=== PATIENT | female | born 1965 | race Caucasian/White ===

== ENCOUNTER → 2016-10-08 | Outpatient (CLI) | payer BC ==
--- NOTE | 2016-10-10 10:32 | MR ---
EXAMINATION TYPE: MR knee RT wo con DATE OF EXAM: 10/08/2016 8:24 AM COMPARISON: X-ray dated 09/27/2016 HISTORY: Right knee pain TECHNIQUE: Multiplanar, multisequence imaging of the knee is performed without IV contrast. FINDINGS: MEDIAL MENISCUS: There is a linear tear involving the posterior horn of the medial meniscus with exte nsion to the body. LATERAL MENISCUS: Intrasubstance linear signal involving the posterior horn does not extend to the ar ticular surface and is more typical myxoid degeneration. CRUCIATE LIGAMENTS: The anterior and posterior cruciate ligaments are intact and unremarkable. COLLATERAL LIGAMENTS: The medial collateral ligament and lateral collateral ligament complex are inta ct and unremarkable. EXTENSOR MECHANISM: Visualized quadriceps and patellar tendons are intact. EFFUSION: No significant suprapatellar joint effusion. POPLITEAL CYST: There is a 1.5 x 3.7 x 3.4 cm popliteal fossa cyst TRICOMPARTMENT SPACES: There is narrowing of the medial compartment of knee joint and patellofemoral joint. Fibrillation of the medial articular femoral cartilage noted compatible with chondromalacia. P atellar cartilage is intact with evidence of grade II chondromalacia near the apex. BONE MARROW SIGNAL: There is a small focal area of marrow edema or contusion involving the posterior medial tibial plateau. No fracture line seen. OTHER: No additional significant abnormality is appreciated. IMPRESSION: 1. Posterior horn medial meniscal linear tear. 2. Osteoarthritis with chondromalacia as discussed above 3. Large popliteal fossa cyst measuring 1.5 x 3.7 x 3.4 cm. 4. nonspecific marrow edema or contusion posterior medial tibial plateau with no fracture line. May b e reactive.
== END | disposition home or self-care (01) ==
LOC: RADMRIMAIN 07:40
PROVIDERS: ATTEND Orthopaedic Surgery
DX: S83.241A Other tear of medial meniscus, current injury, right knee, initial encounter (principal); M17.11 Unilateral primary osteoarthritis, right knee; M71.21 Synovial cyst of popliteal space [Baker], right knee

== ENCOUNTER → 2016-10-21 | Outpatient (CLI) | payer BC ==
[2016-10-21 06:45] LABS: EKG EKG PERFORMED
[2016-10-21 07:33] LABS: Basophils # (A) 0.1 k/uL (0-0.2); Basophils % (A) 1 %; CH 32.3; CHCM 34.3; Eosinophils # (A) 0.1 k/uL (0-0.7); Eosinophils % (A) 1 %; HCT 44.6 % (34.0-46.0); HDW 2.39; HGB 14.8 gm/dL (11.4-16.0); Luc # (Auto) 0.13; Luc % (Auto) 2; Lymphocytes # (A) 1.8 k/uL (1.0-4.8); Lymphocytes % (A) 22 %; MCH 31.5 pg (25.0-35.0); MCHC 33.3 g/dL (31.0-37.0); MCV 94.6 fL (80.0-100.0); Monocytes # (A) 0.4 k/uL (0-1.0); Monocytes % (A) 5 %; Neutrophils # (A) 5.8 k/uL (1.3-7.7); Neutrophils % (A) 70 %; RBC 4.71 m/uL (3.80-5.40); RDW 12.3 % (11.5-15.5); WBC 8.3 k/uL (3.8-10.6); WBC (Perox) 8.65
[2016-10-21 07:39] LABS: Anion Gap 11 mmol/L; Carbon Dioxide 29 mmol/L (22-30); Chloride 102 mmol/L (98-107); Potassium 4.1 mmol/L (3.5-5.1); Sodium 142 mmol/L (137-145)
== END | disposition home or self-care (01) ==
LOC: LABPAT 06:37
PROVIDERS: ATTEND Orthopaedic Surgery
DX: Z01.818 Encounter for other preprocedural examination (principal); M23.91 Unspecified internal derangement of right knee
CPT/HCPCS: 80051; 85025; 93005

== ENCOUNTER 2016-11-17 07:08 | Day surgery (SDC) | payer BC ==
[2016-10-31 08:31] VITALS: BMI 21.5
--- NOTE | 2016-11-16 19:34 | HP ---
DATE OF SURGERY: 11/17/2016 Jen Interiano is a 51-year-old patient seen with progressive right knee pain. After having treatment options discussed, she elected to proceed with right knee arthroscopy. Consent was obtained. Her past medical history is gastroesophageal reflux disease, seizures. PAST SURGICAL HISTORY: Breast biopsy, tubal ligation, colonoscopy, D&C. Daily medications: 1. Nexium. 2. Spironolactone. ALLERGIES: ASPIRIN. SOCIAL HISTORY: The patient smokes cigarettes. PHYSICAL EVALUATION OF RIGHT KNEE: Range of motion is 0 to 120 degrees. Tenderness along the medial joint line. Positive medial Margi's. Ligaments are stable. Hip rotation without pain. Distal neurovascular intact. Right knee radiographs revealed mild osteoarthritis. MRI right knee revealed medial meniscal tear. IMPRESSION: Internal derangement of right knee with medial meniscal tear. PLAN: Right knee arthroscopy with partial meniscectomy and debridement.
[~2016-11-17 07:08] MED LIST: DEXAMETHASONE SOD PHOSPHATE 10 MG/ML 1 ML VIAL IV ONE; HYDROmorphone 1 MG/ML 1 ML SYRINGE IVP PRN; LACTATED RINGERS 1,000 ML IV SCH; MIDAZOLAM 2 MG/2 ML VIAL IV PRN; ONDANSETRON 4 MG/2 ML VIAL IVP ONE; ceFAZolin 1,000 MG in DEXTROSE/WATER 1 50ML.BAG IV ONE
[2016-11-17] MEDS ORDERED: LIDOCAINE 1% 20 ML VIAL (10MG/ML) FOR IV START INTRADERMA ONE (08:00)
[2016-11-17] MEDS ORDERED: MIDAZOLAM 2 MG/2 ML VIAL ONE (08:44)
[2016-11-17] MEDS ORDERED: PROPOFOL 10 MG/ML 20 ML VIAL IV ONE (08:44)
[2016-11-17] MEDS ORDERED: LIDOCAINE 1% INJ 10MG/ML (20 ML MDV) ONE (08:44)
[2016-11-17] MEDS ORDERED: fentaNYL (PF) 50 MCG/ML 2 ML AMP ONE (08:44)
[2016-11-17] MEDS ORDERED: BUPIVACAIN-EPI 0.25%-1:200,000 30 ML VIAL INTRAARTIC ONE (09:00)
--- NOTE | 2016-11-17 09:37 | P.OP ---
Date of Procedure: 11/17/16 Preoperative Diagnosis: Internal derangement right knee Postoperative Diagnosis: 1. Tear medial and lateral meniscus right knee 2. Grade 3/4 chondromalacia medial femoral condyle right knee 3. Reactive synovitis medial and suprapatellar compartments right knee Procedure(s) Performed: 1. Arthroscopic partial medial and lateral meniscectomy right knee 2. Arthroscopic chondroplasty medial femoral condyle with microfracture right knee 3. Arthroscopic partial synovectomy medial and suprapatellar compartments right knee Anesthesia: BEKAHA, local Surgeon: Jim Vee Estimated Blood Loss (ml): 5 Pathology: none sent Condition: stable Disposition: PACU Indications for Procedure: 51-year-old patient seen with right knee pain. After having treatment options discussed, she elected to proceed with right knee arthroscopy. Operative Findings: See description of procedure Description of Procedure: Patient was taken to the operative suite. Patient underwent a general anesthetic by the department of anesthesia. Patient was given preoperative antibiotics. The right lower extremity was placed in a well-padded arthroscopic leg santizo. The right leg was prepped and draped in the normal sterile orthopedic fashion. A lateral parapatellar and suprapatellar incision was made. Trochars were inserted. Arthroscopy was initiated. Suprapatellar pouch revealed thick reactive synovitis. The patellofemoral joint appeared to articulate congruently. There was grade 1 chondromalacia. The scope was guided into the medial gutter. No loose bodies or plica were identified. The scope was then guided into the medial compartment. A medial parapatellar incision was made. Trocar inserted followed by probe. There was a complex tear of the medial meniscus involving the posterior horn and midbody. There were grade 3 and 4 chondromalacia changes of the medial femoral condyle with obvious osteochondral tears present. There was reactive synovitis anteriorly. A partial medial meniscectomy was performed down to stable tissue. I performed a chondroplasty of the medial femoral condyle and partial synovectomy. There was small area where did note an obvious full-thickness osteochondral defect weightbearing surface medial femoral condyle. I performed a microfracture there. The residual osteochondral surface was stable. Scope and probe were then guided into the intercondylar notch. Cruciates were identified, probed and found to be stable. The scope and probe were then guided into lateral compartment. There was a radial tear posterior horn medial meniscus. Mild grade 1 chondromalacia changes of the tibial plateau. No loose bodies, no reactive synovitis. A partial lateral meniscectomy was performed down to stable tissue. The residual meniscus was probed and found to be stable. The scope was in guided back into the suprapatellar compartment. I introduced a motorized shaver into the suprapatellar compartment. I debrided some piecemeal fragments of meniscus. I performed a partial synovectomy. Shaver was removed. I took one more look around the entire knee, no residual debris. Instruments were now removed from the joint. The joint was infiltrated with .25% Marcaine. Steri-Strips were applied to the portal sites. Sterile dressings were applied. The patient was placed into a DAYSI hose. No tourniquet was utilized. The patient was awakened, transferred to a bed and taken to recovery stable satisfactory condition.
[2016-11-17] MEDS ORDERED: MEPERIDINE 50 MG/ML SYRINGE IVP ONE (09:39)
[2016-11-17 09:42] VITALS: RESP 16; TEMP 99.1
[2016-11-17 10:53] VITALS: BP 128/80; PULSE 79
== END 2016-11-17 11:21 | disposition home or self-care (01) ==
LOC: OR 07:08
PROVIDERS: ATTEND Orthopaedic Surgery
DX: S83.241A Other tear of medial meniscus, current injury, right knee, initial encounter (principal); S83.281A Other tear of lateral meniscus, current injury, right knee, initial encounter; X58.XXXA Exposure to other specified factors, initial encounter; M94.261 Chondromalacia, right knee; M65.861 Other synovitis and tenosynovitis, right lower leg; M21.961 Unspecified acquired deformity of right lower leg; K21.9 Gastro-esophageal reflux disease without esophagitis; F17.210 Nicotine dependence, cigarettes, uncomplicated; Z79.899 Other long term (current) drug therapy; Z88.6 Allergy status to analgesic agent
CPT/HCPCS: 29880; J2250; J1100; J2175; J2405; J2001; J3010; J0690; J2704

== ENCOUNTER → 2017-04-07 | Outpatient (CLI) | payer BC ==
[2017-04-07 07:07] LABS: Basophils # (A) 0.1 k/uL (0-0.2); Basophils % (A) 1 %; CHCM 34.1; Eosinophils # (A) 0.2 k/uL (0-0.7); Eosinophils % (A) 2 %; HCT 46.2 % (34.0-46.0); HDW 2.41; HGB 15.6 gm/dL (11.4-16.0); Luc # (Auto) 0.15; Luc % (Auto) 2; Lymphocytes # (A) 1.8 k/uL (1.0-4.8); Lymphocytes % (A) 19 %; MCH 31.9 pg (25.0-35.0); MCHC 33.9 g/dL (31.0-37.0); MCV 94.3 fL (80.0-100.0); Mean Platelet Volume 6.9; Monocytes # (A) 0.4 k/uL (0-1.0); Monocytes % (A) 4 %; Neutrophils # (A) 6.6 k/uL (1.3-7.7); Neutrophils % (A) 72 %; RDW 12.7 % (11.5-15.5); WBC 9.3 k/uL (3.8-10.6); WBC (Perox) 10.04
[2017-04-07 07:31] LABS: ALT 40 U/L (9-52); AST 30 U/L (14-36); Alkaline Phosphatase 66 U/L (38-126); Anion Gap 10 mmol/L; Blood Urea Nitrogen 8 mg/dL (7-17); Carbon Dioxide 26 mmol/L (22-30); Chloride 103 mmol/L (98-107); Cholesterol 202 mg/dL (<200); Glucose 89 mg/dL (74-99); HDL Cholesterol 106 mg/dL (40-60); Non-African American GFR(MDRD) >60 (>60 ml/min/1.73 sqM); Potassium 4.5 mmol/L (3.5-5.1); Sodium 139 mmol/L (137-145); Total Bilirubin 0.6 mg/dL (0.2-1.3); Total Protein 7.5 g/dL (6.3-8.2)
== END | disposition home or self-care (01) ==
LOC: LABWHC1 06:37
PROVIDERS: ATTEND Family Medicine
DX: Z00.00 Encounter for general adult medical examination without abnormal findings (principal)
CPT/HCPCS: 36415; 80053; 80061; 85025

== ENCOUNTER → 2017-10-13 | Outpatient (CLI) | payer BC ==
[2017-10-13 08:10] LABS: ALT 38 U/L (9-52); AST 39 U/L (14-36); Albumin 4.2 g/dL (3.5-5.0); Alkaline Phosphatase 73 U/L (38-126); Anion Gap 10 mmol/L; Blood Urea Nitrogen 8 mg/dL (7-17); Calcium 7.8 mg/dL (8.4-10.2); Carbon Dioxide 27 mmol/L (22-30); Chloride 103 mmol/L (98-107); Cholesterol 192 mg/dL (<200); Glucose 81 mg/dL (74-99); HDL Cholesterol 97 mg/dL (40-60); LDL Cholesterol,Calculated 81 mg/dL (0-99); Potassium 4.8 mmol/L (3.5-5.1); Sodium 140 mmol/L (137-145); Total Bilirubin 0.5 mg/dL (0.2-1.3); Total Protein 7.1 g/dL (6.3-8.2); Triglycerides 68 mg/dL (<150)
== END | disposition home or self-care (01) ==
LOC: LABWHC1 06:42
PROVIDERS: ATTEND Family Medicine
DX: Z00.00 Encounter for general adult medical examination without abnormal findings (principal)
CPT/HCPCS: 36415; 80053; 80061

== ENCOUNTER → 2018-08-01 | Outpatient (CLI) | payer BC ==
[2018-08-01 07:13] LABS: Basophils # (A) 0.1 k/uL (0-0.2); Basophils % (A) 1 %; Eosinophils # (A) 0.1 k/uL (0-0.7); Eosinophils % (A) 1 %; HCT 44.7 % (34.0-46.0); HGB 14.6 gm/dL (11.4-16.0); Lymphocytes # (A) 1.7 k/uL (1.0-4.8); Lymphocytes % (A) 22 %; MCH 30.9 pg (25.0-35.0); MCHC 32.6 g/dL (31.0-37.0); MCV 94.7 fL (80.0-100.0); Mean Platelet Volume 6.6; Monocytes # (A) 0.3 k/uL (0-1.0); Monocytes % (A) 4 %; Neutrophils # (A) 5.7 k/uL (1.3-7.7); Neutrophils % (A) 71 %; Platelet Count 338 k/uL (150-450); RBC 4.72 m/uL (3.80-5.40); RDW 12.4 % (11.5-15.5)
[2018-08-01 14:13] LABS: Albumin 4.5 g/dL (3.80-4.90); Albumin/Globulin Ratio 2.14 (1.20-2.10); Anion Gap 8.1 mmol/L (4.00-12.00); Calcium 7.6 mg/dL (8.7-10.3); Carbon Dioxide 23.9 mmol/L (21.6-31.8); Globulin 2.1 g/dL (1.6-3.3); LDL Cholesterol,Calculated 80.6 mg/dL (0.0-131.0); Potassium 4.4 mmol/L (3.5-5.5); Total Bilirubin 0.4 mg/dL (0.3-1.2); Total Protein 6.6 g/dL (6.2-8.2); VLDL Calculation 15.4 mg/dL (5.00-40.00)
== END | disposition home or self-care (01) ==
LOC: LABWHC1 06:34
PROVIDERS: ATTEND Family Medicine
DX: Z00.00 Encounter for general adult medical examination without abnormal findings (principal)
CPT/HCPCS: 36415; 80053; 80061; 85025

== ENCOUNTER → 2019-08-01 | Outpatient (CLI) | payer BC ==
[2019-08-01 07:01] LABS: Basophils % (A) 1 %; Eosinophils # (A) 0.1 k/uL (0-0.7); Eosinophils % (A) 1 %; HCT 44.4 % (34.0-46.0); HGB 15.1 gm/dL (11.4-16.0); Lymphocytes # (A) 1.9 k/uL (1.0-4.8); Lymphocytes % (A) 21 %; MCH 32.4 pg (25.0-35.0); MCHC 33.9 g/dL (31.0-37.0); MCV 95.4 fL (80.0-100.0); Mean Platelet Volume 7.4; Monocytes # (A) 0.3 k/uL (0-1.0); Monocytes % (A) 3 %; Neutrophils # (A) 6.4 k/uL (1.3-7.7); Neutrophils % (A) 73 %; Platelet Count 337 k/uL (150-450); RBC 4.65 m/uL (3.80-5.40); RDW 12.5 % (11.5-15.5); WBC 8.8 k/uL (3.8-10.6)
[2019-08-01 12:30] LABS: African American GFR (CKD) 82.8 (60.0-200.0); Albumin 4.5 g/dL (3.80-4.90); Albumin/Globulin Ratio 1.96 (1.60-3.17); Anion Gap 6.8 mmol/L (4.00-12.00); BUN/Creat Ratio 8.89 Ratio (12.00-20.00); Calcium 7.8 mg/dL (8.7-10.3); Carbon Dioxide 26.2 mmol/L (21.6-31.8); Chol/HDL Ratio 2.06; Globulin 2.3 g/dL (1.6-3.3); LDL Cholesterol,Calculated 88.2 mg/dL (0.0-131.0); Non-African American GFR(CKD) 71.5 (60.0-200.0); Potassium 4.4 mmol/L (3.5-5.5); Total Bilirubin 0.4 mg/dL (0.3-1.2); Total Protein 6.8 g/dL (6.2-8.2); VLDL Calculation 17.8 mg/dL (5.00-40.00)
== END | disposition home or self-care (01) ==
LOC: LABWHC1 06:34
PROVIDERS: ATTEND Family Medicine
DX: Z00.00 Encounter for general adult medical examination without abnormal findings (principal)
CPT/HCPCS: 36415; 80053; 80061; 85025

== ENCOUNTER 2020-06-18 07:52 | Observation (INO) | payer BC ==
[2020-06-18] MEDS ORDERED: HYDROmorphone 0.5 MG/0.5 ML SYRINGE IVP STA (08:08)
[2020-06-18] MEDS ORDERED: SODIUM CHLORIDE 0.9% 500 ML 500 ML IV ONE (08:08)
[2020-06-18] MEDS ORDERED: ONDANSETRON 4 MG/2 ML VIAL IVP STA (08:08)
[2020-06-18] MEDS ORDERED: PIPERACILLIN-TAZOBACTAM 3.375 GM in SODIUM CHLORIDE 0.9% 100 ML IVPB STA (08:27)
--- NOTE | 2020-06-18 08:32 | ED ---
Abdominal Pain HPI - General Source: patient Mode of arrival: ambulatory Limitations: no limitations <Dionna Powell - Last Filed: 06/18/20 10:29> <Annalee Clayah Akira - Last Filed: 06/20/20 12:55> - General Chief Complaint: Abdominal Pain Stated Complaint: R Side Abd Pain Time Seen by Provider: 06/18/20 08:04 - History of Present Illness Initial Comments: 55yo female presenting RLQ pain x 5 days. Patient states that for the past 5 days she has had right lower quadrant pain has increased now she states she can barely walk secondary to the pain she denies any chest pain shortness of breath up her bowel pain she denies history of kidney stone she states she does have her appendix which she is concerned about. She denies fevers. Denies uri symptoms, denies urinary symptoms. Patient appears very uncomfortable on arrival. (Dionna Powell) - Related Data Home Medications Medication Instructions Recorded Confirmed Calcium Carb-Vit D 500Mg-200Un 2 tab PO DAILY 10/31/16 06/18/20 [Oscal 500+D] Inulin/Chromium Picolinate [Fiber 2 tab PO DAILY 10/31/16 06/18/20 Gummies Chew] Multivit with Calcium,Iron,Min 1 each PO DAILY 10/31/16 06/18/20 [Women's Multivitamin] [place]-3 Fatty Acids/Fish Oil [Fish 3 cap PO DAILY 10/31/16 06/18/20 Oil 1,000 mg Softgel] Guaifenesin/Pseudoephedrne HCl 1 tab PO BID 06/18/20 06/18/20 [Mucinex D ER 1,200-120 mg Tab] Spironolactone [Aldactone] 75 mg PO DAILY 06/18/20 06/18/20 Previous Rx's Medication Instructions Recorded Albuterol Inhaler [Ventolin Hfa 2 puff INHALATION Q4H PRN #1 puff 06/19/20 Inhaler] Budesonide-Formot 160-4.5 Mcg 1 puff INHALATION RT-BID #1 puff 06/19/20 [Symbicort 160-4.5 Mcg Inhaler] Famotidine [Pepcid] 20 mg PO BID #60 tab 06/19/20 Nicotine 21Mg/24Hr Patch [Habitrol] 1 patch TRANSDERM DAILY #14 patch 06/19/20 Zinc Sulfate [Orazinc] 220 mg PO DAILY #30 cap 06/19/20 predniSONE 10 mg PO DAILY #30 tab 06/19/20 Allergies Allergy/AdvReac Type Severity Reaction Status Date / Time aspirin AdvReac GI upset Verified 06/18/20 09:43 monosodium glutamate [MSG] AdvReac GI upset Verified 06/18/20 09:43 Review of Systems ROS Other: All systems not noted in ROS Statement are negative. <Dionna Powell - Last Filed: 06/18/20 10:29> ROS Other: All systems not noted in ROS Statement are negative. <Carmelina Clay - Last Filed: 06/20/20 12:55> ROS Statement: Those systems with pertinent positive or pertinent negative responses have been documented in the HPI. Past Medical History Past Medical History: No Reported History History of Any Multi-Drug Resistant Organisms: None Reported Past Surgical History: Orthopedic Surgery, Tubal Ligation Additional Past Surgical History / Comment(s): right knee, trigger finger Past Psychological History: No Psychological Hx Reported Smoking Status: Current every day smoker Past Alcohol Use History: Occasional Past Drug Use History: None Reported <Dionna Powell - Last Filed: 06/18/20 10:29> General Exam Limitations: no limitations <Dionna Powell - Last Filed: 06/18/20 10:29> - General Exam Comments Initial Comments: General: The patient is awake and alert, in no distress Eye: Pupils are equal, round and reactive to light, extra-ocular movements are intact. No nystagmus. There is normal conjunctiva bilaterally. No signs of icterus. Ears, nose, mouth and throat: There are moist mucous membranes and no oral lesions. Neck: The neck is supple, there is no tenderness or JVD. Cardiovascular: There is a regular rate and rhythm. No murmur, rub or gallop is appreciated. Respiratory: Lungs are clear to auscultation, respirations are non-labored, breath sounds are equal. No wheezes, stridor, rales, or rhonchi. Gastrointestinal: Soft, non-distended, very tendon right side of abdomen, mostly lower, liver does appear enlarged to palpation. Pt guarding. NoSome ride sided CVA tenderness. Musculoskeletal: Normal ROM, no tenderness. Strength 5/5. Sensation intact. Pulses equal bilaterally 2+. Neurological: A&O x 3. CN II-XII intact, There are no obvious motor or sensory deficits. Coordination appears grossly intact. Speech is normal. Skin: Skin is warm and dry and no rashes or lesions are noted. Psychiatric: Cooperative, appropriate mood & affect, normal judgment. (Dionna Powell) Course <Dionna Powell - Last Filed: 06/18/20 10:29> Vital Signs 06/18/20 06/18/20 06/18/20 07:57 12:41 13:37 Temperature 98.4 F Pulse Rate 106 H 98 Respiratory 18 18 Rate Blood Pressure 136/85 140/90 O2 Sat by Pulse 97 94 L 98 Oximetry - Reevaluation(s) Reevaluation #1: pain much better on reevaluation, discussed concern for cancer, ordered medications for anxiety. covid swab pending no symptoms. (Dionna Powell) Medical Decision Making - Lab Data Result diagrams: 06/18/20 08:33 06/18/20 08:33 <Dionna Powell - Last Filed: 06/18/20 10:29> - Lab Data Result diagrams: 06/18/20 08:33 06/18/20 08:33 <Carmelina Clay - Last Filed: 06/20/20 12:55> - Medical Decision Making Labs stable. some increase in alkaline phos. there is nitrates in urine concerning for UTI. Patient given abx IV. Patient has appears to be liver metastasis with unclear origin possible right kidney. Patient's pain controlled, she states only increases now with movement. Patient very anxious after discussing CT results patient given anxiety medications. Patient will be admitted for oncology consultation and pain management. Patient agreeable to care plan. (Dionna Powell) I was available for consultation in the emergency department. The history and physical exam were done by the midlevel provider. I was consulted for this patients care. I reviewed the case with the midlevel provider and based on t heir presentation of the patient, I agree with the assessment, medical decision making and plan of care as documented. Chart was dictated using fl3ur dictation software. Attempts were made to corre ct any dictation errors however some typographical errors may persist. Patient was seen during a national state of emergency due to the Covid-19 pandemic. (Carmelina Clay) - Lab Data Lab Results 06/18/20 06/18/20 06/18/20 Range/Units 08:33 08:33 08:33 WBC 11.9 H (3.8-10.6) k/uL RBC 4.74 (3.80-5.40) m/uL Hgb 14.9 (11.4-16.0) gm/dL Hct 43.8 (34.0-46.0) % MCV 92.6 (80.0-100.0) fL MCH 31.5 (25.0-35.0) pg MCHC 34.0 (31.0-37.0) g/dL RDW 11.9 (11.5-15.5) % Plt Count 373 (150-450) k/uL MPV 6.6 Neutrophils % 88 % Lymphocytes % 7 % Monocytes % 2 % Eosinophils % 1 % Basophils % 1 % Neutrophils # 10.5 H (1.3-7.7) k/uL Lymphocytes # 0.9 L (1.0-4.8) k/uL Monocytes # 0.3 (0-1.0) k/uL Eosinophils # 0.1 (0-0.7) k/uL Basophils # 0.1 (0-0.2) k/uL Sodium 129 L (137-145) mmol/L Potassium 5.0 (3.5-5.1) mmol/L Chloride 94 L (98-107) mmol/L Carbon Dioxide 25 (22-30) mmol/L Anion Gap 10 mmol/L BUN 11 (7-17) mg/dL Creatinine 0.82 (0.52-1.04) mg/dL Est GFR (CKD-EPI)AfAm >90 (>60 ml/min/1.73 sqM) Est GFR (CKD-EPI)NonAf 80 (>60 ml/min/1.73 sqM) Glucose 123 H (74-99) mg/dL Plasma Lactic Acid Uday (0.7-2.0) mmol/L Calcium 8.5 (8.4-10.2) mg/dL Total Bilirubin 0.7 (0.2-1.3) mg/dL AST 84 H (14-36) U/L ALT 30 (4-34) U/L Alkaline Phosphatase 220 H (38-126) U/L Total Protein 7.9 (6.3-8.2) g/dL Albumin 4.5 (3.5-5.0) g/dL Amylase 69 (30-110) U/L Lipase 199 (23-300) U/L Urine Color Yellow Urine Appearance Cloudy H (Clear) Urine pH 6.0 (5.0-8.0) Ur Specific [place] 1.022 (1.001-1.035) Urine Protein 1+ H (Negative) Urine Glucose (UA) Negative (Negative) Urine Ketones 1+ H (Negative) Urine Blood Negative (Negative) Urine Nitrite Positive H (Negative) Urine Bilirubin Negative (Negative) Urine Urobilinogen <2.0 (<2.0) mg/dL Ur Leukocyte Esterase Large H (Negative) Urine RBC 4 (0-5) /hpf Urine WBC 76 H (0-5) /hpf Urine WBC Clumps Rare H (None) /hpf Ur Squamous Epith Cells 6 H (0-4) /hpf Urine Bacteria Many H (None) /hpf Hyaline Casts 12 H (0-2) /lpf Urine Mucus Many H (None) /hpf 06/18/ Range/Units 08:33 WBC (3.8-10.6) k/uL RBC (3.80-5.40) m/uL Hgb (11.4-16.0) gm/dL Hct (34.0-46.0) % MCV (80.0-100.0) fL MCH (25.0-35.0) pg MCHC (31.0-37.0) g/dL RDW (11.5-15.5) % Plt Count (150-450) k/uL MPV Neutrophils % % Lymphocytes % % Monocytes % % Eosinophils % % Basophils % % Neutrophils # (1.3-7.7) k/uL Lymphocytes # (1.0-4.8) k/uL Monocytes # (0-1.0) k/uL Eosinophils # (0-0.7) k/uL Basophils # (0-0.2) k/uL Sodium (137-145) mmol/L Potassium (3.5-5.1) mmol/L Chloride (98-107) mmol/L Carbon Dioxide (22-30) mmol/L Anion Gap mmol/L BUN (7-17) mg/dL Creatinine (0.52-1.04) mg/dL Est GFR (CKD-EPI)AfAm (>60 ml/min/1.73 sqM) Est GFR (CKD-EPI)NonAf (>60 ml/min/1.73 sqM) Glucose (74-99) mg/dL Plasma Lactic Acid Uday 1.3 (0.7-2.0) mmol/L Calcium (8.4-10.2) mg/dL Total Bilirubin (0.2-1.3) mg/dL AST (14-36) U/L ALT (4-34) U/L Alkaline Phosphatase (38-126) U/L Total Protein (6.3-8.2) g/dL Albumin (3.5-5.0) g/dL Amylase (30-110) U/L Lipase (23-300) U/L Urine Color Urine Appearance (Clear) Urine pH (5.0-8.0) Ur Specific [place] (1.001-1.035) Urine Protein (Negative) Urine Glucose (UA) (Negative) Urine Ketones (Negative) Urine Blood (Negative) Urine Nitrite (Negative) Urine Bilirubin (Negative) Urine Urobilinogen (<2.0) mg/dL Ur Leukocyte Esterase (Negative) Urine RBC (0-5) /hpf Urine WBC (0-5) /hpf Urine WBC Clumps (None) /hpf Ur Squamous Epith Cells (0-4) /hpf Urine Bacteria (None) /hpf Hyaline Casts (0-2) /lpf Urine Mucus (None) /hpf Disposition Is patient prescribed a controlled substance at d/c from ED?: No Time of Disposition: 09:47 Decision to Admit Reason: Admit from EC Decision Date: 06/18/20 Decision Time: :47 <Dionna Powell - Last Filed: 06/18/20 10:29> <Carmelina Clay - Last Filed: 06/20/20 12:55> Clinical Impression: UTI (urinary tract infection), Liver metastases, Renal mass, Abdominal pain, Ileus Disposition: ADMITTED IP TO THIS [facility] Condition: Stable
[2020-06-18 08:43] LABS: Basophils # (A) 0.1 k/uL (0-0.2); Basophils % (A) 1 %; Eosinophils # (A) 0.1 k/uL (0-0.7); Eosinophils % (A) 1 %; HCT 43.8 % (34.0-46.0); HGB 14.9 gm/dL (11.4-16.0); Lymphocytes # (A) 0.9 k/uL (1.0-4.8); Lymphocytes % (A) 7 %; MCH 31.5 pg (25.0-35.0); MCV 92.6 fL (80.0-100.0); Mean Platelet Volume 6.6; Monocytes # (A) 0.3 k/uL (0-1.0); Monocytes % (A) 2 %; Neutrophils # (A) 10.5 k/uL (1.3-7.7); Neutrophils % (A) 88 %; Platelet Count 373 k/uL (150-450); RBC 4.74 m/uL (3.80-5.40); RDW 11.9 % (11.5-15.5); WBC 11.9 k/uL (3.8-10.6)
[2020-06-18] MEDS: SODIUM CHLORIDE 0.9% 1,000 ML IV SCH ×3 (08:50→20:44)
[2020-06-18 08:56] LABS: Appearance,Urine Cloudy (Clear); Bacteria,Urine Many /hpf; Bilirubin,Urine Negative (Negative); Blood,Urine Negative (Negative); Color,Urine Yellow; Glucose,Urine (UA) Negative (Negative); Hyaline Casts,Urine 12 /lpf (0-2); Ketones,Urine 1+ (Negative); Leukocyte Esterase,Urine Large (Negative); Mucus,Urine Many /hpf; Nitrite,Urine Positive (Negative); Protein,Urine 1+ (Negative); RBC,Urine 4 /hpf (0-5); Specific Gravity,Urine 1.022 (1.001-1.035); Squamous Epithelial Cell,Urine 6 /hpf (0-4); Urobilinogen,Urine <2.0 mg/dL (<2.0); WBC,Urine 76 /hpf (0-5)
[2020-06-18 08:59] LABS: ALT 30 U/L (4-34); AST 84 U/L (14-36); African American GFR (CKD) >90 (>60 ml/min/1.73 sqM); Albumin 4.5 g/dL (3.5-5.0); Alkaline Phosphatase 220 U/L (38-126); Amylase 69 U/L (30-110); Anion Gap 10 mmol/L; Blood Urea Nitrogen 11 mg/dL (7-17); Calcium 8.5 mg/dL (8.4-10.2); Carbon Dioxide 25 mmol/L (22-30); Chloride 94 mmol/L (98-107); Glucose 123 mg/dL (74-99); Lipase 199 U/L (23-300); Non-African American GFR(CKD) 80 (>60 ml/min/1.73 sqM); Sodium 129 mmol/L (137-145); Total Bilirubin 0.7 mg/dL (0.2-1.3); Total Protein 7.9 g/dL (6.3-8.2)
[2020-06-18] MEDS ORDERED: cefTRIAXone IN SWFI 1,000 MG/10 ML SYRINGE IVP STA (09:26)
--- NOTE | 2020-06-18 09:43 | CT ---
EXAMINATION TYPE: CT abdomen pelvis w con DATE OF EXAM: 06/18/2020 COMPARISON: None INDICATION: Right lower quadrant pain DLP: 589.9 mGycm, Automated exposure control for dose reduction was used. CONTRAST: 100 mL of Isovue 300. Study performed without Oral Contrast TECHNIQUE: Axial images were obtained from above the diaphragm to the pubic rami in the axial plane a t 5 mm thick sections. Reconstructed images are reviewed on the computer in the coronal plane. FINDINGS: Limited CT sections are obtained the lung bases. There is a 0.3 cm nodule within the right middle lo be. Series [address] ABDOMEN: Liver: Large heterogenous masses are present. The largest in the posterior right mid liver measures 1 0.9 cm. Additional adjacent masses are present. Large mass anterior medial right lobe measures 9.2 x 13.7 cm. Left lobe contains a 2.3 cm mass. There may be some direct extension from a right renal mass . Alternatively, the mass within the liver may be exophytic. Spleen: Normal Pancreas: Normal Adrenal glands: Left adrenal gland is normal. Right adrenal gland is not identified. Gallbladder: Not identified Kidneys: There is hypodensity in the cortex of the superior right kidney. Clear whether the mass extends from the kidney and liver or liver mass is impinging the superior pole of the kidney. Extension from the kidney is favored.. No hydronephrosis is present. No cysts are p resent. Aorta: Normal Inferior vena cava: Normal. CT PELVIS: Small bowel loops are dilated. May be some colonic wall thickening within the splenic flexure. Fluid- filled colon is present. Some fluid-filled prominent small bowel loops within the lower pelvis. The s tudy is without oral contrast limiting bowel evaluation. Appendix: Normal as visualized. Urinary bladder: Partially decompressed with limited evaluation Genitourinary structures: Uterus appears normal. Adnexal regions appear within normal limits. No free fluid is within the pelvis. Osseous structures: No suspicious lytic or sclerotic lesions. Suspicious lymphadenopathy is not identified. Report was called to the emergency room [facility]ERLINE Powell by Dr. Mensah by telephone at the time of interpre tation. [id number] hours 06/18/2020 IMPRESSIONS: 1. Normal appendix. 2. Large masses within the liver suspicious for metastatic disease. 3. Posterior right hepatic mass versus mass extending from the superior pole right kidney. 4. Edematous type thickening of the splenic flexure of the colon. 5. Mild small bowel ileus.
[2020-06-18] MEDS ORDERED: NALOXONE 0.4 MG/ML 1 ML VIAL IV PRN (09:45)
[2020-06-18] MEDS ORDERED: HYDROmorphone 0.5 MG/0.5 ML SYRINGE IVP PRN (09:45)
[2020-06-18] MEDS ORDERED: ONDANSETRON 4 MG/2 ML VIAL IVP PRN (09:45)
[2020-06-18] MEDS: ALPRAZolam 0.5 MG TAB PO PRN (10:13)
[2020-06-18] MEDS ORDERED: ALBUTEROL NEBULIZED 2.5 MG/3 ML INHALATION SCH (22:48)
--- NOTE | 2020-06-18 22:50 | P.HPIM ---
History of Present Illness H&P Date: 06/18/20 Chief Complaint: Abdominal pain History of presenting complaint: This is a 55-year-old patient of Dr. Fajardo. Patient been having increasing abdominal pain on and off for about a week. Some nausea. No fever no chills. Decreased appetite. Long-standing smoker. Had some shortness of breath and wheezing that she says is present most of the time. Pain is affecting her activity. Presented to the ER. Predominantly on the right side of the abdomen. No radiation. No change in bowel pattern. 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 Smoker. No alcohol. Physical examination: VITAL SIGNS: 98.4, 106, 18, 136/85, 97% on room air GENERAL: BMI 20.3, laying in bed, tired appearing. EYES: [Pupils equal. Conjunctiva pale l. HEENT: External appearance of nose and ears normal, oral cavity grossly normal. NECK: JVD not raised; masses not palpable. HEART: First and second heart sounds are normal; no edema. LUNGS: Respiratory rate increased, decreased breath sounds on expiration and wheezing. ABDOMEN: Soft, diffuse tenderness, underlying mass effect in the right side, liver spleen not palpable, no masses palpable. PSYCH: Alert and oriented x3; mood and affect anxiousl. NEUROLOGICAL: Cranial nerves grossly intact; no facial asymmetry, power and sensation grossly intact. LYMPHATICS: No lymph nodes palpable in the axilla and neck INVESTIGATIONS, reviewed in the clinical context: White count 11.9 hemoglobin 14.9 platelets 373 Sodium 129 potassium 5 creatinine 0.8 to UA positive for leukoesterase WBC COVID 19 P/Cr-not detected Computed tomography scan of the abdomen with contrast-large heterogenous masses are present. Posterior right mid liver measures 10.9 cm additional edges masses are present.. There may be some diabetes extension from a right renal mass. Assessment: -Patient presented with increasing abdominal pain for at least a week. Found to have a large mass/masses affecting the liver possibly coming from the right kidney. -Chronic nicotine dependence patient cigarette smoker -Acute COPD exacerbation in a current smoker -Hyponatremia -Acute UTI with cystitis -COVID 19 positive. Baseline respiratory symptoms Plan: Patient started IV Solu-Medrol, Ventolin and Spiriva. Subcu Lovenox. Nicotine patch. Consultation is made to oncology and nephrology. Care was discussed with the patient and questions answered. Pain control. Past Medical History Past Medical History: No Reported History History of Any Multi-Drug Resistant Organisms: None Reported Past Surgical History: Orthopedic Surgery, Tubal Ligation Additional Past Surgical History / Comment(s): right knee, trigger finger Past Psychological History: No Psychological Hx Reported Smoking Status: Current every day smoker Past Alcohol Use History: Occasional Past Drug Use History: None Reported - Past Family History Father Family Medical History: Coronary Artery Disease (CAD) Medications and Allergies Home Medications Medication Instructions Recorded Confirmed Type Calcium Carb-Vit D 500Mg-200Un 2 tab PO DAILY 10/31/16 06/18/20 History [Oscal 500+D] Inulin/Chromium Picolinate [Fiber 2 tab PO DAILY 10/31/16 06/18/20 History Gummies Chew] Multivit with Calcium,Iron,Min 1 each PO DAILY 10/31/16 06/18/20 History [Women's Multivitamin] [place]-3 Fatty Acids/Fish Oil [Fish 3 cap PO DAILY 10/31/16 06/18/20 History Oil 1,000 mg Softgel] Guaifenesin/Pseudoephedrne HCl 1 tab PO BID 06/18/20 06/18/20 History [Mucinex D ER 1,200-120 mg Tab] Spironolactone [Aldactone] 75 mg PO DAILY 06/18/20 06/18/20 History Allergies Allergy/AdvReac Type Severity Reaction Status Date / Time aspirin AdvReac GI upset Verified 06/18/20 09:43 monosodium glutamate [MSG] AdvReac GI upset Verified 06/18/20 09:43 Physical Exam Vitals: Vital Signs Temp Pulse Resp BP Pulse Ox 06/18/20 07:57 98.4 F 106 H 18 136/85 97 Intake and Output 06/17/20 06/18/20 06/18/20 22:59 06:59 14:59 Other: Weight 50.349 kg Results CBC & Chem 7: 06/18/20 08:33 06/18/20 08:33 Labs: Abnormal Lab Results - Last 24 Hours (Table) 06/18/20 06/18/20 06/18/20 Range/Units 08:33 08:33 08:33 WBC 11.9 H (3.8-10.6) k/uL Neutrophils # 10.5 H (1.3-7.7) k/uL Lymphocytes # 0.9 L (1.0-4.8) k/uL Sodium 129 L (137-145) mmol/L Chloride 94 L (98-107) mmol/L Glucose 123 H (74-99) mg/dL AST 84 H (14-36) U/L Alkaline Phosphatase 220 H (38-126) U/L Urine Appearance Cloudy H (Clear) Urine Protein 1+ H (Negative) Urine Ketones 1+ H (Negative) Urine Nitrite Positive H (Negative) Ur Leukocyte Esterase Large H (Negative) Urine WBC 76 H (0-5) /hpf Urine WBC Clumps Rare H (None) /hpf Ur Squamous Epith Cells 6 H (0-4) /hpf Urine Bacteria Many H (None) /hpf Hyaline Casts 12 H (0-2) /lpf Urine Mucus Many H (None) /hpf Coronavirus (PCR) (Not Detectd) 06/18/20 Range/Units 10:16 WBC (3.8-10.6) k/uL Neutrophils # (1.3-7.7) k/uL Lymphocytes # (1.0-4.8) k/uL Sodium (137-145) mmol/L Chloride (98-107) mmol/L Glucose (74-99) mg/dL AST (14-36) U/L Alkaline Phosphatase (38-126) U/L Urine Appearance (Clear) Urine Protein (Negative) Urine Ketones (Negative) Urine Nitrite (Negative) Ur Leukocyte Esterase (Negative) Urine WBC (0-5) /hpf Urine WBC Clumps (None) /hpf Ur Squamous Epith Cells (0-4) /hpf Urine Bacteria (None) /hpf Hyaline Casts (0-2) /lpf Urine Mucus (None) /hpf Coronavirus (PCR) Detected A (Not Detectd)
[2020-06-19] MEDS: ENOXAPARIN 40 MG/0.4 ML SYRINGE SQ SCH ×2 (00:17→08:57)
[2020-06-19] MEDS: FAMOTIDINE 20 MG TAB PO SCH ×2 (00:17→08:57)
[2020-06-19] MEDS: methylPREDNISolone SOD SUCCI 40 MG/ML 1 ML VIAL IV SCH ×4 (00:17→15:12)
[2020-06-19] MEDS: NICOTINE 21MG/24HR PATCH TRANSDERM SCH ×2 (00:17→08:58)
[2020-06-19] MEDS: ZINC SULFATE 220 MG CAP PO SCH ×2 (00:18→08:58)
[2020-06-19] MEDS: ALBUTEROL HFA INHALER INHALATION SCH ×5 (08:44→19:51)
[2020-06-19] MEDS: SYMBICORT 160-4.5 MCG INHALER INHALATION SCH ×2 (08:44→19:51)
[2020-06-19] MEDS: SODIUM CHLORIDE 0.9% 1,000 ML IV SCH ×2 (08:57→15:05)
[2020-06-19 11:00] VITALS: RESP 17
[2020-06-19] MEDS ORDERED: PSEUDOEPHEDRINE 12HR 120 MG TABLET.ER PO SCH (13:00)
[2020-06-19] MEDS ORDERED: guaiFENesin 600 MG TABLET.ER PO SCH (13:00)
[2020-06-19] MEDS: ALPRAZolam 0.5 MG TAB PO PRN (13:06)
--- NOTE | 2020-06-19 18:08 | P.CONS ---
History of Present Illness - Reason for Consult Consult date: 06/19/20 liver mass - History of Present Illness the patient is a 55-year-old white female with overall well controlled medical problems at baseline. She states that she had developed right-sided abdominal pain about 8-9 days ago. According to the patient the onset was quite abrupt, with subsequent improvement but then recurrence. The pain became progressively more persistent and severe. She therefore came into the emergency room. On presentation the patient was also having some wheezing and mild shortness of breath though she did not note that as a major symptoms suggestive today. Computed tomography scan of the abdomen revealed multiple liver masses, largest more than 10 cm. There was also hypodensity in the upper pole of the right kidney. It is not clear if liver masses were growing distally to involve the kidney or vice versa. The patient subsequently also tested positive for coronavirus. She was therefore admitted for further management. Review of Systems Constitutional: Reports poor appetite, Reports weight loss (mild, 7-8 pound) Eyes: denies blurred vision, denies pain Ears: deny: decreased hearing, ear discharge, earache, tinnitus Ears, nose, mouth and throat: Denies headache, Denies sore throat Cardiovascular: Reports decreased exercise tolerance Respiratory: Reports dyspnea Gastrointestinal: Reports abdominal pain Genitourinary: Denies dysuria, Denies hematuria Menstruation: Reports postmenopausal Musculoskeletal: Denies myalgias Integumentary: Denies pruritus, Denies rash Neurological: Reports weakness Psychiatric: Denies anxiety, Denies depression Endocrine: Reports fatigue, Reports weight change Hematologic/Lymphatic: Reports as per HPI Past Medical History Past Medical History: No Reported History Additional Past Medical History / Comment(s): takes aldactone for hormonal acne History of Any Multi-Drug Resistant Organisms: None Reported Past Surgical History: Orthopedic Surgery, Tubal Ligation Additional Past Surgical History / Comment(s): right knee, trigger finger Past Anesthesia/Blood Transfusion Reactions: No Reported Reaction Past Psychological History: No Psychological Hx Reported Smoking Status: Current every day smoker Past Alcohol Use History: Occasional Past Drug Use History: None Reported - Past Family History Father Family Medical History: Coronary Artery Disease (CAD) Medications and Allergies Home Medications Medication Instructions Recorded Confirmed Type Calcium Carb-Vit D 500Mg-200Un 2 tab PO DAILY 10/31/16 06/18/20 History [Oscal 500+D] Inulin/Chromium Picolinate [Fiber 2 tab PO DAILY 10/31/16 06/18/20 History Gummies Chew] Multivit with Calcium,Iron,Min 1 each PO DAILY 10/31/16 06/18/20 History [Women's Multivitamin] [place]-3 Fatty Acids/Fish Oil [Fish 3 cap PO DAILY 10/31/16 06/18/20 History Oil 1,000 mg Softgel] Guaifenesin/Pseudoephedrne HCl 1 tab PO BID 06/18/20 06/18/20 History [Mucinex D ER 1,200-120 mg Tab] Spironolactone [Aldactone] 75 mg PO DAILY 06/18/20 06/18/20 History Allergies Allergy/AdvReac Type Severity Reaction Status Date / Time aspirin AdvReac GI upset Verified 06/18/20 09:43 monosodium glutamate [MSG] AdvReac GI upset Verified 06/18/20 09:43 Physical Exam Vitals: Vital Signs Temp Pulse Resp BP Pulse Ox 06/19/20 14:01 97.8 F 95 17 131/78 97 06/19/20 09:43 97.4 F L 99 17 127/81 96 06/19/20 05:56 98.4 F 97 18 131/88 97 06/19/20 04:00 98.2 F 19 149/93 95 06/19/20 00:00 101 H 18 06/18/20 22:30 98.7 F 101 H 18 141/89 94 L 06/18/20 19:45 99 22 Intake and Output 06/19/20 06/19/20 06/19/20 06:59 14:59 22:59 Intake Total 300 Balance 300 Intake: Intake, IV Titration 100 Amount Sodium Chloride 0.9% 1, 100 000 ml @ 130 mls/hr IV . Q7H42M [facility] Rx#:[id number] Oral 200 Other: # Voids 2 2 - Constitutional General appearance: no acute distress - EENT Eyes: EOMI, PERRLA ENT: hearing grossly normal, normal oropharynx - Neck Neck: no lymphadenopathy Thyroid: bilateral: normal size - Respiratory Respiratory: bilateral: CTA - Cardiovascular Rhythm: regular Heart sounds: normal: S1, S2 - Gastrointestinal General gastrointestinal: hepatomegaly (extending 4-5 fingerbreadths below costal margin, occupying most of right upper quadrant and extending into the epigastrium. Hard, tender to palpation) Localized gastrointestinal: tender: RUQ - Integumentary Integumentary: normal - Neurologic Neurologic: CNII-XII intact - Musculoskeletal Musculoskeletal: generalized weakness, strength equal bilaterally - Psychiatric Psychiatric: A&O x's 3, appropriate affect Results CBC & Chem 7: 06/18/20 08:33 06/18/20 08:33 Labs: Microbiology - Last 24 Hours (Table) 06/18/20 08:33 Urine Culture - Preliminary Urine,Voided Gram Neg Bacilli 06/18/20 08:53 Blood Culture - Preliminary Blood No Growth after [address] scan - abdomen: report reviewed CT scan - pelvis: report reviewed Assessment and Plan (1) Liver metastases Narrative/Plan: the results of the computed tomography scan and implications were discussed in detail with the patient. At this point she appears to have metastatic disease to the liver, with marked hepatomegaly on exam. She does have a history of smoking, but denied any ongoing respiratory symptoms to any significant extent. She also denied any other localizing signs. Last colonoscopy was 7 years ago. - Based on the clinical presentation growth of liver mass correlated to involve the right kidney is more likely than vice versa. In any case the patient will need a liver biopsy. - The patient is coronavirus positive. Case was discussed extensively with the admitting service. Even the risk of exposure, it would be reasonable to wait the recommended 10 days prior to biopsy. Therefore this can be done as an outpatient. - Additional imaging can also be done as an outpatient once the patient has completed the recommended 10 days after positive test, assuming she has no progressive symptoms. At this time multiple primary sites remain in the differential. Current Visit: Yes Status: Acute Code(s): C78.7 - SECONDARY MALIG NEOPLASM OF LIVER AND INTRAHEPATIC BILE DUCT SNOMED Code(s): 45896157 (2) Renal mass Narrative/Plan: as noted above, involvement of the upper pole of the kidney because of liver mass growing caudally is more likely. Primary renal malignancy as a synchronous primary, or source of metastatic disease is not ruled out. In any case at this time given the clinical appearance of metastatic disease, primary urologic intervention is not required. Discussed with the admitting service. Await bi opsy results Current Visit: Yes Status: Acute Code(s): N28.89 - OTHER SPECIFIED DISORDERS OF KIDNEY AND URETER SNOMED Code(s): 097235401
[2020-06-19 18:35] VITALS: BP 128/78; PULSE 102; TEMP 97.6
[2020-06-20 09:33] LABS: Alpha Fetoprotein, Tumor Mkr 5.8 ng/mL (0.0-7.9)
[2020-06-20 10:01] LABS: Cancer Antigen 19-9 43.1 U/mL (0.0-34.9)
[2020-06-20 10:12] LABS: Carcinoembryonic Antigen 66.4 ng/mL (0.0-4.9)
--- NOTE | 2020-06-21 23:22 | P.DS ---
Providers Date of admission: 06/18/20 10:09 Expected date of discharge: 06/19/20 Attending physician: Bayron De La Fuente Consults: 06/18/20 09:46 Consult Physician Routine Consulting Provider: Emir Lundy Consult Reason/Comments: liver MET, suspected renal origin Do you want consulting provider notified?: Yes 06/18/20 10:20 Consult Physician Routine Consulting Provider: Kirill Eason Consult Reason/Comments: renal mass Do you want consulting provider notified?: Yes 06/19/20 12:58 Consult Physician Routine Consulting Provider: Lora Elena Consult Reason/Comments: covid Do you want consulting provider notified?: Yes Primary care physician: Marcia Pablo Jose [facility] Course: Chief Complaint: Abdominal pain History of presenting complaint: This is a 55-year-old patient of Dr. Fajardo. Patient been having increasing abdominal pain on and off for about a week. Some nausea. No fever no chills. Decreased appetite. Long-standing smoker. Had some shortness of breath and wheezing that she says is present most of the time. Pain is affecting her activity. Presented to the ER. Predominantly on the right side of the abdomen. No radiation. No change in bowel pattern. Admitted with abdominal mass. Acute COPD exacerbation. Patient was reluctant to take medications. Positive for coronavirus-PCR. Started on bronchodilators steroids. Today-spoke at length with the patient. Patient seen by Dr. Lundy from oncology. Outpatient biopsy would be at age. Smoking cessation was discussed. Pulse ox good on room air discussed with Dr. Lundy. Okay to [place]. Discussion and discharge planning more than 35 minutes Consultation: Dr. Lundy from oncology Physical examination: VITAL SIGNS: 97.8, 95, 17, 131 with 78, 97% room air GENERAL: BMI 20.3, sitting up in bed, anxious. EYES: [Pupils equal. Conjunctiva pale l. NECK: JVD not raised; masses not palpable. HEART: First and second heart sounds are normal; no edema. LUNGS: Respiratory rate increased, decreased breath sounds on expiration and wheezing. ABDOMEN: Soft, diffuse tenderness, underlying mass effect in the right side, liver spleen not palpable, no masses palpable. PSYCH: Alert and oriented x3; mood and affect anxious. INVESTIGATIONS, reviewed in the clinical context: CEA-66.4 CA 19-19 antigen 43.1 White count 11.9 hemoglobin 14.9 platelets 373 Sodium 129 potassium 5 creatinine 0.8 to UA positive for leukoesterase WBC Urine culture-E. coli COVID 19 P/Cr- detected Computed tomography scan of the abdomen with contrast-large heterogenous masses are present. Posterior right mid liver measures 10.9 cm additional edges masses are present.. There may be some diabetes extension from a right renal mass. Assessment: -Patient presented with increasing abdominal pain for at least a week. Found to have a large mass/masses affecting the liver and the kidney. -Chronic nicotine dependence patient cigarette smoker -Acute COPD exacerbation in a current smoker -Hyponatremia -Acute UTI with cystitis-E. coli -COVID 19 positive. Baseline respiratory symptoms Disposition: Home Patient Condition at Discharge: Stable Plan - Discharge Summary Discharge Rx Participant: No New Discharge Prescriptions: New Nicotine 21Mg/24Hr Patch [Habitrol] 1 patch TRANSDERM DAILY #14 patch Zinc Sulfate [Orazinc] 220 mg PO DAILY #30 cap Famotidine [Pepcid] 20 mg PO BID #60 tab predniSONE 10 mg PO DAILY #30 tab Budesonide-Formot 160-4.5 Mcg [Symbicort 160-4.5 Mcg Inhaler] 1 puff INHALATION RT-BID #1 puff Albuterol Inhaler [Ventolin Hfa Inhaler] 2 puff INHALATION Q4H PRN #1 puff PRN Reason: Wheezing Continue Calcium Carb-Vit D 500Mg-200Un [Oscal 500+D] 2 tab PO DAILY [place]-3 Fatty Acids/Fish Oil [Fish Oil 1,000 mg Softgel] 3 cap PO DAILY Multivit with Calcium,Iron,Min [Women's Multivitamin] 1 each PO DAILY Spironolactone [Aldactone] 75 mg PO DAILY Guaifenesin/Pseudoephedrne HCl [Mucinex D ER 1,200-120 mg Tab] 1 tab PO BID No Action Inulin/Chromium Picolinate [Fiber Gummies Chew] 2 tab PO DAILY Discharge Medication List Calcium Carb-Vit D 500Mg-200Un [Oscal 500+D] 2 tab PO DAILY 10/31/16 [History] Inulin/Chromium Picolinate [Fiber Gummies Chew] 2 tab PO DAILY 10/31/16 [History] Multivit with Calcium,Iron,Min [Women's Multivitamin] 1 each PO DAILY 10/31/16 [History] [place]-3 Fatty Acids/Fish Oil [Fish Oil 1,000 mg Softgel] 3 cap PO DAILY 10/31/16 [History] Guaifenesin/Pseudoephedrne HCl [Mucinex D ER 1,200-120 mg Tab] 1 tab PO BID 06/18/20 [History] Spironolactone [Aldactone] 75 mg PO DAILY 06/18/20 [History] Albuterol Inhaler [Ventolin Hfa Inhaler] 2 puff INHALATION Q4H PRN #1 puff 06/19/20 [Rx] Budesonide-Formot 160-4.5 Mcg [Symbicort 160-4.5 Mcg Inhaler] 1 puff INHALATION RT-BID #1 puff 06/19/20 [Rx] Famotidine [Pepcid] 20 mg PO BID #60 tab 06/19/20 [Rx] Nicotine 21Mg/24Hr Patch [Habitrol] 1 patch TRANSDERM DAILY #14 patch 06/19/20 [Rx] Zinc Sulfate [Orazinc] 220 mg PO DAILY #30 cap 06/19/20 [Rx] predniSONE 10 mg PO DAILY #30 tab 06/19/20 [Rx] Follow up Appointment(s)/Referral(s): Emir Lundy MD [STAFF PHYSICIAN] - 1 Week Marcia Garcia DO [Primary Care Provider] - 1 Week Patient Instructions/Handouts: Liver Cancer (DC)
== END 2020-06-19 20:15 | disposition home or self-care (01) ==
LOC: EC 07:52 → 5NMEDONC 10:09 → 4SSUR 12:26
PROVIDERS: ADMIT Hospitalist; ATTEND Hospitalist
DX: C78.7 Secondary malignant neoplasm of liver and intrahepatic bile duct (principal); R10.9 Unspecified abdominal pain; U07.1 COVID-19; E87.1 Hypo-osmolality and hyponatremia; F17.210 Nicotine dependence, cigarettes, uncomplicated; J44.1 Chronic obstructive pulmonary disease with (acute) exacerbation; K56.7 Ileus, unspecified; N30.90 Cystitis, unspecified without hematuria; Z79.51 Long term (current) use of inhaled steroids; Z79.899 Other long term (current) drug therapy; Z82.49 Family history of ischemic heart disease and other diseases of the circulatory system
CPT/HCPCS: 96376; 96361 ×2; 96372; 96375 ×2; 96365; 99285; 36415; 94640 ×2; 80053; 82378; 82150; 83605; 83690; 85025; 81001; 87040; 82105; 86301; 87086; 87077; 87186; 87635; 74177; G0378 ×3; U0003; J2543; J2920; J2405; J1650; J0696; J1170; Q9967

== ENCOUNTER → 2020-06-30 | Outpatient (CLI) | payer BC | END | disposition home or self-care (01) | LOC: LABWHC1 15:58 | PROVIDERS: ATTEND Internal Medicine Hematology & Oncology | DX: Z20.828 Contact with and (suspected) exposure to other viral communicable diseases (principal) | CPT/HCPCS: U0003; C9803 ==

== ENCOUNTER 2020-07-10 08:20 | Day surgery (SDC) | payer BC ==
[2020-07-10] MEDS ORDERED: ALPRAZolam 0.5 MG TAB PO PRN (08:56)
[2020-07-10 09:33] LABS: Mean Platelet Volume 6.6; Platelet Count 317 k/uL (150-450)
[2020-07-10 09:39] VITALS: RESP 16; TEMP 97.7
[2020-07-10 09:43] LABS: Prothrombin Time 10.2 sec (9.0-12.0)
[2020-07-10] MEDS ORDERED: HYDROmorphone 0.5 MG/0.5 ML SYRINGE IVP STA (10:20)
--- NOTE | 2020-07-10 14:14 | US ---
EXAMINATION TYPE: US biopsy liver DATE OF EXAM: 07/10/2020 HISTORY: Liver masses. FINDINGS: Maximal barrier technique was utilized. Hand hygiene achieved with soap and water and alco hol-based hand rub. The skin overlying a suitable path to the patient's mass in the left lobe of live r was localized with ultrasound and the overlying skin prepped and draped. Ultrasound was utilized w ith sterile technique. Lidocaine was used for local anesthesia. A skin olga was made with a scalpel. An 18-gauge needle was advanced under direct ultrasound guidance and core specimen obtained of the mass. 2 passes were made. Specimen submitted in formalin to Pathology. Following the procedure, hem ostasis achieved and the patient is discharged in stable condition without complication. IMPRESSION:STATUS POST ULTRASOUND GUIDED CORE BIOPSY OF left lobe liver MASS, PATHOLOGY IS PENDING. THIS PROCEDURE IS PERFORMED BY THE UNDERSIGNED.
[2020-07-10 14:24] VITALS: BP 133/86; PULSE 94
== END 2020-07-10 14:37 | disposition home or self-care (01) ==
LOC: RADPROMAIN 08:20
PROVIDERS: ATTEND Internal Medicine Hematology & Oncology
DX: C78.7 Secondary malignant neoplasm of liver and intrahepatic bile duct (principal); C7A.8 Other malignant neuroendocrine tumors; Z88.6 Allergy status to analgesic agent; Z91.02 Food additives allergy status
CPT/HCPCS: 85049; 85610; 88342; 88307; 88341; 96374; 36415; 47000; 76942; J1170

== ENCOUNTER 2020-07-13 17:36 | Observation (INO) | payer BC ==
[2020-07-13] MEDS ORDERED: HYDROmorphone 0.5 MG/0.5 ML SYRINGE IVP STA (18:00)
[2020-07-13] MEDS ORDERED: SODIUM CHLORIDE 0.9% 1,000 ML IV STA (18:00)
[2020-07-13] MEDS ORDERED: ONDANSETRON 4 MG/2 ML VIAL IVP STA (18:00)
[2020-07-13 18:31] LABS: Basophils # (A) 0.1 k/uL (0-0.2); Basophils % (A) 1 %; Eosinophils # (A) 0.1 k/uL (0-0.7); Eosinophils % (A) 1 %; HCT 37.9 % (34.0-46.0); Lymphocytes # (A) 1.5 k/uL (1.0-4.8); Lymphocytes % (A) 14 %; MCH 31.5 pg (25.0-35.0); MCHC 34.2 g/dL (31.0-37.0); Mean Platelet Volume 6.7; Monocytes # (A) 0.4 k/uL (0-1.0); Monocytes % (A) 3 %; Neutrophils # (A) 8.2 k/uL (1.3-7.7); Neutrophils % (A) 79 %; Platelet Count 369 k/uL (150-450); RBC 4.12 m/uL (3.80-5.40); RDW 12.3 % (11.5-15.5); WBC 10.4 k/uL (3.8-10.6)
[2020-07-13 18:49] LABS: Albumin 3.9 g/dL (3.5-5.0); Potassium 4.4 mmol/L (3.5-5.1); Total Bilirubin 0.5 mg/dL (0.2-1.3); Total Protein 7.2 g/dL (6.3-8.2)
--- NOTE | 2020-07-13 19:22 | ED ---
General Adult HPI - General Chief complaint: Abdominal Pain Stated complaint: Abd Pain/No urine ouput Time Seen by Provider: 07/13/20 17:51 Source: patient, RN notes reviewed Mode of arrival: ambulatory Limitations: no limitations - History of Present Illness Initial comments: 55-year-old female with a past medical history of liver mass presents to the emergency department for a chief complaint of continued abdominal pain. Patient reports that she has had pain consistently for the past month. States it is worsening somewhat. Patient states that she came to the ER a month ago because of this and a liver mass was found. States she has a biopsy pending. She called her oncologist today because of the pain and was told to come to the ER. Patient also reports that she is urinating less than normal. - Related Data Home Medications Medication Instructions Recorded Confirmed Calcium Carb-Vit D 500Mg-200Un 2 tab PO DAILY 10/31/16 07/13/20 [Oscal 500+D] Inulin/Chromium Picolinate [Fiber 2 tab PO DAILY 10/31/16 07/13/20 Gummies Chew] Multivit with Calcium,Iron,Min 1 each PO DAILY 10/31/16 07/13/20 [Women's Multivitamin] Guaifenesin/Pseudoephedrne HCl 1 tab PO BID 06/18/20 07/13/20 [Mucinex D ER 1,200-120 mg Tab] Spironolactone [Aldactone] 75 mg PO DAILY 06/18/20 07/13/20 ALPRAZolam [Xanax] 0.25 mg PO BID 06/29/20 07/13/20 Albuterol Inhaler [Ventolin Hfa 2 puff INHALATION RT-Q4H PRN 07/13/20 07/13/20 Inhaler] HYDROcodone/APAP 5-325MG [[place] 1 tab PO Q8H PRN 07/13/20 07/13/20 5-325] Previous Rx's Medication Instructions Recorded Budesonide-Formot 160-4.5 Mcg 1 puff INHALATION RT-BID #1 puff 06/19/20 [Symbicort 160-4.5 Mcg Inhaler] Famotidine [Pepcid] 20 mg PO BID #60 tab 06/19/20 Zinc Sulfate [Orazinc] 220 mg PO DAILY #30 cap 11/20/20 Allergies Allergy/AdvReac Type Severity Reaction Status Date / Time aspirin AdvReac GI upset Verified 07/13/20 22:32 monosodium glutamate [MSG] AdvReac GI upset Verified 07/13/20 22:32 Review of Systems ROS Statement: Those systems with pertinent positive or pertinent negative responses have been documented in the HPI. ROS Other: All systems not noted in ROS Statement are negative. Past Medical History Past Medical History: No Reported History Additional Past Medical History / Comment(s): takes aldactone for hormonal acne, recent admit for abdominal pain(Liver mass being investigated)and positive for COVID (Jun 18). History of Any Multi-Drug Resistant Organisms: None Reported Past Surgical History: Orthopedic Surgery, Tubal Ligation Additional Past Surgical History / Comment(s): right knee, trigger finger, sinus surgeries x3 back in 1989. cyst surgies wrist/arm. Rt breast biopsy- benign. Past Anesthesia/Blood Transfusion Reactions: No Reported Reaction Past Psychological History: No Psychological Hx Reported Smoking Status: Current every day smoker Past Alcohol Use History: Occasional Past Drug Use History: None Reported - Past Family History Father Family Medical History: Coronary Artery Disease (CAD) General Exam Limitations: no limitations General appearance: alert, in no apparent distress Head exam: Present: atraumatic, normocephalic, normal inspection Eye exam: Present: normal appearance ENT exam: Present: normal exam, mucous membranes moist Neck exam: Present: normal inspection, full ROM. Absent: tenderness, meningismus, lymphadenopathy Respiratory exam: Present: normal lung sounds bilaterally. Absent: respiratory distress, wheezes, rales, rhonchi, stridor Cardiovascular Exam: Present: regular rate, normal rhythm, normal heart sounds. Absent: systolic murmur, diastolic murmur, rubs, gallop, clicks GI/Abdominal exam: Present: soft, tenderness (Generalized abdominal tenderness with induration noted to the epigastric area), normal bowel sounds. Absent: distended, guarding, rebound, rigid Course Vital Signs 07/13/20 07/13/20 07/13/20 17:38 19:36 20:48 Temperature 97.8 F Pulse Rate 66 95 100 Respiratory 18 18 18 Rate Blood Pressure 131/86 154/98 120/81 O2 Sat by Pulse 98 100 96 Oximetry 07/13/20 22:32 Temperature Pulse Rate 96 Respiratory 18 Rate Blood Pressure 129/87 O2 Sat by Pulse 96 Oximetry Medical Decision Making - Medical Decision Making Vitals are stable. CBC unremarkable. CMP does show mild transaminitis which is stable from patient's previous laboratory evaluation. CT abdomen and pelvis wa s ordered and this did reveal increasing size in liver and kidney masses. Patient reevaluated continues to have severe abdominal pain. At this time patient will be admitted for pain management and further treatment. Currently biopsy is pending. I did speak with Dr. De La Fuente who will accept this admission however requested I speak with Dr. Lundy. Dr. Lundy was not program paraprofessional so we were able to speak with Dr. James. He does agree with this plan of admission for patient. We will consult Dr. Lundy on this case as she is patient's oncologist. - Lab Data Result diagrams: 07/13/20 18:20 07/13/20 18:20 Lab Results 07/13/20 07/13/20 07/13/20 Range/Units 18:20 18:20 19:16 WBC 10.4 (3.8-10.6) k/uL RBC 4.12 (3.80-5.40) m/uL Hgb 13.0 (11.4-16.0) gm/dL Hct 37.9 (34.0-46.0) % MCV 92.0 (80.0-100.0) fL MCH 31.5 (25.0-35.0) pg MCHC 34.2 (31.0-37.0) g/dL RDW 12.3 (11.5-15.5) % Plt Count 369 (150-450) k/uL MPV 6.7 Neutrophils % 79 % Lymphocytes % 14 % Monocytes % 3 % Eosinophils % 1 % Basophils % 1 % Neutrophils # 8.2 H (1.3-7.7) k/uL Lymphocytes # 1.5 (1.0-4.8) k/uL Monocytes # 0.4 (0-1.0) k/uL Eosinophils # 0.1 (0-0.7) k/uL Basophils # 0.1 (0-0.2) k/uL Sodium 130 L (137-145) mmol/L Potassium 4.4 (3.5-5.1) mmol/L Chloride 99 (98-107) mmol/L Carbon Dioxide 22 (22-30) mmol/L Anion Gap 9 mmol/L BUN 15 (7-17) mg/dL Creatinine 0.92 (0.52-1.04) mg/dL Est GFR (CKD-EPI)AfAm 80 (>60 ml/min/1.73 sqM) Est GFR (CKD-EPI)NonAf 70 (>60 ml/min/1.73 sqM) Glucose 102 H (74-99) mg/dL Calcium 8.0 L (8.4-10.2) mg/dL Total Bilirubin 0.5 (0.2-1.3) mg/dL AST 103 H (14-36) U/L ALT 37 H (4-34) U/L Alkaline Phosphatase 194 H (38-126) U/L Total Protein 7.2 (6.3-8.2) g/dL Albumin 3.9 (3.5-5.0) g/dL Amylase 66 (30-110) U/L Lipase 216 (23-300) U/L Urine Color Yellow Urine Appearance Clear (Clear) Urine pH 6.5 (5.0-8.0) Ur Specific [place] 1.011 (1.001-1.035) Urine Protein Trace H (Negative) Urine Glucose (UA) Negative (Negative) Urine Ketones Negative (Negative) Urine Blood Negative (Negative) Urine Nitrite Negative (Negative) Urine Bilirubin Negative (Negative) Urine Urobilinogen <2.0 (<2.0) mg/dL Ur Leukocyte Esterase Large H (Negative) Urine RBC 2 (0-5) /hpf Urine WBC 13 H (0-5) /hpf Ur Squamous Epith Cells 5 H (0-4) /hpf Urine Bacteria Rare H (None) /hpf Urine Mucus Rare H (None) /hpf Disposition Clinical Impression: Liver mass, Intractable abdominal pain Disposition: ADMITTED IP TO THIS HOSP Condition: Fair Is patient prescribed a controlled substance at d/c from ED?: No Time of Disposition: 22:46
[2020-07-13 19:23] LABS: Appearance,Urine Clear (Clear); Bacteria,Urine Rare /hpf; Bilirubin,Urine Negative (Negative); Blood,Urine Negative (Negative); Color,Urine Yellow; Glucose,Urine (UA) Negative (Negative); Ketones,Urine Negative (Negative); Leukocyte Esterase,Urine Large (Negative); Mucus,Urine Rare /hpf; Nitrite,Urine Negative (Negative); PH, Urine 6.5 (5.0-8.0); Protein,Urine Trace (Negative); RBC,Urine 2 /hpf (0-5); Specific Gravity,Urine 1.011 (1.001-1.035); Squamous Epithelial Cell,Urine 5 /hpf (0-4); Urobilinogen,Urine <2.0 mg/dL (<2.0); WBC,Urine 13 /hpf (0-5)
--- NOTE | 2020-07-13 20:33 | CT ---
EXAMINATION TYPE: CT abdomen pelvis w con DATE OF EXAM: 07/13/2020 COMPARISON: 06/18/2020 INDICATION: Abdominal distention and dysuria. Hx of liver mass. DLP: 625.3 mGycm, Automated exposure control for dose reduction was used. CONTRAST: 100ml mL of Isovue 300. Study performed without Oral Contrast TECHNIQUE: Axial images were obtained from above the diaphragm to the pubic rami in the axial plane a t 5 mm thick sections. Reconstructed images are reviewed on the computer in the coronal plane. FINDINGS: Limited CT sections are obtained the lung bases. The lung bases are clear. CT ABDOMEN: Liver: There is a large right midlung mass which is increased from 13.7 x 9.2 to the current size of 16.0 x 10.4 cm. Additional smaller right lobe lesions including the posterior lateral right upper lob e measures 11.6 cm versus previous 10.9. Spleen: Normal Pancreas: Normal Adrenal glands: The adrenal glands are normal. Gallbladder: Not identified Kidneys: Mass appears to be extending into the liver from the superior lateral right kidney:. No hydr onephrosis is present. No cysts are present. Delayed images were obtained through the kidneys Aorta: Normal no periaortic adenopathy is identified. Inferior vena cava: Normal. No definite thrombus within the IVC is evident. CT PELVIS: Loops of bowel within the abdomen and pelvis are normal. Study is performed without oral contrast limiting bowel evaluation. Appendix: Normal as visualized. Urinary bladder: Normal. Genitourinary structures: Osseous structures: No suspicious lytic or sclerotic lesions. No suspicious expansile lytic lesions a re evident. IMPRESSIONS: 1. Enlarging hepatic metastasis. 2. Enlarging superior pole right renal mass
[2020-07-13] MEDS ORDERED: ONDANSETRON 4 MG/2 ML VIAL IVP PRN (21:55)
[2020-07-13] MEDS ORDERED: NALOXONE 0.4 MG/ML 1 ML VIAL IV PRN (21:55)
[2020-07-13] MEDS: HYDROmorphone 0.5 MG/0.5 ML SYRINGE IVP PRN (22:08)
[2020-07-14] MEDS: SODIUM CHLORIDE 0.9% 1,000 ML IV SCH ×2 (00:11→11:03)
[2020-07-14] MEDS: HYDROmorphone 0.5 MG/0.5 ML SYRINGE IVP PRN ×4 (04:36→20:43)
[2020-07-14 07:15] LABS: Glucose,Whole Blood 86 mg/dL (75-99)
[2020-07-14] MEDS ORDERED: RX INFO: IV CONTRAST WAS GIVEN 1 EACH MISC MISCELLANE PRN ×2 (09:17→13:42)
[2020-07-14 11:10] LABS: Glucose,Whole Blood 91 mg/dL (75-99)
[2020-07-14] MEDS ORDERED: HYDROcodone/APAP 5-325MG 1 EACH TAB PO PRN (11:55)
[2020-07-14] MEDS ORDERED: ALBUTEROL HFA INHALER INHALATION PRN (11:55)
[2020-07-14] MEDS ORDERED: ALBUTEROL NEBULIZED 2.5 MG/3 ML INHALATION PRN (12:11)
[2020-07-14] MEDS: ALPRAZolam 0.25 MG TAB PO SCH ×2 (13:10→21:00)
--- NOTE | 2020-07-14 13:25 | P.CONS ---
History of Present Illness - Reason for Consult Consult date: 07/14/20 liver mass Requesting physician: Iain Delgado - Chief Complaint intractable abdominal pain - History of Present Illness Mrs. Interiano is a very pleasant 55-year-old female patient with well- controlled chronic medical problems at baseline including GERD, anxiety and COPD. She was first seen in consult 06/19/20. She presented with c/o right- sided abdominal pain, onset was rapid over the previous 8-9 days, some improvement but, pain recurred. It was persistent, progressive and severe. When she presented to the ER she also had wheezing and shortness of breath. She was subsequently diagnosed with covid 19. CT scan showed multiple liver masses, largest was more than 10 cm. There was a hypodensity in the upper pole of the right kidney. Really wasn't clear if the liver masses were growing to involve the kidneys or vice versa. Patient was needing biopsy but needed to have Covid treated first. She ended up having the biopsy 07/10/20. Presenting to the hospital now with intractable right upper quadrant pain, she had been sent home with [place], this was no longer controlling her symptoms. She states that she was not using them with any sort of frequency, "trying not to use them that much". Denied fevers, nausea, vomiting, appetite is fair, she has early satiety, her abdomen feels more bloated and distended, she states she is still having bowel movements, no swelling in the lower extremities. Review of Systems 14 point review of systems is negative except as stated in HPI Past Medical History Past Medical History: No Reported History Additional Past Medical History / Comment(s): takes aldactone for hormonal acne, recent admit for abdominal pain(Liver mass being investigated)and positive for COVID (Jun 18). History of Any Multi-Drug Resistant Organisms: None Reported Past Surgical History: Orthopedic Surgery, Tubal Ligation Additional Past Surgical History / Comment(s): right knee, trigger finger, sinus surgeries x3 back in 1989. cyst surgies wrist/arm. Rt breast biopsy- benign. Past Anesthesia/Blood Transfusion Reactions: No Reported Reaction Past Psychological History: No Psychological Hx Reported Smoking Status: Current every day smoker Past Alcohol Use History: Occasional Past Drug Use History: None Reported - Past Family History Father Family Medical History: Coronary Artery Disease (CAD) Medications and Allergies Home Medications Medication Instructions Recorded Confirmed Type Calcium Carb-Vit D 500Mg-200Un 2 tab PO DAILY 10/31/16 07/13/20 History [Oscal 500+D] Inulin/Chromium Picolinate [Fiber 2 tab PO DAILY 10/31/16 07/13/20 History Gummies Chew] Multivit with Calcium,Iron,Min 1 each PO DAILY 10/31/16 07/13/20 History [Women's Multivitamin] Guaifenesin/Pseudoephedrne HCl 1 tab PO BID 06/18/20 07/13/20 History [Mucinex D ER 1,200-120 mg Tab] Spironolactone [Aldactone] 75 mg PO DAILY 06/18/20 07/13/20 History Budesonide-Formot 160-4.5 Mcg 1 puff INHALATION RT-BID #1 puff 06/19/20 07/13/20 Rx [Symbicort 160-4.5 Mcg Inhaler] Famotidine [Pepcid] 20 mg PO BID #60 tab 06/19/20 07/13/20 Rx Zinc Sulfate [Orazinc] 220 mg PO DAILY #30 cap 06/19/20 07/13/20 Rx ALPRAZolam [Xanax] 0.25 mg PO BID 06/29/20 07/13/20 History Albuterol Inhaler [Ventolin Hfa 2 puff INHALATION RT-Q4H PRN 07/13/20 07/13/20 History Inhaler] HYDROcodone/APAP 5-325MG [[place] 1 tab PO Q8H PRN 07/13/20 07/13/20 History 5-325] Allergies Allergy/AdvReac Type Severity Reaction Status Date / Time aspirin AdvReac GI upset Verified 07/13/20 22:32 monosodium glutamate [MSG] AdvReac GI upset Verified 07/13/20 22:32 Physical Exam Vitals: Vital Signs Temp Pulse Pulse Resp BP BP Pulse Ox 07/14/20 07:00 98.5 F 98 16 116/69 94 L 07/14/20 03:15 98.1 F 93 16 120/74 95 07/13/20 22:33 97.8 F 96 18 129/87 96 07/13/20 22:32 96 18 129/87 96 07/13/20 22:28 97.7 F 97 16 128/84 96 07/13/20 20:48 100 18 120/81 96 07/13/20 19:36 95 18 154/98 100 07/13/20 17:38 97.8 F 66 18 131/86 98 Intake and Output 07/13/20 07/14/20 07/14/20 22:59 06:59 14:59 Intake Total 1600 Output Total 141 Balance -141 1600 Intake: Intake, IV Titration 1600 Amount Sodium Chloride 0.9% 1, 600 000 ml @ 75 mls/hr IV . [id number] JENNY Rx#:[id number] Sodium Chloride 0.9% 1, 1000 000 ml @ 999 mls/hr IV . Q1H1M STA Rx#:[id number] Output: Post Void Residual 141 Other: # Voids 2 Weight 51.256 kg - Constitutional General appearance: average body habitus, cooperative, mild distress - EENT Eyes: anicteric sclerae, EOMI ENT: hearing grossly normal, thrush - Neck Neck: no lymphadenopathy - Respiratory Respiratory: bilateral: CTA, diminished - Cardiovascular Rhythm: regular Heart sounds: normal: S1, S2 Abnormal Heart Sounds: no systolic murmur, no diastolic murmur, no rub, no S3 Gallop, no S4 Gallop, no click, no other leg Peripheral Edema: bilateral: None - Gastrointestinal General gastrointestinal: no absent bowel sounds, decreased bowel sounds, dist ended, hepatomegaly (edge of liver palpated into the pelvis and over into LUQ), no hyperactive bowel sounds, no normal bowel sounds, no organomegaly, no rigid, no scaphoid, no soft, no splenomegaly, tenderness, no umbilical hernia, no ventral hernia - Neurologic Neurologic: CNII-XII intact - Musculoskeletal Musculoskeletal: strength equal bilaterally - Psychiatric Psychiatric: A&O x's 3, appropriate affect, intact judgment & insight Results CBC & Chem 7: 07/13/20 18:20 07/13/20 18:20 Labs: Abnormal Lab Results - Last 24 Hours (Table) 07/13/20 07/13/20 07/13/20 Range/Units 18:20 18:20 19:16 Neutrophils # 8.2 H (1.3-7.7) k/uL Sodium 130 L (137-145) mmol/L Glucose 102 H (74-99) mg/dL Calcium 8.0 L (8.4-10.2) mg/dL AST 103 H (14-36) U/L ALT 37 H (4-34) U/L Alkaline Phosphatase 194 H (38-126) U/L Urine Protein Trace H (Negative) Ur Leukocyte Esterase Large H (Negative) Urine WBC 13 H (0-5) /hpf Ur Squamous Epith Cells 5 H (0-4) /hpf Urine Bacteria Rare H (None) /hpf Urine Mucus Rare H (None) /hpf Microbiology - Last 24 Hours (Table) 07/13/20 19:16 Urine Culture - Preliminary Urine,Voided Assessment and Plan (1) Liver mass Narrative/Plan: When patient was seen we were pending liver biopsy results. Dr. Lundy discussed with pt concerns for a malignant process. stated concerns to pt about rapid progression in the liver (significantly enlarged since seen 3 weeks ago). Explained that additional imaging ordered to complete staging. She verbalized understanding. CT of the chest and a nuclear medicine bone scan to complete staging workup. Path resulted by time of documentation. 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 MRI brain with sully ordered now that small cell pathology established. I anticipate first cycle of treatment inpatient due to rapid progression of disease in the liver. Will wait until we have discussed with pt her new diagnosis, results of all imaging and treatment options to finalize treatment. Have not discussed diagnosis with pt yet, path came in after pt seen this AM. Will speak with her in AM as we will have all the rest of the imaging results. D/W RN, and Attending. Current Visit: Yes Status: Acute Priority: High Code(s): R16.0 - HEPATOMEGALY, NOT ELSEWHERE CLASSIFIED SNOMED Code(s): 844002197 Plan: Doctor attests: I performed a history and physical examination of this patient, developed impression and plan of care, discussed with dictator. I agree with dictators note, documented as a scribe. Time with Patient: Greater than 30
[2020-07-14 13:54] VITALS: BMI 20.6
[2020-07-14] MEDS: NYSTATIN 100,000 UNIT/ML SUSP 500,000 UNIT/5 ML CUP PO SCH ×3 (14:44→20:43)
--- NOTE | 2020-07-14 15:31 | NM ---
EXAMINATION TYPE: NM bone scan whole body DATE OF EXAM: 07/14/2020 COMPARISON: NONE HISTORY: Liver metastasis Delayed whole-body scanning was performed following the injection of 24.0 mCi Tc 99m MDP. Images wer e acquired 3 hours post injection. FINDINGS: No photopenic defects or focal hot nodules are evident. Radiotracer distribution through the axial an d appendicular skeleton appears essentially normal. There are some degenerative type uptake areas noted within the great toes of the bilateral feet at th e bilateral hips as well as the first carpal metacarpal junctions bilaterally. IMPRESSION: 1. No suspicious uptake to suggest metastatic osseous abnormality. 2. There are some mild degenerative changes likely present discussed above
[2020-07-14] MEDS: SALT AND SODA MOUTHWASH 1,000 ML PO SCH ×3 (16:07→20:43)
[2020-07-14 16:45] LABS: Glucose,Whole Blood 112 mg/dL (75-99)
[2020-07-14 17:09] LABS: African American GFR (CKD) 72.4 (60.0-200.0); Non-African American GFR(CKD) 62.5 (60.0-200.0); Potassium 4.4 mmol/L (3.5-5.5); Total Bilirubin 0.3 mg/dL (0.3-1.2); Total Protein 6.2 g/dL (6.2-8.2)
[2020-07-14 19:03] LABS: Albumin 4.1 g/dL (3.80-4.90); Albumin/Globulin Ratio 1.95 (1.60-3.17); Globulin 2.1 g/dL (1.6-3.3)
[2020-07-14] MEDS ORDERED: LORazepam 0.5 MG TAB PO PRN (19:20)
[2020-07-14] MEDS: SYMBICORT 160-4.5 MCG INHALER INHALATION SCH (19:46)
[2020-07-14] MEDS: guaiFENesin-DM 600/30MG 1 EACH TAB.ER.12H PO SCH (20:42)
[2020-07-14] MEDS: FAMOTIDINE 20 MG TAB PO SCH (20:43)
[2020-07-14] MEDS ORDERED: LORazepam 1 MG TAB PO SCH (21:00)
--- NOTE | 2020-07-14 21:58 | P.HPIM ---
History of Present Illness H&P Date: 07/14/20 Chief Complaint: Increasing abdominal pain History of presenting complaint: This is a 55-year-old patient of Dr. Fajardo. Patient been having increasing abdominal pain on and off for about a week. Some nausea. No fever no chills. Decreased appetite. Long-standing smoker. Had some shortness of breath and wheezing that she says is present most of the time. Pain is affecting her activity. Presented to the ER. Predominantly on the right side of the abdomen. No radiation. No change in bowel pattern. Was admitted to the hospital and end of May with abdominal mass. Acute COPD exacerbation. Also positive for COVID 19 by PCR. Patient subsequently followed up with oncology. Had a liver biopsy done. Now presents to the ER with increasing right upper quadrant pain. Appetite is gone down. Occasional constipation. Very anxious. Biopsy results are currently not known. To the patient. 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 COPD. Liver mass workup in progress Social history: . Smoker. No alcohol. Physical examination: VITAL SIGNS: 97.8, 66, 18, 131/86, 98% room air at-upon presentation GENERAL: BMI 20.7, laying in bed, anxious EYES: Pupils equal. Conjunctiva pale HEENT: External appearance of nose and ears normal, oral cavity grossly normal. NECK: JVD not raised; masses not palpable. HEART: First and second heart sounds are normal; no edema. LUNGS: Respiratory rate increased, decreased breath sounds-mild wheezing. ABDOMEN: Soft, diffuse tenderness, underlying mass effect in the right side, l iver spleen not palpable, no masses palpable. PSYCH: Alert and oriented x3; mood and affect anxious and tearful. NEUROLOGICAL: Cranial nerves grossly intact; no facial asymmetry, power and sensation grossly intact. LYMPHATICS: No lymph nodes palpable in the axilla and neck INVESTIGATIONS, reviewed in the clinical context: White count 10.4 hemoglobin 13 platelets 369 potassium 4.4 creatinine 0.9 to AST 103 ALT 37 UA positive for leukoesterase, WBC, squamous epithelial cells CT abdomen pelvis-large right mid liver mass which is increased from 13.7 x 9.2 to the current size of 16 x 10.4 cm. Additional small right lobe lesion including posterior lateral right upper lobe 11.6 cm versus previous 10.9. Mass appears to be extending into the liver from the superior lateral right kidney. 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 -Anxiety not otherwise specified Plan: Home medications resumed. Pain medications. Due to prophylaxis. Spoke to Bridgett MONREAL from oncology. They'll be talking to the patient in detail after doing some more testing that includes both scan, computed tomography scan of chest, MRI of the brain. They will then discussed with the patient regarding he r treatment plan. Past Medical History Past Medical History: No Reported History Additional Past Medical History / Comment(s): takes aldactone for hormonal acne, recent admit for abdominal pain(Liver mass being investigated)and positive for COVID (Jun 18). History of Any Multi-Drug Resistant Organisms: None Reported Past Surgical History: Orthopedic Surgery, Tubal Ligation Additional Past Surgical History / Comment(s): right knee, trigger finger, sinus surgeries x3 back in 1989. cyst surgies wrist/arm. Rt breast biopsy- benign. Past Anesthesia/Blood Transfusion Reactions: No Reported Reaction Past Psychological History: No Psychological Hx Reported Smoking Status: Current every day smoker Past Alcohol Use History: Occasional Past Drug Use History: None Reported - Past Family History Father Family Medical History: Coronary Artery Disease (CAD) Medications and Allergies Home Medications Medication Instructions Recorded Confirmed Type Calcium Carb-Vit D 500Mg-200Un 2 tab PO DAILY 10/31/16 07/13/20 History [Oscal 500+D] Inulin/Chromium Picolinate [Fiber 2 tab PO DAILY 10/31/16 07/13/20 History Gummies Chew] Multivit with Calcium,Iron,Min 1 each PO DAILY 10/31/16 07/13/20 History [Women's Multivitamin] Guaifenesin/Pseudoephedrne HCl 1 tab PO BID 06/18/20 07/13/20 History [Mucinex D ER 1,200-120 mg Tab] Spironolactone [Aldactone] 75 mg PO DAILY 06/18/20 07/13/20 History Budesonide-Formot 160-4.5 Mcg 1 puff INHALATION RT-BID #1 puff 06/19/20 07/13/20 Rx [Symbicort 160-4.5 Mcg Inhaler] Famotidine [Pepcid] 20 mg PO BID #60 tab 06/19/20 07/13/20 Rx Zinc Sulfate [Orazinc] 220 mg PO DAILY #30 cap 06/19/20 07/13/20 Rx ALPRAZolam [Xanax] 0.25 mg PO BID 06/29/20 07/13/20 History Albuterol Inhaler [Ventolin Hfa 2 puff INHALATION RT-Q4H PRN 07/13/20 07/13/20 History Inhaler] HYDROcodone/APAP 5-325MG [Glenelg 1 tab PO Q8H PRN 07/13/20 07/13/20 History 5-325] Allergies Allergy/AdvReac Type Severity Reaction Status Date / Time aspirin AdvReac GI upset Verified 07/13/20 22:32 monosodium glutamate [MSG] AdvReac GI upset Verified 07/13/20 22:32 Physical Exam Vitals: Vital Signs Temp Pulse Pulse Resp BP BP Pulse Ox 07/14/20 07:00 98.5 F 98 16 116/69 94 L 07/14/20 03:15 98.1 F 93 16 120/74 95 07/13/20 22:33 97.8 F 96 18 129/87 96 07/13/20 22:32 96 18 129/87 96 07/13/20 22:28 97.7 F 97 16 128/84 96 07/13/20 20:48 100 18 120/81 96 07/13/20 19:36 95 18 154/98 100 07/13/20 17:38 97.8 F 66 18 131/86 98 Intake and Output 07/13/20 07/14/20 07/14/20 22:59 06:59 14:59 Intake Total 1600 Output Total 141 Balance -141 1600 Intake: Intake, IV Titration 1600 Amount Sodium Chloride 0.9% 1, 600 000 ml @ 75 mls/hr IV . [id number] [facility] Rx#:[id number] Sodium Chloride 0.9% 1, 1000 000 ml @ 999 mls/hr IV . Q1H1M [facility] Rx#:[id number] Output: Post Void Residual 141 Other: # Voids 2 Weight 51.256 kg Results CBC & Chem 7: 07/13/20 18:20 07/14/20 11:10 Labs: Abnormal Lab Results - Last 24 Hours (Table) 07/13/20 07/13/20 07/13/20 Range/Units 18:20 18:20 19:16 Neutrophils # 8.2 H (1.3-7.7) k/uL Sodium 130 L (137-145) mmol/L Glucose 102 H (74-99) mg/dL Calcium 8.0 L (8.4-10.2) mg/dL AST 103 H (14-36) U/L ALT 37 H (4-34) U/L Alkaline Phosphatase 194 H (38-126) U/L Urine Protein Trace H (Negative) Ur Leukocyte Esterase Large H (Negative) Urine WBC 13 H (0-5) /hpf Ur Squamous Epith Cells 5 H (0-4) /hpf Urine Bacteria Rare H (None) /hpf Urine Mucus Rare H (None) /hpf Microbiology - Last 24 Hours (Table) 07/13/20 19:16 Urine Culture - Preliminary Urine,Voided Thrombosis Risk Factor Assmnt - Choose All That Apply Any of the Below Risk Factors Present?: Yes Each Factor Represents 1 point: Age 41-60 years Other Risk Factors: No Other congenital or acquired thrombophilia - If yes, enter type in comment: No Thrombosis Risk Factor Assessment Total Risk Factor Score: 1 Thrombosis Risk Factor Assessment Level: Low Risk
--- NOTE | 2020-07-14 22:27 | CT ---
EXAMINATION TYPE: CT chest w con DATE OF EXAM: 07/14/2020 COMPARISON: None HISTORY: Liver metastases. CT DLP: 284 mGycm Automated exposure control for dose reduction was used. CONTRAST: Performed with IV Contrast, patient injected with 80ml mL of Isovue 300. Images were obtained from the thoracic inlet to the diaphragm with IV contrast. There is mild right pleural effusion. Heart size is normal. There is no pericardial effusion. There i s some mild infiltrate and atelectasis right posterior lung base adjacent to the pleural fluid. There is large area of heterogeneity in the right lobe of the liver occupying most of the right lobe. Ther e is also involvement upper pole right kidney. There is decreased cortical enhancement upper pole rig ht kidney. There is wedge-shaped area of airspace consolidation and atelectasis in the left upper lobe anteriorl y adjacent to the mediastinum. There is occlusion of the left upper lobe bronchus. Heart and mediasti num are shifted slightly to the left side. Thoracic aorta is intact. There is no aneurysm or dissecti on. There is 2.8 cm rounded mass anterior to the pulmonary artery consistent with enlarged mediastina l lymph nodes. There are enlarged 13 mm pretracheal lymph nodes. Thoracic spine is intact. Sternum is intact. The ribs appear intact. IMPRESSION: Large mass occupying most of the liver with heterogeneity. There is also involvement upper pole right kidney with decreased cortical enhancement. Upper pole margin not well defined. There are tumor inva jaziel possible. This could be also primary renal tumor. There is complete consolidation and atelectasis left upper lobe with obstruction of the left upper lo be bronchus. Mass at the left pulmonary hilum is possible. 2.8 cm mass anterior mediastinum could be enlarged lymph node. Primary pulmonary malignancy is possible. Small right pleural effusion and right basilar mild atelectasis and infiltrate.
[2020-07-15] MEDS: SALT AND SODA MOUTHWASH 1,000 ML PO SCH ×3 (00:25→10:43)
[2020-07-15] MEDS: SODIUM CHLORIDE 0.9% 1,000 ML IV SCH ×2 (01:27→15:24)
[2020-07-15] MEDS: guaiFENesin-DM 600/30MG 1 EACH TAB.ER.12H PO SCH (07:31)
[2020-07-15] MEDS: FAMOTIDINE 20 MG TAB PO SCH (07:32)
[2020-07-15] MEDS: ALPRAZolam 0.25 MG TAB PO SCH (07:34)
[2020-07-15] MEDS: NYSTATIN 100,000 UNIT/ML SUSP 500,000 UNIT/5 ML CUP PO SCH ×2 (07:34→13:55)
[2020-07-15 07:40] LABS: Glucose,Whole Blood 89 mg/dL (75-99)
[2020-07-15] MEDS: HYDROmorphone 0.5 MG/0.5 ML SYRINGE IVP PRN (08:46)
[2020-07-15] MEDS ORDERED: CALCIUM CARB-VIT D 500MG-200UN 1 EACH TAB PO SCH (09:00)
[2020-07-15] MEDS ORDERED: ZINC SULFATE 220 MG CAP PO SCH (09:00)
[2020-07-15] MEDS ORDERED: SPIRONOLACTONE 25 MG TAB PO SCH (09:00)
[2020-07-15] MEDS ORDERED: MULTIVITAMINS, THERA 1 EACH TAB PO SCH (09:00)
[2020-07-15] MEDS ORDERED: NON FORMULARY DRUG (Inulin/Chromium Picolinate [Fiber Gummies Chew] 1 EACH Tab.Chew) PO SCH (09:00)
[2020-07-15] MEDS ORDERED: HYDROcodone/APAP 7.5-325MG 1 EACH TAB PO PRN (10:08)
[2020-07-15] MEDS ORDERED: SENNOSIDES-DOCUSATE SODIUM 1 EACH TAB PO SCH (10:15)
[2020-07-15] MEDS: ALPRAZolam 0.5 MG TAB PO SCH ×2 (10:42→13:55)
[2020-07-15] MEDS: SYMBICORT 160-4.5 MCG INHALER INHALATION SCH (11:30)
--- NOTE | 2020-07-15 12:37 | MR ---
EXAMINATION TYPE: MR brain wo/w con DATE OF EXAM: 07/15/2020 12:17 PM COMPARISON: NONE HISTORY: Weakness, Malignancy, Hx of Breast CA Contrast:5ml gadavist TECHNIQUE: Multiplanar MultiSpin echo imaging of the brain was performed with and without contrast me dium. FINDINGS: There are numerous enhancing lesions noted within the supra and infratentorial regions. Within the in fratentorial region are approximately 25 lesions noted the largest of which is located within the hussain s and measures 1.6 cm. There is surrounding edema noted. Within the right cerebral hemisphere and jc roximately 20-23 lesions seen the largest of which measures 7.3 mm within the high right frontal kimmy on paramedian location. Within the left cerebral hemisphere and approximately 22-25 lesions of the la rgest stone in the left frontal lobe measures 7 mm. There is no evidence for midline shift or mass ef fect. The ventricles, basal cisterns and sulci overlying the cerebral convexities are mildly enlarged. There is evidence of mild periventricular white matter ischemic demyelination. Remote deep white matter insults are also noted. No acute edema is seen on diffusion weighted imaging. There is no evidence for midline shift or mass effect. Acute intracranial hemorrhage or extra-axial collection is not evident. The paranasal sinuses and mastoid air cells are well-aerated. IMPRESSION: 1. Numerous infra and supratentorial enhancing lesions seen consistent with metastatic disease. The l argest lesion is noted within the roland and there is surrounding edema noted.
--- NOTE | 2020-07-15 14:14 | P.PN ---
Subjective Progress Note Date: 07/15/20 Principal diagnosis: small cell neuroendocrine lung carcinoma Pt is more comfortable today in regards to pain, she is experiencing a lot of emotional distress and anxiety Objective - Vital Signs Vital signs: Vital Signs Temp 97.4 F L 07/15/20 07:20 Pulse 88 07/15/20 07:20 Resp 18 07/15/20 07:20 BP 137/83 07/15/20 07:20 Pulse Ox 97 07/15/20 07:20 Intake & Output 07/14/20 07/15/20 07/15/20 18:59 06:59 18:59 Intake Total 650 Balance 650 Weight 51.256 kg Intake: Oral 650 Other: Voiding Method Toilet # Voids 2 0 0 - Constitutional General appearance: Present: average body habitus, cooperative - EENT Eyes: Present: anicteric sclerae, EOMI ENT: Present: hearing grossly normal, thrush (improved) - Respiratory Respiratory: bilateral: CTA, diminished - Cardiovascular Rhythm: regular Heart sounds: normal: S1, S2 Abnormal Heart Sounds: Absent: systolic murmur, diastolic murmur, rub, S3 Gallop, S4 Gallop, click, other - Peripheral edema leg Peripheral Edema: bilateral: None - Gastrointestinal General gastrointestinal: Present: distended, hepatomegaly, tenderness - Integumentary Integumentary: Present: normal - Neurologic Neurologic: Present: CNII-XII intact - Musculoskeletal Musculoskeletal: Present: strength equal bilaterally - Psychiatric Psychiatric Comment(s): notably upset with diagnosis, moderate to severe anxiety exhibited Psychiatric: Present: A&O x's 3, appropriate affect, intact judgment & insight - Labs CBC & Chem 7: 07/13/20 18:20 07/14/20 11:10 Labs: Abnormal Lab Results - Last 24 Hours (Table) 07/14/20 07/14/20 Range/Units 11:10 16:44 POC Glucose (mg/dL) 112 H (75-99) mg/dL Calcium 8.0 L (8.7-10.3) mg/dL AST 97 H (13-35) U/L Alkaline Phosphatase 198 H (41-126) U/L Microbiology - Last 24 Hours (Table) 07/13/20 19:16 Urine Culture - Final Urine,Voided - Imaging and Cardiology CT scan - chest: report reviewed NM bone scan report reviewed Assessment and Plan (1) Neuroendocrine carcinoma Current Visit: Yes Status: Acute Priority: High Code(s): C7A.8 - OTHER MALIGNANT NEUROENDOCRINE TUMORS SNOMED Code(s): 417016841 (2) Small cell lung cancer Current Visit: Yes Status: Acute Priority: High Code(s): C34.90 - MALIGNANT NEOPLASM OF UNSP PART OF UNSP BRONCHUS OR LUNG SNOMED Code(s): 032699685 (3) Intractable abdominal pain Current Visit: Yes Status: Acute Priority: High Code(s): R10.9 - UNSPECIFIED ABDOMINAL PAIN SNOMED Code(s): 98534523 (4) Liver metastases Current Visit: Yes Status: Acute Priority: High Code(s): C78.7 - SECONDARY MALIG NEOPLASM OF LIVER AND INTRAHEPATIC BILE DUCT SNOMED Code(s): 29002010 Plan: New diagnosis of 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 Due to metastatic disease pt is not curable but, disease can be treated to give pt some quality and quantity of life. Recommendation was for pt to start treatment as soon as possible due to aggressive nature of disease and rapid growth in the liver. We gave pt some time to absorb all of this info. She reported to her RN that she is very anxious and wants to go home and start treatment next week. We were able to get her scheduled for carbo/DRY TALC RACKER, 3 day regimen to start next Monday. Orders are being sent. Laverne will call pt with appt time. She did complete MRI brain, pending results. Will sched f/u in office for 1 week after chemo Pain medication, xanax and senna have been sent to [facility] pharmacy. Pt informed as well as Nursing Reviewed prevention of narcotic induced constipation. Attests: I have performed H&P and developed impression and plan of care of patient, discussed with dictator. I agree with dictated note, documented as a scribe. Time with Patient: Greater than 30 (>1 hour spent counseling and coordinating care)
[2020-07-15 15:48] VITALS: BP 138/83; PULSE 111; RESP 20; TEMP 98.6
--- NOTE | 2020-07-15 22:55 | P.DS ---
Providers Date of admission: 07/13/20 20:51 Expected date of discharge: 07/15/20 Attending physician: Bayron De La Fuente Consults: 07/13/20 21:55 Consult Physician Routine Consulting Provider: Emir Lundy Consult Reason/Comments: liver mass, intractable pain Do you want consulting provider notified?: Yes Primary care physician: Marcia Garcia [facility] Course: Chief Complaint: Increasing abdominal pain History of presenting complaint: This is a 55-year-old patient of Dr. Fajardo. Patient been having increasing abdominal pain on and off for about a week. Some nausea. No fever no chills. Decreased appetite. Long-standing smoker. Had some shortness of breath and wheezing that she says is present most of the time. Pain is affecting her activity. Presented to the ER. Predominantly on the right side of the abdomen. No radiation. No change in bowel pattern. Was admitted to the hospital and end of May with abdominal mass. Acute COPD exacerbation. Also positive for COVID 19 by PCR. Patient subsequently followed up with oncology. Had a liver biopsy done. Now presents to the ER with increasing right upper quadrant pain. Appetite is gone down. Occasional constipation. Very anxious. Biopsy results are currently not known. Biopsy results showed-small cell neuroendocrine tumor with metastatic suspect.. CT of the chest [id number] area of airspace consolidation and atelectasis in the left upper lobe anteriorly adjacent to the mediastinum. Occlusion of the left upper lobe bronchus. And large lymph node. Brain MRI- numerous infra and supratentorial enhancing lesion seen consistent with metastatic disease. Bone scan-not suggestive of metastatic osseous abnormality. Dr. Martinez's team spoke with the patient. Given the option start treatment tomorrow versus return and come back next week on Monday. She was somewhat overwhelmed obviously. Should prefers to go home and come back on Monday. Radiation oncology was also notified by oncology team. Discussed with the oncology [employer] CONTACT PRINTER Mikayla. Also the patient. Wireless Sales Associate: Dr. Lundy from oncology Physical examination: VITAL SIGNS: 98.6, 111, 20, 1 3883, 96% room air GENERAL: BMI 20.7, laying in bed, tearful EYES: Pupils equal. Conjunctiva pale HEENT: External appearance of nose and ears normal, oral cavity grossly normal. NECK: JVD not raised; masses not palpable. HEART: First and second heart sounds are normal; no edema. LUNGS: Respiratory rate increased, decreased breath sounds-mild wheezing. ABDOMEN: Soft, diffuse tenderness, mass effect in the right side, PSYCH: Alert and oriented x3; mood and affect anxious and tearful. INVESTIGATIONS, reviewed in the clinical context: White count 10.4 hemoglobin 13 platelets 369 potassium 4.4 creatinine 0.9 to AST 103 ALT 37 UA positive for leukoesterase, WBC, squamous epithelial cells CT abdomen pelvis-large right mid liver mass which is increased from 13.7 x 9.2 to the current size of 16 x 10.4 cm. Additional small right lobe lesion including posterior lateral right upper lobe 11.6 cm versus previous 10.9. Mass appears to be extending into the liver from the superior lateral right kidney. 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 -Chronic nicotine dependence patient cigarette smoker -COPD in an ex-smoker -Adjustment disorder to the current diagnosis -Anxiety not otherwise specified Disposition: Home Patient Condition at Discharge: Stable Plan - Discharge Summary Discharge Rx Participant: No New Discharge Prescriptions: New Hydrocodone/Acetaminophen [Velpen 7.5-325] 1 tab PO Q4HR PRN 7 Days #42 tab PRN Reason: Pain ALPRAZolam [Xanax] 0.5 mg PO Q6HR 7 Days #28 tab Sennosides/Docusate Sodium [Senna Plus 8.6-50 mg Tablet] 1 each PO BID #60 tablet Discontinued ALPRAZolam [Xanax] 0.25 mg PO BID HYDROcodone/APAP 5-325MG [Velpen 5-325] 1 tab PO Q8H PRN PRN Reason: Pain No Action Calcium Carb-Vit D 500Mg-200Un [Oscal 500+D] 2 tab PO DAILY Multivit with Calcium,Iron,Min [Women's Multivitamin] 1 each PO DAILY Inulin/Chromium Picolinate [Fiber Gummies Chew] 2 tab PO DAILY Spironolactone [Aldactone] 75 mg PO DAILY Guaifenesin/Pseudoephedrne HCl [Mucinex D ER 1,200-120 mg Tab] 1 tab PO BID Zinc Sulfate [Orazinc] 220 mg PO DAILY #30 cap Famotidine [Pepcid] 20 mg PO BID #60 tab Budesonide-Formot 160-4.5 Mcg [Symbicort 160-4.5 Mcg Inhaler] 1 puff INHALATION RT-BID #1 puff Albuterol Inhaler [Ventolin Hfa Inhaler] 2 puff INHALATION RT-Q4H PRN PRN Reason: Wheezing Discharge Medication List Calcium Carb-Vit D 500Mg-200Un [Oscal 500+D] 2 tab PO DAILY 10/31/16 [History] Inulin/Chromium Picolinate [Fiber Gummies Chew] 2 tab PO DAILY 10/31/16 [History] Multivit with Calcium,Iron,Min [Women's Multivitamin] 1 each PO DAILY 10/31/16 [History] Guaifenesin/Pseudoephedrne HCl [Mucinex D ER 1,200-120 mg Tab] 1 tab PO BID 06/18/20 [History] Spironolactone [Aldactone] 75 mg PO DAILY 06/18/20 [History] Budesonide-Formot 160-4.5 Mcg [Symbicort 160-4.5 Mcg Inhaler] 1 puff INHALATION RT-BID #1 puff 06/19/20 [Rx] Famotidine [Pepcid] 20 mg PO BID #60 tab 06/19/20 [Rx] Zinc Sulfate [Orazinc] 220 mg PO DAILY #30 cap 06/19/20 [Rx] Albuterol Inhaler [Ventolin Hfa Inhaler] 2 puff INHALATION RT-Q4H PRN 07/13/20 [History] ALPRAZolam [Xanax] 0.5 mg PO Q6HR 7 Days #28 tab 07/15/20 [Rx] Hydrocodone/Acetaminophen [Velpen 7.5-325] 1 tab PO Q4HR PRN 7 Days #42 tab 07/15/20 [Rx] Sennosides/Docusate Sodium [Senna Plus 8.6-50 mg Tablet] 1 each PO BID #60 tablet 07/15/20 [Rx] Follow up Appointment(s)/Referral(s): Emir Lundy MD [STAFF PHYSICIAN] - 2 Weeks (office will be contacting you to schedule outpatient infusions) Jose,Marcia B, DO [Primary Care Provider] - 1-2 days (call office tomorrow to schedule follow-up appointment) Patient Instructions/Handouts: Hydrocodone/Acetaminophen (By mouth), Alprazolam (By mouth), Laxative, Stimulant Combination (By mouth) Activity/Diet/Wound Care/Special Instructions: Fluids encouraged during chemo Appt with Dr. Lundy has been adjusted. F/U appt scheduled for 1 week after chemo, date and time in discharge instructions
== END 2020-07-15 16:27 ==
LOC: EC 17:36 → 5NMEDONC 20:51
PROVIDERS: ADMIT Hospitalist; ATTEND Hospitalist
DX: C7A.8 Other malignant neuroendocrine tumors (principal); C7B.8 Other secondary neuroendocrine tumors; C34.90 Malignant neoplasm of unspecified part of unspecified bronchus or lung; C78.7 Secondary malignant neoplasm of liver and intrahepatic bile duct; F17.210 Nicotine dependence, cigarettes, uncomplicated; J44.9 Chronic obstructive pulmonary disease, unspecified; F43.20 Adjustment disorder, unspecified; F41.9 Anxiety disorder, unspecified; L70.8 Other acne; K21.9 Gastro-esophageal reflux disease without esophagitis; Z79.899 Other long term (current) drug therapy; Z88.6 Allergy status to analgesic agent; Z91.02 Food additives allergy status; Z86.19 Personal history of other infectious and parasitic diseases; Z98.890 Other specified postprocedural states; Z98.51 Tubal ligation status; Z87.39 Personal history of other diseases of the musculoskeletal system and connective tissue; Z87.19 Personal history of other diseases of the digestive system; Z79.51 Long term (current) use of inhaled steroids; Z82.49 Family history of ischemic heart disease and other diseases of the circulatory system
CPT/HCPCS: 96376 ×3; 96361; 96374; 96375; 99285; 51798; 36415; 94640; 80053 ×2; 82150; 83690; 85025; 81001; 87086; 71260; 74177; 70553; 78306; G0378 ×3; A9503; J2405; A9585; J1170 ×3; Q9967 ×2

== ENCOUNTER 2020-07-16 11:14 | Inpatient (IN) | payer BC ==
[2020-07-16] MEDS ORDERED: SODIUM CHLORIDE 0.9% 500 ML 500 ML IV STA (11:45)
--- NOTE | 2020-07-16 11:54 | ED ---
General Adult HPI - General Chief complaint: Weakness Stated complaint: Lower body numbness Time Seen by Provider: 07/16/20 11:31 Source: patient, RN notes reviewed, old records reviewed Mode of arrival: wheelchair Limitations: no limitations - History of Present Illness Initial comments: 55-year-old female with recent diagnosis of metastatic lung cancer presenting for evaluation of weakness and inability to ambulate. Patient was recently admitted to the hospital, she was discharged yesterday. She had difficulty standing at the time of discharge which was about 3 PM yesterday. She states that she had been mostly in bed prior to this. She has large liver involvement, she received a PET scan as well as evaluation by oncology and was scheduled to start chemotherapy this week. She denies fever. She states she has been eating with no significant vomiting. She reports numbness to both legs as well as weakness. - Related Data Home Medications Medication Instructions Recorded Confirmed Calcium Carb-Vit D 500Mg-200Un 2 tab PO DAILY 10/31/16 07/16/20 [Oscal 500+D] Inulin/Chromium Picolinate [Fiber 2 tab PO DAILY 10/31/16 07/16/20 Gummies Chew] Multivit with Calcium,Iron,Min 1 tab PO DAILY 10/31/16 07/16/20 [Women's Multivitamin] Guaifenesin/Pseudoephedrne HCl 1 tab PO BID 06/18/20 07/16/20 [Mucinex D ER 1,200-120 mg Tab] Spironolactone [Aldactone] 75 mg PO DAILY 06/18/20 07/16/20 Albuterol Inhaler [Ventolin Hfa 2 puff INHALATION RT-Q4H PRN 07/13/20 07/16/20 Inhaler] Sennosides/Docusate Sodium [Senna 1 - 2 tab PO BID PRN 07/16/20 07/16/20 Plus 8.6-50 mg Tablet] Previous Rx's Medication Instructions Recorded Budesonide-Formot 160-4.5 Mcg 1 puff INHALATION RT-BID #1 puff 06/19/20 [Symbicort 160-4.5 Mcg Inhaler] Famotidine [Pepcid] 20 mg PO BID #60 tab 06/19/20 Zinc Sulfate [Orazinc] 220 mg PO DAILY #30 cap 06/19/20 ALPRAZolam [Xanax] 0.5 mg PO Q6HR 7 Days #28 tab 07/15/20 Hydrocodone/Acetaminophen [Jesse 1 tab PO Q4HR PRN 7 Days #42 tab 07/15/20 7.5-325] Allergies Allergy/AdvReac Type Severity Reaction Status Date / Time aspirin AdvReac GI upset Verified 07/16/20 13:16 monosodium glutamate [MSG] AdvReac GI upset Verified 07/16/20 13:16 Review of Systems ROS Statement: Those systems with pertinent positive or pertinent negative responses have been documented in the HPI. ROS Other: All systems not noted in ROS Statement are negative. Past Medical History Past Medical History: No Reported History Additional Past Medical History / Comment(s): takes aldactone for hormonal acne, recent admit for abdominal pain(Liver mass being investigated)and positive for COVID (Jun 18). History of Any Multi-Drug Resistant Organisms: None Reported Past Surgical History: Orthopedic Surgery, Tubal Ligation Additional Past Surgical History / Comment(s): right knee, trigger finger, sinus surgeries x3 back in 1989. cyst surgies wrist/arm. Rt breast biopsy- benign. Past Anesthesia/Blood Transfusion Reactions: No Reported Reaction Past Psychological History: No Psychological Hx Reported Smoking Status: Current every day smoker Past Alcohol Use History: Occasional Past Drug Use History: None Reported - Past Family History Father Family Medical History: Coronary Artery Disease (CAD) General Exam Limitations: no limitations General appearance: alert, in no apparent distress Head exam: Present: atraumatic, normocephalic Eye exam: Present: normal appearance, PERRL ENT exam: Present: normal exam Neck exam: Present: normal inspection. Absent: tenderness, meningismus Respiratory exam: Present: rhonchi. Absent: respiratory distress Cardiovascular Exam: Present: normal rhythm, tachycardia GI/Abdominal exam: Present: distended, tenderness Extremities exam: Present: pedal edema (Trace edema bilaterally, distal pulses intact. ) Neurological exam: Present: alert, oriented X3, motor sensory deficit (3 out of 5 strength in the lower extremities, minimal reflexes at the patella) Psychiatric exam: Present: normal affect, normal mood Skin exam: Present: warm, dry, intact. Absent: cyanosis, diaphoretic Course Vital Signs 07/16/20 11:23 Temperature 97.9 F Pulse Rate 121 H Respiratory 18 Rate Blood Pressure 121/76 O2 Sat by Pulse 98 Oximetry - Reevaluation(s) Reevaluation #1: 07/16/20 13:36 MRI from yesterday does show multiple intracranial lesions. I discussed case both with Dr. De La Fuente and Adriana ayers for Dr. Lundy. Patient will be admitted to internal medicine with oncology on consult. EKG Findings - EKG Comments: EKG Findings:: EKG: Sinus tachycardia, rate of 108, AL interval 156, QRS duration 78, QTC [address] segment elevation Medical Decision Making - Medical Decision Making 55-year-old female with metastatic lung cancer, liver and brain metastases presenting with bilateral lower extremity weakness. IV is established, laboratory studies are pending. The patient is given pain medication, steroids including Decadron. She will be admitted for inpatient oncology treatment. - Lab Data Result diagrams: 07/16/20 12:41 07/16/20 12:41 Lab Results 07/16/20 07/16/20 07/16/20 Range/Units 12:41 12:41 12:41 WBC 7.9 (3.8-10.6) k/uL RBC 3.84 (3.80-5.40) m/uL Hgb 11.9 (11.4-16.0) gm/dL Hct 35.2 (34.0-46.0) % MCV 91.7 (80.0-100.0) fL MCH 30.9 (25.0-35.0) pg MCHC 33.7 (31.0-37.0) g/dL RDW 12.8 (11.5-15.5) % Plt Count 376 (150-450) k/uL MPV 6.8 Neutrophils % 78 % Lymphocytes % 14 % Monocytes % 4 % Eosinophils % 1 % Basophils % 1 % Neutrophils # 6.1 (1.3-7.7) k/uL Lymphocytes # 1.1 (1.0-4.8) k/uL Monocytes # 0.3 (0-1.0) k/uL Eosinophils # 0.1 (0-0.7) k/uL Basophils # 0.1 (0-0.2) k/uL PT 10.4 (9.0-12.0) sec INR 1.0 (<1.2) APTT 26.1 (22.0-30.0) sec Sodium 133 L (137-145) mmol/L Potassium 4.1 (3.5-5.1) mmol/L Chloride 103 (98-107) mmol/L Carbon Dioxide 27 (22-30) mmol/L Anion Gap 3 mmol/L BUN 14 (7-17) mg/dL Creatinine 0.80 (0.52-1.04) mg/dL Est GFR (CKD-EPI)AfAm >90 (>60 ml/min/1.73 sqM) Est GFR (CKD-EPI)NonAf 82 (>60 ml/min/1.73 sqM) Glucose 104 H (74-99) mg/dL Plasma Lactic Acid Uday (0.7-2.0) mmol/L Calcium 8.1 L (8.4-10.2) mg/dL Magnesium 1.7 (1.6-2.3) mg/dL Total Bilirubin 0.4 (0.2-1.3) mg/dL AST 97 H (14-36) U/L ALT 34 (4-34) U/L Alkaline Phosphatase 154 H (38-126) U/L Total Protein 6.2 L (6.3-8.2) g/dL Albumin 3.3 L (3.5-5.0) g/dL 07/16/20 Range/Units 12:41 WBC (3.8-10.6) k/uL RBC (3.80-5.40) m/uL Hgb (11.4-16.0) gm/dL Hct (34.0-46.0) % MCV (80.0-100.0) fL MCH (25.0-35.0) pg MCHC (31.0-37.0) g/dL RDW (11.5-15.5) % Plt Count (150-450) k/uL MPV Neutrophils % % Lymphocytes % % Monocytes % % Eosinophils % % Basophils % % Neutrophils # (1.3-7.7) k/uL Lymphocytes # (1.0-4.8) k/uL Monocytes # (0-1.0) k/uL Eosinophils # (0-0.7) k/uL Basophils # (0-0.2) k/uL PT (9.0-12.0) sec INR (<1.2) APTT (22.0-30.0) sec Sodium (137-145) mmol/L Potassium (3.5-5.1) mmol/L Chloride (98-107) mmol/L Carbon Dioxide (22-30) mmol/L Anion Gap mmol/L BUN (7-17) mg/dL Creatinine (0.52-1.04) mg/dL Est GFR (CKD-EPI)AfAm (>60 ml/min/1.73 sqM) Est GFR (CKD-EPI)NonAf (>60 ml/min/1.73 sqM) Glucose (74-99) mg/dL Plasma Lactic Acid Uday 1.2 (0.7-2.0) mmol/L Calcium (8.4-10.2) mg/dL Magnesium (1.6-2.3) mg/dL Total Bilirubin (0.2-1.3) mg/dL AST (14-36) U/L ALT (4-34) U/L Alkaline Phosphatase (38-126) U/L Total Protein (6.3-8.2) g/dL Albumin (3.5-5.0) g/dL Disposition Clinical Impression: Small cell lung cancer, Liver metastases, Brain metastases Disposition: ADMITTED IP TO THIS [facility] Condition: Serious Is patient prescribed a controlled substance at d/c from ED?: No Referrals: Marcia Garcia DO [Primary Care Provider] - 1-2 days Decision to Admit Reason: Admit from EC Decision Date: 07/16/20 Decision Time: 13:41
[2020-07-16 12:51] LABS: Basophils # (A) 0.1 k/uL (0-0.2); Basophils % (A) 1 %; Eosinophils # (A) 0.1 k/uL (0-0.7); Eosinophils % (A) 1 %; HCT 35.2 % (34.0-46.0); HGB 11.9 gm/dL (11.4-16.0); Lymphocytes # (A) 1.1 k/uL (1.0-4.8); Lymphocytes % (A) 14 %; MCH 30.9 pg (25.0-35.0); MCHC 33.7 g/dL (31.0-37.0); MCV 91.7 fL (80.0-100.0); Mean Platelet Volume 6.8; Monocytes # (A) 0.3 k/uL (0-1.0); Monocytes % (A) 4 %; Neutrophils # (A) 6.1 k/uL (1.3-7.7); Neutrophils % (A) 78 %; Platelet Count 376 k/uL (150-450); RBC 3.84 m/uL (3.80-5.40); RDW 12.8 % (11.5-15.5); WBC 7.9 k/uL (3.8-10.6)
[2020-07-16] MEDS ORDERED: DEXAMETHASONE SOD PHOSPHATE 10 MG/ML 1 ML VIAL IV STA (12:57)
[2020-07-16 13:00] LABS: ALT 34 U/L (4-34); AST 97 U/L (14-36); African American GFR (CKD) >90 (>60 ml/min/1.73 sqM); Albumin 3.3 g/dL (3.5-5.0); Alkaline Phosphatase 154 U/L (38-126); Anion Gap 3 mmol/L; Blood Urea Nitrogen 14 mg/dL (7-17); Calcium 8.1 mg/dL (8.4-10.2); Carbon Dioxide 27 mmol/L (22-30); Chloride 103 mmol/L (98-107); Glucose 104 mg/dL (74-99); Magnesium 1.7 mg/dL (1.6-2.3); Non-African American GFR(CKD) 82 (>60 ml/min/1.73 sqM); Potassium 4.1 mmol/L (3.5-5.1); Sodium 133 mmol/L (137-145); Total Bilirubin 0.4 mg/dL (0.2-1.3); Total Protein 6.2 g/dL (6.3-8.2)
[2020-07-16 13:06] LABS: Partial Thromboplastin Time 26.1 sec (22.0-30.0); Prothrombin Time 10.4 sec (9.0-12.0)
[2020-07-16] MEDS ORDERED: HYDROmorphone 1 MG/ML 1 ML SYRINGE IVP STA (13:23)
[2020-07-16] MEDS ORDERED: LORazepam 2 MG/ML INJ IV STA (13:30)
[2020-07-16] MEDS ORDERED: NALOXONE 0.4 MG/ML 1 ML VIAL IV PRN (13:42)
[2020-07-16] MEDS: SODIUM CHLORIDE 0.9% 1,000 ML IV SCH (13:57)
[2020-07-16] MEDS ORDERED: MANNITOL 25% 12.5 GM/50 ML VIAL IV STA (14:32)
[2020-07-16 15:22] LABS: Appearance,Urine Clear (Clear); Bilirubin,Urine Negative (Negative); Blood,Urine Negative (Negative); Color,Urine Yellow; Glucose,Urine (UA) Negative (Negative); Ketones,Urine Negative (Negative); Leukocyte Esterase,Urine Negative (Negative); Nitrite,Urine Negative (Negative); PH, Urine 6.5 (5.0-8.0); Protein,Urine Negative (Negative); Specific Gravity,Urine 1.014 (1.001-1.035); Urobilinogen,Urine <2.0 mg/dL (<2.0)
[2020-07-16] MEDS: HYDROmorphone 1 MG/ML 1 ML SYRINGE IVP PRN (15:27)
[2020-07-16] MEDS ORDERED: SALINE 1 500ML.BAG with MANNITOL 20% PMX 125 ML IV ONE (17:00)
[2020-07-16] MEDS ORDERED: CARBOPLATIN IV ONE (17:00)
[2020-07-16] MEDS ORDERED: SODIUM CHLORIDE 0.9% IV ONE (17:00)
--- NOTE | 2020-07-16 17:05 | P.CONS ---
History of Present Illness - Reason for Consult Consult date: 07/16/20 unable to walk, weakness - History of Present Illness See below, consult from 2 days ago. Pt is back in hospital after DC yesterday-pt was very frightened and emotionally overwhelmed. She has not been able to walk since last night, cannot tell if she had to urinate, denies ALVAREZ, pain is controlled. is at bedside. Mrs. Interiano is a very pleasant 55-year-old female patient with well- controlled chronic medical problems at baseline including GERD, anxiety and COPD. She was first seen in consult 06/19/20. She presented with c/o right- sided abdominal pain, onset was rapid over the previous 8-9 days, some improvement but, pain recurred. It was persistent, progressive and severe. When she presented to the ER she also had wheezing and shortness of breath. She was subsequently diagnosed with covid 19. CT scan showed multiple liver masses, largest was more than 10 cm. There was a hypodensity in the upper pole of the right kidney. Really wasn't clear if the liver masses were growing to involve the kidneys or vice versa. Patient was needing biopsy but needed to have Covid treated first. She ended up having the biopsy 07/10/20. Presenting to the hospital now with intractable right upper quadrant pain, she had been sent home with [place], this was no longer controlling her symptoms. She states that she was not using them with any sort of frequency, "trying not to use them that much". Denied fevers, nausea, vomiting, appetite is fair, she has early satiety, her abdomen feels more bloated and distended, she states she is still having bowel movements, no swelling in the lower extremities. Past Medical History Past Medical History: No Reported History Additional Past Medical History / Comment(s): takes aldactone for hormonal acne, recent admit for abdominal pain(Liver mass being investigated)and positive for COVID (Jun 18). History of Any Multi-Drug Resistant Organisms: None Reported Past Surgical History: Orthopedic Surgery, Tubal Ligation Additional Past Surgical History / Comment(s): right knee, trigger finger, sinus surgeries x3 back in 1989. cyst surgies wrist/arm. Rt breast biopsy- benign. Past Anesthesia/Blood Transfusion Reactions: No Reported Reaction Past Psychological History: No Psychological Hx Reported Smoking Status: Current every day smoker Past Alcohol Use History: Occasional Past Drug Use History: None Reported - Past Family History Father Family Medical History: Coronary Artery Disease (CAD) Medications and Allergies Home Medications Medication Instructions Recorded Confirmed Type Calcium Carb-Vit D 500Mg-200Un 2 tab PO DAILY 10/31/16 07/16/20 History [Oscal 500+D] Inulin/Chromium Picolinate [Fiber 2 tab PO DAILY 10/31/16 07/16/20 History Gummies Chew] Multivit with Calcium,Iron,Min 1 tab PO DAILY 10/31/16 07/16/20 History [Women's Multivitamin] Guaifenesin/Pseudoephedrne HCl 1 tab PO BID 06/18/20 07/16/20 History [Mucinex D ER 1,200-120 mg Tab] Spironolactone [Aldactone] 75 mg PO DAILY 06/18/20 07/16/20 History Budesonide-Formot 160-4.5 Mcg 1 puff INHALATION RT-BID #1 puff 06/19/20 07/16/20 Rx [Symbicort 160-4.5 Mcg Inhaler] Famotidine [Pepcid] 20 mg PO BID #60 tab 06/19/20 07/16/20 Rx Zinc Sulfate [Orazinc] 220 mg PO DAILY #30 cap 06/19/20 07/16/20 Rx Albuterol Inhaler [Ventolin Hfa 2 puff INHALATION RT-Q4H PRN 07/13/20 07/16/20 History Inhaler] ALPRAZolam [Xanax] 0.5 mg PO Q6HR 7 Days #28 tab 07/15/20 07/16/20 Rx Hydrocodone/Acetaminophen [[place] 1 tab PO Q4HR PRN 7 Days #42 tab 07/15/20 07/16/20 Rx 7.5-325] Sennosides/Docusate Sodium [Senna 1 - 2 tab PO BID PRN 07/16/20 07/16/20 History Plus 8.6-50 mg Tablet] Allergies Allergy/AdvReac Type Severity Reaction Status Date / Time aspirin AdvReac GI upset Verified 07/16/20 13:16 monosodium glutamate [MSG] AdvReac GI upset Verified 07/16/20 13:16 Physical Exam Vitals: Vital Signs Temp Pulse Resp BP Pulse Ox 07/16/20 11:23 97.9 F 121 H 18 121/76 98 Intake and Output 07/15/20 07/16/20 07/16/20 22:59 06:59 14:59 Other: Weight 51.256 kg Results CBC & Chem 7: 07/16/20 12:41 07/16/20 12:41 Labs: Abnormal Lab Results - Last 24 Hours (Table) 07/16/20 Range/Units 12:41 Sodium 133 L (137-145) mmol/L Glucose 104 H (74-99) mg/dL Calcium 8.1 L (8.4-10.2) mg/dL AST 97 H (14-36) U/L Alkaline Phosphatase 154 H (38-126) U/L Total Protein 6.2 L (6.3-8.2) g/dL Albumin 3.3 L (3.5-5.0) g/dL Assessment and Plan (1) Brain metastases Current Visit: Yes Status: Acute Code(s): C79.31 - SECONDARY MALIGNANT NEOPLASM OF BRAIN SNOMED Code(s): 85165634 (2) Liver metastases Current Visit: Yes Status: Acute Priority: High Code(s): C78.7 - SECONDARY MALIG NEOPLASM OF LIVER AND INTRAHEPATIC BILE DUCT SNOMED Code(s): 37348207 (3) Small cell lung cancer Current Visit: Yes Status: Acute Priority: High Code(s): C34.90 - MALIGNANT NEOPLASM OF UNSP PART OF UNSP BRONCHUS OR LUNG SNOMED Code(s): 617071105 Plan: We tried contacting pt yesterday after MRI brain-she was found to have met disease, lesion near brain stem. We encouraged her to stay but, she wanted to go home. She is back with inability to walk and inability to recognize that she has to urinate Discussed case with ER MD who started steroids, mannitol ordered. Discussed case with Pharm who has chemo in house. Spoke with Nursing who have team to administer chemo Dr. Cummins consulted will see pt in AM Had very angelica discussion with , pt was able to ask a few questions and did seem to understand discussion. Pt is in a very serious situation. Her disease is not curable. She will likely succumb to this in a matter of days. Treatment has very small chance of having any impact on this disease, and treatment may cause her demise. They understand the risks and would like to proceed as they feel that her is inevitable at least they can give chemo a shot and see what happens. They did agree to DNR and understand that if pt has cardiopulmonary arrest that she will be made comfortable, no aggressive measures Thanks to the team that helped make this happen for this pt and getting her family in to be with her. Time with Patient: Greater than 30
[2020-07-16] MEDS: ONDANSETRON 16 MG in SODIUM CHLORIDE 0.9% 50 ML IVPB SCH (17:14)
[2020-07-16] MEDS: DEXAMETHASONE SOD PHOSPHATE 10 MG/ML 1 ML VIAL IV SCH (17:14)
[2020-07-16] MEDS: FAMOTIDINE 20 MG/2 ML VIAL IVP SCH (17:21)
[2020-07-16 17:27] LABS: Basophils # (A) 0.1 k/uL (0-0.2); Basophils % (A) 1 %; Eosinophils % (A) 0 %; HCT 35.7 % (34.0-46.0); HGB 12.1 gm/dL (11.4-16.0); Lymphocytes # (A) 0.5 k/uL (1.0-4.8); Lymphocytes % (A) 5 %; MCH 31.5 pg (25.0-35.0); MCHC 33.9 g/dL (31.0-37.0); MCV 92.9 fL (80.0-100.0); Mean Platelet Volume 6.6; Monocytes # (A) 0.1 k/uL (0-1.0); Monocytes % (A) 1 %; Neutrophils # (A) 8.8 k/uL (1.3-7.7); Neutrophils % (A) 92 %; Platelet Count 343 k/uL (150-450); RBC 3.84 m/uL (3.80-5.40); RDW 12.6 % (11.5-15.5); WBC 9.6 k/uL (3.8-10.6)
[2020-07-16] MEDS: ETOPOSIDE IV SCH (18:50)
[2020-07-16] MEDS: SODIUM CHLORIDE 0.9% IV SCH (18:50)
[2020-07-16] MEDS: HYDROmorphone 0.5 MG/0.5 ML SYRINGE IVP PRN (20:01)
[2020-07-16] MEDS ORDERED: HYDROcodone/APAP 7.5-325MG 1 EACH TAB PO PRN (23:08)
--- NOTE | 2020-07-16 23:09 | P.HPIM ---
History of Present Illness H&P Date: 07/16/20 Chief Complaint: weakness in the legs Chief Complaint: Increasing abdominal pain History of presenting complaint: This is a 55-year-old patient of Dr. Fajardo. . Was admitted to the hospital and end of May with abdominal mass. Acute COPD exacerbation. Also positive for COVID 19 by PCR. Patient subsequently followed up with oncology. Had a liver biopsy done. 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 MRI of the brain showed metastatic disease in the brain. Bone scan was negative. Patient is offered to stay back and get hemotherapy but patient very keen to go home and come back. Patient went home and then started noticing weakness in the legs. And patient brought back to the ER. Still having abdominal pain. Oncology was consulted with the plan to chemotherapy. Supposed to be palliative. Prognosis not good. Patient rather tired and sleepy right now Review of systems: unable to obtain as patient rather sleepy and tired Past medical history to include: Hormonal acne for which she takes Aldactone, trigger finger. COPD. 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 Smoker. No alcohol. Physical examination: VITAL SIGNS: 98.4, 110, 16, 143 with 85, 94% on room air GENERAL: BMI 20.7, laying in bed,tired EYES: Pupils equal. Conjunctiva pale HEENT: External appearance of nose and ears normal, oral cavity grossly normal. NECK: JVD not raised; masses not palpable. HEART: First and second heart sounds are normal; no edema. LUNGS: Respiratory rate increased, decreased breath sounds- ABDOMEN: Soft, diffuse tenderness, mass effect in the right side, . PSYCH: sleepy NEUROLOGICAL: Cranial nerves grossly intact; no facial asymmetry, decreased bottle lower extremity. LYMPHATICS: No lymph nodes palpable in the axilla and neck INVESTIGATIONS, reviewed in the clinical context: white count 9.6 hemoglobin 12.1 Potassium 4.1 creatinine 0.8 albumin 3.3 Brain MRI-numerous infra and supratentorial enhancing lesion seen consistent with metastatic disease. Bone scan-not suggestive of metastatic osseous abnormality CT abdomen pelvis-large right mid liver mass which is increased from 13.7 x 9.2 to the current size of 16 x 10.4 cm. Additional small right lobe lesion including posterior lateral right upper lobe 11.6 cm versus previous 10.9. Mass appears to be extending into the liver from the superior lateral right kidney. 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 He is only spoken to the oncologist team at length. Understands the prognosis guarded. Patient also started on Decadron. Home medications reviewed. Past Medical History Past Medical History: No Reported History Additional Past Medical History / Comment(s): takes aldactone for hormonal acne, recent admit for abdominal pain(Liver mass being investigated)and positive for COVID (Jun 18). History of Any Multi-Drug Resistant Organisms: None Reported Past Surgical History: Orthopedic Surgery, Tubal Ligation Additional Past Surgical History / Comment(s): right knee, trigger finger, sinus surgeries x3 back in 1989. cyst surgies wrist/arm. Rt breast biopsy- benign. Past Anesthesia/Blood Transfusion Reactions: No Reported Reaction Past Psychological History: No Psychological Hx Reported Smoking Status: Current every day smoker Past Alcohol Use History: Occasional Past Drug Use History: None Reported - Past Family History Father Family Medical History: Coronary Artery Disease (CAD) Medications and Allergies Home Medications Medication Instructions Recorded Confirmed Type Calcium Carb-Vit D 500Mg-200Un 2 tab PO DAILY 10/31/16 07/16/20 History [Oscal 500+D] Inulin/Chromium Picolinate [Fiber 2 tab PO DAILY 10/31/16 07/16/20 History Gummies Chew] Multivit with Calcium,Iron,Min 1 tab PO DAILY 10/31/16 07/16/20 History [Women's Multivitamin] Guaifenesin/Pseudoephedrne HCl 1 tab PO BID 06/18/20 07/16/20 History [Mucinex D ER 1,200-120 mg Tab] Spironolactone [Aldactone] 75 mg PO DAILY 06/18/20 07/16/20 History Budesonide-Formot 160-4.5 Mcg 1 puff INHALATION RT-BID #1 puff 06/19/20 07/16/20 Rx [Symbicort 160-4.5 Mcg Inhaler] Famotidine [Pepcid] 20 mg PO BID #60 tab 06/19/20 07/16/20 Rx Zinc Sulfate [Orazinc] 220 mg PO DAILY #30 cap 06/19/20 07/16/20 Rx Albuterol Inhaler [Ventolin Hfa 2 puff INHALATION RT-Q4H PRN 07/13/20 07/16/20 History Inhaler] ALPRAZolam [Xanax] 0.5 mg PO Q6HR 7 Days #28 tab 07/15/20 07/16/20 Rx Hydrocodone/Acetaminophen [[place] 1 tab PO Q4HR PRN 7 Days #42 tab 07/15/20 07/16/20 Rx 7.5-325] Sennosides/Docusate Sodium [Senna 1 - 2 tab PO BID PRN 07/16/20 07/16/20 History Plus 8.6-50 mg Tablet] Allergies Allergy/AdvReac Type Severity Reaction Status Date / Time aspirin AdvReac GI upset Verified 07/16/20 13:16 monosodium glutamate [MSG] AdvReac GI upset Verified 07/16/20 13:16 Physical Exam Vitals: Vital Signs Temp Pulse Pulse Resp BP BP Pulse Ox 07/16/20 22:56 98.2 F 102 H 20 128/85 98 07/16/20 19:00 98.1 F 112 H 16 132/85 97 07/16/20 17:44 98 F 113 H 16 138/89 96 07/16/20 16:24 98.4 F 110 H 16 143/85 94 L 07/16/20 15:00 116 H 131/86 95 07/16/20 14:00 114 H 95 07/16/20 13:00 103 H 96 07/16/20 11:23 97.9 F 121 H 18 121/76 98 Intake and Output 07/16/20 07/16/20 07/16/20 06:59 14:59 22:59 Intake Total 500 Output Total 1881 Balance -1381 Intake: Oral 500 Output: Urine 950 Uretheral ([place]) 950 Post Void Residual 931 Other: Voiding Method Indwelling Catheter Weight 51.256 kg Results CBC & Chem 7: 07/16/20 17:03 07/16/20 12:41 Labs: Abnormal Lab Results - Last 24 Hours (Table) 07/16/20 07/16/20 Range/Units 12:41 17:03 Neutrophils # 8.8 H (1.3-7.7) k/uL Lymphocytes # 0.5 L (1.0-4.8) k/uL Sodium 133 L (137-145) mmol/L Glucose 104 H (74-99) mg/dL Calcium 8.1 L (8.4-10.2) mg/dL AST 97 H (14-36) U/L Alkaline Phosphatase 154 H (38-126) U/L Total Protein 6.2 L (6.3-8.2) g/dL Albumin 3.3 L (3.5-5.0) g/dL Thrombosis Risk Factor Assmnt - Choose All That Apply Any of the Below Risk Factors Present?: Yes Each Factor Represents 1 point: Age 41-60 years, Medical pt on bed rest, Serious lung disease incl. pneumonia (< 1month) Other Risk Factors: Yes Each Risk Factor Represents 2 Points: Patient confined to bed, Malignancy Other congenital or acquired thrombophilia - If yes, enter type in comment: No Thrombosis Risk Factor Assessment Total Risk Factor Score: 7 Thrombosis Risk Factor Assessment Level: High Risk
[2020-07-16] MEDS: ALPRAZolam 0.5 MG TAB PO SCH (23:32)
[2020-07-17] MEDS: ALPRAZolam 0.5 MG TAB PO SCH ×5 (01:09→23:33)
--- NOTE | 2020-07-17 06:03 | P.CONS ---
History of Present Illness - Chief Complaint Medical debility - History of Present Illness I had the opportunity to see patient for inpatient consultation with regard to medical debility. Patient admitted to [facility] July 16 with history of inability to walk for 2 weeks. Patient has history of pulmonary cancer with metastases to liver and brain. PT and OT prescribed. Previous functional history as elicited from patient and corroborated by : 55-year-old right-handed white female who is lives in one floor home with and daughter. Patient retired in works. Patient independent with cooking, laundry, driving, standing shower and gait without device. PCP Marcia marshall. Patient apparently just quit smoking and denies alcohol. Family history mother with arthritis. Review of Systems Review of systems: ENT: Denies sneezes or discharge. Eyes: Denies discharge or photophobia. Cardiac: Denies chest pain or palpitation. Pulmonary: Denies cough or shortness of breath. Breast: Denies discharge or lumps. Gastrointestinal: Denies nausea, emesis, constipation, diarrhea. Genitourinary: Denies discharge or frequency. Musculoskeletal: Denies muscle or bone aches. Neurologic: Weak legs and inability to stand or walk. Endocrine: Denies shakes or sweats. Oncology: Denies cancers. Dermatologic: Denies rash, itching, pruritus. ALLERGY/immunology: Denies sneezes, rashes. Past Medical History Past Medical History: No Reported History Additional Past Medical History / Comment(s): takes aldactone for hormonal acne, recent admit for abdominal pain(Liver mass being investigated)and positive for COVID (Jun 18). History of Any Multi-Drug Resistant Organisms: None Reported Past Surgical History: Orthopedic Surgery, Tubal Ligation Additional Past Surgical History / Comment(s): right knee, trigger finger, sinus surgeries x3 back in 1989. cyst surgies wrist/arm. Rt breast biopsy- benign. Past Anesthesia/Blood Transfusion Reactions: No Reported Reaction Past Psychological History: No Psychological Hx Reported Smoking Status: Current every day smoker Past Alcohol Use History: Occasional Past Drug Use History: None Reported - Past Family History Father Family Medical History: Coronary Artery Disease (CAD) Medications and Allergies Home Medications Medication Instructions Recorded Confirmed Type Calcium Carb-Vit D 500Mg-200Un 2 tab PO DAILY 10/31/16 07/16/20 History [Oscal 500+D] Inulin/Chromium Picolinate [Fiber 2 tab PO DAILY 10/31/16 07/16/20 History Gummies Chew] Multivit with Calcium,Iron,Min 1 tab PO DAILY 10/31/16 07/16/20 History [Women's Multivitamin] Guaifenesin/Pseudoephedrne HCl 1 tab PO BID 06/18/20 07/16/20 History [Mucinex D ER 1,200-120 mg Tab] Spironolactone [Aldactone] 75 mg PO DAILY 06/18/20 07/16/20 History Budesonide-Formot 160-4.5 Mcg 1 puff INHALATION RT-BID #1 puff 06/19/20 07/16/20 Rx [Symbicort 160-4.5 Mcg Inhaler] Famotidine [Pepcid] 20 mg PO BID #60 tab 06/19/20 07/16/20 Rx Zinc Sulfate [Orazinc] 220 mg PO DAILY #30 cap 06/19/20 07/16/20 Rx Albuterol Inhaler [Ventolin Hfa 2 puff INHALATION RT-Q4H PRN 07/13/20 07/16/20 History Inhaler] ALPRAZolam [Xanax] 0.5 mg PO Q6HR 7 Days #28 tab 07/15/20 07/16/20 Rx Hydrocodone/Acetaminophen [[place] 1 tab PO Q4HR PRN 7 Days #42 tab 07/15/20 07/16/20 Rx 7.5-325] Sennosides/Docusate Sodium [Senna 1 - 2 tab PO BID PRN 07/16/20 07/16/20 History Plus 8.6-50 mg Tablet] Allergies Allergy/AdvReac Type Severity Reaction Status Date / Time aspirin AdvReac GI upset Verified 07/16/20 13:16 monosodium glutamate [MSG] AdvReac GI upset Verified 07/16/20 13:16 Physical Exam Vitals: Vital Signs Temp Pulse Pulse Resp BP BP Pulse Ox 07/17/20 02:15 97.8 F 94 16 126/82 98 07/16/20 22:56 98.2 F 102 H 20 128/85 98 07/16/20 19:00 98.1 F 112 H 16 132/85 97 07/16/20 17:44 98 F 113 H 16 138/89 96 07/16/20 16:24 98.4 F 110 H 16 143/85 94 L 07/16/20 15:00 116 H 131/86 95 07/16/20 14:00 114 H 95 07/16/20 13:00 103 H 96 07/16/20 11:23 97.9 F 121 H 18 121/76 98 Intake and Output 07/16/20 07/16/20 07/17/20 14:59 22:59 06:59 Intake Total 1250 Output Total 1881 Balance -631 Intake: Intake, IV Titration 750 Amount CARBOplatin 370 mg In 250 Sodium Chloride 0.9% 250 ml @ 287 mls/hr IV ONCE ONE Rx#:[id number] Etoposide 150 mg In 500 Sodium Chloride 0.9% 500 ml 500 ml @ 507.5 mls/hr IV Q24H [facility] Rx#:[id number] Oral 500 Output: Urine 950 Uretheral ([place]) 950 Post Void Residual 931 Other: Voiding Method Indwelling Catheter Weight 51.256 kg Skin: Good color, texture, turgor. General: Thin build and comfortable appearance. Head: Normocephalic, atraumatic. Eyes: Symmetric. Pupils equal round. Ears: Symmetric. Hearing within normal limits. Mouth: Clear. Neck: Supple. Carotid without bruit. Cardiac: Regular rate and rhythm. Lungs: Clear anteriorly and posteriorly. Abdomen: Soft active nontender. Extremities: Normal tone. Neurological: Mental status: Alert, cooperative, pleasant. Cranial nerves: Symmetric facial tone and trapezius. Motor: Normal strength and isolation arms. Legs poor. Sensation: Intact throughout. DTRs: Symmetric and equal throughout. Mobility: Patient eating breakfast this early a.m. and did not attempt to sit or stand. Results CBC & Chem 7: 07/16/20 17:03 07/16/20 12:41 Labs: Abnormal Lab Results - Last 24 Hours (Table) 07/16/20 07/16/20 Range/Units 12:41 17:03 Neutrophils # 8.8 H (1.3-7.7) k/uL Lymphocytes # 0.5 L (1.0-4.8) k/uL Sodium 133 L (137-145) mmol/L Glucose 104 H (74-99) mg/dL Calcium 8.1 L (8.4-10.2) mg/dL AST 97 H (14-36) U/L Alkaline Phosphatase 154 H (38-126) U/L Total Protein 6.2 L (6.3-8.2) g/dL Albumin 3.3 L (3.5-5.0) g/dL Assessment and Plan (1) Small cell lung cancer Current Visit: Yes Status: Acute Priority: High Code(s): C34.90 - MALIGNANT NEOPLASM OF UNSP PART OF UNSP BRONCHUS OR LUNG SNOMED Code(s): 066115697 Plan: Impression: 1. Medical debility. 2. 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 3. Functional paraparesis. 4. Hypertension. 5. COPD. Comments and plan: At this time PT and OT are prescribed. Would await therapy notes but do anticipate ongoing standing and gait problems. Have discussed possible inpatient rehab with patient and both seem agreeable if necessary.
[2020-07-17] MEDS: HYDROmorphone 0.5 MG/0.5 ML SYRINGE IVP PRN ×4 (06:06→22:42)
[2020-07-17 06:28] LABS: Basophils % (A) 0 %; Eosinophils % (A) 0 %; HCT 34.4 % (34.0-46.0); HGB 11.7 gm/dL (11.4-16.0); Lymphocytes % (A) 12 %; MCH 31.6 pg (25.0-35.0); MCV 92.9 fL (80.0-100.0); Mean Platelet Volume 6.8; Monocytes # (A) 0.3 k/uL (0-1.0); Monocytes % (A) 4 %; Neutrophils # (A) 6.9 k/uL (1.3-7.7); Neutrophils % (A) 83 %; Platelet Count 357 k/uL (150-450); RBC 3.71 m/uL (3.80-5.40); RDW 12.4 % (11.5-15.5); WBC 8.3 k/uL (3.8-10.6)
[2020-07-17] MEDS: SYMBICORT 160-4.5 MCG INHALER INHALATION SCH ×2 (07:31→19:02)
[2020-07-17] MEDS: ALBUTEROL HFA INHALER INHALATION PRN ×2 (07:31→19:02)
[2020-07-17] MEDS: ZINC SULFATE 220 MG CAP PO SCH (09:19)
[2020-07-17] MEDS: CALCIUM CARB-VIT D 500MG-200UN 1 EACH TAB PO SCH (09:19)
[2020-07-17 09:33] LABS: African American GFR (CKD) 82.3 (60.0-200.0); Albumin 3.4 g/dL (3.80-4.90); Albumin/Globulin Ratio 1.55 (1.60-3.17); Anion Gap 6.8 mmol/L (4.00-12.00); BUN/Creat Ratio 15.56 Ratio (12.00-20.00); Calcium 7.6 mg/dL (8.7-10.3); Carbon Dioxide 25.2 mmol/L (21.6-31.8); Globulin 2.2 g/dL (1.6-3.3); Potassium 4.9 mmol/L (3.5-5.5); Total Bilirubin 0.4 mg/dL (0.2-1.2); Total Protein 5.6 g/dL (6.2-8.2)
[2020-07-17 12:07] VITALS: BMI 20.6
[2020-07-17] MEDS: NICOTINE 21MG/24HR PATCH TRANSDERM SCH (12:30)
[2020-07-17] MEDS ORDERED: NICOTINE POLACRILEX 2 MG GUM BUCCAL PRN (12:37)
[2020-07-17] MEDS ORDERED: NICOTINE 21MG/24HR PATCH TRANSDERM SCH (12:45)
--- NOTE | 2020-07-17 13:11 | P.CONS ---
History of Present Illness - Reason for Consult Consult date: 07/17/20 Small lung cancer with brain metastatic disease - Chief Complaint Weakness in the lower extremities and abdomen pain - History of Present Illness Mrs. Interiano is a very pleasant 55-year-old who presented with right-sided abdominal pain, It was persistent, progressive and severe with SOB CT scan of the abdomen showed multiple liver masses, largest was 16 x 14.4 cm, this mass has increased in the size from 13.7 x 9.2 in a previous CAT scan. The patient had a biopsy of the liver mass , and it came back positive for metastatic small cell neuroendocrine carcinoma. CT of this chest revealed a large mass in the left upper lobe which might be the primary of her small cell lung cancer. The patient admitted to the hospital recently for a weakness in the lower extrem ities, the patient was unable to walk, unable to control her urine. MRI of the brain in 07/15/2020 showed numerous enhancing lesions within the supra-and infratentorial lesions, or chest , one located within the roland and measures 1.6 cm with surrounding edema, there was no evidence of midline shift or mass effect. These lesions are highly suspicious for metastatic disease. The patient was started Decadron IV, she has noticed improvement in the strengths of her lower extremities, she feels better than yesterday. She started chemotherapy as well. We were consulted for possible palliative radiotherapy to the whole brain. At this time the patient is doing well, sitting up in her bed, she is able to wiggle her toes, but still feels heaviness in both lower legs. She still unable to walk. Review of Systems Constitutional: Reports as per HPI Ears, nose, mouth and throat: Reports as per HPI Cardiovascular: Reports as per HPI Gastrointestinal: Reports as per HPI, Reports change in bowel habits, Reports diarrhea, Reports loss of appetite Genitourinary: Reports as per HPI Menstruation: Reports as per HPI Musculoskeletal: Reports muscle weakness Integumentary: Reports as per HPI Neurological: Reports as per HPI, Reports paralysis, Reports weakness Psychiatric: Reports as per HPI Endocrine: Reports as per HPI Past Medical History Past Medical History: No Reported History Additional Past Medical History / Comment(s): takes aldactone for hormonal acne, recent admit for abdominal pain(Liver mass being investigated)and positive for COVID (Jun 18). History of Any Multi-Drug Resistant Organisms: None Reported Past Surgical History: Orthopedic Surgery, Tubal Ligation Additional Past Surgical History / Comment(s): right knee, trigger finger, sinus surgeries x3 back in 1989. cyst surgies wrist/arm. Rt breast biopsy- benign. Past Anesthesia/Blood Transfusion Reactions: No Reported Reaction Past Psychological History: No Psychological Hx Reported Smoking Status: Current every day smoker Past Alcohol Use History: Occasional Past Drug Use History: None Reported - Past Family History Father Family Medical History: Coronary Artery Disease (CAD) Medications and Allergies Home Medications Medication Instructions Recorded Confirmed Type Calcium Carb-Vit D 500Mg-200Un 2 tab PO DAILY 10/31/16 07/16/20 History [Oscal 500+D] Inulin/Chromium Picolinate [Fiber 2 tab PO DAILY 10/31/16 07/16/20 History Gummies Chew] Multivit with Calcium,Iron,Min 1 tab PO DAILY 10/31/16 07/16/20 History [Women's Multivitamin] Guaifenesin/Pseudoephedrne HCl 1 tab PO BID 06/18/20 07/16/20 History [Mucinex D ER 1,200-120 mg Tab] Spironolactone [Aldactone] 75 mg PO DAILY 06/18/20 07/16/20 History Budesonide-Formot 160-4.5 Mcg 1 puff INHALATION RT-BID #1 puff 06/19/20 07/16/20 Rx [Symbicort 160-4.5 Mcg Inhaler] Famotidine [Pepcid] 20 mg PO BID #60 tab 06/19/20 07/16/20 Rx Zinc Sulfate [Orazinc] 220 mg PO DAILY #30 cap 06/19/20 07/16/20 Rx Albuterol Inhaler [Ventolin Hfa 2 puff INHALATION RT-Q4H PRN 07/13/20 07/16/20 History Inhaler] ALPRAZolam [Xanax] 0.5 mg PO Q6HR 7 Days #28 tab 07/15/20 07/16/20 Rx Hydrocodone/Acetaminophen [[place] 1 tab PO Q4HR PRN 7 Days #42 tab 07/15/20 07/16/20 Rx 7.5-325] Sennosides/Docusate Sodium [Senna 1 - 2 tab PO BID PRN 07/16/20 07/16/20 History Plus 8.6-50 mg Tablet] Allergies Allergy/AdvReac Type Severity Reaction Status Date / Time aspirin AdvReac GI upset Verified 07/16/20 13:16 monosodium glutamate [MSG] AdvReac GI upset Verified 07/16/20 13:16 Physical Exam Vitals: Vital Signs Temp Pulse Pulse Resp BP BP Pulse Ox 07/17/20 07:45 98.1 F 97 16 120/76 100 07/17/20 02:15 97.8 F 94 16 126/82 98 07/16/20 22:56 98.2 F 102 H 20 128/85 98 07/16/20 19:00 98.1 F 112 H 16 132/85 97 07/16/20 17:44 98 F 113 H 16 138/89 96 07/16/20 16:24 98.4 F 110 H 16 143/85 94 L 07/16/20 15:00 116 H 131/86 95 07/16/20 14:00 114 H 95 07/16/20 13:00 103 H 96 Intake and Output 07/16/20 07/17/20 07/17/20 22:59 06:59 14:59 Intake Total 1250 Output Total 1881 775 Balance -631 -775 Intake: Intake, IV Titration 750 Amount CARBOplatin 370 mg In 250 Sodium Chloride 0.9% 250 ml @ 287 mls/hr IV ONCE ONE Rx#:[id number] Etoposide 150 mg In 500 Sodium Chloride 0.9% 500 ml 500 ml @ 507.5 mls/hr IV Q24H [facility] Rx#:[id number] Oral 500 Output: Urine 950 775 Uretheral ([place]) 950 Post Void Residual 931 Other: Voiding Method Indwelling Catheter Indwelling Catheter # Bowel Movements 0 0 Weight 51.256 kg - Constitutional General appearance: no acute distress - EENT Eyes: EOMI - Neck Neck: normal ROM Thyroid: bilateral: normal size - Respiratory Respiratory: left: rales, wheezing - Cardiovascular Rhythm: regular - Gastrointestinal General gastrointestinal: organomegaly, tenderness - Integumentary Integumentary: normal - Neurologic Neurologic: CNII-XII intact - Musculoskeletal Musculoskeletal: right sided weakness, left sided weakness - Psychiatric Psychiatric: A&O x's 3, appropriate affect, intact judgment & insight Results CBC & Chem 7: 07/17/20 05:41 07/17/20 05:41 Labs: Abnormal Lab Results - Last 24 Hours (Table) 07/16/20 07/16/20 07/17/20 Range/Units 12:41 17:03 05:41 RBC 3.71 L (3.80-5.40) m/uL Neutrophils # 8.8 H (1.3-7.7) k/uL Lymphocytes # 0.5 L (1.0-4.8) k/uL Sodium 133 L (137-145) mmol/L Glucose 104 H (74-99) mg/dL Calcium 8.1 L (8.4-10.2) mg/dL AST 97 H (14-36) U/L Alkaline Phosphatase 154 H (38-126) U/L Total Protein 6.2 L (6.3-8.2) g/dL Albumin 3.3 L (3.5-5.0) g/dL Albumin/Globulin Ratio (1.60-3.17) g/dL 07/17/20 Range/Units 05:41 RBC (3.80-5.40) m/uL Neutrophils # (1.3-7.7) k/uL Lymphocytes # (1.0-4.8) k/uL Sodium (137-145) mmol/L Glucose (74-99) mg/dL Calcium 7.6 L (8.4-10.2) mg/dL AST 76 H (14-36) U/L Alkaline Phosphatase 157 H (38-126) U/L Total Protein 5.6 L (6.3-8.2) g/dL Albumin 3.40 L (3.5-5.0) g/dL Albumin/Globulin Ratio 1.55 L (1.60-3.17) g/dL Assessment and Plan (1) Brain metastases Current Visit: Yes Status: Acute Code(s): C79.31 - SECONDARY MALIGNANT NEOPLASM OF BRAIN SNOMED Code(s): 84755107 (2) Liver metastases Current Visit: Yes Status: Acute Priority: High Code(s): C78.7 - SECONDARY MALIG NEOPLASM OF LIVER AND INTRAHEPATIC BILE DUCT SNOMED Code(s): 82102313 (3) Small cell lung cancer Current Visit: Yes Status: Acute Priority: High Code(s): C34.90 - MALIGNANT NEOPLASM OF UNSP PART OF UNSP BRONCHUS OR LUNG SNOMED Code(s): 612191002 Plan: Small cell lung cancer with metastatic to the liver and brain. Images reviewed and discussed with the family , the patient will get a benefit of palliative external beam radiation therapy to the whole brain , I talked to the patient and her family about the rationale , the technique and the potential acute and late late side effects of the treatment , the patient agreed to have radiotherapy . We are planning to start her first treatment today , planning for 10 treatments. The patient is able to resume her chemotherapy during her radiation , discussed with Dr Lundy . Time with Patient: Greater than 30
--- NOTE | 2020-07-17 16:17 | P.PN ---
Subjective Progress Note Date: 07/17/20 Principal diagnosis: Metastatic Cancer Feeling better today wiggling toes, starting radiation and tolerating day one of chemo well Objective - Vital Signs Vital signs: Vital Signs Temp 97.8 F 07/17/20 14:00 Pulse 105 H 07/17/20 14:00 Resp 16 07/17/20 14:00 BP 128/81 07/17/20 14:00 Pulse Ox 96 07/17/20 14:00 Intake & Output 07/16/20 07/17/20 07/17/20 18:59 06:59 18:59 Intake Total 500 750 Output Total 1881 775 Balance -1381 -25 Weight 51.256 kg 51.256 kg Intake: Intake, IV Titration 750 Amount CARBOplatin 370 mg In 250 Sodium Chloride 0.9% 250 ml @ 287 mls/hr IV ONCE ONE Rx#:[id number] Etoposide 150 mg In 500 Sodium Chloride 0.9% 500 ml 500 ml @ 507.5 mls/hr IV Q24H [facility] Rx#:[id number] Oral 500 Output: Urine 950 775 Uretheral ([place]) 950 Post Void Residual 931 Other: Voiding Method Indwelling Catheter Indwelling Catheter Indwelling Catheter # Bowel Movements 0 0 - Exam Constitutional General appearance: no acute distress - EENT Eyes: EOMI - Neck Neck: normal ROM Thyroid: bilateral: normal size - Respiratory Respiratory: left: rales, wheezing - Cardiovascular Rhythm: regular - Gastrointestinal General gastrointestinal: organomegaly, tenderness - Integumentary Integumentary: normal - Neurologic Neurologic: CNII-XII intact - Musculoskeletal Musculoskeletal: right sided weakness, left sided weakness - Psychiatric Psychiatric: A&O x's 3, appropriate affect, intact judgment & insight - Labs CBC & Chem 7: 07/17/20 05:41 07/17/20 05:41 Labs: Abnormal Lab Results - Last 24 Hours (Table) 07/16/20 07/17/20 07/17/20 Range/Units 17:03 05:41 05:41 RBC 3.71 L (3.80-5.40) m/uL Neutrophils # 8.8 H (1.3-7.7) k/uL Lymphocytes # 0.5 L (1.0-4.8) k/uL Calcium 7.6 L (8.7-10.3) mg/dL AST 76 H (13-35) U/L Alkaline Phosphatase 157 H (41-126) U/L Total Protein 5.6 L (6.2-8.2) g/dL Albumin 3.40 L (3.80-4.90) g/dL Albumin/Globulin Ratio 1.55 L (1.60-3.17) g/dL Assessment and Plan Plan: Assessment and Plan (1) Brain metastases Current Visit: Yes Status: Acute Code(s): C79.31 - SECONDARY MALIGNANT NEOP LASM OF BRAIN SNOMED Code(s): 91329979 (2) Liver metastases Current Visit: Yes Status: Acute Priority: High Code(s): C78.7 - SECONDARY MALIG NEOPLASM OF LIVER AND INTRAHEPATIC BILE DUCT SNOMED Code(s): 74997647 (3) Small cell lung cancer Current Visit: Yes Status: Acute Priority: High Code(s): C34.90 - MALIGNANT NEOPLASM OF UNSP PART OF UNSP BRONCHUS OR LUNG SNOMED Code(s): 724998521 Continue Chemo and radiation Increase dexamethasone to 6mg q6 and add PPI discussed with radiation onco Physician attest: Brian completed the full history and physical and agree with above dictation, dictated as a scribe
[2020-07-17] MEDS ORDERED: DEXAMETHASONE SOD PHOSPHATE 10 MG/ML 1 ML VIAL IV PRN (16:26)
[2020-07-17] MEDS: ONDANSETRON 16 MG in SODIUM CHLORIDE 0.9% 50 ML IVPB SCH (18:05)
[2020-07-17] MEDS: DEXAMETHASONE SOD PHOSPHATE 10 MG/ML 1 ML VIAL IV SCH (18:06)
[2020-07-17] MEDS: SODIUM CHLORIDE 0.9% 1,000 ML IV SCH (18:06)
[2020-07-17] MEDS: CYCLOBENZAPRINE 5 MG TAB PO SCH ×2 (18:07→21:25)
[2020-07-17] MEDS: ETOPOSIDE IV SCH (18:18)
[2020-07-17] MEDS: SODIUM CHLORIDE 0.9% IV SCH (18:18)
[2020-07-17] MEDS: FAMOTIDINE 20 MG/2 ML VIAL IVP SCH (19:24)
--- NOTE | 2020-07-17 20:43 | P.PN ---
Progress Note - Text Progress Note Date: 07/17/20 Chief Complaint: Increasing abdominal pain History of presenting complaint: This is a 55-year-old patient of Dr. Fajardo. . Was admitted to the hospital and end of May with abdominal mass. Acute COPD exacerbation. Also positive for COVID 19 by PCR. Patient subsequently followed up with oncology. Had a liver biopsy done. 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 MRI of the brain showed metastatic disease in the brain. Bone scan was negative. Patient is offered to stay back and get hemotherapy but patient very keen to go home and come back. Patient went home and then started noticing weakness in the legs. And patient brought back to the ER. Still having abdominal pain. Oncology was consulted with the plan to chemotherapy. Supposed to be palliative. Prognosis not good. Patient rather tired and sleepy right now Admitted with new onset of paraparesis secondary to brain metastasis. Started on chemotherapy in the form of a etopside. Patient was given IV mannitol in the ER. Started on IV dexamethasone here. Today-awake. Breathing stable. Weakness in the legs-more so in the left leg. Family at the bedside. Pain control. Able to tolerate some food. Review of systems: Was done for constitutional, cardiovascular, GI, pulmonary. Neurological relevant finding as above Physical examination: VITAL SIGNS: 98, 107, 15, 133 with 86, 95% on 2 L GENERAL: , laying in bed, awake EYES: Pupils equal. Conjunctiva pale HEENT: External appearance of nose and ears normal, oral cavity grossly normal. NECK: JVD not raised; masses not palpable. HEART: First and second heart sounds are normal; no edema. LUNGS: Respiratory rate increased, decreased breath sounds- ABDOMEN: Soft, diffuse tenderness, mass on the right side, . PSYCH: Awake answering questions NEUROLOGICAL: Cranial nerves grossly intact; no facial asymmetry, decreased power in the legs especially the left INVESTIGATIONS, reviewed in the clinical context: July 17: White count 8.3 hemoglobin 11.7 potassium 4.9 creatinine 0.9 white count 9.6 hemoglobin 12.1 Potassium 4.1 creatinine 0.8 albumin 3.3 Brain MRI-numerous infra and supratentorial enhancing lesion seen consistent with metastatic disease. Bone scan-not suggestive of metastatic osseous abnormality CT abdomen pelvis-large right mid liver mass which is increased from 13.7 x 9.2 to the current size of 16 x 10.4 cm. Additional small right lobe lesion including posterior lateral right upper lobe 11.6 cm versus previous 10.9. Mass appears to be extending into the liver from the superior lateral right kidney. July 10 biopsy results-metastatic small cell neuroendocrine tumor Assessment: -Small cell neuroendocrine tumor felt to be primary lung with metastasist to the right kidney and the liver and brain metastatic -New onset weakness and lower extremity paresis left greater than right from metastatic disease to the brain -Brain edema localized-vasogenic from brain metastasis -Chronic nicotine dependence patient cigarette smoker -COPD in an ex-smoker -Adjustment disorder -Anxiety not otherwise specified -recent Coronavirus-PCR positive Plan: [facility] by Dr. Durand radiation oncologist. She discussed with the patient and . Plan start radiation today for 10 sessions. Chemotherapy to continue. Prognosis guarded. Does of dexamethasone increased today.
[2020-07-17] MEDS ORDERED: LACTULOSE 20 GM/30 ML CUP PO ONE (23:20)
[2020-07-18] MEDS: HYDROmorphone 0.5 MG/0.5 ML SYRINGE IVP PRN ×6 (02:23→23:50)
[2020-07-18] MEDS ORDERED: NA PHOS,M-B/NA PHOS,DI-BA 133 ML ENEMA RECTAL ONE (05:01)
[2020-07-18 06:40] LABS: Basophils % (A) 0 %; Eosinophils % (A) 0 %; HCT 34.6 % (34.0-46.0); HGB 11.7 gm/dL (11.4-16.0); Lymphocytes # (A) 1.1 k/uL (1.0-4.8); Lymphocytes % (A) 12 %; MCH 31.4 pg (25.0-35.0); MCHC 33.8 g/dL (31.0-37.0); MCV 92.9 fL (80.0-100.0); Mean Platelet Volume 6.9; Monocytes # (A) 0.3 k/uL (0-1.0); Monocytes % (A) 3 %; Neutrophils # (A) 7.8 k/uL (1.3-7.7); Neutrophils % (A) 84 %; Platelet Count 378 k/uL (150-450); RBC 3.72 m/uL (3.80-5.40); RDW 12.5 % (11.5-15.5); WBC 9.2 k/uL (3.8-10.6)
[2020-07-18] MEDS: ALPRAZolam 0.5 MG TAB PO SCH ×3 (07:05→18:26)
[2020-07-18] MEDS: SYMBICORT 160-4.5 MCG INHALER INHALATION SCH ×2 (08:01→20:36)
[2020-07-18] MEDS: ALBUTEROL HFA INHALER INHALATION PRN ×2 (08:01→20:37)
[2020-07-18] MEDS ORDERED: PANTOPRAZOLE 40 MG/10 ML VIAL IVP SCH (09:00)
[2020-07-18] MEDS: NICOTINE 21MG/24HR PATCH TRANSDERM SCH (09:35)
[2020-07-18] MEDS: CALCIUM CARB-VIT D 500MG-200UN 1 EACH TAB PO SCH ×2 (09:35→09:36)
[2020-07-18] MEDS: CYCLOBENZAPRINE 5 MG TAB PO SCH ×3 (09:35→21:49)
[2020-07-18] MEDS: ZINC SULFATE 220 MG CAP PO SCH (09:35)
[2020-07-18 10:54] LABS: African American GFR (CKD) 82.3 (60.0-200.0); Albumin 3.5 g/dL (3.80-4.90); Albumin/Globulin Ratio 1.59 (1.60-3.17); Anion Gap 7.1 mmol/L (4.00-12.00); BUN/Creat Ratio 21.11 Ratio (12.00-20.00); Calcium 7.5 mg/dL (8.7-10.3); Carbon Dioxide 26.9 mmol/L (21.6-31.8); Globulin 2.2 g/dL (1.6-3.3); Potassium 4.5 mmol/L (3.5-5.5); Total Bilirubin 0.3 mg/dL (0.2-1.2); Total Protein 5.7 g/dL (6.2-8.2)
--- NOTE | 2020-07-18 14:40 | PN ---
PROGRESS NOTE DATE OF SERVICE: 07/18/2020 CHIEF COMPLAINT: Tired. INTERVAL HISTORY: Jen is seen today as a followup. She feels tired, but overall she feels better. Her headache is much better. Her nausea is much better. She had a good bowel movement and she is tolerating treatment fairly well. CURRENT MEDICATION: Reviewed in her electronic medical record. PHYSICAL EXAMINATION: She is alert and oriented x3. She does not appear to be in distress. Her vital signs show temperature 98.3 afebrile, pulse is 94, respiration 18, blood pressure 134/86. HEENT: Normocephalic, atraumatic. No icterus. Neck is supple. Chest with equal expansion bilaterally. Lungs are clear. Heart is regular. Abdomen is soft. She has this massive hepatomegaly. Extremities reveal no edema. Skin no significant bruises. LABORATORY DATA: WBC are 9.2, hemoglobin 11.7, hematocrit 34.6, platelets are 378. Sodium 137, potassium 4.5, chloride is 103, CO2 is 26.9, BUN is 19, creatinine 0.9. AST is 82, ALT is 39, alkaline phosphatase is 168, total bilirubin is 0.3. 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 RECOMMENDATIONS: 1. Proceed was day 3 of cycle #1 of systemic chemotherapy as scheduled. 2. The patient already started palliative whole-brain radiation yesterday which she tolerated very well. 3. Continue supportive care. The above was discussed with the patient and with her family at bedside and answered all their questions. MMODL / IJN: [id number] /
[2020-07-18] MEDS: DEXAMETHASONE SOD PHOSPHATE 10 MG/ML 1 ML VIAL IV SCH (16:59)
[2020-07-18] MEDS: ONDANSETRON 16 MG in SODIUM CHLORIDE 0.9% 50 ML IVPB SCH (17:00)
[2020-07-18] MEDS: FAMOTIDINE 20 MG/2 ML VIAL IVP SCH (17:00)
[2020-07-18] MEDS: SODIUM CHLORIDE 0.9% 1,000 ML IV SCH (17:22)
[2020-07-18] MEDS: ETOPOSIDE IV SCH (17:46)
[2020-07-18] MEDS: SODIUM CHLORIDE 0.9% IV SCH (17:46)
--- NOTE | 2020-07-18 21:30 | P.PN ---
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 Fajardo. . Was admitted to the hospital and end of May with abdominal mass. Acute COPD exacerbation. Also positive for COVID 19 by PCR. Patient subsequently followed up with oncology. Had a liver biopsy done. 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 MRI of the brain showed metastatic disease in the brain. Bone scan was negative. Patient is offered to stay back and get hemotherapy but patient very keen to go home and come back. Patient went home and then started noticing weakness in the legs. And patient brought back to the ER. Still having abdominal pain. Oncology was consulted with the plan to chemotherapy. Supposed to be palliative. Prognosis not good. Patient rather tired and sleepy right now Admitted with new onset of paraparesis secondary to brain metastasis. Started on chemotherapy in the form of a etopside. Patient was given IV mannitol in the ER. Started on IV dexamethasone here. Today-awake. Breathing stable. Weakness in the legs-more so in the left leg. Family at the bedside. Pain control. Able to tolerate some food. Objective - Vital Signs Vital signs: Vital Signs Temp 98.3 F 07/18/20 12:49 Pulse 94 07/18/20 12:49 Resp 18 07/18/20 12:49 BP 134/86 07/18/20 12:49 Pulse Ox 98 07/18/20 12:49 Intake & Output 07/18/20 07/18/20 07/19/20 06:59 18:59 06:59 Intake Total 240 Output Total 1850 1500 Balance -1850 -1260 Intake: Oral 240 Output: Urine 1850 1500 Uretheral (Cortes) 550 1100 Other: Voiding Method Indwelling Catheter Indwelling Catheter # Bowel Movements 0 - Exam GENERAL: , laying in bed, awake EYES: Pupils equal. Conjunctiva pale HEENT: External appearance of nose and ears normal, oral cavity grossly normal. NECK: JVD not raised; masses not palpable. HEART: First and second heart sounds are normal; no edema. LUNGS: Respiratory rate increased, decreased breath sounds- ABDOMEN: Soft, diffuse tenderness, mass on the right side, . PSYCH: Awake answering questions NEUROLOGICAL: Cranial nerves grossly intact; no facial asymmetry, decreased power in the legs especially the left - Labs CBC & Chem 7: 07/18/20 06:22 07/18/20 06:22 Labs: Abnormal Lab Results - Last 24 Hours (Table) 07/18/20 07/18/20 Range/Units 06:22 06:22 RBC 3.72 L (3.80-5.40) m/uL Neutrophils # 7.8 H (1.3-7.7) k/uL BUN/Creatinine Ratio 21.11 H (12.00-20.00) Ratio Calcium 7.5 L (8.7-10.3) mg/dL AST 82 H (13-35) U/L Alkaline Phosphatase 168 H (41-126) U/L Total Protein 5.7 L (6.2-8.2) g/dL Albumin 3.50 L (3.80-4.90) g/dL Albumin/Globulin Ratio 1.59 L (1.60-3.17) g/dL Assessment and Plan Assessment: -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
[2020-07-18] MEDS: PANTOPRAZOLE 40 MG/10 ML VIAL IVP SCH (21:49)
[2020-07-18] MEDS: SENNOSIDES-DOCUSATE SODIUM 1 EACH TAB PO SCH (21:49)
[2020-07-19] MEDS: HYDROmorphone 0.5 MG/0.5 ML SYRINGE IVP PRN ×4 (04:34→20:21)
[2020-07-19 06:54] LABS: Basophils % (A) 0 %; Eosinophils # (A) 0.1 k/uL (0-0.7); Eosinophils % (A) 1 %; HCT 34.4 % (34.0-46.0); HGB 11.5 gm/dL (11.4-16.0); Lymphocytes % (A) 12 %; MCH 31.4 pg (25.0-35.0); MCHC 33.3 g/dL (31.0-37.0); MCV 94.1 fL (80.0-100.0); Mean Platelet Volume 6.6; Monocytes # (A) 0.1 k/uL (0-1.0); Monocytes % (A) 1 %; Neutrophils # (A) 6.8 k/uL (1.3-7.7); Neutrophils % (A) 85 %; Platelet Count 347 k/uL (150-450); RBC 3.66 m/uL (3.80-5.40); RDW 12.5 % (11.5-15.5)
[2020-07-19] MEDS: SYMBICORT 160-4.5 MCG INHALER INHALATION SCH ×2 (08:36→20:23)
[2020-07-19] MEDS: ALBUTEROL HFA INHALER INHALATION PRN ×2 (08:36→20:23)
[2020-07-19] MEDS: NICOTINE 21MG/24HR PATCH TRANSDERM SCH (08:39)
[2020-07-19] MEDS: ZINC SULFATE 220 MG CAP PO SCH (08:39)
[2020-07-19] MEDS: PANTOPRAZOLE 40 MG/10 ML VIAL IVP SCH ×2 (08:39→20:21)
[2020-07-19] MEDS: SENNOSIDES-DOCUSATE SODIUM 1 EACH TAB PO SCH ×2 (08:39→20:21)
[2020-07-19] MEDS: CYCLOBENZAPRINE 5 MG TAB PO SCH ×3 (08:39→22:22)
[2020-07-19 10:16] LABS: African American GFR (CKD) 94.9 (60.0-200.0); Albumin 3.5 g/dL (3.80-4.90); Albumin/Globulin Ratio 1.67 (1.60-3.17); Calcium 7.4 mg/dL (8.7-10.3); Globulin 2.1 g/dL (1.6-3.3); Non-African American GFR(CKD) 81.8 (60.0-200.0); Total Bilirubin 0.3 mg/dL (0.2-1.2); Total Protein 5.6 g/dL (6.2-8.2)
[2020-07-19] MEDS: ALPRAZolam 0.5 MG TAB PO PRN ×2 (10:19→17:32)
--- NOTE | 2020-07-19 15:26 | PN ---
PROGRESS NOTE DATE OF SERVICE: July 19, 2020. CHIEF COMPLAINT: Leg weakness. Debra is seen today as a followup. She feels little better. She continued to have significant weakness in both legs and inability to walk or lift her legs. Otherwise she feels fine. No nausea or vomiting. No headaches and she had a bowel movement yesterday. MEDICATION: Reviewed in electronic medical record. PHYSICAL EXAMINATION: She is alert and oriented x3. She does not appear to be in acute distress. Her vital signs are temperature 98.1, afebrile, pulse 106 regular, respiration 20, blood pressure 132/82. HEENT: Normocephalic, atraumatic. No icterus. NECK: Supple. Chest equal expansion bilaterally. LUNGS: Clear. Heart is regular. ABDOMEN: Soft. She has massive hepatomegaly. EXTREMITIES: No edema, but she has significant motor weakness noted in both legs. LABORATORY DATA: WBC are 8.0, hemoglobin 11.5, hematocrit 34.4, platelets are 347. Sodium 136, potassium 5.0, chloride 101. CO2 is 26, BUN is 20, creatinine 0.8. Her total bilirubin is 0.3, AST 89, ALT is 49, alkaline phosphatase is 165. IMPRESSION AND RECOMMENDATIONS: 1. 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 The patient started whole-brain radiation on Monday and she has actually completed cycle 1 of 2 of systemic chemotherapy yesterday. 2. Physical therapy and occupational therapy to arrange in order to get her discharged home over the next 1-2 days. 3. She continued to have significant weakness in her lower extremities, both lower extremities and also she has lower back pain. I would like to obtain an MRI of her spine for further evaluation. 4. Continue supportive care. The above was discussed in detail with the patient at bedside and I answered all her questions. MMODL / IJN: [id number] /
[2020-07-19] MEDS: SODIUM CHLORIDE 0.9% 1,000 ML IV SCH (20:25)
--- NOTE | 2020-07-19 23:18 | P.PN ---
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 -New onset weakness and lower extremity paresis left greater than right from metastatic disease to the brain -Brain edema localized-vasogenic from brain metastasis -Chronic nicotine dependence patient cigarette smoker -COPD in an ex-smoker -Adjustment disorder -Anxiety not otherwise specified -recent Coronavirus-PCR positive 07/19/2020, patient seen eval examined overall respiratory status remains stable, breathing comfortably, has been on chemotherapy, today labs have been reviewed 07/18/2020, patient has been getting chemotherapy tolerating very well, patient however has a problem with constipation we'll start Bernadine-Colace, labs from today reviewed stable white cell count, chemistry reviewed, calcium is 7.5, This is a 55-year-old patient of Dr. Fajardo. . Was admitted to the hospital and end of May with abdominal mass. Acute COPD exacerbation. Also positive for COVID 19 by PCR. Patient subsequently f ollowed up with oncology. Had a liver biopsy done. 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 MRI of the brain showed metastatic disease in the brain. Bone scan was negative. Patient is offered to stay back and get hemotherapy but patient very keen to go home and come back. Patient went home and then started noticing weakness in the legs. And patient brought back to the ER. Still having abdominal pain. Oncology was consulted with the plan to chemotherapy. Supposed to be palliative. Prognosis not good. Patient rather tired and sleepy right now Admitted with new onset of paraparesis secondary to brain metastasis. Started on chemotherapy in the form of a etopside. Patient was given IV mannitol in the ER. Started on IV dexamethasone here. Today-awake. Breathing stable. Weakness in the legs-more so in the left leg. Family at the bedside. Pain control. Able to tolerate some food. Objective - Vital Signs Vital signs: Vital Signs Temp 98.0 F 07/19/20 20:45 Pulse 83 07/19/20 20:45 Resp 14 07/19/20 20:45 BP 132/80 07/19/20 20:45 Pulse Ox 95 07/19/20 20:45 Intake & Output 07/19/20 07/19/20 07/20/20 06:59 18:59 06:59 Intake Total 500 Output Total 1800 1750 Balance -1300 -1750 Intake: Intake, IV Titration 500 Amount Etoposide 150 mg In 500 Sodium Chloride 0.9% 500 ml 500 ml @ 507.5 mls/hr IV Q24H [facility] Rx#:[id number] Output: Urine 1800 1750 Other: Voiding Method Indwelling Catheter Indwelling Catheter # Bowel Movements 0 - Exam GENERAL: , laying in bed, awake EYES: Pupils equal. Conjunctiva pale HEENT: External appearance of nose and ears normal, oral cavity grossly normal. NECK: JVD not raised; masses not palpable. HEART: First and second heart sounds are normal; no edema. LUNGS: Respiratory rate increased, decreased breath sounds- ABDOMEN: Soft, diffuse tenderness, mass on the right side, . 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
[2020-07-20] MEDS: LORazepam 2 MG/ML INJ IV PRN ×2 (00:05→20:53)
[2020-07-20] MEDS: NICOTINE 21MG/24HR PATCH TRANSDERM SCH (08:10)
[2020-07-20] MEDS: PANTOPRAZOLE 40 MG/10 ML VIAL IVP SCH ×2 (08:11→20:52)
[2020-07-20] MEDS: HYDROmorphone 0.5 MG/0.5 ML SYRINGE IVP PRN ×5 (08:11→23:43)
[2020-07-20] MEDS: CALCIUM CARB-VIT D 500MG-200UN 1 EACH TAB PO SCH (08:11)
[2020-07-20] MEDS: CYCLOBENZAPRINE 5 MG TAB PO SCH ×3 (08:12→20:52)
[2020-07-20] MEDS: ZINC SULFATE 220 MG CAP PO SCH (08:13)
[2020-07-20] MEDS: SENNOSIDES-DOCUSATE SODIUM 1 EACH TAB PO SCH ×2 (08:14→20:52)
[2020-07-20] MEDS: ALPRAZolam 0.5 MG TAB PO PRN ×2 (08:21→14:52)
[2020-07-20] MEDS: SYMBICORT 160-4.5 MCG INHALER INHALATION SCH ×3 (09:17→19:14)
--- NOTE | 2020-07-20 10:27 | MR ---
EXAMINATION TYPE: MR lumbar spine wo/w con DATE OF EXAM: 07/20/2020 COMPARISON: Bone scan 07/14/2020, CT 1214 at 07/14/2020 HISTORY: Loss of feeling below waist, lung cancer TECHNIQUE: Multiplanar, multisequence images of the lumbar spine were acquired utilizing [address] gadolinium contrast. L1-L2: Normal disc appearance without desiccation. No herniation, protrusion or disc bulging. No ca nal stenosis is present. Foramina are patent bilaterally. L2-L3: Normal disc appearance without desiccation. No herniation, protrusion or disc bulging. No ca nal stenosis is present. Foramina are patent bilaterally. L3-L4: Normal disc appearance without desiccation. No herniation, protrusion or disc bulging. No ca nal stenosis is present. Foramina are patent bilaterally. L4-L5: Loss of disc height signal is present, is endplate discogenic marrow signal change, associated vacuum phenomenon. There is spondylosis. Posterior disc herniation causes anterior mass effect on th e thecal sac without significant spinal stenosis. There is some facet arthropathy change. Circumferen tial extension endplate disc complex encroaches somewhat on the foramina. L5-S1: Some loss of disc height signal is present, circumferential extension endplate disc complex ca uses foraminal encroachment. No significant spinal stenosis. Posterior broad-based disc bulge contact s anterior thecal sac. There is facet arthropathy change. Lumbar segments are intact, lumbar vertebral bodies show preserved height and alignment. No paraspin al masses are identified. Conus medullaris shows abnormal increased signal on T2-weighted sequences, some artifact is present. Focus of increased signal is seen on T1-weighted images following contrast administration in the distal spinal cord at approximately T10-11 measuring 1.6 cm in cephalad to cau devyn dimension by 8 mm in anterior to posterior dimension on sagittal image 28 postcontrast images, th ere is no axial images performed through this level due to technique. Marked heterogeneity of the bertram er consistent with patient's known liver masses. IMPRESSION: Findings suggest metastasis to the distal spinal cord, there are known liver masses. Degenerative dis c disease and facet arthropathy.
[2020-07-20 11:43] LABS: African American GFR (CKD) 111.5 (60.0-200.0); Anion Gap 7.4 mmol/L (4.00-12.00); BUN/Creat Ratio 34.29 Ratio (12.00-20.00); Calcium 7.6 mg/dL (8.7-10.3); Carbon Dioxide 25.6 mmol/L (21.6-31.8); Non-African American GFR(CKD) 96.2 (60.0-200.0)
[2020-07-20] MEDS: ALBUTEROL HFA INHALER INHALATION PRN ×2 (12:36→19:14)
--- NOTE | 2020-07-20 14:01 | P.PN ---
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 -New onset weakness and lower extremity paresis left greater than right from metastatic disease to the brain -Brain edema localized-vasogenic from brain metastasis -Chronic nicotine dependence patient cigarette smoker -COPD in an ex-smoker -Adjustment disorder -Anxiety not otherwise specified -recent Coronavirus-PCR positive 07/20/2020, patient evaluated is still have problems with abdominal distention, however has been passing gas, patient has been on narcotics, stool softener has been initiated overall clinical course closely 07/19/2020, patient seen eval examined overall respiratory status remains stable, breathing comfortably, has been on chemotherapy, today labs have been reviewed 07/18/2020, patient has been getting chemotherapy tolerating very well, patient however has a problem with constipation we'll start Bernadine-Colace, labs from today reviewed stable white cell count, chemistry reviewed, calcium is 7.5, This is a 55-year-old patient of Dr. Fajardo. . Was admitted to the hospital and end of May with abdominal mass. Acute COPD exacerbation. Also positive for COVID 19 by PCR. Patient subsequently followed up with oncology. Had a liver biopsy done. 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 MRI of the brain showed metastatic disease in the brain. Bone scan was negative. Patient is offered to stay back and get hemotherapy but patient very keen to go home and come back. Patient went home and then started noticing weakness in the legs. And patient brought back to the ER. Still having abdominal pain. Oncology was consulted with the plan to chemotherapy. Supposed to be palliative. Prognosis not good. Patient rather tired and sleepy right now Admitted with new onset of paraparesis secondary to brain metastasis. Started on chemotherapy in the form of a etopside. Patient was given IV mannitol in the ER. Started on IV dexamethasone here. Today-awake. Breathing stable. Weakness in the legs-more so in the left leg. Family at the bedside. Pain control. Able to tolerate some food. Objective - Vital Signs Vital signs: Vital Signs Temp 98.3 F 07/20/20 07:01 Pulse 89 07/20/20 07:01 Resp 16 07/20/20 07:01 BP 156/90 07/20/20 07:01 Pulse Ox 97 07/20/20 07:01 Intake & Output 07/19/20 07/20/20 07/20/20 18:59 06:59 18:59 Intake Total 510 Output Total 1750 1200 Balance -1750 -690 Intake: Intake, IV Titration 220 Amount Sodium Chloride 0.9% 1, 220 000 ml @ 20 mls/hr IV . Q24H [facility] Rx#:[id number] Oral 290 Output: Urine 1750 1200 Uretheral (Cortes) 1200 Other: Voiding Method Indwelling Catheter Indwelling Catheter Indwelling Catheter # Bowel Movements 0 0 - Exam GENERAL: , laying in bed, awake EYES: Pupils equal. Conjunctiva pale HEENT: External appearance of nose and ears normal, oral cavity grossly normal. NECK: JVD not raised; masses not palpable. HEART: First and second heart sounds are normal; no edema. LUNGS: Respiratory rate increased, decreased breath sounds- ABDOMEN: Mild diffuse tenderness, mass on the right side, . 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
[2020-07-20] MEDS: SODIUM CHLORIDE 0.9% 1,000 ML IV SCH (14:52)
--- NOTE | 2020-07-20 17:07 | P.PN ---
Subjective Progress Note Date: 07/20/20 Principal diagnosis: Metastatic neuroendocrine small cell carcinoma In follow-up today patient is more alert, able to carry on a conversation, she still has little to no strength in her lower extremities. She is tolerating some oral intake. Pain and anxiety are currently managed. Objective - Vital Signs Vital signs: Vital Signs Temp 98.3 F 07/20/20 07:01 Pulse 89 07/20/20 07:01 Resp 16 07/20/20 07:01 BP 156/90 07/20/20 07:01 Pulse Ox 97 07/20/20 07:01 Intake & Output 07/19/20 07/20/20 07/20/20 18:59 06:59 18:59 Intake Total 510 Output Total 1750 1200 Balance -1750 -690 Intake: Intake, IV Titration 220 Amount Sodium Chloride 0.9% 1, 220 000 ml @ 20 mls/hr IV . Q24H [facility] Rx#:[id number] Oral 290 Output: Urine 1750 1200 Uretheral ([place]es) 1200 Other: Voiding Method Indwelling Catheter Indwelling Catheter # Bowel Movements 0 0 - Constitutional General appearance: Present: cooperative, no acute distress, thin - EENT Eyes: Present: anicteric sclerae, EOMI ENT: Present: hearing grossly normal - Respiratory Respiratory: bilateral: CTA, diminished - Cardiovascular Heart sounds: normal: S1, S2 - Peripheral edema leg Peripheral Edema: bilateral: None - Gastrointestinal General gastrointestinal: Present: normal bowel sounds, soft - Musculoskeletal Musculoskeletal Comment(s): bilateral lower extremity weakness - Psychiatric Psychiatric: Present: A&O x's 3, appropriate affect, intact judgment & insight - Labs CBC & Chem 7: 07/19/20 06:31 07/20/20 06:47 Labs: Abnormal Lab Results - Last 24 Hours (Table) 07/19/20 Range/Units 06:31 BUN/Creatinine Ratio 25.00 H (12.00-20.00) Ratio Calcium 7.4 L (8.7-10.3) mg/dL AST 89 H (13-35) U/L ALT 49 H (8-44) U/L Alkaline Phosphatase 165 H (41-126) U/L Total Protein 5.6 L (6.2-8.2) g/dL Albumin 3.50 L (3.80-4.90) g/dL Assessment and Plan (1) Brain metastases Narrative/Plan: Patient has started on radiation treatment for the same. 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 Overall she is tolerated pretty well. No moderate or severe side effects. Next cycle due in 3 weeks Current Visit: Yes Status: Acute Priority: High Code(s): C34.90 - MALIGNANT NEOPLASM OF UNSP PART OF UNSP BRONCHUS OR LUNG SNOMED Code(s): 709382193 Plan: Patient is decided to make herself a full code. This has been changed. Discussed case with manager of case management. Plan is for patient to go home with palliative care and continue treatment in the outpatient setting. We will send multiple prescriptions to patient's [facility] pharmacy. Pending MRI of the lumbar spine to evaluate lower extremity weakness. May have to do T-spine, we will await results. Time with Patient: Greater than 30 (counseling and coordinating care)
[2020-07-21] MEDS: HYDROmorphone 0.5 MG/0.5 ML SYRINGE IVP PRN ×3 (03:17→10:44)
[2020-07-21] MEDS: ONDANSETRON 4 MG/2 ML VIAL IVP PRN ×2 (06:30→14:56)
[2020-07-21] MEDS: SYMBICORT 160-4.5 MCG INHALER INHALATION SCH ×2 (07:25→20:07)
[2020-07-21] MEDS: ALBUTEROL HFA INHALER INHALATION PRN (07:25)
[2020-07-21] MEDS ORDERED: MAGNESIUM HYDROXIDE 2,400 MG/10 ML CUP PO STA (08:14)
[2020-07-21] MEDS: NICOTINE 21MG/24HR PATCH TRANSDERM SCH (08:30)
--- NOTE | 2020-07-21 09:47 | XR ---
EXAMINATION TYPE: XR abdomen acute w cxr DATE OF EXAM: 07/21/2020 COMPARISON: CT chest 07/14/2020, CT abdomen pelvis 07/13/2020 HISTORY: Metastatic disease and abdominal pain TECHNIQUE: Supine, upright, and frontal chest views of the chest and abdomen are obtained. FINDINGS: Left upper lobe mass is again noted. There is no evidence for pneumoperitoneum. The bowel gas pattern is unremarkable as there is air throughout nondilated small and large bowel. No sizeable air fluid levels. The liver is enlarged. Retained fecal debris present within the colon. Bilateral tubal ligation clips are present in the pelvis. No unusual calcifications. IMPRESSION: Hepatomegaly, left upper lobe lung mass
[2020-07-21] MEDS: CYCLOBENZAPRINE 5 MG TAB PO SCH ×3 (10:43→21:26)
[2020-07-21] MEDS: ALPRAZolam 0.5 MG TAB PO PRN (10:43)
[2020-07-21] MEDS: PANTOPRAZOLE 40 MG/10 ML VIAL IVP SCH (10:43)
[2020-07-21] MEDS: SENNOSIDES-DOCUSATE SODIUM 1 EACH TAB PO SCH ×2 (10:43→19:54)
[2020-07-21] MEDS: ZINC SULFATE 220 MG CAP PO SCH (11:17)
[2020-07-21] MEDS: CALCIUM CARB-VIT D 500MG-200UN 1 EACH TAB PO SCH (11:17)
[2020-07-21] MEDS: LORazepam 2 MG/ML INJ IV PRN ×2 (12:13→19:54)
--- NOTE | 2020-07-21 14:10 | P.PN ---
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 -New onset weakness and lower extremity paresis left greater than right from metastatic disease to the brain -Brain edema localized-vasogenic from brain metastasis -Chronic nicotine dependence patient cigarette smoker -COPD in an ex-smoker -Adjustment disorder -Anxiety not otherwise specified -recent Coronavirus-PCR positive 07/21/2020, patient currently taking to the radiation therapy, still have ongoing abdominal symptoms, abdominal series negative for any obstructive Petrin, however hepatosplenomegaly along with left upper lobe mass seen 07/20/2020, patient evaluated is still have problems with abdominal distention, however has been passing gas, patient has been on narcotics, stool softener has been initiated overall clinical course closely 07/19/2020, patient seen eval examined overall respiratory status remains stable, breathing comfortably, has been on chemotherapy, today labs have been reviewed 07/18/2020, patient has been getting chemotherapy tolerating very well, patient however has a problem with constipation we'll start Bernadine-Colace, labs from today reviewed stable white cell count, chemistry reviewed, calcium is 7.5, This is a 55-year-old patient of Dr. Fajardo. . Was admitted to the hospital and end of May with abdominal mass. Acute COPD exacerbation. Also positive for COVID 19 by PCR. Patient subsequently followed up with oncology. Had a liver biopsy done. 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 MRI of the brain showed metastatic disease in the brain. Bone scan was negative. Patient is offered to stay back and get hemotherapy but patient very keen to go home and come back. Patient went home and then started noticing weakness in the legs. And patient brought back to the ER. Still having abdominal pain. Oncology was consulted with the plan to chemotherapy. Supposed to be palliative. Prognosis not good. Patient rather tired and sleepy right now Admitted with new onset of paraparesis secondary to brain metastasis. Started on chemotherapy in the form of a etopside. Patient was given IV mannitol in the ER. Started on IV dexamethasone here. Today-awake. Breathing stable. Weakness in the legs-more so in the left leg. Family at the bedside. Pain control. Able to tolerate some food. Objective - Vital Signs Vital signs: Vital Signs Temp 97.6 F 07/21/20 07:58 Pulse 107 H 07/21/20 07:58 Resp 18 07/21/20 08:00 BP 115/82 07/21/20 07:58 Pulse Ox 95 07/21/20 07:58 Intake & Output 07/20/20 07/21/20 07/21/20 18:59 06:59 18:59 Intake Total 240 400 Output Total 1300 1000 Balance -1060 -600 Intake: Intake, IV Titration 240 400 Amount Sodium Chloride 0.9% 1, 240 400 000 ml @ 20 mls/hr IV . Q24H [facility] Rx#:[id number] Output: Urine 1300 1000 Other: Voiding Method Indwelling Catheter Indwelling Catheter Indwelling Catheter # Bowel Movements 0 - Exam GENERAL: , laying in bed, awake EYES: Pupils equal. Conjunctiva pale HEENT: External appearance of nose and ears normal, oral cavity grossly normal. NECK: JVD not raised; masses not palpable. HEART: First and second heart sounds are normal; no edema. LUNGS: Respiratory rate increased, decreased breath sounds- ABDOMEN: Mild diffuse tenderness, mass on the right side, . 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
[2020-07-21] MEDS: SODIUM CHLORIDE 0.9% 1,000 ML IV SCH (14:50)
[2020-07-21] MEDS: HYDROmorphone 1 MG/ML 1 ML SYRINGE IVP PRN ×3 (14:57→21:26)
--- NOTE | 2020-07-21 15:12 | MR ---
EXAMINATION TYPE: MR thoracic spine wo/w con DATE OF EXAM: 07/21/2020 2:30 PM COMPARISON: MRI lumbar spine dated 07/20/2020 HISTORY: Malignant cord compression syndrome Multiplanar MultiSpin echo imaging of the thoracic spine was performed. Disc spaces: Mild multilevel degenerative disc space narrowing and spondylosis. Posterior disc bulge without herniation or central stenosis. Spinal canal: No evidence for canal stenosis. Thoracic spinal cord: There is an enhancing lesion identified at the approximate T10-T11 level measur ing 1.6 cm x 0.8 cm. There is surrounding cord edema identified. Edema extends from T7 through the co nus medullaris. No additional lesions are identified within the [id number]. Paraspinal soft tissues: No evidence for paraspinal mass. No destructive lesions seen. Vertebral segments: No evidence for fracture or bony lesion. IMPRESSION: Enhancing lesion at the T10-11 level with surrounding edema as discussed above. No additi onal lesions identified [id number].
--- NOTE | 2020-07-21 19:18 | P.PN ---
Subjective Progress Note Date: 07/21/20 Principal diagnosis: Metastatic neuroendocrine small cell carcinoma In follow-up today patient is very alert, able to carry on a conversation, she still has little to no strength in her lower extremities. She is having abd discomfort, no BM in several days. No fevers, vomiting. Objective - Vital Signs Vital signs: Vital Signs Temp 97.6 F 07/21/20 07:58 Pulse 107 H 07/21/20 07:58 Resp 18 07/21/20 07:58 BP 115/82 07/21/20 07:58 Pulse Ox 95 07/21/20 07:58 Intake & Output 07/20/20 07/21/20 07/21/20 18:59 06:59 18:59 Intake Total 240 400 Output Total 1300 1000 Balance -1060 -600 Intake: Intake, IV Titration 240 400 Amount Sodium Chloride 0.9% 1, 240 400 000 ml @ 20 mls/hr IV . Q24H [facility] Rx#:[id number] Output: Urine 1300 1000 Other: Voiding Method Indwelling Catheter Indwelling Catheter # Bowel Movements 0 - Constitutional General appearance: Present: average body habitus, cooperative, no acute distress - EENT Eyes: Present: anicteric sclerae, EOMI ENT: Present: hearing grossly normal - Respiratory Respiratory: bilateral: CTA - Cardiovascular Heart sounds: normal: S1, S2 Abnormal Heart Sounds: Absent: systolic murmur, diastolic murmur, rub, S3 Gallop, S4 Gallop, click, other - Peripheral edema leg Peripheral Edema: bilateral: None - Gastrointestinal General gastrointestinal: Present: decreased bowel sounds, hepatomegaly, soft, tenderness - Musculoskeletal Musculoskeletal Comment(s): BLE pt has no strength - Psychiatric Psychiatric: Present: A&O x's 3, appropriate affect, intact judgment & insight - Labs CBC & Chem 7: 07/19/20 06:31 07/20/20 06:47 Labs: Abnormal Lab Results - Last 24 Hours (Table) 07/20/20 Range/Units 06:47 Sodium 131 L (135-145) mmol/L BUN/Creatinine Ratio 34.29 H (12.00-20.00) Ratio Calcium 7.6 L (8.7-10.3) mg/dL - Imaging and Cardiology Abdominal x-ray: report reviewed (acute abd series ordered for symptoms, no evidence to suggest obstruction yet) MRI of L/S spine Assessment and Plan (1) Brain metastases Narrative/Plan: Patient has started on radiation treatment for the same. Continue steroids, slow taper after radiation complete Current Visit: Yes Status: Acute Code(s): C79.31 - SECONDARY MALIGNANT NEOPLASM OF BRAIN SNOMED Code(s): 37953028 (2) Liver metastases Current Visit: Yes Status: Acute Priority: High Code(s): C78.7 - SECONDARY MALIG NEOPLASM OF LIVER AND INTRAHEPATIC BILE DUCT SNOMED Code(s): 43547548 (3) Small cell lung cancer Narrative/Plan: Patient is status post first cycle of carboplatin/TRAILER STEERER, so far tolerated well. No moderate or severe side effects. Next cycle due in 3 weeks Current Visit: Yes Status: Acute Priority: High Code(s): C34.90 - MALIG NANT NEOPLASM OF UNSP PART OF UNSP BRONCHUS OR LUNG SNOMED Code(s): 754848563 Plan: MRI of the lumbar spine concerning for tumor at the lower T levels, MRI T-spine ordered. Did review case with Rad Onc who may be able to provide pt with treat ment to the back. May help symptoms. We will await results. Pt to go home with palliative care and continue chemo and radiation treatments in the outpatient setting. We will send multiple prescriptions to patient's [facility] pharmacy. Suspect constipation is r/t tumor near spine. Softeners and MOM ordered. May have to implement manual dis-impaction or digital rectal stimulation to en courage passing of stool. Doctor attests: I performed a history and physical examination of this patient, developed impression and plan of care, discussed with dictator. I agree with dictators note, documented as a scribe.
[2020-07-21] MEDS: MAGNESIUM HYDROXIDE 2,400 MG/10 ML CUP PO SCH (19:54)
[2020-07-21] MEDS: PANTOPRAZOLE 40 MG TABLET PO SCH (19:54)
[2020-07-22] MEDS: HYDROmorphone 0.5 MG/0.5 ML SYRINGE IVP PRN (01:45)
[2020-07-22] MEDS: ONDANSETRON 4 MG/2 ML VIAL IVP PRN ×2 (01:48→10:30)
[2020-07-22] MEDS: LORazepam 2 MG/ML INJ IV PRN ×2 (02:41→08:33)
[2020-07-22] MEDS: SYMBICORT 160-4.5 MCG INHALER INHALATION SCH ×2 (07:27→21:46)
[2020-07-22] MEDS: HYDROmorphone 1 MG/ML 1 ML SYRINGE IVP PRN ×2 (08:32→11:46)
[2020-07-22] MEDS: ZINC SULFATE 220 MG CAP PO SCH (09:04)
[2020-07-22] MEDS: CALCIUM CARB-VIT D 500MG-200UN 1 EACH TAB PO SCH (09:04)
[2020-07-22] MEDS: MAGNESIUM HYDROXIDE 2,400 MG/10 ML CUP PO SCH ×3 (10:15→21:53)
[2020-07-22] MEDS: SENNOSIDES-DOCUSATE SODIUM 1 EACH TAB PO SCH ×2 (10:15→21:52)
[2020-07-22] MEDS: PANTOPRAZOLE 40 MG TABLET PO SCH ×2 (10:15→21:52)
[2020-07-22] MEDS: NICOTINE 21MG/24HR PATCH TRANSDERM SCH (10:15)
[2020-07-22] MEDS: CYCLOBENZAPRINE 5 MG TAB PO SCH ×3 (10:15→21:52)
[2020-07-22] MEDS ORDERED: bisacodyL 10 MG SUPP RECTAL STA (11:01)
[2020-07-22] MEDS: MORPHINE SULFATE 2 MG/ML SYRINGE IV PRN (13:34)
--- NOTE | 2020-07-22 13:34 | P.PN ---
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 -New onset weakness and lower extremity paresis left greater than right from metastatic disease to the brain -Brain edema localized-vasogenic from brain metastasis -Chronic nicotine dependence patient cigarette smoker -COPD in an ex-smoker -Adjustment disorder -Anxiety not otherwise specified -recent Coronavirus-PCR positive 07/22/2020, patient seen eval examined overall continued to have abdominal fullness feeling, does passes gas from below, case discussed with the 10 the nurse practitioner from oncology patient will be given some morphine for pain management, patient has been on chemotherapy for 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 and as well as XRT to spine for metastatic disease, patient continued to get care in the hospital as per hematology oncology recommendations will follow closely 07/21/2020, patient currently taking to the radiation therapy, still have ongoing abdominal symptoms, abdominal series negative for any obstructive Petrin, however hepatosplenomegaly along with left upper lobe mass seen 07/20/2020, patient evaluated is still have problems with abdominal distention, however has been passing gas, patient has been on narcotics, stool softener has been initiated overall clinical course closely 07/19/2020, patient seen eval examined overall respiratory status remains stable, breathing comfortably, has been on chemotherapy, today labs have been reviewed 07/18/2020, patient has been getting chemotherapy tolerating very well, patient however has a problem with constipation we'll start Bernadine-Colace, labs from today reviewed stable white cell count, chemistry reviewed, calcium is 7.5, This is a 55-year-old patient of Dr. Fajardo. . Was admitted to the hospital and end of May with abdominal mass. Acute COPD exacerbation. Also positive for COVID 19 by PCR. Patient subsequently followed up with oncology. Had a liver biopsy done. 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 MRI of the brain showed metastatic disease in the brain. Bone scan was negative. Patient is offered to stay back and get hemotherapy but patient very keen to go home and come back. Patient went home and then started noticing weakness in the legs. And patient brought back to the ER. Still having abdominal pain. Oncology was consulted with the plan to chemotherapy. Supposed to be palliative. Prognosis not good. Patient rather tired and sleepy right now Admitted with new onset of paraparesis secondary to brain metastasis. Started on chemotherapy in the form of a etopside. Patient was given IV mannitol in the ER. Started on IV dexamethasone here. Today-awake. Breathing stable. Weakness in the legs-more so in the left leg. Family at the bedside. Pain control. Able to tolerate some food. Objective - Vital Signs Vital signs: Vital Signs Temp 98.0 F 07/22/20 08:00 Pulse 105 H 07/22/20 08:10 Resp 22 07/22/20 08:10 BP 158/93 07/22/20 08:00 Pulse Ox 94 L 07/22/20 08:00 Intake & Output 07/21/20 07/22/20 07/22/20 18:59 06:59 18:59 Intake Total 100 Output Total 1000 1600 600 Balance -900 -1600 -600 Weight 51.256 kg Intake: Intake, IV Titration 100 Amount Sodium Chloride 0.9% 1, 100 000 ml @ 20 mls/hr IV . Q24H [facility] Rx#:[id number] Output: Urine 1000 1600 600 Uretheral (Cortes) 500 600 600 Other: Voiding Method Indwelling Catheter Indwelling Catheter Indwelling Catheter - Exam GENERAL: , laying in bed, awake EYES: Pupils equal. Conjunctiva pale HEENT: External appearance of nose and ears normal, oral cavity grossly normal. NECK: JVD not raised; masses not palpable. HEART: First and second heart sounds are normal; no edema. LUNGS: Respiratory rate increased, decreased breath sounds- ABDOMEN: Mild diffuse tenderness, mass on the right side, . 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
--- NOTE | 2020-07-22 15:19 | P.PN ---
Subjective Progress Note Date: 07/22/20 Principal diagnosis: Metastatic neuroendocrine small cell carcinoma In follow-up today patient drifts off to sleep easily, she is pretty wore our from the abd discomfort (dilaudid is not helping for very long), she also has constant sensation of pressure in the rectal area like she needs to have a BM. No strength in her lower extremities. No fevers, vomiting. Objective - Vital Signs Vital signs: Vital Signs Temp 98.0 F 07/22/20 08:00 Pulse 105 H 07/22/20 08:10 Resp 22 07/22/20 08:10 BP 158/93 07/22/20 08:00 Pulse Ox 94 L 07/22/20 08:00 Intake & Output 07/21/20 07/22/20 07/22/20 18:59 06:59 18:59 Intake Total 100 Output Total 1000 1600 600 Balance -900 -1600 -600 Intake: Intake, IV Titration 100 Amount Sodium Chloride 0.9% 1, 100 000 ml @ 20 mls/hr IV . Q24H [facility] Rx#:[id number] Output: Urine 1000 1600 600 Uretheral (Cortes) 500 600 600 Other: Voiding Method Indwelling Catheter Indwelling Catheter Indwelling Catheter - Constitutional General appearance: Present: cooperative, mild distress, thin - EENT Eyes: Present: anicteric sclerae, EOMI ENT: Present: hearing grossly normal, normal oropharynx - Respiratory Respiratory: bilateral: CTA - Cardiovascular Heart sounds: normal: S1, S2 Abnormal Heart Sounds: Absent: systolic murmur, diastolic murmur, rub, S3 Gallop, S4 Gallop, click, other - Peripheral edema leg Peripheral Edema: bilateral: None - Gastrointestinal Gastrointestinal Comment(s): Pt liver is palpated into pelvis and midline, less dense, softer on the edges, no ascites, 1 BS in 3 min General gastrointestinal: Present: hepatomegaly, tenderness - Neurologic Neurologic Comment(s): Still no tactile sensation in BLE, pt unable to move - Musculoskeletal Musculoskeletal: Present: generalized weakness - Psychiatric Psychiatric Comment(s): Pt is lethargic, does answer questions appropriately, some comments she made did not make sense - Labs CBC & Chem 7: 07/19/20 06:31 07/20/20 06:47 - Imaging and Cardiology T spine MRI report reviewed Assessment and Plan (1) Brain metastases Narrative/Plan: Patient has started on radiation treatment for the same. Continue steroids, slow taper after radiation complete Current Visit: Yes Status: Acute Code(s): C79.31 - SECONDARY MALIGNANT NEOPLASM OF BRAIN SNOMED Code(s): 27195623 (2) Liver metastases Current Visit: Yes Status: Acute Priority: High Code(s): C78.7 - SECONDARY MALIG NEOPLASM OF LIVER AND INTRAHEPATIC BILE DUCT SNOMED Code(s): 17497982 (3) Small cell lung cancer Narrative/Plan: Patient is status post first cycle of carboplatin/GIS GEOGRAPHER, so far tolerated well. No moderate or severe side effects. Next cycle due in 3 weeks Current Visit: Yes Status: Acute Priority: High Code(s): C34.90 - MALIGNANT NEOPLASM OF UNSP PART OF UNSP BRONCHUS OR LUNG SNOMED Code(s): 036268859 Plan: MRI of the lumbar and thoracic spine showing T 10-11 1.6 x 0.8 cm mass, likely causing pt loss of sensation in lower extremities and bowel dysmotility. Did review case with Rad Onc who has simulated her for treatment to this area too. Spoke with pt and family about pain control. Discussed with Attending and Nursing. Morphine drip with basal rate, titration and bolus doses ordered. After 24 hours will calculate dose and convert to long acting and short acting oral morphine. All in agreement with the above Meds for prevention of narcotic induced constipation. Also, spine mets likely contributing to poor GI motility. Suppository and digital rectal stimulation ordered Pt to go home with palliative care and continue chemo and radiation treatments in the outpatient setting. We will send multiple prescriptions to patient's [facility] pharmacy.
[2020-07-22] MEDS: MORPHINE SULFATE (100 MG/2 ML) 100 MG in SODIUM CHLORIDE 0.9% 100 ML IV SCH (16:27)
[2020-07-22] MEDS: ALPRAZolam 0.5 MG TAB PO PRN (21:52)
[2020-07-23] MEDS: SODIUM CHLORIDE 0.9% 1,000 ML IV SCH (06:09)
[2020-07-23] MEDS: SYMBICORT 160-4.5 MCG INHALER INHALATION SCH ×2 (07:42→21:25)
[2020-07-23] MEDS: PANTOPRAZOLE 40 MG TABLET PO SCH ×2 (08:47→20:53)
[2020-07-23] MEDS: CYCLOBENZAPRINE 5 MG TAB PO SCH ×3 (08:47→20:53)
[2020-07-23] MEDS: NICOTINE 21MG/24HR PATCH TRANSDERM SCH (08:47)
[2020-07-23] MEDS: SENNOSIDES-DOCUSATE SODIUM 1 EACH TAB PO SCH ×2 (08:47→20:53)
[2020-07-23] MEDS: CALCIUM CARB-VIT D 500MG-200UN 1 EACH TAB PO SCH (08:47)
[2020-07-23] MEDS: MAGNESIUM HYDROXIDE 2,400 MG/10 ML CUP PO SCH ×2 (08:47→20:53)
[2020-07-23] MEDS: ZINC SULFATE 220 MG CAP PO SCH (08:47)
--- NOTE | 2020-07-23 12:17 | P.PN ---
Subjective Progress Note Date: 07/23/20 Principal diagnosis: Metastatic neuroendocrine small cell carcinoma In follow-up today patient is more alert, she is slightly irritable but, admits that her pain is better controlled. With the help of nursing she was able to pass stool. She is still unable to move in her lower extremities. Objective - Vital Signs Vital signs: Vital Signs Temp 98.6 F 07/23/20 01:48 Pulse 105 H 07/23/20 08:35 Resp 16 07/23/20 08:35 BP 113/76 07/23/20 01:48 Pulse Ox 93 L 07/23/20 01:48 Intake & Output 07/22/20 07/23/20 07/23/20 18:59 06:59 18:59 Output Total 1600 400 Balance -1600 -400 Weight 51.256 kg Output: Urine 1600 400 Uretheral ([place]) 800 Other: Voiding Method Indwelling Catheter Indwelling Catheter Indwelling Catheter - Constitutional General appearance: Present: average body habitus, no acute distress - EENT Eyes: Present: anicteric sclerae, EOMI ENT: Present: hearing grossly normal - Respiratory Respiratory: bilateral: CTA - Cardiovascular Heart sounds: normal: S1, S2 - Peripheral edema leg Peripheral Edema: bilateral: None - Gastrointestinal General gastrointestinal: Present: hepatomegaly - Psychiatric Psychiatric: Present: A&O x's 3, intact judgment & insight - Labs CBC & Chem 7: 07/19/20 06:31 07/20/20 06:47 Assessment and Plan (1) Brain metastases Narrative/Plan: Patient has started on radiation treatment for the same. Continue steroids, slow taper after radiation complete Current Visit: Yes Status: Acute Code(s): C79.31 - SECONDARY MALIGNANT NEOPLASM OF BRAIN SNOMED Code(s): 78667532 (2) Liver metastases Narrative/Plan: On exam her liver is slightly softer, less protruding Current Visit: Yes Status: Acute Priority: High Code(s): C78.7 - SECONDARY MALIG NEOPLASM OF LIVER AND INTRAHEPATIC BILE DUCT SNOMED Code(s): 23972256 (3) Small cell lung cancer Narrative/Plan: Patient is status post first cycle of carboplatin/AUTOMATIC LATHE TENDER, so far tolerated well. No moderate or severe side effects. Next cycle due 21 days after initial Current Visit: Yes Status: Acute Priority: High Code(s): C34.90 - MALIGNANT NEOPLASM OF UNSP PART OF UNSP BRONCHUS OR LUNG SNOMED Code(s): 367681247 Plan: MRI of the lumbar and thoracic spine showing T 10-11 1.6 x 0.8 cm mass, likely causing pt loss of sensation in lower extremities and bowel dysmotility. Did review case with Rad Onc who has simulated her for treatment to this area too, and has started. Cont XRT and steroids for neuro symptoms Morphine drip working well for pain. Pending 24 hours on drip. Will calculate oral dose and change pt over to long and short acting morphine. Cont to monitor for at least another 24-48 hours to ensure adequate pain control. Cont aggressive bowel regimen. Meds for prevention of narcotic induced constipation. Also, spine mets likely contributing to poor GI motility. Suppository and digital rectal stimulation ordered with some results Pt to go home with palliative care and continue chemo and radiation treatments in the outpatient setting. Multiple prescriptions sent to patient's [facility] pharmacy.
--- NOTE | 2020-07-23 14:06 | P.PN ---
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 -New onset weakness and lower extremity paresis left greater than right from metastatic disease to the brain -Brain edema localized-vasogenic from brain metastasis -Chronic nicotine dependence patient cigarette smoker -COPD in an ex-smoker -Adjustment disorder -Anxiety not otherwise specified -recent Coronavirus-PCR positive 07/23/2020, patient seen eval examined labs reviewed medications reviewed care plan discussed, overall morphine drip has been helping, is still constipated, lower extremity weakness unchanged remains on radiation therapy and chemotherapy 07/22/2020, patient seen eval examined overall continued to have abdominal fullness feeling, does passes gas from below, case discussed with the 10 the nurse practitioner from oncology patient will be given some morphine for pain management, patient has been on chemotherapy for 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 and as well as XRT to spine for metastatic disease, patient continued to get care in the hospital as per hematology oncology recommendations will follow closely 07/21/2020, patient currently taking to the radiation therapy, still have ongoing abdominal symptoms, abdominal series negative for any obstructive Petrin, however hepatosplenomegaly along with left upper lobe mass seen 07/20/2020, patient evaluated is still have problems with abdominal distention, however has been passing gas, patient has been on narcotics, stool softener has been initiated overall clinical course closely 07/19/2020, patient seen eval examined overall respiratory status remains stable, breathing comfortably, has been on chemotherapy, today labs have been reviewed 07/18/2020, patient has been getting chemotherapy tolerating very well, patient however has a problem with constipation we'll start Bernadine-Colace, labs from today reviewed stable white cell count, chemistry reviewed, calcium is 7.5, This is a 55-year-old patient of Dr. Fajardo. . Was admitted to the hospital and end of May with abdominal mass. Acute COPD exacerbation. Also positive for COVID 19 by PCR. Patient subsequently followed up with oncology. Had a liver biopsy done. 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 MRI of the brain showed metastatic disease in the brain. Bone scan was negative. Patient is offered to stay back and get hemotherapy but patient very keen to go home and come back. Patient went home and then started noticing weakness in the legs. And patient brought back to the ER. Still having abdominal pain. Oncology was consulted with the plan to chemotherapy. Supposed to be palliative. Prognosis not good. Patient rather tired and sleepy right now Admitted with new onset of paraparesis secondary to brain metastasis. Started on chemotherapy in the form of a etopside. Patient was given IV mannitol in the ER. Started on IV dexamethasone here. Today-awake. Breathing stable. Weakness in the legs-more so in the left leg. Family at the bedside. Pain control. Able to tolerate some food. Objective - Vital Signs Vital signs: Vital Signs Temp 98.2 F 07/23/20 08:20 Pulse 105 H 07/23/20 08:35 Resp 16 07/23/20 08:35 BP 120/62 07/23/20 08:20 Pulse Ox 92 L 07/23/20 08:20 Intake & Output 07/22/20 07/23/20 07/23/20 18:59 06:59 18:59 Output Total 1600 400 Balance -1600 -400 Weight 51.256 kg Output: Urine 1600 400 Uretheral (Cortes) 800 Other: Voiding Method Indwelling Catheter Indwelling Catheter Indwelling Catheter # Bowel Movements 0 - Exam GENERAL: , laying in bed, awake EYES: Pupils equal. Conjunctiva pale HEENT: External appearance of nose and ears normal, oral cavity grossly normal. NECK: JVD not raised; masses not palpable. HEART: First and second heart sounds are normal; no edema. LUNGS: Respiratory rate increased, decreased breath sounds- ABDOMEN: Mild diffuse tenderness, mass on the right side, . 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
[2020-07-23] MEDS: MORPHINE SULFATE 2 MG/ML SYRINGE IV PRN (15:23)
[2020-07-23] MEDS: ONDANSETRON 4 MG/2 ML VIAL IVP PRN (15:23)
[2020-07-23] MEDS: ACETAMINOPHEN TAB 325 MG TAB PO PRN (17:42)
[2020-07-23] MEDS: ALPRAZolam 0.5 MG TAB PO PRN (20:53)
[2020-07-23] MEDS: ALBUTEROL HFA INHALER INHALATION PRN (21:25)
[2020-07-24] MEDS: SODIUM CHLORIDE 0.9% 1,000 ML IV SCH ×2 (02:37→12:48)
[2020-07-24 07:13] LABS: Basophils % (A) 1 %; Eosinophils % (A) 0 %; HCT 31.4 % (34.0-46.0); Lymphocytes # (A) 0.5 k/uL (1.0-4.8); Lymphocytes % (A) 16 %; MCH 32.1 pg (25.0-35.0); MCHC 34.9 g/dL (31.0-37.0); MCV 91.8 fL (80.0-100.0); Mean Platelet Volume 6.9; Monocytes # (A) 0.1 k/uL (0-1.0); Monocytes % (A) 2 %; Neutrophils # (A) 2.4 k/uL (1.3-7.7); Neutrophils % (A) 80 %; Platelet Count 211 k/uL (150-450); RBC 3.42 m/uL (3.80-5.40); RDW 12.1 % (11.5-15.5)
[2020-07-24] MEDS: SYMBICORT 160-4.5 MCG INHALER INHALATION SCH ×2 (07:57→20:58)
[2020-07-24] MEDS: ALBUTEROL HFA INHALER INHALATION PRN ×4 (07:57→20:58)
[2020-07-24] MEDS: CYCLOBENZAPRINE 5 MG TAB PO SCH ×3 (08:01→20:48)
[2020-07-24] MEDS: ZINC SULFATE 220 MG CAP PO SCH (08:01)
[2020-07-24] MEDS: CALCIUM CARB-VIT D 500MG-200UN 1 EACH TAB PO SCH (08:01)
[2020-07-24] MEDS: PANTOPRAZOLE 40 MG TABLET PO SCH ×2 (08:01→20:48)
[2020-07-24] MEDS: SENNOSIDES-DOCUSATE SODIUM 1 EACH TAB PO SCH ×2 (08:01→20:48)
[2020-07-24] MEDS: MAGNESIUM HYDROXIDE 2,400 MG/10 ML CUP PO SCH ×2 (08:02→20:49)
[2020-07-24] MEDS: NICOTINE 21MG/24HR PATCH TRANSDERM SCH (08:03)
[2020-07-24] MEDS: ALPRAZolam 0.5 MG TAB PO PRN (08:10)
[2020-07-24 10:58] LABS: African American GFR (CKD) 111.5 (60.0-200.0); Albumin 3.3 g/dL (3.80-4.90); Albumin/Globulin Ratio 1.57 (1.60-3.17); BUN/Creat Ratio 27.14 Ratio (12.00-20.00); Calcium 6.8 mg/dL (8.7-10.3); Globulin 2.1 g/dL (1.6-3.3); Non-African American GFR(CKD) 96.2 (60.0-200.0); Potassium 3.9 mmol/L (3.5-5.5); Total Bilirubin 0.5 mg/dL (0.2-1.2); Total Protein 5.4 g/dL (6.2-8.2)
[2020-07-24] MEDS: MORPHINE SULFATE (100 MG/2 ML) 100 MG in SODIUM CHLORIDE 0.9% 100 ML IV SCH ×2 (12:45)
[2020-07-25] MEDS: SODIUM CHLORIDE 0.9% 1,000 ML IV SCH (06:01)
[2020-07-25 06:08] LABS: Basophils % (A) 1 %; Eosinophils % (A) 0 %; HCT 28.2 % (34.0-46.0); HGB 9.9 gm/dL (11.4-16.0); Lymphocytes # (A) 0.5 k/uL (1.0-4.8); Lymphocytes % (A) 29 %; MCH 31.7 pg (25.0-35.0); MCV 90.5 fL (80.0-100.0); Mean Platelet Volume 6.6; Monocytes % (A) 2 %; Neutrophils # (A) 1.2 k/uL (1.3-7.7); Neutrophils % (A) 65 %; Platelet Count 193 k/uL (150-450); RBC 3.12 m/uL (3.80-5.40); WBC 1.8 k/uL (3.8-10.6)
[2020-07-25] MEDS: NICOTINE 21MG/24HR PATCH TRANSDERM SCH (08:39)
[2020-07-25] MEDS: MAGNESIUM HYDROXIDE 2,400 MG/10 ML CUP PO SCH ×2 (08:40→21:54)
[2020-07-25] MEDS: CALCIUM CARB-VIT D 500MG-200UN 1 EACH TAB PO SCH (08:40)
[2020-07-25] MEDS: CYCLOBENZAPRINE 5 MG TAB PO SCH ×3 (08:40→21:54)
[2020-07-25] MEDS: ZINC SULFATE 220 MG CAP PO SCH (08:41)
[2020-07-25] MEDS: PANTOPRAZOLE 40 MG TABLET PO SCH ×2 (08:41→21:54)
[2020-07-25] MEDS: SENNOSIDES-DOCUSATE SODIUM 1 EACH TAB PO SCH ×2 (08:41→21:54)
[2020-07-25] MEDS: ALPRAZolam 0.5 MG TAB PO PRN ×2 (08:46→14:13)
[2020-07-25] MEDS: SYMBICORT 160-4.5 MCG INHALER INHALATION SCH ×2 (08:58→19:48)
[2020-07-25] MEDS: ALBUTEROL HFA INHALER INHALATION PRN ×4 (08:58→19:48)
[2020-07-25 09:09] LABS: African American GFR (CKD) 117.3 (60.0-200.0); Albumin 3.1 g/dL (3.80-4.90); Albumin/Globulin Ratio 1.72 (1.60-3.17); Anion Gap 6.4 mmol/L (4.00-12.00); Calcium 6.5 mg/dL (8.7-10.3); Carbon Dioxide 26.6 mmol/L (21.6-31.8); Globulin 1.8 g/dL (1.6-3.3); Non-African American GFR(CKD) 101.2 (60.0-200.0); Total Bilirubin 0.6 mg/dL (0.2-1.2); Total Protein 4.9 g/dL (6.2-8.2)
[2020-07-25] MEDS: MORPHINE SULFATE (100 MG/2 ML) 100 MG in SODIUM CHLORIDE 0.9% 100 ML IV SCH (14:53)
[2020-07-26 07:07] LABS: Basophils % (A) 2 %; Eosinophils % (A) 1 %; HCT 30.7 % (34.0-46.0); HGB 10.5 gm/dL (11.4-16.0); Lymphocytes # (A) 0.4 k/uL (1.0-4.8); Lymphocytes % (A) 39 %; MCH 31.1 pg (25.0-35.0); MCHC 34.2 g/dL (31.0-37.0); MCV 91.1 fL (80.0-100.0); Mean Platelet Volume 7.2; Monocytes # (A) 0.1 k/uL (0-1.0); Monocytes % (A) 5 %; Neutrophils # (A) 0.5 k/uL (1.3-7.7); Platelet Count 179 k/uL (150-450); RBC 3.37 m/uL (3.80-5.40); RDW 12.2 % (11.5-15.5)
[2020-07-26 07:55] LABS: WBC 1.1 k/uL (3.8-10.6)
[2020-07-26] MEDS: ALBUTEROL HFA INHALER INHALATION PRN ×4 (08:22→21:08)
[2020-07-26] MEDS: SYMBICORT 160-4.5 MCG INHALER INHALATION SCH ×2 (08:23→21:08)
[2020-07-26] MEDS: NICOTINE 21MG/24HR PATCH TRANSDERM SCH (09:24)
[2020-07-26] MEDS: MAGNESIUM HYDROXIDE 2,400 MG/10 ML CUP PO SCH ×2 (09:24→20:02)
[2020-07-26] MEDS: PANTOPRAZOLE 40 MG TABLET PO SCH ×2 (09:24→20:02)
[2020-07-26] MEDS: CALCIUM CARB-VIT D 500MG-200UN 1 EACH TAB PO SCH (09:24)
[2020-07-26] MEDS: CYCLOBENZAPRINE 5 MG TAB PO SCH ×3 (09:24→20:02)
[2020-07-26] MEDS: ZINC SULFATE 220 MG CAP PO SCH (09:25)
[2020-07-26] MEDS: SENNOSIDES-DOCUSATE SODIUM 1 EACH TAB PO SCH ×2 (09:25→20:01)
[2020-07-26] MEDS: ALPRAZolam 0.5 MG TAB PO PRN ×3 (09:29→23:06)
[2020-07-26] MEDS: SODIUM CHLORIDE 0.9% 1,000 ML IV SCH (13:15)
[2020-07-26] MEDS: MORPHINE SULFATE (100 MG/2 ML) 100 MG in SODIUM CHLORIDE 0.9% 100 ML IV SCH (13:27)
[2020-07-26] MEDS: ACETAMINOPHEN TAB 325 MG TAB PO PRN (20:01)
[2020-07-27] MEDS: SODIUM CHLORIDE 0.9% 1,000 ML IV SCH (03:46)
[2020-07-27] MEDS: ALBUTEROL HFA INHALER INHALATION PRN ×3 (07:04→19:10)
[2020-07-27] MEDS: SYMBICORT 160-4.5 MCG INHALER INHALATION SCH ×2 (07:04→19:10)
[2020-07-27] MEDS: ALPRAZolam 0.5 MG TAB PO PRN ×3 (07:06→19:21)
[2020-07-27] MEDS: NICOTINE 21MG/24HR PATCH TRANSDERM SCH (09:47)
[2020-07-27] MEDS: CALCIUM CARB-VIT D 500MG-200UN 1 EACH TAB PO SCH (09:47)
[2020-07-27] MEDS: ZINC SULFATE 220 MG CAP PO SCH (09:48)
[2020-07-27] MEDS: CYCLOBENZAPRINE 5 MG TAB PO SCH ×3 (09:48→19:21)
[2020-07-27] MEDS: SENNOSIDES-DOCUSATE SODIUM 1 EACH TAB PO SCH ×2 (09:48→19:21)
[2020-07-27] MEDS: PANTOPRAZOLE 40 MG TABLET PO SCH ×2 (09:48→19:21)
[2020-07-27] MEDS: MAGNESIUM HYDROXIDE 2,400 MG/10 ML CUP PO SCH ×2 (09:48→19:20)
[2020-07-27] MEDS: MORPHINE SULFATE (100 MG/2 ML) 100 MG in SODIUM CHLORIDE 0.9% 100 ML IV SCH (15:28)
[2020-07-27 16:12] LABS: Chloride 93 mmol/L (98-107)
[2020-07-27 16:14] LABS: ALT 40 U/L (4-34); AST 86 U/L (14-36); African American GFR (CKD) >90 (>60 ml/min/1.73 sqM); Albumin 3.1 g/dL (3.5-5.0); Alkaline Phosphatase 259 U/L (38-126); Anion Gap 4 mmol/L; Blood Urea Nitrogen 18 mg/dL (7-17); Calcium 6.9 mg/dL (8.4-10.2); Carbon Dioxide 29 mmol/L (22-30); Glucose 118 mg/dL (74-99); Non-African American GFR(CKD) >90 (>60 ml/min/1.73 sqM); Potassium 4.7 mmol/L (3.5-5.1); Sodium 126 mmol/L (137-145); Total Bilirubin 0.6 mg/dL (0.2-1.3); Total Protein 6.1 g/dL (6.3-8.2)
[2020-07-27 16:23] LABS: HCT 33.3 % (34.0-46.0); HGB 11.3 gm/dL (11.4-16.0); MCH 30.9 pg (25.0-35.0); MCV 90.9 fL (80.0-100.0); Platelet Count 209 k/uL (150-450); RBC 3.67 m/uL (3.80-5.40); RDW 12.9 % (11.5-15.5)
[2020-07-27 17:38] LABS: WBC 0.8 k/uL (3.8-10.6)
[2020-07-27] MEDS ORDERED: DEXAMETHASONE SOD PHOSPHATE 10 MG/ML 1 ML VIAL IV ONE (17:49)
[2020-07-27] MEDS: ONDANSETRON 4 MG/2 ML VIAL IVP PRN (18:31)
--- NOTE | 2020-07-27 20:28 | P.PN ---
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 -New onset weakness and lower extremity paresis left greater than right from metastatic disease to the brain -Brain edema localized-vasogenic from brain metastasis -Chronic nicotine dependence patient cigarette smoker -COPD in an ex-smoker -Adjustment disorder -Anxiety not otherwise specified -recent Coronavirus-PCR positive 07/24/2020, patient seen eval examined during the rounds overall no significant change, patient continued to have problems associated with weakness of the lower extremity has been getting radiation therapy to the spine remains on chemotherapy, WBC count is low morphine seems to be helping to relieve the anxiety pain and a prehension overall prognosis is very poor 07/23/2020, patient seen eval examined labs reviewed medications reviewed care plan discussed, overall morphine drip has been helping, is still constipated, lower extremity weakness unchanged remains on radiation therapy and misty motherapy 07/22/2020, patient seen eval examined overall continued to have abdominal fullness feeling, does passes gas from below, case discussed with the 10 the nurse practitioner from oncology patient will be given some morphine for pain management, patient has been on chemotherapy for 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 and as well as XRT to spine for metastatic disease, patient continued to get care in the hospital as per hematology oncology recommendations will follow closely 07/21/2020, patient currently taking to the radiation therapy, still have ongoing abdominal symptoms, abdominal series negative for any obstructive Petrin, however hepatosplenomegaly along with left upper lobe mass seen 07/20/2020, patient evaluated is still have problems with abdominal distention, however has been passing gas, patient has been on narcotics, stool softener has been initiated overall clinical course closely 07/19/2020, patient seen eval examined overall respiratory status remains sta ble, breathing comfortably, has been on chemotherapy, today labs have been reviewed 07/18/2020, patient has been getting chemotherapy tolerating very well, patient however has a problem with constipation we'll start Bernadine-Colace, labs from today reviewed stable white cell count, chemistry reviewed, calcium is 7.5, This is a 55-year-old patient of Dr. Fajardo. . Was admitted to the hospital and end of May with abdominal mass. Acute COPD exacerbation. Also positive for COVID 19 by PCR. Patient subsequently followed up with oncology. Had a liver biopsy done. came back positive for s mall cell neuroendocrine tumor.patient was just in the hospital from July 14 through July 15. MRI of the brain showed metastatic disease in the brain. Bone scan was negative. Patient is offered to stay back and get hemotherapy but patient very keen to go home and come back. Patient went home and then started noticing weakness in the legs. And patient brought back to the ER. Still having abdominal pain. Oncology was consulted with the plan to chemotherapy. Supposed to be palliative. Prognosis not good. Patient rather tired and sleepy right now Admitted with new onset of paraparesis secondary to brain metastasis. Started on chemotherapy in the form of a etopside. Patient was given IV mannitol in the ER. Started on IV dexamethasone here. Today-awake. Breathing stable. Weakness in the legs-more so in the left leg. Family at the bedside. Pain control. Able to tolerate some food. Objective - Vital Signs Vital signs: Vital Signs Temp 98.8 F 07/24/20 14:00 Pulse 77 07/24/20 14:00 Resp 16 07/24/20 14:00 BP 111/75 07/24/20 14:00 Pulse Ox 93 L 07/24/20 14:00 Intake & Output 07/23/20 07/24/20 07/24/20 18:59 06:59 18:59 Intake Total 240 160 90.372 Output Total 950 300 Balance -710 160 -209.628 Intake: Intake, IV Titration 160 90.372 Amount Morphine Sulfate (100 mg/ 90.372 2 ml) 100 mg In Sodium Chloride 0.9% 100 ml @ 2 MG/HR 2.04 mls/hr IV . Q24H [facility] Rx#:[id number] Sodium Chloride 0.9% 1, 160 000 ml @ 20 mls/hr IV . Q24H [facility] Rx#:[id number] Oral 240 Output: Urine 950 300 Uretheral ([place]es) 800 Other: Voiding Method Indwelling Catheter Indwelling Catheter Indwelling Catheter # Bowel Movements 0 0 - Exam GENERAL: , laying in bed, awake EYES: Pupils equal. Conjunctiva pale HEENT: External appearance of nose and ears normal, oral cavity grossly normal. NECK: JVD not raised; masses not palpable. HEART: First and second heart sounds are normal; no edema. LUNGS: Respiratory rate increased, decreased breath sounds- ABDOMEN: Mild diffuse tenderness, mass on the right side, . PSYCH: Awake answering questions NEUROLOGICAL: Cranial nerves grossly intact; no facial asymmetry, decreased power in the legs especially the left - Labs CBC & Chem 7: 07/27/20 15:27 07/27/20 15:27 Labs: Abnormal Lab Results - Last 24 Hours (Table) 07/24/20 07/24/20 Range/Units 06:27 06:27 WBC 3.0 L (3.8-10.6) k/uL RBC 3.42 L (3.80-5.40) m/uL Hgb 11.0 L (11.4-16.0) gm/dL Hct 31.4 L (34.0-46.0) % Lymphocytes # 0.5 L (1.0-4.8) k/uL Sodium 132 L (135-145) mmol/L BUN/Creatinine Ratio 27.14 H (12.00-20.00) Ratio Glucose 112 H (70-110) mg/dL Calcium 6.8 L (8.7-10.3) mg/dL AST 127 H (13-35) U/L Total Protein 5.4 L (6.2-8.2) g/dL Albumin 3.30 L (3.80-4.90) g/dL Albumin/Globulin Ratio 1.57 L (1.60-3.17) g/dL Assessment and Plan Assessment: -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
--- NOTE | 2020-07-27 20:30 | P.PN ---
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 -New onset weakness and lower extremity paresis left greater than right from metastatic disease to the brain -Brain edema localized-vasogenic from brain metastasis -Chronic nicotine dependence patient cigarette smoker -COPD in an ex-smoker -Adjustment disorder -Anxiety not otherwise specified -recent Coronavirus-PCR positive 07/24/2020, continued to have pain in the abdominal area and constipation, large liver mass is present which is causing stretching, patient however is passing from gas from below, still have lower extremity weakness 07/24/2020, patient seen eval examined during the rounds overall no significant change, patient continued to have problems associated with weakness of the lower extremity has been getting radiation therapy to the spine remains on chemotherapy, WBC count is low morphine seems to be helping to relieve the anxiety pain and a prehension overall prognosis is very poor 07/23/2020, patient seen eval examined labs reviewed medications reviewed care plan discussed, overall morphine drip has been helping, is still constipated, lower extremity weakness unchanged remains on radiation therapy and chemotherapy 07/22/2020, patient seen eval examined overall continued to have abdominal fullness feeling, does passes gas from below, case discussed with the 10 the nurse practitioner from oncology patient will be given some morphine for pain management, patient has been on chemotherapy for 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 and as well as XRT to spine for metastatic disease, patient continued to get care in the hospital as per hematology oncology recommendations will follow closely 07/21/2020, patient currently taking to the radiation therapy, still have ongoing abdominal symptoms, abdominal series negative for any obstructive Petrin, however hepatosplenomegaly along with left upper lobe mass seen 07/20/2020, patient evaluated is still have problems with abdominal distention, however has been passing gas, patient has been on narcotics, stool softener has been initiated overall clinical course closely 07/19/2020, patient seen eval examined overall respiratory status remains stable, breathing comfortably, has been on chemotherapy, today labs have been reviewed 07/18/2020, patient has been getting chemotherapy tolerating very well, patient however has a problem with constipation we'll start Bernadine-Colace, labs from today reviewed stable white cell count, chemistry reviewed, calcium is 7.5, This is a 55-year-old patient of Dr. Fajardo. . Was admitted to the hospital and end of May with abdominal mass. Acute COPD exacerbation. Also positive for COVID 19 by PCR. Patient subsequently followed up with oncology. Had a liver biopsy done. 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 MRI of the brain showed metastatic disease in the brain. Bone scan was negative. Patient is offered to stay back and get hemotherapy but patient very keen to go home and come back. Patient went home and then started noticing weakness in the legs. And patient brought back to the ER. Still having abdominal pain. Oncology was consulted with the plan to chemotherapy. Supposed to be palliative. Prognosis not good. Patient rather tired and sleepy right now Admitted with new onset of paraparesis secondary to brain metastasis. Started on chemotherapy in the form of a etopside. Patient was given IV mannitol in the ER. Started on IV dexamethasone here. Today-awake. Breathing stable. Weakness in the legs-more so in the left leg. Family at the bedside. Pain control. Able to tolerate some food. Objective - Vital Signs Vital signs: Vital Signs Temp 99.5 F 07/25/20 07:45 Pulse 61 07/25/20 07:45 Resp 16 07/25/20 07:45 BP 115/73 07/25/20 07:45 Pulse Ox 95 07/25/20 07:45 Intake & Output 07/24/20 07/25/20 07/25/20 18:59 06:59 18:59 Intake Total 290.372 100 Output Total 300 600 Balance -9.628 -500 Intake: Intake, IV Titration 90.372 Amount Morphine Sulfate (100 mg/ 90.372 2 ml) 100 mg In Sodium Chloride 0.9% 100 ml @ 2 MG/HR 2.04 mls/hr IV . Q24H [facility] Rx#:[id number] Oral 100 Other 200 Output: Urine 300 600 Uretheral ([place]) 600 Other: Voiding Method Indwelling Catheter Indwelling Catheter - Exam GENERAL: , laying in bed, awake EYES: Pupils equal. Conjunctiva pale HEENT: External appearance of nose and ears normal, oral cavity grossly normal. NECK: JVD not raised; masses not palpable. HEART: First and second heart sounds are normal; no edema. LUNGS: Respiratory rate increased, decreased breath sounds- ABDOMEN: Mild diffuse tenderness, mass on the right side, . PSYCH: Awake answering questions NEUROLOGICAL: Cranial nerves grossly intact; no facial asymmetry, decreased power in the legs especially the left - Labs CBC & Chem 7: 07/27/20 15:27 07/27/20 15:27 Labs: Abnormal Lab Results - Last 24 Hours (Table) 07/25/20 07/25/20 Range/Units 05:26 05:26 WBC 1.8 L (3.8-10.6) k/uL RBC 3.12 L (3.80-5.40) m/uL Hgb 9.9 L (11.4-16.0) gm/dL Hct 28.2 L (34.0-46.0) % Neutrophils # 1.2 L (1.3-7.7) k/uL Lymphocytes # 0.5 L (1.0-4.8) k/uL Sodium 128 L (135-145) mmol/L Chloride 95 L (96-109) mmol/L BUN/Creatinine Ratio 25.00 H (12.00-20.00) Ratio Calcium 6.5 L (8.7-10.3) mg/dL AST 104 H (13-35) U/L Alkaline Phosphatase 151 H (41-126) U/L Total Protein 4.9 L (6.2-8.2) g/dL Albumin 3.10 L (3.80-4.90) g/dL Assessment and Plan Assessment: -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
--- NOTE | 2020-07-27 20:33 | P.PN ---
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 -New onset weakness and lower extremity paresis left greater than right from metastatic disease to the brain/the spine -Brain edema localized-vasogenic from brain metastasis -Chronic nicotine dependence patient cigarette smoker -COPD in an ex-smoker -Adjustment disorder -Anxiety not otherwise specified -recent Coronavirus-PCR positive 07/26/2020, patient seen eval examined during the rounds labs reviewed medications reviewed care plan discussed, overall symptoms not much changed, we'll continue current plan of care, family insisted on staying getting therapy while in the hospital 07/25/2020, continued to have pain in the abdominal area and constipation, large liver mass is present which is causing stretching, patient however is passing from gas from below, still have lower extremity weakness 07/24/2020, patient seen eval examined during the rounds overall no significant change, patient continued to have problems associated with weakness of the lower extremity has been getting radiation therapy to the spine remains on chemotherapy, WBC count is low morphine seems to be helping to relieve the anxiety pain and a prehension overall prognosis is very poor 07/23/2020, patient seen eval examined labs reviewed medications reviewed care plan discussed, overall morphine drip has been helping, is still constipated, lower extremity weakness unchanged remains on radiation therapy and chemotherapy 07/22/2020, patient seen eval examined overall continued to have abdominal fullness feeling, does passes gas from below, case discussed with the 10 the nurse practitioner from oncology patient will be given some morphine for pain management, patient has been on chemotherapy for 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 and as well as XRT to spine for metastatic disease, patient continued to get care in the hospital as per hematology oncology recommendations will follow closely 07/21/2020, patient currently taking to the radiation therapy, still have ongoing abdominal symptoms, abdominal series negative for any obstructive Petrin, however hepatosplenomegaly along with left upper lobe mass seen 07/20/2020, patient evaluated is still have problems with abdominal distention, however has been passing gas, patient has been on narcotics, stool softener has been initiated overall clinical course closely 07/19/2020, patient seen eval examined overall respiratory status remains stable, breathing comfortably, has been on chemotherapy, today labs have been reviewed 07/18/2020, patient has been getting chemotherapy tolerating very well, patient however has a problem with constipation we'll start Bernadine-Colace, labs from today reviewed stable white cell count, chemistry reviewed, calcium is 7.5, This is a 55-year-old patient of Dr. Fajardo. . Was admitted to the hospital and end of May with abdominal mass. Acute COPD exacerbation. Also positive for COVID 19 by PCR. Patient subsequently followed up with oncology. Had a liver biopsy done. 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 MRI of the brain showed metastatic disease in the brain. Bone scan was negative. Patient is offered to stay back and get hemotherapy but patient very keen to go home and come back. Patient went home and then started noticing weakness in the legs. And patient brought back to the ER. Still having abdominal pain. Oncology was consulted with the plan to chemotherapy. Supposed to be palliative. Prognosis not good. Patient rather tired and sleepy right now Admitted with new onset of paraparesis secondary to brain metastasis. Started on chemotherapy in the form of a etopside. Patient was given IV mannitol in the ER. Started on IV dexamethasone here. Today-awake. Breathing stable. Weakness in the legs-more so in the left leg. Family at the bedside. Pain control. Able to tolerate some food. Objective - Vital Signs Vital signs: Vital Signs Temp 98.0 F 07/26/20 14:00 Pulse 111 H 07/26/20 14:00 Resp 18 07/26/20 14:00 BP 108/72 07/26/20 14:00 Pulse Ox 95 07/26/20 14:00 Intake & Output 07/25/20 07/26/20 07/26/20 18:59 06:59 18:59 Intake Total 400 99.348 Output Total 500 450 500 Balance -100 -450 -400.652 Intake: Intake, IV Titration 99.348 Amount Morphine Sulfate (100 mg/ 99.348 2 ml) 100 mg In Sodium Chloride 0.9% 100 ml @ 2 MG/HR 2.04 mls/hr IV . Q24H [facility] Rx#:[id number] Other 400 Output: Urine 500 450 500 Uretheral ([place]) 250 Other: Voiding Method Indwelling Catheter Indwelling Catheter Indwelling Catheter # Bowel Movements 0 - Exam GENERAL: , laying in bed, awake EYES: Pupils equal. Conjunctiva pale HEENT: External appearance of nose and ears normal, oral cavity grossly normal. NECK: JVD not raised; masses not palpable. HEART: First and second heart sounds are normal; no edema. LUNGS: Respiratory rate increased, decreased breath sounds- ABDOMEN: Mild diffuse tenderness, mass on the right side, . 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
--- NOTE | 2020-07-27 20:35 | P.PN ---
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 -New onset weakness and lower extremity paresis left greater than right from metastatic disease to the brain/the spine -Brain edema localized-vasogenic from brain metastasis -Chronic nicotine dependence patient cigarette smoker -COPD in an ex-smoker -Adjustment disorder -Anxiety not otherwise specified -recent Coronavirus-PCR positive 07/27/2020, overall symptoms remained the same, continued to have problems associated with abdominal distention, feeling of fullness in the stomach, lower extremity weakness present, discussed with the staff as well as the patient and will obtain neurology consultation as well, repeat labs in the morning 07/26/2020, patient seen eval examined during the rounds labs reviewed medic ations reviewed care plan discussed, overall symptoms not much changed, we'll continue current plan of care, family insisted on staying getting therapy while in the hospital 07/25/2020, continued to have pain in the abdominal area and constipation, large liver mass is present which is causing stretching, patient however is passing from gas from below, still have lower extremity weakness 07/24/2020, patient seen eval examined during the rounds overall no significant change, patient continued to have problems associated with weakness of the lower extremity has been getting radiation therapy to the spine remains on chemotherapy, WBC count is low morphine seems to be helping to relieve the anx iety pain and a prehension overall prognosis is very poor 07/23/2020, patient seen eval examined labs reviewed medications reviewed care plan discussed, overall morphine drip has been helping, is still constipated, lower extremity weakness unchanged remains on radiation therapy and chemotherapy 07/22/2020, patient seen eval examined overall continued to have abdominal fullness feeling, does passes gas from below, case discussed with the 10 the nurse practitioner from oncology patient will be given some morphine for pain management, patient has been on chemotherapy for 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 and as well as XRT to spine for metastatic disease, patient continued to get care in the hospital as per hematology oncology recommendations will follow closely 07/21/2020, patient currently taking to the radiation therapy, still have ongoing abdominal symptoms, abdominal series negative for any obstructive Petrin, however hepatosplenomegaly along with left upper lobe mass seen 07/20/2020, patient evaluated is still have problems with abdominal distention, however has been passing gas, patient has been on narcotics, stool softener has been initiated overall clinical course closely 07/19/2020, patient seen eval examined overall respiratory status remains stable, breathing comfortably, has been on chemotherapy, today labs have been reviewed 07/18/2020, patient has been getting chemotherapy tolerating very well, patient however has a problem with constipation we'll start Bernadine-Colace, labs from today reviewed stable white cell count, chemistry reviewed, calcium is 7.5, This is a 55-year-old patient of Dr. Fajardo. . Was admitted to the hospital and end of May with abdominal mass. Acute COPD exacerbation. Also positive for COVID 19 by PCR. Patient subsequently followed up with oncology. Had a liver biopsy done. 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 MRI of the brain showed metastatic disease in the brain. Bone scan was negative. Patient is offered to stay back and get hemotherapy but patient very keen to go home and come back. Patient went home and then started noticing weakness in the legs. And patient brought back to the ER. Still having abdominal pain. Oncology was consulted with the plan to chemotherapy. Supposed to be palliative. Prognosis not good. Patient rather tired and sleepy right now Admitted with new onset of paraparesis secondary to brain metastasis. Started on chemotherapy in the form of a etopside. Patient was given IV mannitol in the ER. Started on IV dexamethasone here. Today-awake. Breathing stable. Weakness in the legs-more so in the left leg. Family at the bedside. Pain control. Able to tolerate some food. Objective - Vital Signs Vital signs: Vital Signs Temp 98.3 F 07/27/20 14:22 Pulse 127 H 07/27/20 14:22 Resp 18 07/27/20 14:22 BP 118/85 07/27/20 14:22 Pulse Ox 96 07/27/20 14:22 Intake & Output 07/27/20 07/27/20 07/28/20 06:59 18:59 06:59 Intake Total 180 Output Total 495 400 Balance -495 -220 Intake: Oral 180 Output: Urine 495 400 Uretheral (Cortes) 120 Other: Voiding Method Indwelling Catheter - Exam GENERAL: , laying in bed, awake EYES: Pupils equal. Conjunctiva pale HEENT: External appearance of nose and ears normal, oral cavity grossly normal. NECK: JVD not raised; masses not palpable. HEART: First and second heart sounds are normal; no edema. LUNGS: Respiratory rate increased, decreased breath sounds- ABDOMEN: Mild diffuse tenderness, mass on the right side, . PSYCH: Awake answering questions NEUROLOGICAL: Cranial nerves grossly intact; no facial asymmetry, decreased power in the legs especially the left - Labs CBC & Chem 7: 07/27/20 15:27 07/27/20 15:27 Labs: Abnormal Lab Results - Last 24 Hours (Table) 07/27/20 07/27/20 Range/Units 15:27 15:27 WBC 0.8 L* (3.8-10.6) k/uL RBC 3.67 L (3.80-5.40) m/uL Hgb 11.3 L (11.4-16.0) gm/dL Hct 33.3 L (34.0-46.0) % Sodium 126 L (137-145) mmol/L Chloride 93 L (98-107) mmol/L BUN 18 H (7-17) mg/dL Glucose 118 H (74-99) mg/dL Calcium 6.9 L (8.4-10.2) mg/dL AST 86 H (14-36) U/L ALT 40 H (4-34) U/L Alkaline Phosphatase 259 H (38-126) U/L Total Protein 6.1 L (6.3-8.2) g/dL Albumin 3.1 L (3.5-5.0) g/dL Assessment and Plan Assessment: Abdominal distention due to bulk of tumor in the liver -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
--- NOTE | 2020-07-27 20:43 | P.PN ---
Subjective Progress Note Date: 07/27/20 Principal diagnosis: Metastatic Cancer Clinically patient has not shown improvement, she is still very weak, mental status is inconsistent, and pain is not controlled. at bedside, long discussion about the concern of response to treatment clinically, she is in clara of treatment evidenced with her pancytopenia. Radiation continues. Objective - Vital Signs Vital signs: Vital Signs Temp 98.3 F 07/27/20 14:22 Pulse 127 H 07/27/20 14:22 Resp 18 07/27/20 14:22 BP 118/85 07/27/20 14:22 Pulse Ox 96 07/27/20 14:22 Intake & Output 07/27/20 07/27/20 07/28/20 06:59 18:59 06:59 Intake Total 180 Output Total 495 400 Balance -495 -220 Intake: Oral 180 Output: Urine 495 400 Uretheral (Cortes) 120 Other: Voiding Method Indwelling Catheter - Exam Constitutional General appearance: no acute distress - EENT Eyes: EOMI - Neck Neck: normal ROM Thyroid: bilateral: normal size - Respiratory Respiratory: left: rales, wheezing - Cardiovascular Rhythm: regular - Gastrointestinal General gastrointestinal: organomegaly, tenderness - Integumentary Integumentary: normal Urine caththeter - Neurologic Neurologic: CNII-XII intact - Musculoskeletal Musculoskeletal: right sided weakness, left sided weakness - Psychiatric Psychiatric:confused, inappropriate at times - Labs CBC & Chem 7: 07/27/20 15:27 07/27/20 15:27 Labs: Abnormal Lab Results - Last 24 Hours (Table) 07/27/20 07/27/20 Range/Units 15:27 15:27 WBC 0.8 L* (3.8-10.6) k/uL RBC 3.67 L (3.80-5.40) m/uL Hgb 11.3 L (11.4-16.0) gm/dL Hct 33.3 L (34.0-46.0) % Sodium 126 L (137-145) mmol/L Chloride 93 L (98-107) mmol/L BUN 18 H (7-17) mg/dL Glucose 118 H (74-99) mg/dL Calcium 6.9 L (8.4-10.2) mg/dL AST 86 H (14-36) U/L ALT 40 H (4-34) U/L Alkaline Phosphatase 259 H (38-126) U/L Total Protein 6.1 L (6.3-8.2) g/dL Albumin 3.1 L (3.5-5.0) g/dL Assessment and Plan Plan: Assessment and Plan (1) Brain metastases Current Visit: Yes Status: Acute Code(s): C79.31 - SECONDARY MALIGNANT NEOPLASM OF BRAIN SNOMED Code(s): 75078158 (2) Liver metastases Current Visit: Yes Status: Acute Priority: High Code(s): C78.7 - SECONDARY MALIG NEOPLASM OF LIVER AND INTRAHEPATIC BILE DUCT SNOMED Code(s): 47236618 (3) Small cell lung cancer Current Visit: Yes Status: Acute Priority: High Code(s): C34.90 - MALIGNANT NEOPLASM OF UNSP PART OF UNSP BRONCHUS OR LUNG SNOMED Code(s): 732366596 Pancytopenia and neutropenia secondary to chemotherapy Today requiring oxygen - Chest xray ordered, zarxio initiated, benefits outweigh risks during radiation with short acting zarxio. Dexamethasone to continue 4mg q6 hours and PPI Long discussion regarding goals of care, at this time they do not want to make any changes and wish to continue aggressive therapy. Physician attest: Brian completed the full history and physical and agree with above dictation, dictated as a scribe
--- NOTE | 2020-07-27 22:32 | XR ---
EXAMINATION TYPE: XR chest 1V portable DATE OF EXAM: 07/27/2020 COMPARISON: NONE HISTORY: Difficulty breathing TECHNIQUE: Single view FINDINGS: Heart is normal. There is no heart failure. There is some consolidation and atelectasis at the left pulmonary hilum. There is infiltrate in the right lower lobe with blunting right costophren ic angle. Bony thorax is intact. IMPRESSION: Consolidation at the left pulmonary hilum consistent with tumor. Right lower lobe infiltr ate and pleural effusion. There is improvement in the left upper lobe density compared to CT scan of 07/14/2020. Right pleural effusion and right lower lobe infiltrate probably not changed.
[2020-07-27] MEDS: DEXAMETHASONE SOD PHOSPHATE 4 MG/ML 1 ML VIAL IV SCH (23:20)
[2020-07-28] MEDS ORDERED: DEXAMETHASONE SOD PHOSPHATE 4 MG/ML 1 ML VIAL IV PRN
[2020-07-28] MEDS: SYMBICORT 160-4.5 MCG INHALER INHALATION SCH ×3 (00:39→19:28)
[2020-07-28] MEDS: LORazepam 2 MG/ML INJ IV PRN (03:41)
[2020-07-28] MEDS: ALPRAZolam 0.5 MG TAB PO PRN ×2 (03:43→11:56)
[2020-07-28] MEDS: DEXAMETHASONE SOD PHOSPHATE 4 MG/ML 1 ML VIAL IV SCH ×3 (05:30→17:38)
[2020-07-28] MEDS: ALBUTEROL HFA INHALER INHALATION PRN ×2 (07:17→19:28)
[2020-07-28 07:42] LABS: HCT 32.4 % (34.0-46.0); HGB 11.1 gm/dL (11.4-16.0); MCH 31.4 pg (25.0-35.0); MCHC 34.3 g/dL (31.0-37.0); MCV 91.5 fL (80.0-100.0); Mean Platelet Volume 7.3; Platelet Count 208 k/uL (150-450); RBC 3.54 m/uL (3.80-5.40); RDW 12.6 % (11.5-15.5)
[2020-07-28 08:15] LABS: WBC 1.2 k/uL (3.8-10.6)
[2020-07-28] MEDS: SENNOSIDES-DOCUSATE SODIUM 1 EACH TAB PO SCH ×3 (08:32→21:33)
[2020-07-28] MEDS: ZINC SULFATE 220 MG CAP PO SCH (08:32)
[2020-07-28] MEDS: PANTOPRAZOLE 40 MG TABLET PO SCH ×2 (08:32→21:33)
[2020-07-28] MEDS: MAGNESIUM HYDROXIDE 2,400 MG/10 ML CUP PO SCH ×2 (08:32→21:34)
[2020-07-28] MEDS: NICOTINE 21MG/24HR PATCH TRANSDERM SCH (08:32)
[2020-07-28] MEDS: CYCLOBENZAPRINE 5 MG TAB PO SCH ×3 (08:32→21:34)
[2020-07-28] MEDS: CALCIUM CARB-VIT D 500MG-200UN 1 EACH TAB PO SCH (08:33)
--- NOTE | 2020-07-28 10:57 | P.PN ---
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 -New onset weakness and lower extremity paresis left greater than right from metastatic disease to the brain/the spine -Brain edema localized-vasogenic from brain metastasis -Chronic nicotine dependence patient cigarette smoker -COPD in an ex-smoker -Adjustment disorder -Anxiety not otherwise specified -recent Coronavirus-PCR positive 07/28/2020 patient and her continued to prefer treatment in the hospital, status post radiation therapy, paraparesis of the lower extremity neuro to evaluate the patient oncology has been following, patient WBC count came down all the way to 800 today up to 1200 hemoglobin remained stable, platelets are stable, light hyponatremia noted, with normal renal functions 07/27/2020, overall symptoms remained the same, continued to have problems associated with abdominal distention, feeling of fullness in the stomach, lower extremity weakness present, discussed with the staff as well as the patient and will obtain neurology consultation as well, repeat labs in the morning 07/26/2020, patient seen eval examined during the rounds labs reviewed medications reviewed care plan discussed, overall symptoms not much changed, we'll continue current plan of care, family insisted on staying getting therapy while in the hospital 07/25/2020, continued to have pain in the abdominal area and constipation, large liver mass is present which is causing stretching, patient however is passing from gas from below, still have lower extremity weakness 07/24/2020, patient seen eval examined during the rounds overall no significant change, patient continued to have problems associated with weakness of the lower extremity has been getting radiation therapy to the spine remains on ch emotherapy, WBC count is low morphine seems to be helping to relieve the anxiety pain and a prehension overall prognosis is very poor 07/23/2020, patient seen eval examined labs reviewed medications reviewed care plan discussed, overall morphine drip has been helping, is still constipated, lower extremity weakness unchanged remains on radiation therapy and chemotherapy 07/22/2020, patient seen eval examined overall continued to have abdominal fullness feeling, does passes gas from below, case discussed with the 10 the nurse practitioner from oncology patient will be given some morphine for pain management, patient has been on chemotherapy for 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 and as well as XRT to spine for metastatic disease, patient continued to get care in the hospital as per hematology oncology recommendations will follow closely 07/21/2020, patient currently taking to the radiation therapy, still have ongoing abdominal symptoms, abdominal series negative for any obstructive Petrin, however hepatosplenomegaly along with left upper lobe mass seen 07/20/2020, patient evaluated is still have problems with abdominal distention, however has been passing gas, patient has been on narcotics, stool softener has been initiated overall clinical course closely 07/19/2020, patient seen eval examined overall respiratory status remains stable, breathing comfortably, has been on chemotherapy, today labs have been reviewed 07/18/2020, patient has been getting chemotherapy tolerating very well, patient however has a problem with constipation we'll start Bernadine-Colace, labs from today reviewed stable white cell count, chemistry reviewed, calcium is 7.5, This is a 55-year-old patient of Dr. Fajardo. . Was admitted to the hospital and end of May with abdominal mass. Acute COPD exacerbation. Also positive for COVID 19 by PCR. Patient subsequently followed up with oncology. Had a liver biopsy done. 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 MRI of the brain showed metastatic disease in the brain. Bone scan was negative. Patient is offered to stay back and get hemot herapy but patient very keen to go home and come back. Patient went home and then started noticing weakness in the legs. And patient brought back to the ER. Still having abdominal pain. Oncology was consulted with the plan to chemotherapy. Supposed to be palliative. Prognosis not good. Patient rather tired and sleepy right now Admitted with new onset of paraparesis secondary to brain metastasis. Started on chemotherapy in the form of a etopside. Patient was given IV mannitol in the ER. Started on IV dexamethasone here. Today-awake. Breathing stable. Weakness in the legs-more so in the left leg. Family at the bedside. Pain control. Able to tolerate some food. Objective - Vital Signs Vital signs: Vital Signs Temp 97.4 F L 07/28/20 07:02 Pulse 113 H 07/28/20 07:30 Resp 18 07/28/20 07:30 BP 120/84 07/28/20 07:02 Pulse Ox 95 07/28/20 07:02 Intake & Output 07/27/20 07/28/20 07/28/20 18:59 06:59 18:59 Intake Total 180 100 Output Total 400 1150 Balance -220 -1150 100 Intake: Oral 180 100 Output: Urine 400 1150 Uretheral (Cortes) 450 Other: Voiding Method Indwelling Catheter Indwelling Catheter Indwelling Catheter # Bowel Movements 0 - Exam GENERAL: , laying in bed, awake EYES: Pupils equal. Conjunctiva pale HEENT: External appearance of nose and ears normal, oral cavity grossly normal. NECK: JVD not raised; masses not palpable. HEART: First and second heart sounds are normal; no edema. LUNGS: Respiratory rate increased, decreased breath sounds- ABDOMEN: Mild diffuse tenderness, mass on the right side, . PSYCH: Awake answering questions NEUROLOGICAL: Cranial nerves grossly intact; no facial asymmetry, decreased power in the legs bilateral - Labs CBC & Chem 7: 07/28/20 07:20 07/27/20 15:27 Labs: Abnormal Lab Results - Last 24 Hours (Table) 07/27/20 07/27/20 07/28/20 Range/Units 15:27 15:27 07:20 WBC 0.8 L* 1.2 L* (3.8-10.6) k/uL RBC 3.67 L 3.54 L (3.80-5.40) m/uL Hgb 11.3 L 11.1 L (11.4-16.0) gm/dL Hct 33.3 L 32.4 L (34.0-46.0) % Sodium 126 L (137-145) mmol/L Chloride 93 L (98-107) mmol/L BUN 18 H (7-17) mg/dL Glucose 118 H (74-99) mg/dL Calcium 6.9 L (8.4-10.2) mg/dL AST 86 H (14-36) U/L ALT 40 H (4-34) U/L Alkaline Phosphatase 259 H (38-126) U/L Total Protein 6.1 L (6.3-8.2) g/dL Albumin 3.1 L (3.5-5.0) g/dL Assessment and Plan Assessment: Leukopenia post chemotherapy stable Hyponatremia Abdominal distention due to bulk of tumor in the liver -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
[2020-07-28 11:30] LABS: African American GFR (CKD) 111.5 (60.0-200.0); Albumin 3.6 g/dL (3.80-4.90); Albumin/Globulin Ratio 1.57 (1.60-3.17); Anion Gap 3.9 mmol/L (4.00-12.00); BUN/Creat Ratio 32.86 Ratio (12.00-20.00); Calcium 7.2 mg/dL (8.7-10.3); Carbon Dioxide 33.1 mmol/L (21.6-31.8); Globulin 2.3 g/dL (1.6-3.3); Non-African American GFR(CKD) 96.2 (60.0-200.0); Potassium 5.1 mmol/L (3.5-5.5); Total Bilirubin 0.5 mg/dL (0.3-1.2); Total Protein 5.9 g/dL (6.2-8.2)
[2020-07-28 11:38] LABS: Band Neutrophils % 6 %; Lymphocytes # (M) 0.28 k/uL (1.0-4.8); Metamyelocytes # (M) 0.01 k/uL (0); Metamyelocytes % 1 %; Monocytes # (M) 0.11 k/uL (0-1.0); Myelocytes # (M) 0.01 k/uL (0); Myelocytes % 1 %; Neutrophils % (M) 60 %; Nucleated Red Blood Cells 0 /100 WBC (0-0); Poikilocytosis (M) Present; Total Cells Counted 100
[2020-07-28] MEDS: MORPHINE SULFATE (100 MG/2 ML) 100 MG in SODIUM CHLORIDE 0.9% 100 ML IV SCH (11:56)
[2020-07-28] MEDS: SODIUM CHLORIDE 0.9% 1,000 ML IV SCH (11:58)
--- NOTE | 2020-07-28 13:27 | XR ---
EXAMINATION TYPE: XR abdomen 2V DATE OF EXAM: 07/28/2020 COMPARISON: None HISTORY: Assess for obstruction history liver metastases TECHNIQUE: Abdomen is examined in the upright and supine views. FINDINGS: Abundant bowel gas is within the abdomen including small bowel loops as well as the colon. Splenic flexure is well visualized. Free air is not clearly identified. If there is clinical concern for free air, a lateral decubitus view could be performed. Some atelectasis appears to be at the left lung base. Mass effect is not identified. Some fecal debri s is in the pelvis. Surgical clips are within the pelvis. IMPRESSION: 1. Nonspecific prominent air-filled loops of bowel. Changes to suggest obstruction are not identifie d. Consider ileus. If there is clinical concern for free air, left lateral decubitus views could be p erformed.
--- NOTE | 2020-07-28 14:11 | P.CNNES ---
History of Present Illness Consult date: 07/28/20 Requesting physician: Bayron De La Fuente Reason for Consult: Paraplegia, cord compression History of Present Illness: Patient is a 55-year-old female, came to the hospital on 07/16/2020 for progressive lower extremity weakness. Patient's was also present at the time of this interview. Patient has recently been diagnosed with metastatic lung cancer. According to patient's , patient started having stomach aching in April, which progressively got worse. Subsequently had protuberance of the abdomen. Patient had a biopsy performed 07/10/2020, which confirmed lung cancer. According to patient's , she was able to walk on 07/13/2020. She was able to pick remover laundry. On 07/15/2020, she developed leg weakness, and her has to carry her to the bathroom. Her legs would give out. This has progressively got worse and now she is paraplegic. MRI of the lumbar spine with and without contrast from 07/20/2020 showed finding suggests metastasis to the distal spinal cord, there is known liver masses. MRI of the thoracic spine with and without contrast from 07/21/2020 showed enhancing lesion at the T10-11 level, measuring 1.6 cm x 0.8 cm with surrounding edema. MRI of brain with and without contrast from 07/15/2020 showed numerous infra and supratentorial enhancing lesions seen consistent with metastatic disease. The largest lesion is noted within the roland and there is surrounding edema noted. Chest x-ray from yesterday showed consolidation at the left pulmonary hilum consistent with tumor. Right lower lobe infiltrate and pleural effusion. There is improvement in the left upper lobe density compared to computed tomography scan of 07/14/2020. Right pleural effusion and right lower lobe infiltrate probably not changed. Patient's WBCs 1.2, hemoglobin 11.1, platelets 208. Sodium 126 potassium 4.7, normal renal functions. AST is 86, ALT 40. Frost virus negative on 06/30/2020. Patient has been started on chemotherapy and received 3 sessions on July 16, and . Patient also has been started on cranial irradiation treatment on 07/17/2020 and radiation treatment to the spine since 07/22/2020. Patient has not noticed any improvement so far. Patient has history of smoking 1 to 1-1/2 pack per day for 40 years, quit couple weeks ago. Denies any alcohol. Patient complains of significant bloating of her abdomen, constipation, urinary incontinence, incomplete paraplegia. Denies any symptoms in the upper limbs. Review of Systems As mentioned above in detail. Patient has weight loss, decreased appetite. Denies shortness of breath, double vision, dysphagia. She does have mild slurring. Patient has severe bloating, constipation, paraplegia, numbness lower extremities. Denies any symptoms in the upper limbs. Patient has back pain. Denies fever or chills. Patient has incontinence of urine. Past Medical History Past Medical History: No Reported History Additional Past Medical History / Comment(s): takes aldactone for hormonal acne, recent admit for abdominal pain(Liver mass being investigated)and positive for COVID (Jun 18). History of Any Multi-Drug Resistant Organisms: None Reported Past Surgical History: Orthopedic Surgery, Tubal Ligation Additional Past Surgical History / Comment(s): right knee, trigger finger, sinus surgeries x3 back in 1989. cyst surgies wrist/arm. Rt breast biopsy- benign. Past Anesthesia/Blood Transfusion Reactions: No Reported Reaction Past Psychological History: No Psychological Hx Reported Smoking Status: Current every day smoker Past Alcohol Use History: Occasional Past Drug Use History: None Reported - Past Family History Father Family Medical History: Coronary Artery Disease (CAD) Medications and Allergies Home Medications Medication Instructions Recorded Confirmed Type Calcium Carb-Vit D 500Mg-200Un 2 tab PO DAILY 10/31/16 07/16/20 History [Oscal 500+D] Inulin/Chromium Picolinate [Fiber 2 tab PO DAILY 10/31/16 07/16/20 History Gummies Chew] Multivit with Calcium,Iron,Min 1 tab PO DAILY 10/31/16 07/16/20 History [Women's Multivitamin] Guaifenesin/Pseudoephedrne HCl 1 tab PO BID 06/18/20 07/16/20 History [Mucinex D ER 1,200-120 mg Tab] Spironolactone [Aldactone] 75 mg PO DAILY 06/18/20 07/16/20 History Budesonide-Formot 160-4.5 Mcg 1 puff INHALATION RT-BID #1 puff 06/19/20 07/16/20 Rx [Symbicort 160-4.5 Mcg Inhaler] Famotidine [Pepcid] 20 mg PO BID #60 tab 06/19/20 07/16/20 Rx Zinc Sulfate [Orazinc] 220 mg PO DAILY #30 cap 06/19/20 07/16/20 Rx Albuterol Inhaler [Ventolin Hfa 2 puff INHALATION RT-Q4H PRN 07/13/20 07/16/20 History Inhaler] ALPRAZolam [Xanax] 0.5 mg PO Q6HR 7 Days #28 tab 07/15/20 07/16/20 Rx Hydrocodone/Acetaminophen [Regina 1 tab PO Q4HR PRN 7 Days #42 tab 07/15/20 07/16/20 Rx 7.5-325] Sennosides/Docusate Sodium [Senna 1 - 2 tab PO BID PRN 07/16/20 07/16/20 History Plus 8.6-50 mg Tablet] Allergies Allergy/AdvReac Type Severity Reaction Status Date / Time aspirin AdvReac GI upset Verified 07/16/20 13:16 monosodium glutamate [MSG] AdvReac GI upset Verified 07/16/20 13:16 Physical Examination - Vital Signs Vital Signs: Vital Signs Temp Pulse Pulse Resp BP Pulse Ox 07/28/20 07:30 110 H 113 H 18 07/28/20 07:02 97.4 F L 98 16 120/84 95 07/27/20 20:00 97.8 F 125 H 18 115/76 07/27/20 14:22 98.3 F 127 H 18 118/85 96 Intake and Output 07/27/20 07/28/20 07/28/20 22:59 06:59 14:59 Intake Total 100 Output Total 800 750 Balance -800 -750 100 Intake: Oral 100 Output: Urine 800 750 Uretheral (Cortes) 450 Other: Voiding Method Indwelling Catheter Indwelling Catheter # Bowel Movements 0 On examination patient is a middle aged female, laying in the bed, appears to be mild difficulty breathing. Her speech is mildly dysarthric, but no aphasia. Attention, concentration, fund of knowledge is adequate. On cranial nerve examination pupils are round and reacting to light, visual mcdaniels are full on confrontation, extraocular muscles are intact with no nystagmus. Face is symmetric, tongue protrudes to the midline. Palatal elevation and sensation normal, hearing and shoulder shrug normal. On muscle strength testing patient has no pronator drift and the strength is normal in arms distally and proximally. Patient is completely paraplegic in the lower extremities. Patient has sensory level at T10 level. Patient has no sensation from T10 level down. No ataxia for [id number]. Tone is increased in the legs. Reflexes are 2 in the upper limbs, absent at the knees and ankles and plantars are flat. Patient cannot walk. On general examination there is no bruit, S1 and S2 audible. Patient has mild crackles. Abdomen is protuberant, very tense. Patient has peripheral edema. Results - Laboratory Findings CBC and BMP: 07/28/20 07:20 07/28/20 07:20 Abnormal Lab Findings: Abnormal Labs 07/16/20 07/16/20 07/17/20 12:41 17:03 05:41 WBC RBC 3.71 L Hgb Hct Neutrophils # 8.8 H Lymphocytes # 0.5 L Sodium 133 L Chloride BUN BUN/Creatinine Ratio Glucose 104 H Calcium 8.1 L AST 97 H ALT Alkaline Phosphatase 154 H Total Protein 6.2 L Albumin 3.3 L Albumin/Globulin Ratio 07/17/20 07/18/20 07/18/20 05:41 06:22 06:22 WBC RBC 3.72 L Hgb Hct Neutrophils # 7.8 H Lymphocytes # Sodium Chloride BUN BUN/Creatinine Ratio 21.11 H Glucose Calcium 7.6 L 7.5 L AST 76 H 82 H ALT Alkaline Phosphatase 157 H 168 H Total Protein 5.6 L 5.7 L Albumin 3.40 L 3.50 L Albumin/Globulin Ratio 1.55 L 1.59 L 07/19/20 07/19/20 07/20/20 06:31 06:31 06:47 WBC RBC 3.66 L Hgb Hct Neutrophils # Lymphocytes # Sodium 131 L Chloride BUN BUN/Creatinine Ratio 25.00 H 34.29 H Glucose Calcium 7.4 L 7.6 L AST 89 H ALT 49 H Alkaline Phosphatase 165 H Total Protein 5.6 L Albumin 3.50 L Albumin/Globulin Ratio 07/24/20 07/24/20 07/25/20 06:27 06:27 05:26 WBC 3.0 L 1.8 L RBC 3.42 L 3.12 L Hgb 11.0 L 9.9 L Hct 31.4 L 28.2 L Neutrophils # 1.2 L Lymphocytes # 0.5 L 0.5 L Sodium 132 L Chloride BUN BUN/Creatinine Ratio 27.14 H Glucose 112 H Calcium 6.8 L AST 127 H ALT Alkaline Phosphatase Total Protein 5.4 L Albumin 3.30 L Albumin/Globulin Ratio 1.57 L 07/25/20 07/26/20 07/27/20 05:26 06:48 15:27 WBC 1.1 L* 0.8 L* RBC 3.37 L 3.67 L Hgb 10.5 L 11.3 L Hct 30.7 L 33.3 L Neutrophils # 0.5 L Lymphocytes # 0.4 L Sodium 128 L Chloride 95 L BUN BUN/Creatinine Ratio 25.00 H Glucose Calcium 6.5 L AST 104 H ALT Alkaline Phosphatase 151 H Total Protein 4.9 L Albumin 3.10 L Albumin/Globulin Ratio 07/27/20 07/28/20 15:27 07:20 WBC 1.2 L* RBC 3.54 L Hgb 11.1 L Hct 32.4 L Neutrophils # Lymphocytes # Sodium 126 L Chloride 93 L BUN 18 H BUN/Creatinine Ratio Glucose 118 H Calcium 6.9 L AST 86 H ALT 40 H Alkaline Phosphatase 259 H Total Protein 6.1 L Albumin 3.1 L Albumin/Globulin Ratio Assessment and Plan Assessment: * Small cell neuroendocrine lung cancer, 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 MRI of the thoracolumbar spine revealed intrinsic spinal cord enhancing lesion at T10-11 level, likely the cause of paraplegia. No extrinsic spinal compressive lesion identified. Patient also has cerebral metastasis particularly in the brainstem, which may be contributing to her lower extremity weakness and dysarthria. * Leukopenia likely due to chemotherapy * Abdominal distention due to bulk of tumor in the liver. * Hyponatremia * COPD * Tobacco use * Recent frost virus PCR positive. Plan: * Patient has recently been diagnosed with metastatic cancer with extensive metastasis intra-abdominal as well as in the brain and in the spinal cord T10 11 level. Patient is not a surgical candidate. * Continue chemotherapy as per oncologist. * Continue radiation therapy to the cranium and metastatic deposit in the spine. * Patient started on Decadron 6 mg stat and 4 mg every 6 hours to relieve some edema. * Overall prognosis poor based upon the extent of the metastatic disease.
[2020-07-28] MEDS: CEFEPIME 2 GM in SODIUM CHLORIDE 0.9% 100 ML IVPB SCH (15:28)
--- NOTE | 2020-07-28 16:51 | P.PN ---
Subjective Progress Note Date: 07/28/20 Principal diagnosis: Metastatic Cancer Long discussion today with patient, son, and . Patient had just returned from radiation treatment. Overall, she is feeling ok today although no BM. She admits to passing gas. Xray abdomen no obstruction noted. Increase in bowel regimen and PT/OT for daily passive ROM ordered. Increased SOB Right LL Rhonchi on exam, chest xray infiltrates RLL - with neutropenia due to chemotherapy cefepime has been added. Mass in lung does appear to be responding to chemotherapy per xray compared to CT on 07/14. Abdomen and liver remains same. No emesis, occassional nausea. Anxiety remains high. Remains on dexamethasone. Objective - Vital Signs Vital signs: Vital Signs Temp 97.6 F 07/28/20 15:06 Pulse 113 H 07/28/20 15:06 Resp 16 07/28/20 15:06 BP 141/96 07/28/20 15:06 Pulse Ox 92 L 07/28/20 15:06 Intake & Output 07/27/20 07/28/20 07/28/20 18:59 06:59 18:59 Intake Total 180 294.826 Output Total 400 1150 Balance -220 -1150 294.826 Intake: Intake, IV Titration 94.826 Amount Morphine Sulfate (100 mg/ 94.826 2 ml) 100 mg In Sodium Chloride 0.9% 100 ml @ 2 MG/HR 2.04 mls/hr IV . Q24H [facility] Rx#:[id number] Oral 180 200 Output: Urine 400 1150 Uretheral (Cortes) 450 Other: Voiding Method Indwelling Catheter Indwelling Catheter Indwelling Catheter # Bowel Movements 0 - Exam Constitutional General appearance: no acute distress - EENT Eyes: EOMI - Neck Neck: normal ROM Thyroid: bilateral: normal size - Respiratory Respiratory: left: rales, wheezing - Cardiovascular Rhythm: regular - Gastrointestinal General gastrointestinal: organomegaly, tenderness, Hypoactive, Distended tender - Integumentary Integumentary: normal Urine caththeter - Neurologic Neurologic: CNII-XII intact - Musculoskeletal Musculoskeletal: right sided weakness, left sided weakness - Psychiatric Psychiatric:confused, inappropriate at times - Labs CBC & Chem 7: 07/28/20 07:20 07/28/20 07:20 Labs: Abnormal Lab Results - Last 24 Hours (Table) 07/27/20 07/28/2020 Range/Units 15:27 07:20 07:20 WBC 0.8 L* 1.2 L* (3.8-10.6) k/uL RBC 3.54 L (3.80-5.40) m/uL Hgb 11.1 L (11.4-16.0) gm/dL Hct 32.4 L (34.0-46.0) % Neutrophils # (Manual) 0.70 L (1.3-7.7) k/uL Lymphocytes # (Manual) 0.28 L (1.0-4.8) k/uL Metamyelocytes # (Man) 0.01 H (0) k/uL Myelocytes # (Manual) 0.01 H (0) k/uL Sodium 132 L (135-145) mmol/L Chloride 95 L (96-109) mmol/L Carbon Dioxide 33.1 H (21.6-31.8) mmol/L Anion Gap 3.90 L (4.00-12.00) mmol/L BUN/Creatinine Ratio 32.86 H (12.00-20.00) Ratio Glucose 122 H (70-110) mg/dL Calcium 7.2 L (8.7-10.3) mg/dL AST 65 H (13-35) U/L Alkaline Phosphatase 258 H (41-126) U/L Total Protein 5.9 L (6.2-8.2) g/dL Albumin 3.60 L (3.80-4.90) g/dL Albumin/Globulin Ratio 1.57 L (1.60-3.17) g/dL Assessment and Plan Plan: Assessment and Plan (1) Brain metastases Current Visit: Yes Status: Acute Code(s): C79.31 - SECONDARY MALIGNANT NEOPLASM OF BRAIN SNOMED Code(s): 11098540 (2) Liver metastases Current Visit: Yes Status: Acute Priority: High Code(s): C78.7 - SECONDARY MALIG NEOPLASM OF LIVER AND INTRAHEPATIC BILE DUCT SNOMED Code(s): 32800053 (3) Small cell lung cancer Current Visit: Yes Status: Acute Priority: High Code(s): C34.90 - MALIGNANT NEOPLASM OF UNSP PART OF UNSP BRONCHUS OR LUNG SNOMED Code(s): 613822663 Pancytopenia and neutropenia secondary to chemotherapy Today requiring oxygen - Chest xray RLL infiltrate - Cefepime added with neutropenia, zarxio initiated, benefits outweigh risks during radiation with short acting zarxio. Dexamethasone to continue 4mg q6 hours and PPI PT/OT daily for passive ROM COntinue xanax and olanzaprine Abdomen xray no obstruction increase bowel regimen Daily BID Lactulose and today fleets x2 COnvert pain meds to fentanyl patch (per pharmacy conversion fentanyl 50) and roxanol. Will initiate gabapentin 24-48 hours after we re-evaluate on these c hanges.
[2020-07-28 17:10] LABS: Folate, Serum 14.4 ng/mL
[2020-07-28] MEDS: FILGRASTIM-SNDZ 300 MCG/0.5 ML SYRINGE SQ SCH (17:38)
[2020-07-28] MEDS: ONDANSETRON 4 MG/2 ML VIAL IVP PRN (19:45)
[2020-07-28] MEDS: ALPRAZolam 0.5 MG TAB PO SCH (21:33)
[2020-07-28] MEDS: LACTULOSE 20 GM/30 ML CUP PO SCH (21:34)
[2020-07-28] MEDS: OLANZapine 2.5 MG TAB PO SCH (21:37)
[2020-07-28] MEDS: MORPHINE CONC SOLN 10mg/0.5mL ORAL SYRG PO PRN (21:41)
[2020-07-29] MEDS: CEFEPIME 2 GM in SODIUM CHLORIDE 0.9% 100 ML IVPB SCH ×4 (00:54→23:26)
[2020-07-29] MEDS: DEXAMETHASONE SOD PHOSPHATE 4 MG/ML 1 ML VIAL IV SCH ×5 (00:58→23:26)
[2020-07-29] MEDS: MORPHINE CONC SOLN 10mg/0.5mL ORAL SYRG PO PRN (05:13)
[2020-07-29 05:47] LABS: Basophils % (A) 0 %; Eosinophils % (A) 0 %; HCT 35.6 % (34.0-46.0); HGB 11.8 gm/dL (11.4-16.0); Lymphocytes # (A) 0.5 k/uL (1.0-4.8); Lymphocytes % (A) 19 %; MCH 30.3 pg (25.0-35.0); MCHC 33.1 g/dL (31.0-37.0); MCV 91.4 fL (80.0-100.0); Mean Platelet Volume 7.3; Monocytes # (A) 0.3 k/uL (0-1.0); Monocytes % (A) 12 %; Neutrophils # (A) 1.5 k/uL (1.3-7.7); Neutrophils % (A) 64 %; Platelet Count 262 k/uL (150-450); RDW 13.2 % (11.5-15.5); WBC 2.4 k/uL (3.8-10.6)
[2020-07-29] MEDS: ONDANSETRON 4 MG/2 ML VIAL IVP PRN (07:15)
[2020-07-29] MEDS: SYMBICORT 160-4.5 MCG INHALER INHALATION SCH ×2 (07:20→19:48)
[2020-07-29] MEDS: ALBUTEROL HFA INHALER INHALATION PRN ×2 (07:20→19:48)
[2020-07-29] MEDS: ALPRAZolam 0.5 MG TAB PO SCH ×4 (07:51→21:57)
[2020-07-29] MEDS: NICOTINE 21MG/24HR PATCH TRANSDERM SCH (07:52)
[2020-07-29] MEDS: CYCLOBENZAPRINE 5 MG TAB PO SCH ×4 (07:52→21:58)
[2020-07-29] MEDS: ZINC SULFATE 220 MG CAP PO SCH (07:53)
[2020-07-29] MEDS: CALCIUM CARB-VIT D 500MG-200UN 1 EACH TAB PO SCH (07:53)
[2020-07-29] MEDS: LACTULOSE 20 GM/30 ML CUP PO SCH ×2 (07:54→21:56)
[2020-07-29] MEDS: MAGNESIUM HYDROXIDE 2,400 MG/10 ML CUP PO SCH ×2 (07:55→21:56)
[2020-07-29] MEDS: PANTOPRAZOLE 40 MG TABLET PO SCH ×2 (07:55→21:57)
[2020-07-29] MEDS: SENNOSIDES-DOCUSATE SODIUM 1 EACH TAB PO SCH ×4 (07:55→21:57)
[2020-07-29] MEDS: LORazepam 2 MG/ML INJ IV PRN (09:13)
--- NOTE | 2020-07-29 16:02 | P.PN ---
Subjective Progress Note Date: 07/29/20 Principal diagnosis: -Small cell neuroendocrine tumor felt to be primary lung with metastasist to the right kidney and the liver and brain metastatic -New onset weakness and lower extremity paresis left greater than right from metastatic disease to the brain/the spine -Brain edema localized-vasogenic from brain metastasis -Chronic nicotine dependence patient cigarette smoker -COPD in an ex-smoker -Adjustment disorder -Anxiety not otherwise specified -recent Coronavirus-PCR positive 07/29/2020, patient was slightly more somnolent, morphine drip has been discontinued, patient is on fentanyl patch, also started on Decadron by neurology, 07/28/2020 patient and her continued to prefer treatment in the hospital, status post radiation therapy, paraparesis of the lower extremity neuro to evaluate the patient oncology has been following, patient WBC count came down all the way to 800 today up to 1200 hemoglobin remained stable, platelets are stable, light hyponatremia noted, with normal renal functions 07/27/2020, overall symptoms remained the same, continued to have problems associated with abdominal distention, feeling of fullness in the stomach, lower extremity weakness present, discussed with the staff as well as the patient and will obtain neurology consultation as well, repeat labs in the morning 07/26/2020, patient seen eval examined during the rounds labs reviewed medications reviewed care plan discussed, overall symptoms not much changed, we'll continue current plan of care, family insisted on staying getting therapy while in the hospital 07/25/2020, continued to have pain in the abdominal area and constipation, large liver mass is present which is causing stretching, patient however is passing from gas from below, still have lower extremity weakness 07/24/2020, patient seen eval examined during the rounds overall no significant change, patient continued to have problems associated with weakness of the lower extremity has been getting radiation therapy to the spine remains on chemotherapy, WBC count is low morphine seems to be helping to relieve the anxiety pain and a prehension overall prognosis is very poor 07/23/2020, patient seen eval examined labs reviewed medications reviewed care plan discussed, overall morphine drip has been helping, is still constipated, lower extremity weakness unchanged remains on radiation therapy and chemotherapy 07/22/2020, patient seen eval examined overall continued to have abdominal fullness feeling, does passes gas from below, case discussed with the 10 the nurse practitioner from oncology patient will be given some morphine for pain management, patient has been on chemotherapy for 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 and as well as XRT to spine for metastatic disease, patient continued to get care in the hospital as per hematology oncology recommendations will follow closely 07/21/2020, patient currently taking to the radiation therapy, still have ongoing abdominal symptoms, abdominal series negative for any obstructive Petrin, however hepatosplenomegaly along with left upper lobe mass seen 07/20/2020, patient evaluated is still have problems with abdominal distention, however has been passing gas, patient has been on narcotics, stool softener has been initiated overall clinical course closely 07/19/2020, patient seen eval examined overall respiratory status remains stable, breathing comfortably, has been on chemotherapy, today labs have been reviewed 07/18/2020, patient has been getting chemotherapy tolerating very well, patient however has a problem with constipation we'll start Bernadine-Colace, labs from today reviewed stable white cell count, chemistry reviewed, calcium is 7.5, This is a 55-year-old patient of Dr. Fajardo. . Was admitted to the hospital and end of May with abdominal mass. Acute COPD exacerbation. Also positive for COVID 19 by PCR. Patient subsequently followed up with oncology. Had a liver biopsy done. 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 MRI of the brain showed metastatic disease in the brain. Bone scan was negative. Patient is offered to stay back and get hemotherapy but patient very keen to go home and come back. Patient went home and then started noticing weakness in the legs. And patient brought back to the ER. Still having abdominal pain. Oncology was consulted with the plan to chemotherapy. Supposed to be palliative. Prognosis not good. Patient rather tired and sleepy right now Admitted with new onset of paraparesis secondary to brain metastasis. Started on chemotherapy in the form of a etopside. Patient was given IV mannitol in the ER. Started on IV dexamethasone here. Today-awake. Breathing stable. Weakness in the legs-more so in the left leg. Family at the bedside. Pain control. Able to tolerate some food. Objective - Vital Signs Vital signs: Vital Signs Temp 97.6 F 07/29/20 14:00 Pulse 122 H 07/29/20 14:00 Resp 16 07/29/20 14:00 BP 131/86 07/29/20 14:00 Pulse Ox 90 L 07/29/20 14:00 Intake & Output 07/28/20 07/29/20 07/29/20 18:59 06:59 18:59 Intake Total 394.826 Output Total 400 200 Balance 394.826 -400 -200 Intake: Intake, IV Titration 94.826 Amount Morphine Sulfate (100 mg/ 94.826 2 ml) 100 mg In Sodium Chloride 0.9% 100 ml @ 2 MG/HR 2.04 mls/hr IV . Q24H [facility] Rx#:[id number] Oral 300 Output: Urine 400 200 Other: Voiding Method Indwelling Catheter Indwelling Catheter Indwelling Catheter # Bowel Movements 0 0 - Exam GENERAL: , laying in bed, awake EYES: Pupils equal. Conjunctiva pale HEENT: External appearance of nose and ears normal, oral cavity grossly normal. NECK: JVD not raised; masses not palpable. HEART: First and second heart sounds are normal; no edema. LUNGS: Respiratory rate increased, decreased breath sounds- ABDOMEN: Mild diffuse tenderness, mass on the right side, . PSYCH: Awake answering questions NEUROLOGICAL: Cranial nerves grossly intact; no facial asymmetry, decreased power in the legs bilateral - Labs CBC & Chem 7: 07/29/20 05:03 07/28/20 07:20 Labs: Abnormal Lab Results - Last 24 Hours (Table) 07/29/20 Range/Units 05:03 WBC 2.4 L (3.8-10.6) k/uL Lymphocytes # 0.5 L (1.0-4.8) k/uL Assessment and Plan Assessment: Somnolent because of morphine off of it now Leukopenia post chemotherapy stable Hyponatremia Abdominal distention due to bulk of tumor in the liver -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
[2020-07-29] MEDS: SODIUM CHLORIDE 0.9% 1,000 ML IV SCH (16:17)
[2020-07-29] MEDS: FILGRASTIM-SNDZ 300 MCG/0.5 ML SYRINGE SQ SCH (18:14)
--- NOTE | 2020-07-29 18:30 | P.PN ---
Subjective Progress Note Date: 07/29/20 Principal diagnosis: Metastatic Cancer Patients pain is improved, still a little nausea and no BM, +flatulence Objective - Vital Signs Vital signs: Vital Signs Temp 97.6 F 07/29/20 14:00 Pulse 122 H 07/29/20 14:00 Resp 16 07/29/20 14:00 BP 131/86 07/29/20 14:00 Pulse Ox 90 L 07/29/20 14:00 Intake & Output 07/28/20 07/29/20 07/29/20 18:59 06:59 18:59 Intake Total 394.826 Output Total 400 200 Balance 394.826 -400 -200 Intake: Intake, IV Titration 94.826 Amount Morphine Sulfate (100 mg/ 94.826 2 ml) 100 mg In Sodium Chloride 0.9% 100 ml @ 2 MG/HR 2.04 mls/hr IV . Q24H [facility] Rx#:[id number] Oral 300 Output: Urine 400 200 Other: Voiding Method Indwelling Catheter Indwelling Catheter Indwelling Catheter # Bowel Movements 0 0 - Exam Constitutional General appearance: no acute distress - EENT Eyes: EOMI - Neck Neck: normal ROM Thyroid: bilateral: normal size - Respiratory Respiratory: left: rales, wheezing - Cardiovascular Rhythm: regular - Gastrointestinal General gastrointestinal: organomegaly, tenderness, Hypoactive, Distended tender - Integumentary Integumentary: normal Urine caththeter - Neurologic Neurologic: CNII-XII intact - Musculoskeletal Musculoskeletal: right sided weakness, left sided weakness - Psychiatric Psychiatric:confused, inappropriate at times - Labs CBC & Chem 7: 07/29/20 05:03 07/28/20 07:20 Labs: Abnormal Lab Results - Last 24 Hours (Table) 07/29/20 Range/Units 05:03 WBC 2.4 L (3.8-10.6) k/uL Lymphocytes # 0.5 L (1.0-4.8) k/uL Assessment and Plan Plan: Assessment and Plan (1) Brain metastases Current Visit: Yes Status: Acute Code(s): C79.31 - SECONDARY MALIGNANT NEOPLASM OF BRAIN SNOMED Code(s): 87390609 (2) Liver metastases Current Visit: Yes Status: Acute Priority: High Code(s): C78.7 - SECONDARY MALIG NEOPLASM OF LIVER AND INTRAHEPATIC BILE DUCT SNOMED Code(s): 98655574 (3) Small cell lung cancer Current Visit: Yes Status: Acute Priority: High Code(s): C34.90 - MALIGNANT NEOPLASM OF UNSP PART OF UNSP BRONCHUS OR LUNG SNOMED Code(s): 637821088 Pancytopenia and neutropenia secondary to chemotherapy Today requiring oxygen - Chest xray RLL infiltrate - Cefepime added with neutropenia, zarxio initiated, benefits outweigh risks during radiation with short acting zarxio. Dexamethasone to continue 4mg q6 hours and PPI PT/OT daily for passive ROM COntinue xanax and olanzaprine Continue new pain med regimen Physician Attest - i have completed the full history and physical and developed the above impression and plan, agree with dictation, dictated as a scribe
[2020-07-29] MEDS: OLANZapine 2.5 MG TAB PO SCH (21:57)
[2020-07-30] MEDS: DEXAMETHASONE SOD PHOSPHATE 4 MG/ML 1 ML VIAL IV SCH ×3 (05:15→16:56)
[2020-07-30] MEDS: LORazepam 2 MG/ML INJ IV PRN (05:23)
[2020-07-30 06:23] LABS: HCT 30.6 % (34.0-46.0); HGB 10.7 gm/dL (11.4-16.0); MCH 32.1 pg (25.0-35.0); MCHC 34.9 g/dL (31.0-37.0); Mean Platelet Volume 7.4; Platelet Count 229 k/uL (150-450); RBC 3.33 m/uL (3.80-5.40); RDW 13.3 % (11.5-15.5); WBC 6.8 k/uL (3.8-10.6)
[2020-07-30 07:01] LABS: Band Neutrophils % 43 %; Lymphocytes # (M) 0.61 k/uL (1.0-4.8); Monocytes # (M) 0.41 k/uL (0-1.0); Myelocytes # (M) 0.07 k/uL (0); Myelocytes % 1 %; Neutrophils % (M) 43 %; Nucleated Red Blood Cells 0 /100 WBC (0-0); Total Cells Counted 200
[2020-07-30 07:02] LABS: Reactive Lymphocytes Present
[2020-07-30] MEDS: ALPRAZolam 0.5 MG TAB PO SCH ×3 (08:17→21:54)
[2020-07-30] MEDS: ZINC SULFATE 220 MG CAP PO SCH (08:17)
[2020-07-30] MEDS: LACTULOSE 20 GM/30 ML CUP PO SCH ×2 (08:17→21:54)
[2020-07-30] MEDS: CYCLOBENZAPRINE 5 MG TAB PO SCH ×3 (08:17→21:53)
[2020-07-30] MEDS: NICOTINE 21MG/24HR PATCH TRANSDERM SCH (08:17)
[2020-07-30] MEDS: CALCIUM CARB-VIT D 500MG-200UN 1 EACH TAB PO SCH (08:17)
[2020-07-30] MEDS: PANTOPRAZOLE 40 MG TABLET PO SCH ×2 (08:18→21:53)
[2020-07-30] MEDS: MAGNESIUM HYDROXIDE 2,400 MG/10 ML CUP PO SCH ×2 (08:18→21:54)
[2020-07-30] MEDS: CEFEPIME 2 GM in SODIUM CHLORIDE 0.9% 100 ML IVPB SCH ×2 (08:21→16:56)
[2020-07-30] MEDS: SENNOSIDES-DOCUSATE SODIUM 1 EACH TAB PO SCH ×4 (08:28→21:56)
[2020-07-30] MEDS: ALBUTEROL HFA INHALER INHALATION PRN ×3 (08:46→19:58)
[2020-07-30] MEDS: SYMBICORT 160-4.5 MCG INHALER INHALATION SCH ×2 (08:46→19:58)
[2020-07-30] MEDS: SODIUM CHLORIDE 0.9% 1,000 ML IV SCH (13:37)
--- NOTE | 2020-07-30 16:46 | P.PN ---
Subjective Progress Note Date: 07/30/20 Principal diagnosis: Metastatic Cancer Discussed with patient and Dr. Cummins regarding about finishing radiation by monday and discussed with PT OT to increase passive xrt and will need home health PT/OT at home after discharge. Objective - Vital Signs Vital signs: Vital Signs Temp 94.7 F L 07/30/20 09:00 Pulse 112 H 07/30/20 09:00 Resp 16 07/30/20 09:00 BP 112/76 07/30/20 09:00 Pulse Ox 90 L 07/30/20 09:00 Intake & Output 07/29/20 07/30/20 07/30/20 18:59 06:59 18:59 Intake Total 500 Output Total 200 300 Balance -200 200 Intake: Oral 500 Output: Urine 200 300 Other: Voiding Method Indwelling Catheter Indwelling Catheter - Exam Constitutional General appearance: no acute distress - EENT Eyes: EOMI - Neck Neck: normal ROM Thyroid: bilateral: normal size - Respiratory Respiratory: left: rales, wheezing - Cardiovascular Rhythm: regular - Gastrointestinal General gastrointestinal: organomegaly, tenderness, Hypoactive, Distended tender - Integumentary Integumentary: normal Urine caththeter - Neurologic Neurologic: CNII-XII intact - Musculoskeletal Musculoskeletal: right sided weakness, left sided weakness - Psychiatric Psychiatric:confused, inappropriate at times - Labs CBC & Chem 7: 07/30/20 05:53 07/28/20 07:20 Labs: Abnormal Lab Results - Last 24 Hours (Table) 07/30/20 Range/Units 05:53 RBC 3.33 L (3.80-5.40) m/uL Hgb 10.7 L (11.4-16.0) gm/dL Hct 30.6 L (34.0-46.0) % Lymphocytes # (Manual) 0.61 L (1.0-4.8) k/uL Myelocytes # (Manual) 0.07 H (0) k/uL Assessment and Plan Plan: Assessment and Plan (1) Brain metastases Current Visit: Yes Status: Acute Code(s): C79.31 - SECONDARY MALIGNANT NEOPLASM OF BRAIN SNOMED Code(s): 80945778 (2) Liver metastases Current Visit: Yes Status: Acute Priority: High Code(s): C78.7 - SECONDARY MALIG NEOPLASM OF LIVER AND INTRAHEPATIC BILE DUCT SNOMED Code(s): 91908440 (3) Small cell lung cancer Current Visit: Yes Status: Acute Priority: High Code(s): C34.90 - MALIGNANT NEOPLASM OF UNSP PART OF UNSP BRONCHUS OR LUNG SNOMED Code(s): 809286150 Pancytopenia and neutropenia secondary to chemotherapy Today requiring oxygen - Chest xray RLL infiltrate - Cefepime added with neutropenia, Dexamethasone to continue 4mg q6 hours and PPI PT/OT daily for passive ROM COntinue xanax and olanzaprine D/C Zarxio today WBC increased Continue new pain med regimen Physician Attest - i have completed the full history and physical and developed the above impression and plan, agree with dictation, dictated as a scribe
--- NOTE | 2020-07-30 17:09 | P.PN ---
Subjective Progress Note Date: 07/29/20 Patient was seen for a follow-up. Patient's daughter was present. Patient complains of back pain /. Her daughter states that she was mostly sleeping, but just now has woke up. Patient denies any improvement in the legs, although states sometimes she feels pulsating feeling in the legs as if it wants to move. However it is not voluntary. Patient has not had any bowel movement for last 5 days. Objective - Vital Signs Vital signs: Vital Signs Temp 97.6 F 07/29/20 14:00 Pulse 122 H 07/29/20 14:00 Resp 16 07/29/20 14:00 BP 131/86 07/29/20 14:00 Pulse Ox 90 L 07/29/20 14:00 Intake & Output 07/28/20 07/29/20 07/29/20 18:59 06:59 18:59 Intake Total 394.826 Output Total 400 200 Balance 394.826 -400 -200 Intake: Intake, IV Titration 94.826 Amount Morphine Sulfate (100 mg/ 94.826 2 ml) 100 mg In Sodium Chloride 0.9% 100 ml @ 2 MG/HR 2.04 mls/hr IV . Q24H [facility] Rx#:[id number] Oral 300 Output: Urine 400 200 Other: Voiding Method Indwelling Catheter Indwelling Catheter Indwelling Catheter # Bowel Movements 0 0 - Exam Patient is slightly delirious, but awake and alert. Speech is mildly dysarthric. Face is symmetric. Muscle strength is normal in the arms. She continues to be paraplegic. - Labs CBC & Chem 7: 07/30/20 05:53 07/28/20 07:20 Labs: Abnormal Lab Results - Last 24 Hours (Table) 07/29/20 Range/Units 05:03 WBC 2.4 L (3.8-10.6) k/uL Lymphocytes # 0.5 L (1.0-4.8) k/uL Assessment and Plan Assessment: * Small cell lung cancer, 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 MRI of the thoracolumbar spine revealed intrinsic spinal cord enhancing lesion at T10-11 level, likely the cause of paraplegia. No extrinsic spinal compressive lesion identified. Patient also has cerebral metastasis particularly in the brainstem, which may be contributing to her lower extremity weakness and dysarthria. * Leukopenia likely due to chemotherapy * Abdominal distention due to bulk of tumor in the liver. * Hyponatremia * COPD * Tobacco use * Recent frost virus PCR positive. Plan: * Patient has recently been diagnosed with metastatic cancer with extensive metastasis intra-abdominal as well as in the brain and in the spinal cord T10 11 level. Patient is not a surgical candidate. * Continue chemotherapy as per oncologist. * Continue radiation therapy to the cranium and metastatic deposit in the spine. * Patient started on Decadron 6 mg stat and 4 mg every 6 hours to relieve some edema. * Patient not showing significant improvement so far. * Overall prognosis poor based upon the extent of the metastatic disease.
--- NOTE | 2020-07-30 17:12 | P.PN ---
Subjective Progress Note Date: 07/30/20 Patient was seen for a follow-up. Patient's and daughter were present. Patient still has not had any bowel movement. Patient had undergone radiation therapy to the spine and the brain. Patient has decreased appetite, not eating much. Abdomen appears very protuberant, distended. Patient has been having episodes of hypoxia with O2 saturation 85-89. Objective - Vital Signs Vital signs: Vital Signs Temp 97.4 F L 07/30/20 14:00 Pulse 112 H 07/30/20 14:00 Resp 16 07/30/20 14:00 BP 122/82 07/30/20 14:00 Pulse Ox 91 L 07/30/20 14:00 Intake & Output 07/29/20 07/30/20 07/30/20 18:59 06:59 18:59 Intake Total 500 Output Total 200 300 Balance -200 200 Intake: Oral 500 Output: Urine 200 300 Other: Voiding Method Indwelling Catheter Indwelling Catheter - Exam Patient is slightly delirious, but awake and alert. Speech is mildly dysarthric. Face is symmetric. Patient moves her upper extremities very well. She continues to be paraplegic. No movement of either lower extremities. - Labs CBC & Chem 7: 07/30/20 05:53 07/28/20 07:20 Labs: Abnormal Lab Results - Last 24 Hours (Table) 07/30/20 Range/Units 05:53 RBC 3.33 L (3.80-5.40) m/uL Hgb 10.7 L (11.4-16.0) gm/dL Hct 30.6 L (34.0-46.0) % Lymphocytes # (Manual) 0.61 L (1.0-4.8) k/uL Myelocytes # (Manual) 0.07 H (0) k/uL Assessment and Plan Assessment: * Small cell lung cancer, 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 MRI of the thoracolumbar spine revealed intrinsic spinal cord enhancing lesion at T10-11 level, likely the cause of paraplegia. No extrinsic spinal compressive lesion identified. Patient also has cerebral metastasis particularly in the brainstem, which may be contributing to her lower extremity weakness and dysarthria. * Leukopenia likely due to chemotherapy * Abdominal distention due to bulk of tumor in the liver. * Hyponatremia * COPD * Tobacco use * Recent forst virus PCR positive. Plan: * Patient has recently been diagnosed with metastatic cancer with extensive metastasis intra-abdominal as well as in the brain and in the spinal cord T10 11 level. Patient is not a surgical candidate. * Continue chemotherapy as per oncologist. * Continue radiation therapy to the cranium and metastatic deposit in the spine. Per patient's family, she'll be continuing radiation treatment and Monday. * Patient started on Decadron 6 mg stat and 4 mg every 6 hours to relieve some edema. * Patient not showing significant improvement so far. * Overall prognosis poor based upon the extent of the metastatic disease. * Neurology will sign off. Please reconsult neurology if any concerns.
[2020-07-30] MEDS: OLANZapine 2.5 MG TAB PO SCH (21:54)
[2020-07-31] MEDS: CEFEPIME 2 GM in SODIUM CHLORIDE 0.9% 100 ML IVPB SCH ×4 (00:19→23:22)
[2020-07-31] MEDS: DEXAMETHASONE SOD PHOSPHATE 4 MG/ML 1 ML VIAL IV SCH ×4 (00:19→18:10)
[2020-07-31] MEDS: MORPHINE CONC SOLN 10mg/0.5mL ORAL SYRG PO PRN (04:23)
[2020-07-31] MEDS: ALBUTEROL HFA INHALER INHALATION PRN ×3 (07:05→17:10)
[2020-07-31] MEDS: SYMBICORT 160-4.5 MCG INHALER INHALATION SCH ×2 (07:05→21:36)
[2020-07-31] MEDS: MAGNESIUM HYDROXIDE 2,400 MG/10 ML CUP PO SCH ×2 (08:57→20:10)
[2020-07-31] MEDS: SENNOSIDES-DOCUSATE SODIUM 1 EACH TAB PO SCH ×4 (08:58→20:19)
[2020-07-31] MEDS: LACTULOSE 20 GM/30 ML CUP PO SCH ×2 (08:58→20:10)
[2020-07-31] MEDS: PANTOPRAZOLE 40 MG TABLET PO SCH ×2 (09:09→20:19)
[2020-07-31] MEDS: CALCIUM CARB-VIT D 500MG-200UN 1 EACH TAB PO SCH (09:09)
[2020-07-31] MEDS: CYCLOBENZAPRINE 5 MG TAB PO SCH ×3 (09:09→20:19)
[2020-07-31] MEDS: ALPRAZolam 0.5 MG TAB PO SCH ×3 (09:09→20:19)
[2020-07-31] MEDS: NICOTINE 21MG/24HR PATCH TRANSDERM SCH (09:09)
[2020-07-31] MEDS: ZINC SULFATE 220 MG CAP PO SCH (09:09)
[2020-07-31] MEDS: SODIUM CHLORIDE 0.9% 1,000 ML IV SCH (14:23)
--- NOTE | 2020-07-31 14:47 | P.PN ---
Subjective Progress Note Date: 07/31/20 Patient was seen for a follow-up. Patient's and daughter were present. Patient had a big bowel movement, but patient states abdomen still feels distended. It was a formed stool followed by diarrhea. Patient still not able to move her legs. Patient had undergone radiation therapy to the spine and the brain. Patient has decreased appetite, not eating much. Objective - Vital Signs Vital signs: Vital Signs Temp 98.3 F 07/31/20 08:00 Pulse 91 07/31/20 08:00 Resp 16 07/31/20 08:00 BP 114/72 07/31/20 08:00 Pulse Ox 95 07/31/20 08:00 Intake & Output 07/30/20 07/31/20 07/31/20 18:59 06:59 18:59 Intake Total 500 Output Total 1601 Balance -1101 Intake: Oral 500 Output: Urine 1600 Uretheral ([place]) 800 Stool 1 Other: Voiding Method Indwelling Catheter Indwelling Catheter # Bowel Movements 2 - Exam Patient is awake and alert, slightly slow mentation. Speech is mildly dysarthric. Face is symmetric. Patient moves her upper extremities very well. She continues to be paraplegic. No movement of either lower extremities. - Labs CBC & Chem 7: 07/30/20 05:53 07/28/20 07:20 Assessment and Plan Assessment: * Small cell lung cancer, 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 MRI of the thoracolumbar spine revealed intrinsic spinal cord enhancing lesion at T10-11 level, likely the cause of paraplegia. No extrinsic spinal compressive lesion identified. Patient also has cerebral metastasis particularly in the brainstem, which may be contributing to her lower extremity weakness and dysarthria. * Leukopenia likely due to chemotherapy * Abdominal distention due to bulk of tumor in the liver. * Hyponatremia * COPD * Tobacco use * Recent frost virus PCR positive. Plan: * Patient has recently been diagnosed with metastatic cancer with extensive metastasis intra-abdominal as well as in the brain and in the spinal cord T10- 11 level. Patient is not a surgical candidate. * Continue chemotherapy as per oncologist. * Continue radiation therapy to the cranium and metastatic deposit in the spine. Per patient's family, she will be continuing radiation treatment to the brain till Monday, and spine tilt . * Patient started on Decadron 6 mg stat and 4 mg every 6 hours to relieve some edema. * Patient had bowel movement, but paraplegia has not improved. * Overall prognosis poor based upon the extent of the metastatic disease. * May consider repeating brain and thoracic MRI with and without contrast after radiation is complete to assess for the response, if okay with radiation oncologist/oncologist. * Neurology service not available on the weekend.
[2020-07-31 17:08] LABS: Basophils # (A) 0.1 k/uL (0-0.2); Basophils % (A) 0 %; Eosinophils % (A) 0 %; HCT 28.4 % (34.0-46.0); HGB 9.7 gm/dL (11.4-16.0); Lymphocytes # (A) 0.5 k/uL (1.0-4.8); Lymphocytes % (A) 5 %; MCH 31.8 pg (25.0-35.0); MCHC 34.3 g/dL (31.0-37.0); MCV 92.7 fL (80.0-100.0); Mean Platelet Volume 7.1; Monocytes # (A) 0.5 k/uL (0-1.0); Monocytes % (A) 4 %; Neutrophils # (A) 10.4 k/uL (1.3-7.7); Neutrophils % (A) 90 %; Platelet Count 212 k/uL (150-450); RBC 3.06 m/uL (3.80-5.40); RDW 13.6 % (11.5-15.5); WBC 11.6 k/uL (3.8-10.6)
[2020-07-31] MEDS: OLANZapine 2.5 MG TAB PO SCH (20:19)
[2020-07-31 23:01] LABS: African American GFR (CKD) 94.9 (60.0-200.0); Albumin 3.2 g/dL (3.80-4.90); Albumin/Globulin Ratio 1.6 (1.60-3.17); Anion Gap 7.3 mmol/L (4.00-12.00); BUN/Creat Ratio 51.25 Ratio (12.00-20.00); Carbon Dioxide 24.7 mmol/L (21.6-31.8); Non-African American GFR(CKD) 81.8 (60.0-200.0); Potassium 3.7 mmol/L (3.5-5.5); Total Bilirubin 0.4 mg/dL (0.2-1.2); Total Protein 5.2 g/dL (6.2-8.2)
[2020-08-01] MEDS: MORPHINE CONC SOLN 10mg/0.5mL ORAL SYRG PO PRN (01:27)
[2020-08-01] MEDS: DEXAMETHASONE SOD PHOSPHATE 4 MG/ML 1 ML VIAL IV SCH ×5 (01:27→22:45)
[2020-08-01 07:35] LABS: Basophils % (A) 0 %; Eosinophils % (A) 0 %; HCT 27.3 % (34.0-46.0); HGB 9.1 gm/dL (11.4-16.0); Lymphocytes # (A) 0.6 k/uL (1.0-4.8); Lymphocytes % (A) 5 %; MCHC 33.4 g/dL (31.0-37.0); MCV 92.7 fL (80.0-100.0); Mean Platelet Volume 7.9; Monocytes # (A) 0.3 k/uL (0-1.0); Monocytes % (A) 3 %; Neutrophils # (A) 9.9 k/uL (1.3-7.7); Neutrophils % (A) 90 %; Platelet Count 218 k/uL (150-450); RBC 2.94 m/uL (3.80-5.40)
[2020-08-01] MEDS: CEFEPIME 2 GM in SODIUM CHLORIDE 0.9% 100 ML IVPB SCH ×3 (07:42→22:45)
[2020-08-01] MEDS: CALCIUM CARB-VIT D 500MG-200UN 1 EACH TAB PO SCH (07:42)
[2020-08-01] MEDS: NICOTINE 21MG/24HR PATCH TRANSDERM SCH (07:42)
[2020-08-01] MEDS: SYMBICORT 160-4.5 MCG INHALER INHALATION SCH ×2 (07:43→20:28)
[2020-08-01] MEDS: ALBUTEROL HFA INHALER INHALATION PRN ×2 (07:43→20:27)
[2020-08-01] MEDS: ZINC SULFATE 220 MG CAP PO SCH (07:43)
[2020-08-01] MEDS: PANTOPRAZOLE 40 MG TABLET PO SCH ×2 (07:43→20:54)
[2020-08-01] MEDS: LACTULOSE 20 GM/30 ML CUP PO SCH ×2 (07:43→20:55)
[2020-08-01] MEDS: MAGNESIUM HYDROXIDE 2,400 MG/10 ML CUP PO SCH ×2 (07:43→20:55)
[2020-08-01] MEDS: SENNOSIDES-DOCUSATE SODIUM 1 EACH TAB PO SCH ×3 (07:43→20:54)
[2020-08-01] MEDS: ALPRAZolam 0.5 MG TAB PO SCH ×3 (07:43→20:54)
[2020-08-01] MEDS: CYCLOBENZAPRINE 5 MG TAB PO SCH ×3 (07:43→20:54)
[2020-08-01] MEDS ORDERED: SODIUM CHLORIDE 0.9% 1,000 ML IV ONE (10:13)
[2020-08-01] MEDS: ADENOSINE 3 MG/ML 2 ML VIAL IVP STA ×2 (10:16→10:19)
[2020-08-01] MEDS ORDERED: ADENOSINE 3 MG/ML 2 ML VIAL IVP STA (10:24)
[2020-08-01 11:00] LABS: ALT 37 U/L (4-34); AST 62 U/L (14-36); African American GFR (CKD) >90 (>60 ml/min/1.73 sqM); Albumin 2.7 g/dL (3.5-5.0); Alkaline Phosphatase 171 U/L (38-126); Anion Gap 4 mmol/L; Blood Urea Nitrogen 31 mg/dL (7-17); Calcium 6.8 mg/dL (8.4-10.2); Carbon Dioxide 23 mmol/L (22-30); Chloride 103 mmol/L (98-107); Globulin 2.7 g/dL; Glucose 123 mg/dL (74-99); Non-African American GFR(CKD) >90 (>60 ml/min/1.73 sqM); Potassium 3.6 mmol/L (3.5-5.1); Sodium 130 mmol/L (137-145); Total Bilirubin 0.5 mg/dL (0.2-1.3); Total Protein 5.4 g/dL (6.3-8.2)
--- NOTE | 2020-08-01 12:40 | P.PN ---
Progress Note - Text Progress Note Date: 08/01/20 A- team Indication: Tachycardia EKG reviewed and appears to be SVT Patient seen and examined at bedside. She denies any shortness of breath, chest pain, or feelings of palpitations. She denies any lightheadedness or dizziness. Patient's blood pressure was 88/34 on arrival. She was started on normal saline running at wide open. ICU nurse was present. Patient was hooked up to the crash cart for monitoring. She responded to carotid massage but immediately went into SVT when it was stopped. . She again. appeared to be in SVT. She was administered 6 mg of adenosine with the appropriate initial response however she went back into SVT. She was given another adenosine 12 mg and had appropriate response with lack of heart rate. She then again went back into normal sinus rhythm and appeared to try to go back into SVT for about 15 seconds but then converted to normal sinus rhythm at a rate of 98. Repeat blood pressure was 126/98. Patient was feeling improved. Stat CMP and magnesium levels were ordered. Verbal report was given to Dr. Whyte over the phone. Arrangements were made for transition to 3 self cardio. Vital signs reviewed General: non toxic, no distress, appears at stated age Derm: warm, dry Head: atraumatic, normocephalic, symmetric Eyes: EOMI, no lid lag, anicteric sclera Mouth: no lip lesion, mucus membranes moist Cardiovascular: [S1S2 tachy, no murmur, positive posterior tibial pulse bilateral, Lungs: CTA course bs bilateral, no rhonchi, no rales , no accessory muscle use Abdominal: soft, nontender to palpation, no guarding, no appreciable organomegaly Ext: no gross muscle atrophy, no edema, no contractures Neuro: CN II-XI grossly intact, no focal neuro deficits Psych: Alert, oriented, appropriate affect Assessment/Plan: 1. SVT. See treatment as above, A total of 32 minutes of critical care time was spent on this complex patient.
[2020-08-01] MEDS: SODIUM CHLORIDE 0.9% 1,000 ML IV SCH (13:00)
[2020-08-01] MEDS: LORazepam 2 MG/ML INJ IV PRN (13:33)
--- NOTE | 2020-08-01 14:23 | P.PN ---
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 -New onset weakness and lower extremity paresis left greater than right from metastatic disease to the brain/the spine -Brain edema localized-vasogenic from brain metastasis -Chronic nicotine dependence patient cigarette smoker -COPD in an ex-smoker -Adjustment disorder -Anxiety not otherwise specified -recent Coronavirus-PCR positive 07/30/2020, patient seen eval examined respiratory status remains stable, off of morphine drip, has been on fentanyl, is still having pain in the abdomen with distention, lower extremity weakness and sensation continued to be lost, 07/29/2020, patient was slightly more somnolent, morphine drip has been discontinued, patient is on fentanyl patch, also started on Decadron by neurology, 07/28/2020 patient and her continued to prefer treatment in the hospital, status post radiation therapy, paraparesis of the lower extremity neuro to evaluate the patient oncology has been following, patient WBC count came down all the way to 800 today up to 1200 hemoglobin remained stable, louis telets are stable, light hyponatremia noted, with normal renal functions 07/27/2020, overall symptoms remained the same, continued to have problems associated with abdominal distention, feeling of fullness in the stomach, lower extremity weakness present, discussed with the staff as well as the patient and will obtain neurology consultation as well, repeat labs in the morning 07/26/2020, patient seen eval examined during the rounds labs reviewed medications reviewed care plan discussed, overall symptoms not much changed, we'll continue current plan of care, family insisted on staying getting therapy while in the hospital 07/25/2020, continued to have pain in the abdominal area and constipation, large liver mass is present which is causing stretching, patient however is passing f rom gas from below, still have lower extremity weakness 07/24/2020, patient seen eval examined during the rounds overall no significant change, patient continued to have problems associated with weakness of the lower extremity has been getting radiation therapy to the spine remains on chemotherapy, WBC count is low morphine seems to be helping to relieve the anxiety pain and a prehension overall prognosis is very poor 07/23/2020, patient seen eval examined labs reviewed medications reviewed care plan discussed, overall morphine drip has been helping, is still constipated, lower extremity weakness unchanged remains on radiation therapy and chemotherapy 07/22/2020, patient seen eval examined overall continued to have abdominal fullness feeling, does passes gas from below, case discussed with the 10 the nurse practitioner from oncology patient will be given some morphine for pain m anagement, patient has been on chemotherapy for 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 and as well as XRT to spine for metastatic disease, patient continued to get care in the hospital as per hematology oncology recommendations will follow closely 07/21/2020, patient currently taking to the radiation therapy, still have ongoing abdominal symptoms, abdominal series negative for any obstructive Petrin, however hepatosplenomegaly along with left upper lobe mass seen 07/20/2020, patient evaluated is still have problems with abdominal distention, however has been passing gas, patient has been on narcotics, stool softener has been initiated overall clinical course closely 07/19/2020, patient seen eval examined overall respiratory status remains stable, breathing comfortably, has been on chemotherapy, today labs have been reviewed 07/18/2020, patient has been getting chemotherapy tolerating very well, patient however has a problem with constipation we'll start Bernadine-Colace, labs from today reviewed stable white cell count, chemistry reviewed, calcium is 7.5, This is a 55-year-old patient of Dr. Fajardo. . Was admitted to the hospital and end of May with abdominal mass. Acute COPD exacerbation. Also positive for COVID 19 by PCR. Patient subsequently followed up with oncology. Had a liver biopsy done. 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 MRI of the brain showed metastatic disease in the brain. Bone scan was negative. Patient is offered to stay back and get hemotherapy but patient very keen to go home and come back. Patient went home and then started noticing weakness in the legs. And patient brought back to the ER. Still having abdominal pain. Oncology was consulted with the plan to chemotherapy. Supposed to be palliative. Prognosis not good. Patient rather tired and sleepy right now Admitted with new onset of paraparesis secondary to brain metastasis. Started on chemotherapy in the form of a etopside. Patient was given IV mannitol in the ER. Started on IV dexamethasone here. Today-awake. Breathing stable. Weakness in the legs-more so in the left leg. Family at the bedside. Pain control. Able to tolerate some food. Objective - Vital Signs Vital signs: Vital Signs Temp 94.7 F L 07/30/20 09:00 Pulse 112 H 07/30/20 09:00 Resp 16 07/30/20 09:00 BP 112/76 07/30/20 09:00 Pulse Ox 90 L 07/30/20 09:00 Intake & Output 07/29/20 07/30/20 07/30/20 18:59 06:59 18:59 Intake Total 500 Output Total 200 300 Balance -200 200 Intake: Oral 500 Output: Urine 200 300 Other: Voiding Method Indwelling Catheter Indwelling Catheter - Exam GENERAL: , laying in bed, awake EYES: Pupils equal. Conjunctiva pale HEENT: External appearance of nose and ears normal, oral cavity grossly normal. NECK: JVD not raised; masses not palpable. HEART: First and second heart sounds are normal; no edema. LUNGS: Respiratory rate increased, decreased breath sounds- ABDOMEN: Mild diffuse tenderness, mass on the right side, . PSYCH: Awake answering questions NEUROLOGICAL: Cranial nerves grossly intact; no facial asymmetry, decreased power in the legs bilateral - Labs CBC & Chem 7: 08/01/20 06:07 08/01/20 10:31 Labs: Abnormal Lab Results - Last 24 Hours (Table) 07/30/20 Range/Units 05:53 RBC 3.33 L (3.80-5.40) m/uL Hgb 10.7 L (11.4-16.0) gm/dL Hct 30.6 L (34.0-46.0) % Lymphocytes # (Manual) 0.61 L (1.0-4.8) k/uL Myelocytes # (Manual) 0.07 H (0) k/uL Assessment and Plan Assessment: Somnolent because of morphine off of it now Leukopenia post chemotherapy stable Hyponatremia Abdominal distention due to bulk of tumor in the liver -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
--- NOTE | 2020-08-01 14:24 | P.PN ---
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 -New onset weakness and lower extremity paresis left greater than right from metastatic disease to the brain/the spine -Brain edema localized-vasogenic from brain metastasis -Chronic nicotine dependence patient cigarette smoker -COPD in an ex-smoker -Adjustment disorder -Anxiety not otherwise specified -recent Coronavirus-PCR positive 07/31/2020, patient seen and evaluated examined in overall good state, and doing well, no specific complains of present, 07/30/2020, patient seen eval examined respiratory status remains stable, off of morphine drip, has been on fentanyl, is still having pain in the abdomen with distention, lower extremity weakness and sensation continued to be absent 07/29/2020, patient was slightly more somnolent, morphine drip has been discontinued, patient is on fentanyl patch, also started on Decadron by neurology, 07/28/2020 patient and her continued to prefer treatment in the [facility], status post radiation therapy, paraparesis of the lower extremity neuro to evaluate the patient oncology has been following, patient WBC count came down all the way to 800 today up to 1200 hemoglobin remained stable, platelets are stable, light hyponatremia noted, with normal renal functions 07/27/2020, overall symptoms remained the same, continued to have problems associated with abdominal distention, feeling of fullness in the stomach, lower extremity weakness present, discussed with the staff as well as the patient and will obtain neurology consultation as well, repeat labs in the morning 07/26/2020, patient seen eval examined during the rounds labs reviewed medications reviewed care plan discussed, overall symptoms not much changed, we'll continue current plan of care, family insisted on staying getting therapy while in the hospital 07/25/2020, continued to have pain in the abdominal area and constipation, large liver mass is present which is causing stretching, patient however is passing from gas from below, still have lower extremity weakness 07/24/2020, patient seen eval examined during the rounds overall no significant change, patient continued to have problems associated with weakness of the lower extremity has been getting radiation therapy to the spine remains on chemotherapy, WBC count is low morphine seems to be helping to relieve the anxiety pain and a prehension overall prognosis is very poor 07/23/2020, patient seen eval examined labs reviewed medications reviewed care plan discussed, overall morphine drip has been helping, is still constipated, lower extremity weakness unchanged remains on radiation therapy and chemotherapy 07/22/2020, patient seen eval examined overall continued to have abdominal fullness feeling, does passes gas from below, case discussed with the 10 the nurse practitioner from oncology patient will be given some morphine for pain management, patient has been on chemotherapy for 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 and as well as XRT to spine for metastatic disease, patient continued to get care in the hospital as per hematology oncology recommendations will follow closely 07/21/2020, patient currently taking to the radiation therapy, still have ongoing abdominal symptoms, abdominal series negative for any obstructive Petrin, however hepatosplenomegaly along with left upper lobe mass seen 07/20/2020, patient evaluated is still have problems with abdominal distention, however has been passing gas, patient has been on narcotics, stool softener has been initiated overall clinical course closely 07/19/2020, patient seen eval examined overall respiratory status remains stable, breathing comfortably, has been on chemotherapy, today labs have been reviewed 07/18/2020, patient has been getting chemotherapy tolerating very well, patient however has a problem with constipation we'll start Bernadine-Colace, labs from today reviewed stable white cell count, chemistry reviewed, calcium is 7.5, This is a 55-year-old patient of Dr. Fajardo. . Was admitted to the hospital and end of May with abdominal mass. Acute COPD exacerbation. Also positive for COVID 19 by PCR. Patient subsequently followed up with oncology. Had a liver biopsy done. 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 MRI of the brain showed metastatic disease in the brain. Bone scan was negative. Patient is offered to stay back and get hemotherapy but patient very keen to go home and come back. Patient went home and then started noticing weakness in the legs. And patient brought back to the ER. Still having abdominal pain. Oncology was consulted with the plan to chemotherapy. Supposed to be palliative. Prognosis not good. Patient rather tired and sleepy right now Admitted with new onset of paraparesis secondary to brain metastasis. Started on chemotherapy in the form of a etopside. Patient was given IV mannitol in the ER. Started on IV dexamethasone here. Today-awake. Breathing stable. Weakness in the legs-more so in the left leg. Family at the bedside. Pain control. Able to tolerate some food. Objective - Vital Signs Vital signs: Vital Signs Temp 98.3 F 07/31/20 08:00 Pulse 91 07/31/20 08:00 Resp 16 07/31/20 08:00 BP 114/72 07/31/20 08:00 Pulse Ox 95 07/31/20 08:00 Intake & Output 07/30/20 07/31/20 07/31/20 18:59 06:59 18:59 Intake Total 500 Output Total 1601 Balance -1101 Intake: Oral 500 Output: Urine 1600 Uretheral (Cortes) 800 Stool 1 Other: Voiding Method Indwelling Catheter Indwelling Catheter # Bowel Movements 2 - Exam GENERAL: , laying in bed, awake EYES: Pupils equal. Conjunctiva pale HEENT: External appearance of nose and ears normal, oral cavity grossly normal. NECK: JVD not raised; masses not palpable. HEART: First and second heart sounds are normal; no edema. LUNGS: Respiratory rate increased, decreased breath sounds- ABDOMEN: Mild diffuse tenderness, mass on the right side, . 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
[2020-08-01] MEDS ORDERED: POTASSIUM CHLORIDE 10 MEQ in WATER FOR INJECTION 1 100ML.BAG IVPB STA (14:27)
--- NOTE | 2020-08-01 14:27 | P.PN ---
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 -New onset weakness and lower extremity paresis left greater than right from metastatic disease to the brain/the spine -Brain edema localized-vasogenic from brain metastasis -Chronic nicotine dependence patient cigarette smoker -COPD in an ex-smoker -Adjustment disorder -Anxiety not otherwise specified -recent Coronavirus-PCR positive 08/01/2019, patient seen eval reexamined patient had episode of narrow complex tachycardia SVT aborted rate is 12 mg of adenosine, labs reviewed white cell count improved to 11,000 hemoglobin is stable 9.1, sodium is 1:30, potassium is 3.6, 07/31/2020, patient seen and evaluated examined in overall good state, and doing well, no specific complains of present, 07/30/2020, patient seen eval examined respiratory status remains stable, off of morphine drip, has been on fentanyl, is still having pain in the abdomen with distention, lower extremity weakness and sensation continued to be absent 07/29/2020, patient was slightly more somnolent, morphine drip has been discontinued, patient is on fentanyl patch, also started on Decadron by neurology, 07/28/2020 patient and her continued to prefer treatment in the hospital, status post radiation therapy, paraparesis of the lower extremity neuro to evaluate the patient oncology has been following, patient WBC count came down all the way to 800 today up to 1200 hemoglobin remained stable, platelets are stable, light hyponatremia noted, with normal renal functions 07/27/2020, overall symptoms remained the same, continued to have problems associated with abdominal distention, feeling of fullness in the stomach, lower extremity weakness present, discussed with the staff as well as the patient and will obtain neurology consultation as well, repeat labs in the morning 07/26/2020, patient seen eval examined during the rounds labs reviewed medications reviewed care plan discussed, overall symptoms not much changed, we'll continue current plan of care, family insisted on staying getting therapy while in the hospital 07/25/2020, continued to have pain in the abdominal area and constipation, large liver mass is present which is causing stretching, patient however is passing from gas from below, still have lower extremity weakness 07/24/2020, patient seen eval examined during the rounds overall no significant change, patient continued to have problems associated with weakness of the lower extremity has been getting radiation therapy to the spine remains on chemotherapy, WBC count is low morphine seems to be helping to relieve the anxiety pain and a prehension overall prognosis is very poor 07/23/2020, patient seen eval examined labs reviewed medications reviewed care plan discussed, overall morphine drip has been helping, is still constipated, lower extremity weakness unchanged remains on radiation therapy and chemotherapy 07/22/2020, patient seen eval examined overall continued to have abdominal fullness feeling, does passes gas from below, case discussed with the 10 the nurse practitioner from oncology patient will be given some morphine for pain management, patient has been on chemotherapy for 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 and as well as XRT to spine for metastatic disease, patient continued to get care in the hospital as per hematology oncology recommendations will follow closely 07/21/2020, patient currently taking to the radiation therapy, still have ongoing abdominal symptoms, abdominal series negative for any obstructive Petrin, however hepatosplenomegaly along with left upper lobe mass seen 07/20/2020, patient evaluated is still have problems with abdominal distention, however has been passing gas, patient has been on narcotics, stool softener has been initiated overall clinical course closely 07/19/2020, patient seen eval examined overall respiratory status remains stable, breathing comfortably, has been on chemotherapy, today labs have been re viewed 07/18/2020, patient has been getting chemotherapy tolerating very well, patient however has a problem with constipation we'll start Bernadine-Colace, labs from today reviewed stable white cell count, chemistry reviewed, calcium is 7.5, This is a 55-year-old patient of Dr. Fajardo. . Was admitted to the hospital and end of May with abdominal mass. Acute COPD exacerbation. Also positive for COVID 19 by PCR. Patient subsequently followed up with oncology. Had a liver biopsy done. 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 MRI of the brain showed metastatic disease in the brain. Bone scan was negative. Patient is offered to stay back and get hemotherapy but patient very keen to go home and come back. Patient went home and then started noticing weakness in the legs. And patient brought back to the ER. Still having abdominal pain. Oncology was consulted with the plan to chemotherapy. Supposed to be palliative. Prognosis not good. Patient rather tired and sleepy right now Admitted with new onset of paraparesis secondary to brain metastasis. Started on chemotherapy in the form of a etopside. Patient was given IV mannitol in the ER. Started on IV dexamethasone here. Today-awake. Breathing stable. Weakness in the legs-more so in the left leg. Family at the bedside. Pain control. Able to tolerate some food. Objective - Vital Signs Vital signs: Vital Signs Temp 97.5 F L 08/01/20 12:00 Pulse 82 08/01/20 13:51 Resp 16 08/01/20 13:51 BP 107/56 08/01/20 12:00 Pulse Ox 93 L 08/01/20 12:00 Intake & Output 07/31/20 08/01/20 08/01/20 18:59 06:59 18:59 Intake Total 400 Output Total 1202 651 Balance -802 -651 Intake: Oral 400 Output: Urine 1200 650 Uretheral (Cortes) 600 650 Stool 2 1 Other: Voiding Method Indwelling Catheter Indwelling Catheter Indwelling Catheter - Exam GENERAL: , laying in bed, awake EYES: Pupils equal. Conjunctiva pale HEENT: External appearance of nose and ears normal, oral cavity grossly normal. NECK: JVD not raised; masses not palpable. HEART: First and second heart sounds are normal; no edema. LUNGS: Respiratory rate increased, decreased breath sounds- ABDOMEN: Mild diffuse tenderness, mass on the right side, . PSYCH: Awake answering questions NEUROLOGICAL: Cranial nerves grossly intact; no facial asymmetry, decreased power in the legs bilateral - Labs CBC & Chem 7: 08/01/20 06:07 08/01/20 10:31 Labs: Abnormal Lab Results - Last 24 Hours (Table) 07/31/20 07/31/20 08/01/20 Range/Units 16:34 16:34 06:07 WBC 11.6 H 11.0 H (3.8-10.6) k/uL RBC 3.06 L 2.94 L (3.80-5.40) m/uL Hgb 9.7 L 9.1 L (11.4-16.0) gm/dL Hct 28.4 L 27.3 L (34.0-46.0) % Neutrophils # 10.4 H 9.9 H (1.3-7.7) k/uL Lymphocytes # 0.5 L 0.6 L (1.0-4.8) k/uL Sodium 133 L (135-145) mmol/L BUN 41.0 H (9.0-27.0) mg/dL BUN/Creatinine Ratio 51.25 H (12.00-20.00) Ratio Glucose (74-99) mg/dL Calcium 7.0 L (8.7-10.3) mg/dL AST 54 H (13-35) U/L ALT (4-34) U/L Alkaline Phosphatase 181 H (41-126) U/L Total Protein 5.2 L (6.2-8.2) g/dL Albumin 3.20 L (3.80-4.90) g/dL 08/01/20 Range/Units 10:31 WBC (3.8-10.6) k/uL RBC (3.80-5.40) m/uL Hgb (11.4-16.0) gm/dL Hct (34.0-46.0) % Neutrophils # (1.3-7.7) k/uL Lymphocytes # (1.0-4.8) k/uL Sodium 130 L (135-145) mmol/L BUN 31 H (9.0-27.0) mg/dL BUN/Creatinine Ratio (12.00-20.00) Ratio Glucose 123 H (74-99) mg/dL Calcium 6.8 L (8.7-10.3) mg/dL AST 62 H (13-35) U/L ALT 37 H (4-34) U/L Alkaline Phosphatase 171 H (41-126) U/L Total Protein 5.4 L (6.2-8.2) g/dL Albumin 2.7 L (3.80-4.90) g/dL Assessment and Plan Assessment: Hypokalemia Narrow complex tachycardia Somnolent because of morphine off of it now Leukopenia post chemotherapy stable Hyponatremia Abdominal distention due to bulk of tumor in the liver -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
--- NOTE | 2020-08-01 20:09 | US ---
EXAMINATION TYPE: US venous doppler duplex LE DATE OF EXAM: 08/01/2020 7:58 PM COMPARISON: NONE CLINICAL HISTORY: ro dvt. History lung CA. Unable to feel legs SIDE PERFORMED: Bilateral TECHNIQUE: The lower extremity deep venous system is examined utilizing real time linear array sonog mary ann with graded compression, doppler sonography and color-flow sonography. VESSELS IMAGED: Common Femoral Vein Deep Femoral Vein Greater Saphenous Vein * Femoral Vein Popliteal Vein Small Saphenous Vein * Proximal Calf Veins (* superficial vessels) Right Leg: Negative for DVT Left Leg: Negative for DVT IMPRESSION: No evidence of deep vein thrombosis in both legs.
[2020-08-01] MEDS: POTASSIUM CHLORIDE ER 20 MEQ TAB.ER PO SCH ×2 (20:54→22:45)
[2020-08-01] MEDS: METOPROLOL TARTRATE 12.5 MG TAB PO SCH (20:54)
[2020-08-01] MEDS: OLANZapine 2.5 MG TAB PO SCH (22:46)
--- NOTE | 2020-08-02 01:34 | P.PN ---
Subjective Progress Note Date: 08/01/20 Principal diagnosis: Metastatic Cancer Patient pain is well controlled, she has had intermittent feeling in lower extremities although still unable to move. She has now been transferred to [address] [place] [address] for episodes of SVT. remains at bedside and discussed passive range of motion with him. Again discussed the goal of treatment as palliative intent and control of disease, only mild improvements seen at this time, will continue to monitor and treat, patient and are not open to comfort only measures. Objective - Vital Signs Vital signs: Vital Signs Temp 97.6 F 08/01/20 22:55 Pulse 80 08/01/20 22:55 Resp 19 08/01/20 22:55 BP 102/66 08/01/20 22:55 Pulse Ox 92 L 08/01/20 22:55 Intake & Output 08/01/20 08/01/20 08/02/20 06:59 18:59 06:59 Intake Total 400 240 Output Total 1202 1301 1191 Balance -802 -1061 -1191 Intake: Oral 400 240 Output: Urine 1200 1300 1190 Uretheral (Cortes) 600 1300 650 Stool 2 1 1 Other: Voiding Method Indwelling Catheter Indwelling Catheter Indwelling Catheter # Bowel Movements 1 - Exam Constitutional General appearance: no acute distress - EENT Eyes: EOMI - Neck Neck: normal ROM Thyroid: bilateral: normal size - Respiratory Respiratory: left: rales, wheezing - Cardiovascular Rhythm: regular - Gastrointestinal General gastrointestinal: organomegaly, tenderness, Hypoactive, Distended tender - Integumentary Integumentary: normal Urine caththeter - Neurologic Neurologic:no movement lower extremities - Musculoskeletal Musculoskeletal: right sided weakness, left sided weakness - Psychiatric Psychiatric:confused, inappropriate at times - Labs CBC & Chem 7: 08/01/20 06:07 08/01/20 10:31 Labs: Abnormal Lab Results - Last 24 Hours (Table) 08/01/20 08/01/20 Range/Units 06:07 10:31 WBC 11.0 H (3.8-10.6) k/uL RBC 2.94 L (3.80-5.40) m/uL Hgb 9.1 L (11.4-16.0) gm/dL Hct 27.3 L (34.0-46.0) % Neutrophils # 9.9 H (1.3-7.7) k/uL Lymphocytes # 0.6 L (1.0-4.8) k/uL Sodium 130 L (137-145) mmol/L BUN 31 H (7-17) mg/dL Glucose 123 H (74-99) mg/dL Calcium 6.8 L (8.4-10.2) mg/dL AST 62 H (14-36) U/L ALT 37 H (4-34) U/L Alkaline Phosphatase 171 H (38-126) U/L Total Protein 5.4 L (6.3-8.2) g/dL Albumin 2.7 L (3.5-5.0) g/dL Assessment and Plan Plan: Assessment and Plan (1) Brain metastases Current Visit: Yes Status: Acute Code(s): C79.31 - SECONDARY MALIGNANT NEOPLASM OF BRAIN SNOMED Code(s): 72190957 (2) Liver metastases Current Visit: Yes Status: Acute Priority: High Code(s): C78.7 - SECONDARY MALIG NEOPLASM OF LIVER AND INTRAHEPATIC BILE DUCT SNOMED Code(s): 65994924 (3) Small cell lung cancer Current Visit: Yes Status: Acute Priority: High Code(s): C34.90 - MALIGNANT NEOPLASM OF UNSP PART OF UNSP BRONCHUS OR LUNG SNOMED Code(s): 985051801 Pancytopenia and neutropenia secondary to chemotherapy Today requiring oxygen - Chest xray RLL infiltrate - Cefepime added with neutropenia, Dexamethasone to continue 4mg q6 hours and PPI PT/OT daily for passive ROM COntinue xanax and olanzaprine SVT Episodes: Cardiology floor and TMS monitoring. Continue new pain med regimen PLan to continue on radiation and hope to improve acute conditions to administer round two of chemotherapy this coming week after completion of radiation.
[2020-08-02] MEDS: LORazepam 2 MG/ML INJ IV PRN ×3 (06:28→17:55)
[2020-08-02] MEDS: DEXAMETHASONE SOD PHOSPHATE 4 MG/ML 1 ML VIAL IV SCH ×4 (06:28→22:58)
[2020-08-02 06:51] LABS: ALT 38 U/L (4-34); AST 63 U/L (14-36); African American GFR (CKD) >90 (>60 ml/min/1.73 sqM); Albumin 2.8 g/dL (3.5-5.0); Alkaline Phosphatase 156 U/L (38-126); Anion Gap 0 mmol/L; Blood Urea Nitrogen 24 mg/dL (7-17); Calcium 6.9 mg/dL (8.4-10.2); Carbon Dioxide 24 mmol/L (22-30); Chloride 103 mmol/L (98-107); Glucose 92 mg/dL (74-99); Magnesium 1.8 mg/dL (1.6-2.3); Non-African American GFR(CKD) >90 (>60 ml/min/1.73 sqM); Phosphorus 2.4 mg/dL (2.5-4.5); Potassium 4.6 mmol/L (3.5-5.1); Sodium 127 mmol/L (137-145); Total Bilirubin 0.5 mg/dL (0.2-1.3); Total Protein 5.5 g/dL (6.3-8.2)
[2020-08-02 06:53] LABS: HCT 30.1 % (34.0-46.0); MCH 31.1 pg (25.0-35.0); MCHC 33.1 g/dL (31.0-37.0); MCV 94.1 fL (80.0-100.0); Mean Platelet Volume 7.4; Platelet Count 247 k/uL (150-450); RDW 14.2 % (11.5-15.5); WBC 10.8 k/uL (3.8-10.6)
[2020-08-02 07:51] LABS: Band Neutrophils % 3 %; Lymphocytes # (M) 0.76 k/uL (1.0-4.8); Metamyelocytes # (M) 0.32 k/uL (0); Metamyelocytes % 3 %; Monocytes # (M) 0.97 k/uL (0-1.0); Myelocytes # (M) 0.32 k/uL (0); Myelocytes % 3 %; Neutrophils % (M) 76 %; Nucleated Red Blood Cells 0 /100 WBC (0-0); Poikilocytosis (M) Present; Total Cells Counted 200
[2020-08-02] MEDS: SYMBICORT 160-4.5 MCG INHALER INHALATION SCH ×2 (08:10→20:55)
[2020-08-02] MEDS: ENOXAPARIN 40 MG/0.4 ML SYRINGE SQ SCH (08:42)
[2020-08-02] MEDS: NICOTINE 21MG/24HR PATCH TRANSDERM SCH (08:42)
[2020-08-02] MEDS: CEFEPIME 2 GM in SODIUM CHLORIDE 0.9% 100 ML IVPB SCH ×3 (08:42→22:57)
[2020-08-02] MEDS: PANTOPRAZOLE 40 MG TABLET PO SCH ×2 (08:43→21:21)
[2020-08-02] MEDS: CYCLOBENZAPRINE 5 MG TAB PO SCH ×3 (08:43→21:21)
[2020-08-02] MEDS: CALCIUM CARB-VIT D 500MG-200UN 1 EACH TAB PO SCH (08:43)
[2020-08-02] MEDS: ZINC SULFATE 220 MG CAP PO SCH (08:43)
[2020-08-02] MEDS: METOPROLOL TARTRATE 12.5 MG TAB PO SCH ×2 (08:43→21:21)
[2020-08-02] MEDS: ALPRAZolam 0.5 MG TAB PO SCH ×3 (08:43→21:22)
[2020-08-02] MEDS: LACTULOSE 20 GM/30 ML CUP PO SCH ×2 (08:44→20:58)
[2020-08-02] MEDS: SENNOSIDES-DOCUSATE SODIUM 1 EACH TAB PO SCH ×2 (08:44→21:00)
[2020-08-02] MEDS: MAGNESIUM HYDROXIDE 2,400 MG/10 ML CUP PO SCH ×2 (08:44→21:00)
--- NOTE | 2020-08-02 15:17 | P.PN ---
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 -New onset weakness and lower extremity paresis left greater than right from metastatic disease to the brain/the spine -Brain edema localized-vasogenic from brain metastasis -Chronic nicotine dependence patient cigarette smoker -COPD in an ex-smoker -Adjustment disorder -Anxiety not otherwise specified -recent Coronavirus-PCR positive 08/02/2020, patient seen and examined, labs reviewed medications reviewed, patient was not started on Cardizem drip however intermittent episodes of severe narrow complex tachycardia continued to occur however they are asymptomatic cardiovascular services are following, duplex ultrasound of lower extremity has been negative, patient has been placed on Lovenox, today patient is experiencing some sensation in the lower extremity 08/01/2020, patient seen eval reexamined patient had episode of narrow complex tachycardia SVT aborted rate is 12 mg of adenosine, labs reviewed white cell cou nt improved to 11,000 hemoglobin is stable 9.1, sodium is 1:30, potassium is 3.6, 07/31/2020, patient seen and evaluated examined in overall good state, and doing well, no specific complains of present, 07/30/2020, patient seen eval examined respiratory status remains stable, off of morphine drip, has been on fentanyl, is still having pain in the abdomen with distention, lower extremity weakness and sensation continued to be absent 07/29/2020, patient was slightly more somnolent, morphine drip has been discontinued, patient is on fentanyl patch, also started on Decadron by neurology, 07/28/2020 patient and her continued to prefer treatment in the hospital, status post radiation therapy, paraparesis of the lower extremity neuro to evaluate the patient oncology has been following, patient WBC count came down all the way to 800 today up to 1200 hemoglobin remained stable, platel ets are stable, light hyponatremia noted, with normal renal functions 07/27/2020, overall symptoms remained the same, continued to have problems associated with abdominal distention, feeling of fullness in the stomach, lower extremity weakness present, discussed with the staff as well as the patient and will obtain neurology consultation as well, repeat labs in the morning 07/26/2020, patient seen eval examined during the rounds labs reviewed medications reviewed care plan discussed, overall symptoms not much changed, we'll continue current plan of care, family insisted on staying getting therapy while in the hospital 07/25/2020, continued to have pain in the abdominal area and constipation, large liver mass is present which is causing stretching, patient however is passing from gas from below, still have lower extremity weakness 07/24/2020, patient seen eval examined during the rounds overall no significant change, patient continued to have problems associated with weakness of the lower extremity has been getting radiation therapy to the spine remains on chemotherapy, WBC count is low morphine seems to be helping to relieve the anxiety pain and a prehension overall prognosis is very poor 07/23/2020, patient seen eval examined labs reviewed medications reviewed care plan discussed, overall morphine drip has been helping, is still constipated, lower extremity weakness unchanged remains on radiation therapy and chemotherapy 07/22/2020, patient seen eval examined overall continued to have abdominal fullness feeling, does passes gas from below, case discussed with the 10 the nurse practitioner from oncology patient will be given some morphine for pain management, patient has been on chemotherapy for 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 and as well as XRT to spine for metastatic disease, patient continued to get care in the hospital as per hematology oncology recommendations will follow closely 07/21/2020, patient currently taking to the radiation therapy, still have ongoing abdominal symptoms, abdominal series negative for any obstructive Pet rin, however hepatosplenomegaly along with left upper lobe mass seen 07/20/2020, patient evaluated is still have problems with abdominal distention, however has been passing gas, patient has been on narcotics, stool softener has been initiated overall clinical course closely 07/19/2020, patient seen eval examined overall respiratory status remains stable, breathing comfortably, has been on chemotherapy, today labs have been reviewed 07/18/2020, patient has been getting chemotherapy tolerating very well, patient however has a problem with constipation we'll start Bernadine-Colace, labs from today reviewed stable white cell count, chemistry reviewed, calcium is 7.5, This is a 55-year-old patient of Dr. Fajardo. . Was admitted to the hospital and end of May with abdominal mass. Acute COPD exacerbation. Also positive for COVID 19 by PCR. Patient subsequently followed up with oncology. Had a liver biopsy done. 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 MRI of the brain showed metastatic disease in the brain. Bone scan was negative. Patient is offered to stay back and get hemotherapy but patient very keen to go home and come back. Patient went home and then started noticing weakness in the legs. And patient brought back to the ER. Still having abdominal pain. Oncology was consulted wi th the plan to chemotherapy. Supposed to be palliative. Prognosis not good. Patient rather tired and sleepy right now Admitted with new onset of paraparesis secondary to brain metastasis. Started on chemotherapy in the form of a etopside. Patient was given IV mannitol in the ER. Started on IV dexamethasone here. Today-awake. Breathing stable. Weakness in the legs-more so in the left leg. Family at the bedside. Pain control. Able to tolerate some food. Objective - Vital Signs Vital signs: Vital Signs Temp 98.2 F 08/02/20 08:39 Pulse 83 08/02/20 11:07 Resp 16 08/02/20 11:07 BP 129/78 08/02/20 11:07 Pulse Ox 97 08/02/20 11:07 Intake & Output 08/01/20 08/02/20 08/02/20 18:59 06:59 18:59 Intake Total 240 240 Output Total 1301 1772 Balance -1061 -1772 240 Intake: Oral 240 240 Output: Urine 1300 1770 Uretheral (Cortes) 1300 650 Stool 1 2 Other: Voiding Method Indwelling Catheter Indwelling Catheter Indwelling Catheter # Bowel Movements 1 - Exam GENERAL: , laying in bed, awake EYES: Pupils equal. Conjunctiva pale HEENT: External appearance of nose and ears normal, oral cavity grossly normal. NECK: JVD not raised; masses not palpable. HEART: First and second heart sounds are normal; no edema. LUNGS: Respiratory rate increased, decreased breath sounds- ABDOMEN: Mild diffuse tenderness, mass on the right side, . PSYCH: Awake answering questions NEUROLOGICAL: Cranial nerves grossly intact; no facial asymmetry, decreased power in the legs bilateral - Labs CBC & Chem 7: 08/02/20 06:08 08/02/20 06:08 Labs: Abnormal Lab Results - Last 24 Hours (Table) 08/02/20 08/02/20 Range/Units 06:08 06:08 WBC 10.8 H (3.8-10.6) k/uL RBC 3.20 L (3.80-5.40) m/uL Hgb 10.0 L (11.4-16.0) gm/dL Hct 30.1 L (34.0-46.0) % Neutrophils # (Manual) 8.50 H (1.3-7.7) k/uL Lymphocytes # (Manual) 0.76 L (1.0-4.8) k/uL Metamyelocytes # (Man) 0.32 H (0) k/uL Myelocytes # (Manual) 0.32 H (0) k/uL Sodium 127 L (137-145) mmol/L BUN 24 H (7-17) mg/dL Calcium 6.9 L (8.4-10.2) mg/dL Phosphorus 2.4 L (2.5-4.5) mg/dL AST 63 H (14-36) U/L ALT 38 H (4-34) U/L Alkaline Phosphatase 156 H (38-126) U/L Total Protein 5.5 L (6.3-8.2) g/dL Albumin 2.8 L (3.5-5.0) g/dL Assessment and Plan Assessment: Hypokalemia Narrow complex tachycardia 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 Somnolent because of morphine off of it now Leukopenia post chemotherapy stable Hyponatremia Abdominal distention due to bulk of tumor in the liver -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
[2020-08-02] MEDS: DILTIAZEM 125 MG in SODIUM CHLORIDE 0.9% 100 ML IV SCH ×3 (15:50→20:12)
[2020-08-02] MEDS: SODIUM CHLORIDE 0.9% 1,000 ML IV SCH (15:54)
[2020-08-02] MEDS: OLANZapine 2.5 MG TAB PO SCH (21:21)
[2020-08-02] MEDS: ACETAMINOPHEN TAB 325 MG TAB PO PRN (21:22)
[2020-08-03] MEDS: LORazepam 2 MG/ML INJ IV PRN ×2 (06:15→12:50)
[2020-08-03] MEDS: DEXAMETHASONE SOD PHOSPHATE 4 MG/ML 1 ML VIAL IV SCH ×4 (06:15→23:33)
[2020-08-03] MEDS: SYMBICORT 160-4.5 MCG INHALER INHALATION SCH ×2 (07:22→21:11)
[2020-08-03] MEDS: METOPROLOL TARTRATE 12.5 MG TAB PO SCH (08:20)
[2020-08-03] MEDS: ALPRAZolam 0.5 MG TAB PO SCH ×3 (08:20→20:45)
[2020-08-03] MEDS: CEFEPIME 2 GM in SODIUM CHLORIDE 0.9% 100 ML IVPB SCH ×3 (08:20→23:33)
[2020-08-03] MEDS: ZINC SULFATE 220 MG CAP PO SCH (08:20)
[2020-08-03] MEDS: PANTOPRAZOLE 40 MG TABLET PO SCH ×2 (08:21→20:45)
[2020-08-03] MEDS: NICOTINE 21MG/24HR PATCH TRANSDERM SCH (08:21)
[2020-08-03] MEDS: CALCIUM CARB-VIT D 500MG-200UN 1 EACH TAB PO SCH (08:21)
[2020-08-03] MEDS: CYCLOBENZAPRINE 5 MG TAB PO SCH ×3 (08:21→20:46)
[2020-08-03] MEDS: ENOXAPARIN 40 MG/0.4 ML SYRINGE SQ SCH (08:21)
[2020-08-03] MEDS: LACTULOSE 20 GM/30 ML CUP PO SCH ×2 (08:22→20:16)
[2020-08-03] MEDS: MAGNESIUM HYDROXIDE 2,400 MG/10 ML CUP PO SCH ×2 (08:22→20:16)
[2020-08-03] MEDS: SENNOSIDES-DOCUSATE SODIUM 1 EACH TAB PO SCH ×2 (08:22→20:17)
[2020-08-03 11:39] LABS: T4, Free (Free Thyroxine) 0.94 ng/dL (0.78-2.19)
[2020-08-03] MEDS ORDERED: METOPROLOL TARTRATE 12.5 MG TAB PO STA (11:41)
--- NOTE | 2020-08-03 12:33 | P.PN ---
Subjective Progress Note Date: 08/03/20 Principal diagnosis: Metastatic Cancer Hope is to complete radiation therapy this week and be discharged so she can receive her outpatient treatment with chemotherapy as scheduled for Monday. She will need clearance by cardiology and assistive devices and home palliative care with PT/OT, etc. Objective - Vital Signs Vital signs: Vital Signs Temp 97.6 F 08/03/20 04:00 Pulse 97 08/03/20 08:00 Resp 16 08/03/20 08:00 BP 102/65 08/03/20 08:00 Pulse Ox 99 08/03/20 08:00 Intake & Output 08/02/20 08/03/20 08/03/20 18:59 06:59 18:59 Intake Total 360 222 Output Total 700 1502 451 Balance -340 -1502 -229 Intake: Oral 360 222 Output: Urine 700 1500 450 Stool 2 1 Other: Voiding Method Indwelling Catheter Indwelling Catheter Indwelling Catheter # Bowel Movements 1 - Exam Constitutional General appearance: no acute distress - EENT Eyes: EOMI - Neck Neck: normal ROM Thyroid: bilateral: normal size - Respiratory Respiratory: left: rales, wheezing - Cardiovascular Rhythm: regular - Gastrointestinal General gastrointestinal: organomegaly, tenderness, Hypoactive, Distended tender - Integumentary Integumentary: normal Urine caththeter - Neurologic Neurologic:no movement lower extremities - Musculoskeletal Musculoskeletal: right sided weakness, left sided weakness - Psychiatric Psychiatric:confused, inappropriate at times - Labs CBC & Chem 7: 08/02/20 06:08 08/02/20 06:08 Labs: Abnormal Lab Results - Last 24 Hours (Table) 08/02/20 Range/Units 06:08 TSH 0.464 L (0.465-4.680) mIU/L Assessment and Plan Plan: Assessment and Plan (1) Brain metastases Current Visit: Yes Status: Acute Code(s): C79.31 - SECONDARY MALIGNANT NEOPLASM OF BRAIN SNOMED Code(s): 63088699 (2) Liver metastases Current Visit: Yes Status: Acute Priority: High Code(s): C78.7 - SECONDARY MALIG NEOPLASM OF LIVER AND INTRAHEPATIC BILE DUCT SNOMED Code(s): 29312661 (3) Small cell lung cancer Current Visit: Yes Status: Acute Priority: High Code(s): C34.90 - MALIGNANT NEOPLASM OF UNSP PART OF UNSP BRONCHUS OR LUNG SNOMED Code(s): 499786506 zoxygen improved, she continues to feel intermittent feeling and further down right leg. PT/OT daily for passive ROM COntinue xanax and olanzaprine SVT Episodes: Cardiology floor and TMS monitoring. Continue new pain med regimen PLan to continue on radiation and hope to improve acute conditions to administer round two of chemotherapy this coming week after completion of radiation. Will plan to hopefully discharge this week, with homecare, PT/OT, and assistive devices as chemotherapy is crutial to control of her small cell cancer.
--- NOTE | 2020-08-03 13:26 | P.CRDCN ---
History of Present Illness History of present illness: HISTORY OF PRESENTING ILLNESS This is a pleasant 55-year-old female past medical history significant for lung cancer with metastasis to the liver and brain currently undergoing rad iation and chronic nicotine dependence. 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 We have been asked to see in consultation for arrhythmia. She presented to the hospital with symptoms of bilateral lower extremity weakness and inability to ambulate. 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 An MRI of the spine revealed intrinsic spinal cord enhancing lesion at T10 through 11 likely the cause of the paraplegia. She also has cerebral metastasis particularly in the brainstem. Her heart rates have been fluctuating since admission going up as high as 160. EKG was obtained revealing sinus tachycardia. Blood pressure at the time was 88/34. Initially she responded to carotid massage, however heart rate went back up and was stopped. She was given adenosine and did come down to normal sinus rhythm with a rate in the 90s. She was started on IV Cardizem and transferred to select care unit. She has been initiated on Lopressor 12.5 mg twice a day. She continues to have intermittent episodes of sinus tachycardia noted on telemetry tracings. This morning's blood pressure is 102/65 with a heart rate of 97. The patient denies chest pain, shortness of breath, dizziness or palpitations. Laboratory data reviewed, WBC 10.8, hemoglobin 10, platelets 247, sodium 127, potassium 4.6, creatinine 0.63, magnesium 1.8, TSH 0.464 with a free T4 of 0.94. REVIEW OF SYSTEMS At the time of my exam: CONSTITUTIONAL: Denies fever or chills. CARDIOVASCULAR: Denies chest pain, shortness of breath, orthopnea, PND or palpitations. RESPIRATORY: Denies cough. GASTROINTESTINAL: Denies abdominal pain, diarrhea, constipation, nausea or vomiting. MUSCULOSKELETAL: Denies myalgias. NEUROLOGIC: Denies numbness, tingling or weakness. ENDOCRINE: Denies fatigue, weight change, polydipsia or polyurina. GENITOURINARY: Denies burning, hematuria or urgency with micturation. HEMATOLOGIC: Denies history of anemia or bleeding. PHYSICAL EXAMINATION Blood pressure 102/65 heart rate 97 afebrile and maintaining oxygen saturation on room air. CONSTITUTIONAL: No apparent distress. Frail. Appears older than stated age. HEENT: Head is normocephalic. Pupils are equal, round. Sclerae anicteric. Mucous membranes of the mouth are moist. No JVD. No carotid bruit. CHEST EXAMINATION: Lungs are clear to auscultation. No chest wall tenderness is noted on palpation or with deep breathing. HEART EXAMINATION: Regular rate and rhythm. S1, S2 heard. No murmurs, gallops or rub. ABDOMEN: Soft, nontender. Positive bowel sounds. EXTREMITIES: 2+ peripheral pulses, no lower extremity edema and no calf tenderness. NEUROLOGIC EXAMINATION: Patient is awake, alert and oriented x3. ASSESSMENT Supraventricular tachycardia Small cell lung cancer with mets to the liver, brainstem and spine Lower extremity paraplesia Hyponatremia PLAN Obtain 2D echocardiogram and doppler study to assess cardiac structure and function. Check stat d-dimer to rule out PE. Increase lopressor to 25 mg TID. Thank you kindly for this consultation. Nurse Practitioner note has been reviewed, I agree with a documented findings and plan of care. Patient was seen and examined. Past Medical History Past Medical History: No Reported History Additional Past Medical History / Comment(s): takes aldactone for hormonal acne, recent admit for abdominal pain(Liver mass being investigated)and positive for COVID (Jun 18). History of Any Multi-Drug Resistant Organisms: None Reported Past Surgical History: Orthopedic Surgery, Tubal Ligation Additional Past Surgical History / Comment(s): right knee, trigger finger, sinus surgeries x3 back in 1989. cyst surgies wrist/arm. Rt breast biopsy- benign. Past Anesthesia/Blood Transfusion Reactions: No Reported Reaction Past Psychological History: No Psychological Hx Reported Smoking Status: Current every day smoker Past Alcohol Use History: Occasional Past Drug Use History: None Reported - Past Family History Father Family Medical History: Coronary Artery Disease (CAD) Medications and Allergies Home Medications Medication Instructions Recorded Confirmed Type Calcium Carb-Vit D 500Mg-200Un 2 tab PO DAILY 10/31/16 07/16/20 History [Oscal 500+D] Inulin/Chromium Picolinate [Fiber 2 tab PO DAILY 10/31/16 07/16/20 History Gummies Chew] Multivit with Calcium,Iron,Min 1 tab PO DAILY 10/31/16 07/16/20 History [Women's Multivitamin] Guaifenesin/Pseudoephedrne HCl 1 tab PO BID 06/18/20 07/16/20 History [Mucinex D ER 1,200-120 mg Tab] Spironolactone [Aldactone] 75 mg PO DAILY 06/18/20 07/16/20 History Budesonide-Formot 160-4.5 Mcg 1 puff INHALATION RT-BID #1 puff 06/19/20 07/16/20 Rx [Symbicort 160-4.5 Mcg Inhaler] Famotidine [Pepcid] 20 mg PO BID #60 tab 06/19/20 07/16/20 Rx Zinc Sulfate [Orazinc] 220 mg PO DAILY #30 cap 06/19/20 07/16/20 Rx Albuterol Inhaler [Ventolin Hfa 2 puff INHALATION RT-Q4H PRN 07/13/20 07/16/20 History Inhaler] ALPRAZolam [Xanax] 0.5 mg PO Q6HR 7 Days #28 tab 07/15/20 07/16/20 Rx Hydrocodone/Acetaminophen [Elma 1 tab PO Q4HR PRN 7 Days #42 tab 07/15/20 07/16/20 Rx 7.5-325] Sennosides/Docusate Sodium [Senna 1 - 2 tab PO BID PRN 07/16/20 07/16/20 History Plus 8.6-50 mg Tablet] Allergies Allergy/AdvReac Type Severity Reaction Status Date / Time aspirin AdvReac GI upset Verified 07/16/20 13:16 monosodium glutamate [MSG] AdvReac GI upset Verified 07/16/20 13:16 Physical Exam Vitals: Vital Signs Temp Pulse Pulse Resp BP Pulse Ox 08/03/20 08:00 97 16 102/65 99 08/03/20 04:00 97.6 F 89 18 114/71 92 L 08/03/20 02:00 89 18 08/02/20 23:15 97.8 F 89 18 99/66 91 L 08/02/20 20:00 97.6 F 105 H 18 109/69 92 L 08/02/20 15:53 98.4 F 96 16 126/77 96 08/02/20 11:07 83 16 129/78 97 Intake and Output 01/03/21 01/04/21 01/04/21 22:59 06:59 14:59 Intake Total 120 222 Output Total 701 1501 450 Balance -581 -1501 -228 Intake: Oral 120 222 Output: Urine 700 1500 450 Stool 1 1 Other: Voiding Method Indwelling Catheter Indwelling Catheter # Bowel Movements 1 Results 08/02/20 06:08 08/02/20 06:08 Current Medications Generic Name Dose Route Start Last Admin Trade Name Freq PRN Reason Stop Dose Admin Acetaminophen 650 mg 07/16/20 13:42 08/02/20 21:22 Acetaminophen Tab 325 Mg Tab PO 650 mg Q6HR PRN Administration Mild Pain or Fever > 100.5 Albuterol Sulfate 2 puff 07/16/20 23:08 08/01/20 20:27 Albuterol Hfa Inhaler INHALATION 2 puff RT-Q4H PRN Administration Wheezing Alprazolam 0.5 mg 07/28/20 22:00 08/03/20 08:20 Alprazolam 0.5 Mg Tab PO 0.5 mg TID JENNY Administration Budesonide/Formoterol Fumarate 1 puff 07/17/20 08:00 08/03/20 07:22 Symbicort 160-4.5 Mcg Inhaler INHALATION 1 puff RT-BID JENNY Administration Calcium Carbonate 2 each 07/17/20 09:00 08/03/20 08:21 Calcium Carb-Vit D 500mg-200un 1 Each Tab PO 2 each DAILY JENNY Administration Cyclobenzaprine HCl 5 mg 07/17/20 12:45 08/03/20 08:21 Cyclobenzaprine 5 Mg Tab PO 5 mg TID JENNY Administration Dexamethasone Sodium Phosphate 4 mg 07/28/20 00:00 08/03/20 06:15 Dexamethasone Sod Phosphate 4 Mg/Ml 1 Ml Vial IV 4 mg Q6HR JENNY Administration Enoxaparin Sodium 40 mg 08/02/20 09:00 08/03/20 08:21 Enoxaparin 40 Mg/0.4 Ml Syringe SQ 40 mg DAILY JENNY Administration Fentanyl 1 patch 07/28/20 13:00 07/31/20 12:50 Fentanyl 50mcg/Hr Patch TRANSDERM 1 patch Q72H JENNY Administration Sodium Chloride 1,000 mls @ 20 mls/hr 07/16/20 13:45 08/02/20 15:54 Saline 0.9% IV 20 mls/hr .Q24H JENNY Administration Cefepime HCl 2 gm/ Sodium 100 mls @ 25 mls/hr 07/28/20 16:00 08/03/20 08:20 Chloride IVPB 25 mls/hr Q8HR JENNY Administration Diltiazem HCl 125 mg/ Sodium 125 mls @ 5 mls/hr 08/01/20 15:00 08/02/20 20:12 Chloride IV 5 mg/hr .Q24H JENNY 5 mls/hr Administration 5 MG/HR Lactulose 30 gm 07/28/20 21:00 08/03/20 08:22 Lactulose 20 Gm/30 Ml Cup PO Not Given BID JENNY Lorazepam 0.5 mg 07/16/20 13:42 08/03/20 06:15 Lorazepam 2 Mg/Ml Inj IV 0.5 mg Q6HR PRN Administration Anxiety Magnesium Hydroxide 2,400 mg 07/21/20 21:00 08/03/20 08:22 Magnesium Hydroxide 2,400 Mg/10 Ml Cup PO Not Given BID JENNY Metoprolol Tartrate 12.5 mg 08/01/20 21:00 08/03/20 08:20 Metoprolol Tartrate 12.5 Mg Tab PO 12.5 mg BID EJNNY Administration Morphine Sulfate 2 mg 07/28/20 12:06 08/01/20 01:27 Morphine Conc Soln 10mg/0.5ml Oral Syrg PO 2 mg Q2HR PRN Administration Pain Naloxone HCl 0.2 mg 07/16/20 13:42 Naloxone 0.4 Mg/Ml 1 Ml Vial IV Q2M PRN Opioid Reversal Nicotine 1 patch 07/17/20 12:00 08/03/20 08:21 Nicotine 21mg/24hr Patch TRANSDERM 1 patch DAILY JENNY Administration Nicotine Polacrilex 2 mg 07/17/20 12:37 Nicotine Polacrilex 2 Mg Gum BUCCAL Q4HR PRN Nicotine Cravings Olanzapine 2.5 mg 07/28/20 21:00 08/02/20 21:21 Olanzapine 2.5 Mg Tab PO 2.5 mg HS JENNY Administration Ondansetron HCl 4 mg 07/17/20 12:28 07/29/20 07:15 Ondansetron 4 Mg/2 Ml Vial IVP 4 mg Q6HR PRN Administration Nausea And Vomiting Pantoprazole Sodium 40 mg 07/21/20 21:00 08/03/20 08:21 Pantoprazole 40 Mg Tablet PO 40 mg BID JENNY Administration Senna/Docusate Sodium 2 each 07/28/20 21:00 08/03/20 08:22 Sennosides-Docusate Sodium 1 Each Tab PO Not Given BID JENNY Zinc Sulfate 220 mg 07/17/20 09:00 08/03/20 08:20 Zinc Sulfate 220 Mg Cap PO 220 mg DAILY JENNY Administration Intake and Output 08/02/20 08/03/20 08/03/20 22:59 06:59 14:59 Intake Total 120 222 Output Total 701 1501 450 Balance -581 -1501 -228 Intake: Oral 120 222 Output: Urine 700 1500 450 Stool 1 1 Other: Voiding Method Indwelling Catheter Indwelling Catheter # Bowel Movements 1 08/02/20 06:08 08/02/20 06:08
--- NOTE | 2020-08-03 14:34 | CT ---
EXAMINATION TYPE: CT angio chest DATE OF EXAM: 08/03/2020 2:16 PM COMPARISON: CT chest July 14, 2020 HISTORY: PE, prior abnormal CT CT DLP: 165.8 mGycm Automated exposure control for dose reduction was used. CONTRAST: CTA scan of the thorax is performed with IV Contrast, patient injected with 58 mL of Isovue 370, pulm onary embolism protocol. MIP images are created and reviewed. FINDINGS: LUNGS: [id number] emphysematous change greatest in the upper lungs redemonstrated. There is sma ll to moderate-sized right pleural effusion with associated compressive atelectasis, this is larger f rom prior study. Tiny left pleural effusion redemonstrated and stable. Invasive left hilar mass measu res approximately 5.0 x 3.8 cm image 56, likely improved from prior study as there is improved anteri or superior postobstructive atelectatic change. There is some encasement and mass effect on left uppe r lobe arterial and lingular branch vessels which remain patent. MEDIASTINUM: There is satisfactory enhancement of the pulmonary artery and its branches, there is no CT evidence for pulmonary embolism. There is persistent mediastinal adenopathy for reference 1.9 x 1. 8 cm lesion anterior to the main pulmonary artery is slightly smaller from prior study. Suspicious 11 mm lesion inferior to this axial image 1 stable from prior. No cardiomegaly or pericardial effusion. OTHER: Hepatomegaly with large heterogeneous mass or confluent masses right hepatic lobe redemonstra nan. IMPRESSION: Some improvement in left hilar lesion with mediastinal invasion. Some improvement in the anterior mediastinal mass or adenopathy. No new nodules or masses. No convincing CT evidence for acut e pulmonary embolism. Small to moderate size right pleural effusion is noted increased in size from p rior CT.
--- NOTE | 2020-08-03 16:33 | ECHOF ---
Referral Reason:svt, hx lung ca with mets MEASUREMENTS -------- HEIGHT: 157.5 cm WEIGHT: 51.3 kg BP: RVIDd: 3.6 cm (< 3.3) IVSd: 1.1 cm (0.6 - 1.1) LVIDd: 3.6 cm (3.9 - 5.3) LVPWd: 0.7 cm (0.6 - 1.1) IVSs: 1.2 cm LVIDs: 3.0 cm LVPWs: 1.1 cm LA Diam: 3.1 cm (2.7 - 3.8) Ao Diam: 2.9 cm (2.0 - 3.7) AV Cusp: 1.7 cm (1.5 - 2.6) MV EXCURSION: 17.961 mm (> 18.000) MV EF SLOPE: 85 mm/s (70 - 150) EPSS: 0.2 cm MV E River: 0.48 m/s MV DecT: 199 ms MV A River: 0.78 m/s MV E/A Ratio: 0.61 RAP: 5.00 mmHg RVSP: 22.12 mmHg FINDINGS -------- Sinus rhythm. This was a technically good study. LV size, wall thickness and systolic function are normal, with an EF greater than 55%. The left rylee tricular size is normal. The right ventricle is mildly enlarged. The left atrial size is normal. The right atrial size is normal. The aortic valve is trileaflet, and appears structurally normal. No aortic stenosis or regurgitation. Mild mitral regurgitation is present. Mild tricuspid regurgitation present. Right ventricular systolic pressure is normal at < 35 mmHg. The pulmonic valve was not well visualized. The aortic root size is normal. There is no pericardial effusion. CONCLUSIONS -------- 1. LV size, wall thickness and systolic function are normal, with an EF greater than 55%. 2. The left ventricular size is normal. 3. The right ventricle is mildly enlarged. 4. The left atrial size is normal. 5. The right atrial size is normal. 6. Mild mitral regurgitation is present. 7. Mild tricuspid regurgitation present. 8. The pulmonic valve was not well visualized. 9. The aortic root size is normal. 10. There is no pericardial effusion. MANAGEMENT LIAISON: Rose Fernandez RDCS
[2020-08-03] MEDS: METOPROLOL TARTRATE 25 MG TAB PO SCH ×2 (16:36→20:45)
[2020-08-03] MEDS: SODIUM CHLORIDE 0.9% 1,000 ML IV SCH (18:43)
--- NOTE | 2020-08-03 19:43 | P.PN ---
Subjective Progress Note Date: 08/03/20 The patient was seen at bedside and she stated that she's doing well. She is accompanied with her was at bedside. Patient denies any seizure-like activity in the hospital. Objective - Vital Signs Vital signs: Vital Signs Temp 97.9 F 08/03/20 16:00 Pulse 98 08/03/20 16:00 Resp 16 08/03/20 16:00 BP 99/69 08/03/20 16:00 Pulse Ox 95 08/03/20 16:00 Intake & Output 08/03/20 08/03/20 08/04/20 06:59 18:59 06:59 Intake Total 666 Output Total 1502 1252 Balance -1502 -586 Intake: Oral 666 Output: Urine 1500 1250 Stool 2 2 Other: Voiding Method Indwelling Catheter Indwelling Catheter # Bowel Movements 1 - Exam Patient is awake and alert, oriented to self place and time. Is slightly slow mentation. Pupils are round, equal and reactive to light. EOM intact and no nystagmus noted. Face is symmetric. No dysarthria. Patient moves her upper extremities very well. She continues to be paraplegic. No movement of either lower extremities. 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 MRI of the thoracolumbar spine revealed intrinsic spinal cord enhancing lesion at T10-11 level, likely the cause of paraplegia. No extrinsic spinal compressive lesion identified. Patient also has cerebral metastasis particularly in the brainstem, which may be contributing to her lower extremity weakness and dysarthria. * Leukopenia likely due to chemotherapy * Abdominal distention due to bulk of tumor in the liver. * Hyponatremia * COPD * Tobacco use * Recent frost virus PCR positive. Plan: * Patient has recently been diagnosed with metastatic cancer with extensive metastasis intra-abdominal as well as in the brain and in the spinal cord T10- 11 level. Patient is not a surgical candidate. * I spoke with the patient as well as her regarding the antiepileptic drug as a prophylactic. I notified that the Keppra is a safe drug but aching the cause worsening of the mood such as agitation or the can cause irritabil ity. The patient is agreement of starting Keppra, she was to be on the low- dose. I wanted to start on 500mg 1 tab bid but the patient wanted to even lower if possible so therefore also on a 250 mg 1 tablet twice a day and the patient's Cachectic so I think that will be suitable. If the patient doesn't have any seizure where we can increase the seizure medication. * Continue chemotherapy as per oncologist. * Continue radiation therapy to the cranium and metastatic deposit in the spine. Per patient's family, she will be continuing radiation treatment to the brain till Monday, and spine tilt . * Patient started on Decadron 6 mg stat and 4 mg every 6 hours to relieve some edema. * Patient had bowel movement, but paraplegia has not improved. * Overall prognosis poor based upon the extent of the metastatic disease. * May consider repeating brain and thoracic MRI with and without contrast after radiation is complete to assess for the response, if okay with radiation oncologist/oncologist. * I notified the patient and her that she needs to follow-up with a neurologist as an outpatient within 2 weeks. Regarding stopping that antiepileptic drugs she can discuss it with her neurologist as an outpatient. Time with Patient: Less than 30
--- NOTE | 2020-08-03 20:07 | P.PN ---
Progress Note - Text Progress Note Date: 08/03/20 Chief Complaint: Increasing abdominal pain History of presenting complaint: This is a 55-year-old patient of Dr. Fajardo. . Was admitted to the hospital and end of May with abdominal mass. Acute COPD exacerbation. Also positive for COVID 19 by PCR. Patient subsequently followed up with oncology. Had a liver biopsy done. 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 MRI of the brain showed metastatic disease in the brain. Bone scan was negative. Patient is offered to stay back and get hemotherapy but patient very keen to go home and come back. Patient went home and then started noticing weakness in the legs. And patient brought back to the ER. Still having abdominal pain. Oncology was consulted with the plan to chemotherapy. Supposed to be palliative. Prognosis not good. 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 Started on chemotherapy in the form of a etopside. Patient was given IV mannitol in the ER. Started on IV dexamethasone. Patient also received radiation treatment. Today-weakness in lower extremity persists. Oral intake fine. Breathing is better. at the bedside. Review of systems: Was done for constitutional, cardiovascular, GI, pulmonary. Neurological relevant finding as above Active Medications Acetaminophen (Acetaminophen Tab 325 Mg Tab) 650 mg PO Q6HR PRN PRN Reason: Mild Pain or Fever > 100.5 Last Admin: 08/02/20 21:22 Dose: 650 mg Documented by: Albuterol Sulfate (Albuterol Hfa Inhaler) 2 puff INHALATION RT-Q4H PRN PRN Reason: Wheezing Last Admin: 08/01/20 20:27 Dose: 2 puff Documented by: Alprazolam (Alprazolam 0.5 Mg Tab) 0.5 mg PO TID [facility] Last Admin: 08/03/20 16:36 Dose: 0.5 mg Documented by: Budesonide/Formoterol Fumarate (Symbicort 160-4.5 Mcg Inhaler) 1 puff INHALATION RT-BID [facility] Last Admin: 08/03/20 07:22 Dose: 1 puff Documented by: Calcium Carbonate (Calcium Carb-Vit D 500mg-200un 1 Each Tab) 2 each PO DAILY [facility] Last Admin: 08/03/20 08:21 Dose: 2 each Documented by: Cyclobenzaprine HCl (Cyclobenzaprine 5 Mg Tab) 5 mg PO TID [facility] Last Admin: 08/03/20 16:37 Dose: 5 mg Documented by: Dexamethasone Sodium Phosphate (Dexamethasone Sod Phosphate 4 Mg/Ml 1 Ml Vial) 4 mg IV Q6HR [facility] Last Admin: 08/03/20 16:37 Dose: 4 mg Documented by: Enoxaparin Sodium (Enoxaparin 40 Mg/0.4 Ml Syringe) 40 mg SQ DAILY [facility] Last Admin: 08/03/20 08:21 Dose: 40 mg Documented by: Fentanyl (Fentanyl 50mcg/Hr Patch) 1 patch TRANSDERM Q72H [facility] Last Admin: 08/03/20 11:55 Dose: 1 patch Documented by: Sodium Chloride (Saline 0.9%) 1,000 mls @ 20 mls/hr IV .Q24H [facility] Last Admin: 08/03/20 18:43 Dose: Not Given Documented by: Cefepime HCl 2 gm/ Sodium (Chloride) 100 mls @ 25 mls/hr IVPB Q8HR [facility] Last Admin: 08/03/20 16:42 Dose: 25 mls/hr Documented by: Lactulose (Lactulose 20 Gm/30 Ml Cup) 30 gm PO BID [facility] Last Admin: 08/03/20 08:22 Dose: Not Given Documented by: Levetiracetam (Levetiracetam 250 Mg Tab) 250 mg PO Q12HR [facility] Lorazepam (Lorazepam 2 Mg/Ml Inj) 0.5 mg IV Q6HR PRN PRN Reason: Anxiety Last Admin: 08/03/20 06:15 Dose: 0.5 mg Documented by: Magnesium Hydroxide (Magnesium Hydroxide 2,400 Mg/10 Ml Cup) 2,400 mg PO BID [facility] Last Admin: 08/03/20 08:22 Dose: Not Given Documented by: Metoprolol Tartrate (Metoprolol Tartrate 25 Mg Tab) 25 mg PO TID [facility] Last Admin: 08/03/20 16:36 Dose: 25 mg Documented by: Morphine Sulfate (Morphine Conc Soln 10mg/0.5ml Oral Syrg) 2 mg PO Q2HR PRN PRN Reason: Pain Last Admin: 08/01/20 01:27 Dose: 2 mg Documented by: Naloxone HCl (Naloxone 0.4 Mg/Ml 1 Ml Vial) 0.2 mg IV Q2M PRN PRN Reason: Opioid Reversal Nicotine (Nicotine 21mg/24hr Patch) 1 patch TRANSDERM DAILY [facility] Last Admin: 08/03/20 08:21 Dose: 1 patch Documented by: Nicotine Polacrilex (Nicotine Polacrilex 2 Mg Gum) 2 mg BUCCAL Q4HR PRN PRN Reason: Nicotine Cravings Olanzapine (Olanzapine 2.5 Mg Tab) 2.5 mg PO HS [facility] Last Admin: 08/02/20 21:21 Dose: 2.5 mg Documented by: Ondansetron HCl (Ondansetron 4 Mg/2 Ml Vial) 4 mg IVP Q6HR PRN PRN Reason: Nausea And Vomiting Last Admin: 07/29/20 07:15 Dose: 4 mg Documented by: Pantoprazole Sodium (Pantoprazole 40 Mg Tablet) 40 mg PO BID [facility] Last Admin: 08/03/20 08:21 Dose: 40 mg Documented by: Senna/Docusate Sodium (Sennosides-Docusate Sodium 1 Each Tab) 2 each PO BID [facility] Last Admin: 08/03/20 08:22 Dose: Not Given Documented by: Zinc Sulfate (Zinc Sulfate 220 Mg Cap) 220 mg PO DAILY [facility] Last Admin: 08/03/20 08:20 Dose: 220 mg Documented by: Physical examination: VITAL SIGNS: 97.6, 89, 18, 114/71, 92% room air GENERAL: Propped up in bed awake EYES: Pupils equal. Conjunctiva pale HEENT: External appearance of nose and ears normal, oral cavity grossly normal. NECK: JVD not raised; masses not palpable. HEART: First and second heart sounds are normal; no edema. LUNGS: Respiratory rate increased, decreased breath sounds- ABDOMEN: Soft, mild tenderness, mass on the right side, . PSYCH: Awake answering questions NEUROLOGICAL: Cranial nerves grossly intact; no facial asymmetry, decreased power in the legs especially the left INVESTIGATIONS, reviewed in the clinical context: August 03: White count 10.8 hemoglobin 10 potassium 4.6 creatinine 0.63 Chest CTA-August 03-some improvement in left hilar lesion with mediastinal invasion. Some improvement in the anterior mediastinal mass or adenopathy. Small to moderate right-sided pleural effusion. August 01: Doppler ultrasound lower extremity-bilateral negative DVT 2-D echocardiogram-EF greater than 55% July 17: White count 8.3 hemoglobin 11.7 potassium 4.9 creatinine 0.9 white count 9.6 hemoglobin 12.1 Potassium 4.1 creatinine 0.8 albumin 3.3 Brain MRI-numerous infra and supratentorial enhancing lesion seen consistent with metastatic disease. Bone scan-not suggestive of metastatic osseous abnormality CT abdomen pelvis-large right mid liver mass which is increased from 13.7 x 9.2 to the current size of 16 x 10.4 cm. Additional small right lobe lesion including posterior lateral right upper lobe 11.6 cm versus previous 10.9. Mass appears to be extending into the liver from the superior lateral right kidney. 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 left greater than right from metastatic disease to the brain -Brain edema localized-vasogenic from brain metastasis -Leukopenia due to chemotherapy -Chronic nicotine dependence patient cigarette smoker -COPD in an ex-smoker -Adjustment disorder -Anxiety not otherwise specified -recent Coronavirus-PCR positive Plan: Discussed with the patient . Continue current medication treatment plan. Further radiation treatment as outpatient. Home care arrangements being made.
[2020-08-03] MEDS: OLANZapine 2.5 MG TAB PO SCH (20:46)
[2020-08-03] MEDS: ACETAMINOPHEN TAB 325 MG TAB PO PRN (21:35)
[2020-08-03] MEDS: levETIRAcetam 250 MG TAB PO SCH (21:36)
[2020-08-04] MEDS: DEXAMETHASONE SOD PHOSPHATE 4 MG/ML 1 ML VIAL IV SCH ×4 (05:27→23:44)
[2020-08-04] MEDS: SYMBICORT 160-4.5 MCG INHALER INHALATION SCH ×2 (07:38→21:13)
[2020-08-04] MEDS: METOPROLOL TARTRATE 50 MG TAB PO SCH ×2 (08:35→20:44)
[2020-08-04] MEDS: ALPRAZolam 0.5 MG TAB PO SCH ×3 (08:36→21:25)
[2020-08-04] MEDS: PANTOPRAZOLE 40 MG TABLET PO SCH ×2 (08:36→20:44)
[2020-08-04] MEDS: CYCLOBENZAPRINE 5 MG TAB PO SCH ×3 (08:36→21:25)
[2020-08-04] MEDS: ZINC SULFATE 220 MG CAP PO SCH (08:37)
[2020-08-04] MEDS: CALCIUM CARB-VIT D 500MG-200UN 1 EACH TAB PO SCH (08:37)
[2020-08-04] MEDS: CEFEPIME 2 GM in SODIUM CHLORIDE 0.9% 100 ML IVPB SCH ×2 (08:37→15:01)
[2020-08-04] MEDS: levETIRAcetam 250 MG TAB PO SCH ×2 (08:39→20:44)
[2020-08-04] MEDS: MAGNESIUM HYDROXIDE 2,400 MG/10 ML CUP PO SCH ×2 (08:39→20:43)
[2020-08-04] MEDS: LACTULOSE 20 GM/30 ML CUP PO SCH ×2 (08:39→20:43)
[2020-08-04] MEDS: SENNOSIDES-DOCUSATE SODIUM 1 EACH TAB PO SCH ×2 (08:39→20:43)
[2020-08-04] MEDS: ENOXAPARIN 40 MG/0.4 ML SYRINGE SQ SCH (08:42)
[2020-08-04] MEDS: NICOTINE 21MG/24HR PATCH TRANSDERM SCH (08:51)
[2020-08-04 09:24] LABS: African American GFR (CKD) >90 (>60 ml/min/1.73 sqM); Anion Gap 8 mmol/L; Blood Urea Nitrogen 22 mg/dL (7-17); Calcium 7.1 mg/dL (8.4-10.2); Carbon Dioxide 21 mmol/L (22-30); Chloride 102 mmol/L (98-107); Glucose 149 mg/dL (74-99); Non-African American GFR(CKD) >90 (>60 ml/min/1.73 sqM); Sodium 131 mmol/L (137-145)
--- NOTE | 2020-08-04 09:42 | P.PN ---
Subjective HISTORY OF PRESENTING ILLNESS This is a pleasant 55-year-old female past medical history significant for lung cancer with metastasis to the liver and brain currently undergoing radiation and chronic nicotine dependence. She denies prior history of coronary artery disease and does not follow in the office with a party plan salesperson. She is see n and examined sitting up in bed in no acute distress. She denies symptoms of chest pain, shortness of breath, dizziness or palpitations. Blood pressure 121/74 heart rate 79 afebrile maintaining oxygen saturation on room air. Telemetry tracings reveal this morning she went into what appears to be s upraventricular tachycardia with a heart rate in the 140s. EKG obtained revealed sinus tachycardia heart rate of 148 with T-wave inversions inferiorly. Echocardiogram obtained yesterday reveals preserved LV systolic function with ejection fraction greater than 55% with no evidence of pericardial. Laboratory data reviewed, sodium 131, potassium 4.0, creatinine 0.55. Currently maintained on Lopressor 25 mg 3 times a day. PHYSICAL EXAMINATION CONSTITUTIONAL: No apparent distress. Frail. Appears older than stated age. HEENT: Head is normocephalic. Pupils are equal, round. Sclerae anicteric. Mucous membranes of the mouth are moist. No JVD. No carotid bruit. CHEST EXAMINATION: Lungs are clear to auscultation. No chest wall tenderness is noted on palpation or with deep breathing. HEART EXAMINATION: Regular rate and rhythm. S1, S2 heard. No murmurs, gallops or rub. EXTREMITIES: 2+ peripheral pulses, no lower extremity edema and no calf tenderness. ASSESSMENT Supraventricular tachycardia Small cell lung cancer with mets to the liver, brainstem and spine Lower extremity paraplesia Hyponatremia PLAN Increase Lopressor to 50 mg twice a day. Patient to undergo radiation this morning. Nurse Practitioner note has been reviewed, I agree with a documented findings and plan of care. Patient was seen and examined. Objective - Vital Signs Vital signs: Vital Signs Temp 97.6 F 08/04/20 04:00 Pulse 79 08/04/20 04:00 Resp 17 08/04/20 04:00 BP 121/74 08/04/20 04:00 Pulse Ox 90 L 08/04/20 04:00 Intake & Output 08/03/20 08/04/20 08/04/20 18:59 06:59 18:59 Intake Total 666 120 Output Total 1252 2141 Balance -586 -2141 120 Intake: Oral 666 120 Output: Urine 1250 2140 Stool 2 1 Other: Voiding Method Indwelling Catheter Indwelling Catheter # Bowel Movements 1 - Labs CBC & Chem 7: 08/02/20 06:08 08/04/20 08:28 Labs: Abnormal Lab Results - Last 24 Hours (Table) 08/02/20 08/03/20 08/04/20 Range/Units 06:08 14:11 08:28 D-Dimer 4.15 H (<0.60) mg/L FEU Sodium 131 L (137-145) mmol/L Carbon Dioxide 21 L (22-30) mmol/L BUN 22 H (7-17) mg/dL Glucose 149 H (74-99) mg/dL Calcium 7.1 L (8.4-10.2) mg/dL TSH 0.464 L (0.465-4.680) mIU/L
--- NOTE | 2020-08-04 12:48 | P.PN ---
Subjective Progress Note Date: 08/04/20 Principal diagnosis: Metastatic Cancer CTA without evidence of PE. Left Hilar mass shows improvement Objective - Vital Signs Vital signs: Vital Signs Temp 97.6 F 08/04/20 04:00 Pulse 144 H 08/04/20 08:00 Resp 16 08/04/20 08:00 BP 95/71 08/04/20 08:00 Pulse Ox 99 08/04/20 08:00 Intake & Output 08/03/20 08/04/20 08/04/20 18:59 06:59 18:59 Intake Total 666 120 Output Total 1252 2141 Balance -586 -2141 120 Intake: Oral 666 120 Output: Urine 1250 2140 Stool 2 1 Other: Voiding Method Indwelling Catheter Indwelling Catheter Indwelling Catheter # Bowel Movements 1 - Exam Constitutional General appearance: no acute distress - EENT Eyes: EOMI - Neck Neck: normal ROM Thyroid: bilateral: normal size - Respiratory Respiratory: left: rales, wheezing - Cardiovascular Rhythm: regular - Gastrointestinal General gastrointestinal: organomegaly, tenderness, Hypoactive, Distended tender - Integumentary Integumentary: normal Urine caththeter - Neurologic Neurologic:no movement lower extremities - Musculoskeletal Musculoskeletal: right sided weakness, left sided weakness - Psychiatric Psychiatric:confused, inappropriate at times - Labs CBC & Chem 7: 08/02/20 06:08 08/04/20 08:28 Labs: Abnormal Lab Results - Last 24 Hours (Table) 08/03/20 08/04/20 Range/Units 14:11 08:28 D-Dimer 4.15 H (<0.60) mg/L FEU Sodium 131 L (137-145) mmol/L Carbon Dioxide 21 L (22-30) mmol/L BUN 22 H (7-17) mg/dL Glucose 149 H (74-99) mg/dL Calcium 7.1 L (8.4-10.2) mg/dL Assessment and Plan Plan: Assessment and Plan (1) Brain metastases Current Visit: Yes Status: Acute Code(s): C79.31 - SECONDARY MALIGNANT NEOPLASM OF BRAIN SNOMED Code(s): 41577669 (2) Liver metastases Current Visit: Yes Status: Acute Priority: High Code(s): C78.7 - SECONDARY MALIG NEOPLASM OF LIVER AND INTRAHEPATIC BILE DUCT SNOMED Code(s): 52029102 (3) Small cell lung cancer Current Visit: Yes Status: Acute Priority: High Code(s): C34.90 - MALIGNANT NEOPLASM OF UNSP PART OF UNSP BRONCHUS OR LUNG SNOMED Code(s): 036858950 oxygen improved, she continues to feel intermittent feeling and further down right leg. PT/OT daily for passive ROM SVT Episodes: Cardiology floor and TMS monitoring. Continue new pain med regimen PLan to continue on radiation once cleared by cardiology and hope to improve acute conditions to administer round two of chemotherapy this coming week after completion of radiation. Will plan to hopefully discharge this week, with homecare, PT/OT, and assistive devices as chemotherapy is crucial to control of her small cell cancer. Goal of chemotherapy cycle 2 on Monday08.10.2020
[2020-08-04] MEDS: LORazepam 2 MG/ML INJ IV PRN ×3 (12:57→23:44)
[2020-08-04 13:31] LABS: Basophils % (A) 0 %; Eosinophils # (A) 0.1 k/uL (0-0.7); Eosinophils % (A) 0 %; HCT 33.9 % (34.0-46.0); HGB 10.9 gm/dL (11.4-16.0); Lymphocytes # (A) 0.9 k/uL (1.0-4.8); Lymphocytes % (A) 6 %; MCH 30.5 pg (25.0-35.0); MCHC 32.1 g/dL (31.0-37.0); MCV 95.2 fL (80.0-100.0); Mean Platelet Volume 8.6; Monocytes # (A) 0.3 k/uL (0-1.0); Monocytes % (A) 2 %; Neutrophils # (A) 14.8 k/uL (1.3-7.7); Neutrophils % (A) 92 %; Platelet Count 343 k/uL (150-450); RBC 3.56 m/uL (3.80-5.40); RDW 14.5 % (11.5-15.5); WBC 16.2 k/uL (3.8-10.6)
[2020-08-04] MEDS: SODIUM CHLORIDE 0.9% 1,000 ML IV SCH (15:01)
--- NOTE | 2020-08-04 16:48 | P.PN ---
Subjective Progress Note Date: 08/04/20 He was seen at bedside and she said that she feels about the same as yesterday. She said that she had the Keppra dose and she denies any side effects so far from the medication. Objective - Vital Signs Vital signs: Vital Signs Temp 97.6 F 08/04/20 04:00 Pulse 58 L 08/04/20 12:00 Resp 16 08/04/20 14:00 BP 89/58 08/04/20 12:00 Pulse Ox 98 08/04/20 12:00 Intake & Output 08/03/20 08/04/20 08/04/20 18:59 06:59 18:59 Intake Total 666 360 Output Total 1252 2141 475 Balance -586 -2141 -115 Weight 51.256 kg Intake: Oral 666 360 Output: Urine 1250 2140 475 Stool 2 1 Other: Voiding Method Indwelling Catheter Indwelling Catheter Indwelling Catheter # Bowel Movements 1 3 - Exam Patient is awake and alert, oriented to self place and time. Is slightly slow mentation. Pupils are round, equal and reactive to light. EOM intact and no nystagmus noted. Face is symmetric. No dysarthria. Patient moves her upper extremities very well. She continues to be paraplegic. No movement of either lower extremities. - Labs CBC & Chem 7: 08/04/20 08:28 08/04/20 08:28 Labs: Abnormal Lab Results - Last 24 Hours (Table) 08/04/20 08/04/20 Range/Units 08:28 08:28 WBC 16.2 H (3.8-10.6) k/uL RBC 3.56 L (3.80-5.40) m/uL Hgb 10.9 L (11.4-16.0) gm/dL Hct 33.9 L (34.0-46.0) % Neutrophils # 14.8 H (1.3-7.7) k/uL Lymphocytes # 0.9 L (1.0-4.8) k/uL Sodium 131 L (137-145) mmol/L Carbon Dioxide 21 L (22-30) mmol/L BUN 22 H (7-17) mg/dL Glucose 149 H (74-99) mg/dL Calcium 7.1 L (8.4-10.2) mg/dL Assessment and Plan Assessment: * Small cell lung cancer, 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 MRI of the thoracolumbar spine revealed intrinsic spinal cord enhancing lesion at T10-11 level, likely the cause of paraplegia. No extrinsic spinal compressive lesion identified. Patient also has cerebral metastasis particularly in the brainstem, which may be contributing to her lower extremity weakness and dysarthria. * Leukopenia likely due to chemotherapy * Abdominal distention due to bulk of tumor in the liver. * Hyponatremia * COPD * Tobacco use * Recent frost virus PCR positive. Plan: * Patient has recently been diagnosed with metastatic cancer with extensive metastasis intra-abdominal as well as in the brain and in the spinal cord T10- 11 level. Patient is not a surgical candidate. * Continue Keppra 250mg 1 tab bid as seizure prophylaxis especially with multiple metastatic brain lesion. * Continue chemotherapy as per oncologist. * Continue radiation therapy to the cranium and metastatic deposit in the spine. Per patient's family, she will be continuing radiation treatment to the brain till Monday, and spine tilt . * Patient started on Decadron 6 mg stat and 4 mg every 6 hours to relieve some edema. * Patient had bowel movement, but paraplegia has not improved. * Overall prognosis poor based upon the extent of the metastatic disease. * May consider repeating brain and thoracic MRI with and without contrast after radiation is complete to assess for the response, if okay with radiation oncologist/oncologist. * I notified the patient and her that she needs to follow-up with a neurologist as an outpatient within 2 weeks. Regarding stopping that antiepileptic drugs she can discuss it with her neurologist as an outpatient. There is no further neurological work-up. Will sign off. Please reconsult if needed. Time with Patient: Less than 30
[2020-08-04] MEDS: OLANZapine 2.5 MG TAB PO SCH (20:44)
--- NOTE | 2020-08-04 22:43 | P.PN ---
Progress Note - Text Progress Note Date: 08/04/20 Chief Complaint: Increasing abdominal pain History of presenting complaint: This is a 55-year-old patient of Dr. Fajardo. . Was admitted to the hospital and end of May with abdominal mass. Acute COPD exacerbation. Also positive for COVID 19 by PCR. Patient subsequently followed up with oncology. Had a liver biopsy done. 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 MRI of the brain showed metastatic disease in the brain. Bone scan was negative. Patient is offered to stay back and get hemotherapy but patient very keen to go home and come back. Patient went home and then started noticing weakness in the legs. And patient brought back to the ER. Still having abdominal pain. Oncology was consulted with the plan to chemotherapy. Supposed to be palliative. Prognosis not good. 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 Started on chemotherapy in the form of a etopside. Patient was given IV mannitol in the ER. Started on IV dexamethasone. Patient also received radiation treatment. Today-weakness in lower extremity persists. Oral intake fine. Breathing is better. Getting radiation treatment. Review of systems: Was done for constitutional, cardiovascular, GI, pulmonary. Neurological relevant finding as above Active Medications Acetaminophen (Acetaminophen Tab 325 Mg Tab) 650 mg PO Q6HR PRN PRN Reason: Mild Pain or Fever > 100.5 Last Admin: 08/03/20 21:35 Dose: 650 mg Documented by: Albuterol Sulfate (Albuterol Hfa Inhaler) 2 puff INHALATION RT-Q4H PRN PRN Reason: Wheezing Last Admin: 08/01/20 20:27 Dose: 2 puff Documented by: Alprazolam (Alprazolam 0.5 Mg Tab) 0.5 mg PO TID [facility] Last Admin: 08/04/20 21:25 Dose: 0.5 mg Documented by: Budesonide/Formoterol Fumarate (Symbicort 160-4.5 Mcg Inhaler) 1 puff INHALATION RT-BID [facility] Last Admin: 08/04/20 21:13 Dose: 1 puff Documented by: Calcium Carbonate (Calcium Carb-Vit D 500mg-200un 1 Each Tab) 2 each PO DAILY [facility] Last Admin: 08/04/20 08:37 Dose: 2 each Documented by: Cyclobenzaprine HCl (Cyclobenzaprine 5 Mg Tab) 5 mg PO TID [facility] Last Admin: 08/04/20 21:25 Dose: 5 mg Documented by: Dexamethasone Sodium Phosphate (Dexamethasone Sod Phosphate 4 Mg/Ml 1 Ml Vial) 4 mg IV Q6HR [facility] Last Admin: 08/04/20 17:57 Dose: 4 mg Documented by: Enoxaparin Sodium (Enoxaparin 40 Mg/0.4 Ml Syringe) 40 mg SQ DAILY [facility] Last Admin: 08/04/20 08:42 Dose: 40 mg Documented by: Fentanyl (Fentanyl 50mcg/Hr Patch) 1 patch TRANSDERM Q72H [facility] Last Admin: 08/03/20 11:55 Dose: 1 patch Documented by: Sodium Chloride (Saline 0.9%) 1,000 mls @ 20 mls/hr IV .Q24H [facility] Last Admin: 08/04/20 15:01 Dose: 20 mls/hr Documented by: Lactulose (Lactulose 20 Gm/30 Ml Cup) 30 gm PO BID [facility] Last Admin: 08/04/20 20:43 Dose: Not Given Documented by: Levetiracetam (Levetiracetam 250 Mg Tab) 250 mg PO Q12HR [facility] Last Admin: 08/04/20 20:44 Dose: 250 mg Documented by: Lorazepam (Lorazepam 2 Mg/Ml Inj) 0.5 mg IV Q6HR PRN PRN Reason: Anxiety Last Admin: 08/04/20 18:01 Dose: 0.5 mg Documented by: Magnesium Hydroxide (Magnesium Hydroxide 2,400 Mg/10 Ml Cup) 2,400 mg PO BID [facility] Last Admin: 08/04/20 20:43 Dose: Not Given Documented by: Metoprolol Tartrate (Metoprolol Tartrate 50 Mg Tab) 50 mg PO BID [facility] Last Admin: 08/04/20 20:44 Dose: 50 mg Documented by: Morphine Sulfate (Morphine Conc Soln 10mg/0.5ml Oral Syrg) 2 mg PO Q2HR PRN PRN Reason: Pain Last Admin: 08/01/20 01:27 Dose: 2 mg Documented by: Naloxone HCl (Naloxone 0.4 Mg/Ml 1 Ml Vial) 0.2 mg IV Q2M PRN PRN Reason: Opioid Reversal Nicotine (Nicotine 21mg/24hr Patch) 1 patch TRANSDERM DAILY [facility] Last Admin: 08/04/20 08:51 Dose: 1 patch Documented by: Nicotine Polacrilex (Nicotine Polacrilex 2 Mg Gum) 2 mg BUCCAL Q4HR PRN PRN Reason: Nicotine Cravings Olanzapine (Olanzapine 2.5 Mg Tab) 2.5 mg PO HS [facility] Last Admin: 08/04/20 20:44 Dose: 2.5 mg Documented by: Ondansetron HCl (Ondansetron 4 Mg/2 Ml Vial) 4 mg IVP Q6HR PRN PRN Reason: Nausea And Vomiting Last Admin: 07/29/20 07:15 Dose: 4 mg Documented by: Pantoprazole Sodium (Pantoprazole 40 Mg Tablet) 40 mg PO BID [facility] Last Admin: 08/04/20 20:44 Dose: 40 mg Documented by: Senna/Docusate Sodium (Sennosides-Docusate Sodium 1 Each Tab) 2 each PO BID [facility] Last Admin: 08/04/20 20:43 Dose: Not Given Documented by: Zinc Sulfate (Zinc Sulfate 220 Mg Cap) 220 mg PO DAILY [facility] Last Admin: 08/04/20 08:37 Dose: 220 mg Documented by: Physical examination: VITAL SIGNS: Afebrile, 58, 16, 89/58, 98% room air GENERAL: Propped up in bed awake EYES: Pupils equal. Conjunctiva pale HEENT: External appearance of nose and ears normal, oral cavity grossly normal. NECK: JVD not raised; masses not palpable. HEART: First and second heart sounds are normal; no edema. LUNGS: Respiratory rate increased, decreased breath sounds- ABDOMEN: Soft, mild tenderness, mass on the right side, . PSYCH: Awake answering questions NEUROLOGICAL: Cranial nerves grossly intact; no facial asymmetry, decreased power in the legs especially the left INVESTIGATIONS, reviewed in the clinical context: August 04 colon white count 16.2 hemoglobin 10.9 potassium 4 creatinine 0.55 August 03: White count 10.8 hemoglobin 10 potassium 4.6 creatinine 0.63 Chest CTA-August 03-some improvement in left hilar lesion with mediastinal invasion. Some improvement in the anterior mediastinal mass or adenopathy. Small to moderate right-sided pleural effusion. August 01: Doppler ultrasound lower extremity-bilateral negative DVT 2-D echocardiogram-EF greater than 55% July 17: White count 8.3 hemoglobin 11.7 potassium 4.9 creatinine 0.9 white count 9.6 hemoglobin 12.1 Potassium 4.1 creatinine 0.8 albumin 3.3 Brain MRI-numerous infra and supratentorial enhancing lesion seen consistent with metastatic disease. Bone scan-not suggestive of metastatic osseous abnormality CT abdomen pelvis-large right mid liver mass which is increased from 13.7 x 9.2 to the current size of 16 x 10.4 cm. Additional small right lobe lesion including posterior lateral right upper lobe 11.6 cm versus previous 10.9. Mass appears to be extending into the liver from the superior lateral right kidney. 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 Other medications to continue. Chemotherapy as outpatient. Follow with oncology.
[2020-08-05] MEDS: LORazepam 2 MG/ML INJ IV PRN ×4 (06:16→23:47)
[2020-08-05] MEDS: DEXAMETHASONE SOD PHOSPHATE 4 MG/ML 1 ML VIAL IV SCH ×4 (06:16→23:47)
[2020-08-05 08:11] LABS: Basophils % (A) 0 %; Eosinophils % (A) 0 %; HCT 33.4 % (34.0-46.0); HGB 10.8 gm/dL (11.4-16.0); Lymphocytes # (A) 0.9 k/uL (1.0-4.8); Lymphocytes % (A) 5 %; MCH 30.8 pg (25.0-35.0); MCHC 32.5 g/dL (31.0-37.0); MCV 94.9 fL (80.0-100.0); Mean Platelet Volume 7.4; Monocytes # (A) 0.4 k/uL (0-1.0); Monocytes % (A) 2 %; Neutrophils % (A) 92 %; Platelet Count 361 k/uL (150-450); RBC 3.52 m/uL (3.80-5.40); RDW 14.9 % (11.5-15.5); WBC 18.5 k/uL (3.8-10.6)
[2020-08-05] MEDS: CYCLOBENZAPRINE 5 MG TAB PO SCH ×3 (09:07→21:06)
[2020-08-05] MEDS: ZINC SULFATE 220 MG CAP PO SCH (09:07)
[2020-08-05] MEDS: CALCIUM CARB-VIT D 500MG-200UN 1 EACH TAB PO SCH (09:07)
[2020-08-05] MEDS: PANTOPRAZOLE 40 MG TABLET PO SCH ×2 (09:07→21:06)
[2020-08-05] MEDS: levETIRAcetam 250 MG TAB PO SCH ×2 (09:08→21:06)
[2020-08-05] MEDS: METOPROLOL TARTRATE 50 MG TAB PO SCH ×2 (09:08→21:06)
[2020-08-05] MEDS: ALPRAZolam 0.5 MG TAB PO SCH ×3 (09:08→21:06)
[2020-08-05] MEDS: OLANZapine 2.5 MG TAB PO SCH (09:08)
[2020-08-05] MEDS: MAGNESIUM HYDROXIDE 2,400 MG/10 ML CUP PO SCH ×2 (09:09→20:44)
[2020-08-05] MEDS: SENNOSIDES-DOCUSATE SODIUM 1 EACH TAB PO SCH ×2 (09:09→21:02)
[2020-08-05] MEDS: LACTULOSE 20 GM/30 ML CUP PO SCH ×2 (09:09→20:44)
[2020-08-05] MEDS: NICOTINE 21MG/24HR PATCH TRANSDERM SCH (09:09)
[2020-08-05] MEDS: MORPHINE CONC SOLN 10mg/0.5mL ORAL SYRG PO PRN (09:10)
[2020-08-05] MEDS: ENOXAPARIN 40 MG/0.4 ML SYRINGE SQ SCH (09:13)
[2020-08-05] MEDS: SYMBICORT 160-4.5 MCG INHALER INHALATION SCH ×2 (09:17→20:02)
--- NOTE | 2020-08-05 10:41 | P.PN ---
Subjective HISTORY OF PRESENTING ILLNESS This is a pleasant 55-year-old female past medical history significant for lung cancer with metastasis to the liver and brain currently undergoing radiation and chronic nicotine dependence. 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 She is se en and examined sitting up in bed in no acute distress. She underwent radiation yesterday afternoon. Telemetry tracings reveal persistent sinus mechanism. Blood pressure this morning 1 with a heart rate of 88 afebrile maintaining oxygen saturation on room air. Laboratory data reviewed, WBC 18.5, hemoglobin 10.8, platelets 361. Currently maintained on metoprolol 50 mg twice a day. PHYSICAL EXAMINATION CONSTITUTIONAL: No apparent distress. Frail. Appears older than stated age. HEENT: Head is normocephalic. Pupils are equal, round. Sclerae anicteric. Mucous membranes of the mouth are moist. No JVD. No carotid bruit. CHEST EXAMINATION: Lungs are clear to auscultation. No chest wall tenderness is noted on palpation or with deep breathing. HEART EXAMINATION: Regular rate and rhythm. S1, S2 heard. No murmurs, gallops or rub. EXTREMITIES: 2+ peripheral pulses, no lower extremity edema and no calf tenderness. ASSESSMENT Supraventricular tachycardia Small cell lung cancer with mets to the liver, brainstem and spine Lower extremity paraplesia Hyponatremia PLAN Heart rate control and stable on current medical regimen. We will follow along as needed, please call with further questions or concerns. Follow-up in the office with Dr. Huang in 2 weeks. Nurse Practitioner note has been reviewed, I agree with a documented findings and plan of care. Patient was seen and examined. Objective - Vital Signs Vital signs: Vital Signs Temp 98.1 F 08/05/20 04:00 Pulse 80 08/05/20 04:00 Resp 17 08/05/20 04:00 BP 104/58 08/05/20 04:00 Pulse Ox 96 08/05/20 04:00 Intake & Output 08/04/20 08/05/20 08/05/20 18:59 06:59 18:59 Intake Total 600 240 Output Total 475 1000 Balance 125 -1000 240 Weight 51.256 kg Intake: Oral 600 240 Output: Urine 475 1000 Other: Voiding Method Indwelling Catheter Indwelling Catheter # Bowel Movements 3 - Labs CBC & Chem 7: 08/05/20 07:17 08/04/20 08:28 Labs: Abnormal Lab Results - Last 24 Hours (Table) 08/04/20 08/05/20 Range/Units 08:28 07:17 WBC 16.2 H 18.5 H (3.8-10.6) k/uL RBC 3.56 L 3.52 L (3.80-5.40) m/uL Hgb 10.9 L 10.8 L (11.4-16.0) gm/dL Hct 33.9 L 33.4 L (34.0-46.0) % Neutrophils # 14.8 H 17.0 H (1.3-7.7) k/uL Lymphocytes # 0.9 L 0.9 L (1.0-4.8) k/uL
[2020-08-05] MEDS: SODIUM CHLORIDE 0.9% 1,000 ML IV SCH (21:05)
--- NOTE | 2020-08-05 23:22 | P.PN ---
Progress Note - Text Progress Note Date: 08/05/20 Chief Complaint: Increasing abdominal pain History of presenting complaint: This is a 55-year-old patient of Dr. Fajardo. . Was admitted to the hospital and end of May with abdominal mass. Acute COPD exacerbation. Also positive for COVID 19 by PCR. Patient subsequently followed up with oncology. Had a liver biopsy done. 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 MRI of the brain showed metastatic disease in the brain. Bone scan was negative. Patient is offered to stay back and get hemotherapy but patient very keen to go home and come back. Patient went home and then started noticing weakness in the legs. And patient brought back to the ER. Still having abdominal pain. Oncology was consulted with the plan to chemotherapy. Supposed to be palliative. Prognosis not good. 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 Started on chemotherapy in the form of a etopside.-3 days Patient was given IV mannitol in the ER. Started on IV dexamethasone. Patient also receiving radiation treatment. Today-weakness in lower extremity persists. getting radiation treatment. is at bedside. Review of systems: Was done for constitutional, cardiovascular, GI, pulmonary. Neurological relevant finding as above Active Medications Acetaminophen (Acetaminophen Tab 325 Mg Tab) 650 mg PO Q6HR PRN PRN Reason: Mild Pain or Fever > 100.5 Last Admin: 08/03/20 21:35 Dose: 650 mg Documented by: Albuterol Sulfate (Albuterol Hfa Inhaler) 2 puff INHALATION RT-Q4H PRN PRN Reason: Wheezing Last Admin: 08/01/20 20:27 Dose: 2 puff Documented by: Alprazolam (Alprazolam 0.5 Mg Tab) 0.5 mg PO TID [facility] Last Admin: 08/05/20 21:06 Dose: 0.5 mg Documented by: Budesonide/Formoterol Fumarate (Symbicort 160-4.5 Mcg Inhaler) 1 puff INHALATION RT-BID [facility] Last Admin: 08/05/20 20:02 Dose: 1 puff Documented by: Calcium Carbonate (Calcium Carb-Vit D 500mg-200un 1 Each Tab) 2 each PO DAILY [facility] Last Admin: 08/05/20 09:07 Dose: 2 each Documented by: Cyclobenzaprine HCl (Cyclobenzaprine 5 Mg Tab) 5 mg PO TID [facility] Last Admin: 08/05/20 21:06 Dose: 5 mg Documented by: Dexamethasone Sodium Phosphate (Dexamethasone Sod Phosphate 4 Mg/Ml 1 Ml Vial) 4 mg IV Q6HR [facility] Last Admin: 08/05/20 18:00 Dose: 4 mg Documented by: Enoxaparin Sodium (Enoxaparin 40 Mg/0.4 Ml Syringe) 40 mg SQ DAILY [facility] Last Admin: 08/05/20 09:13 Dose: 40 mg Documented by: Fentanyl (Fentanyl 50mcg/Hr Patch) 1 patch TRANSDERM Q72H [facility] Last Admin: 08/03/20 11:55 Dose: 1 patch Documented by: Sodium Chloride (Saline 0.9%) 1,000 mls @ 20 mls/hr IV .Q24H [facility] Last Admin: 08/05/20 21:05 Dose: Not Given Documented by: Lactulose (Lactulose 20 Gm/30 Ml Cup) 30 gm PO BID [facility] Last Admin: 08/05/20 20:44 Dose: Not Given Documented by: Levetiracetam (Levetiracetam 250 Mg Tab) 250 mg PO Q12HR [facility] Last Admin: 08/05/20 21:06 Dose: 250 mg Documented by: Lorazepam (Lorazepam 2 Mg/Ml Inj) 0.5 mg IV Q6HR PRN PRN Reason: Anxiety Last Admin: 08/05/20 12:58 Dose: 0.5 mg Documented by: Magnesium Hydroxide (Magnesium Hydroxide 2,400 Mg/10 Ml Cup) 2,400 mg PO BID [facility] Last Admin: 08/05/20 20:44 Dose: Not Given Documented by: Metoprolol Tartrate (Metoprolol Tartrate 50 Mg Tab) 50 mg PO BID [facility] Last Admin: 08/05/20 21:06 Dose: 50 mg Documented by: Morphine Sulfate (Morphine Conc Soln 10mg/0.5ml Oral Syrg) 2 mg PO Q2HR PRN PRN Reason: Pain Last Admin: 08/05/20 09:10 Dose: 2 mg Documented by: Naloxone HCl (Naloxone 0.4 Mg/Ml 1 Ml Vial) 0.2 mg IV Q2M PRN PRN Reason: Opioid Reversal Nicotine (Nicotine 21mg/24hr Patch) 1 patch TRANSDERM DAILY [facility] Last Admin: 08/05/20 09:09 Dose: 1 patch Documented by: Nicotine Polacrilex (Nicotine Polacrilex 2 Mg Gum) 2 mg BUCCAL Q4HR PRN PRN Reason: Nicotine Cravings Olanzapine (Olanzapine 2.5 Mg Tab) 2.5 mg PO HS [facility] Last Admin: 08/05/20 09:08 Dose: 2.5 mg Documented by: Ondansetron HCl (Ondansetron 4 Mg/2 Ml Vial) 4 mg IVP Q6HR PRN PRN Reason: Nausea And Vomiting Last Admin: 07/29/20 07:15 Dose: 4 mg Documented by: Pantoprazole Sodium (Pantoprazole 40 Mg Tablet) 40 mg PO BID [facility] Last Admin: 08/05/20 21:06 Dose: 40 mg Documented by: Senna/Docusate Sodium (Sennosides-Docusate Sodium 1 Each Tab) 2 each PO BID [facility] Last Admin: 08/05/20 21:02 Dose: Not Given Documented by: Zinc Sulfate (Zinc Sulfate 220 Mg Cap) 220 mg PO DAILY [facility] Last Admin: 08/05/20 09:07 Dose: 220 mg Documented by: Physical examination: VITAL SIGNS: 98.6, 84, 17, 95/65, 97% room air GENERAL: Propped up in bed awake EYES: Pupils equal. Conjunctiva pale HEENT: External appearance of nose and ears normal, oral cavity grossly normal. NECK: JVD not raised; masses not palpable. HEART: First and second heart sounds are normal; no edema. LUNGS: Respiratory rate increased, decreased breath sounds- ABDOMEN: Soft, mild tenderness, mass on the right side, . PSYCH: Awake answering questions NEUROLOGICAL: Cranial nerves grossly intact; no facial asymmetry, decreased power in the legs especially the left INVESTIGATIONS, reviewed in the clinical context: Generally 6: White count 18.5 hemoglobin 10.8 August 04 colon white count 16.2 hemoglobin 10.9 potassium 4 creatinine 0.55 August 03: White count 10.8 hemoglobin 10 potassium 4.6 creatinine 0.63 Chest CTA-August 03-some improvement in left hilar lesion with mediastinal inva jaziel. Some improvement in the anterior mediastinal mass or adenopathy. Small to moderate right-sided pleural effusion. August 01: Doppler ultrasound lower extremity-bilateral negative DVT 2-D echocardiogram-EF greater than 55% July 17: White count 8.3 hemoglobin 11.7 potassium 4.9 creatinine 0.9 white count 9.6 hemoglobin 12.1 Potassium 4.1 creatinine 0.8 albumin 3.3 Brain MRI-numerous infra and supratentorial enhancing lesion seen consistent with metastatic disease. Bone scan-not suggestive of metastatic osseous abnormality CT abdomen pelvis-large right mid liver mass which is increased from 13.7 x 9.2 to the current size of 16 x 10.4 cm. Additional small right lobe lesion including posterior lateral right upper lobe 11.6 cm versus previous 10.9. Mass appears to be extending into the liver from the superior lateral right kidney. 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 Other medications to continue. Chemotherapy as outpatient. Follow with oncology.discussed with patient and .
[2020-08-06] MEDS: DEXAMETHASONE SOD PHOSPHATE 4 MG/ML 1 ML VIAL IV SCH ×3 (06:16→18:15)
[2020-08-06] MEDS: LORazepam 2 MG/ML INJ IV PRN ×3 (06:16→18:15)
[2020-08-06] MEDS: SYMBICORT 160-4.5 MCG INHALER INHALATION SCH ×2 (07:24→20:07)
[2020-08-06] MEDS: SENNOSIDES-DOCUSATE SODIUM 1 EACH TAB PO SCH ×2 (08:23→21:11)
[2020-08-06] MEDS: MAGNESIUM HYDROXIDE 2,400 MG/10 ML CUP PO SCH ×2 (08:23→21:10)
[2020-08-06] MEDS: ALPRAZolam 0.5 MG TAB PO SCH ×3 (08:33→21:30)
[2020-08-06] MEDS: METOPROLOL TARTRATE 50 MG TAB PO SCH ×2 (08:33→18:38)
[2020-08-06] MEDS: CYCLOBENZAPRINE 5 MG TAB PO SCH ×3 (08:33→21:30)
[2020-08-06] MEDS: LACTULOSE 20 GM/30 ML CUP PO SCH ×2 (08:34→21:10)
[2020-08-06] MEDS: ZINC SULFATE 220 MG CAP PO SCH (08:34)
[2020-08-06] MEDS: ENOXAPARIN 40 MG/0.4 ML SYRINGE SQ SCH (08:34)
[2020-08-06] MEDS: CALCIUM CARB-VIT D 500MG-200UN 1 EACH TAB PO SCH (08:34)
[2020-08-06] MEDS: PANTOPRAZOLE 40 MG TABLET PO SCH ×2 (08:34→21:30)
[2020-08-06] MEDS: NICOTINE 21MG/24HR PATCH TRANSDERM SCH (08:34)
[2020-08-06] MEDS: levETIRAcetam 250 MG TAB PO SCH ×2 (08:40→21:29)
[2020-08-06] MEDS: SODIUM CHLORIDE 0.9% 1,000 ML IV SCH (10:48)
--- NOTE | 2020-08-06 21:03 | P.PN ---
Progress Note - Text Progress Note Date: 08/06/20 Chief Complaint: Weak legs History of presenting complaint: This is a 55-year-old patient of Dr. Fajardo. . Was admitted to the hospital and end of May with abdominal mass. Acute COPD exacerbation. Also positive for COVID 19 by PCR. Patient subsequently followed up with oncology. Had a liver biopsy done. 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 MRI of the brain showed metastatic disease in the brain. Bone scan was negative. Patient is offered to stay back and get hemotherapy but patient very keen to go home and come back. Patient went home and then started noticing weakness in the legs. And patient brought back to the ER. Still having abdominal pain. Oncology was consulted with the plan to chemotherapy. Supposed to be palliative. Prognosis not good. 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 Started on chemotherapy in the form of a etopside.-3 days Patient was given IV mannitol in the ER. Started on IV dexamethasone. Patient also receiving radiation treatment. Today-weakness in lower extremity persists. getting radiation treatment. is at bedside. Oral intake fine. Review of systems: Was done for constitutional, cardiovascular, GI, pulmonary. Neurological relevant finding as above Active Medications Acetaminophen (Acetaminophen Tab 325 Mg Tab) 650 mg PO Q6HR PRN PRN Reason: Mild Pain or Fever > 100.5 Last Admin: 08/03/20 21:35 Dose: 650 mg Documented by: Albuterol Sulfate (Albuterol Hfa Inhaler) 2 puff INHALATION RT-Q4H PRN PRN Reason: Wheezing Last Admin: 08/01/20 20:27 Dose: 2 puff Documented by: Alprazolam (Alprazolam 0.5 Mg Tab) 0.5 mg PO TID [facility] Last Admin: 08/06/20 16:39 Dose: 0.5 mg Documented by: Budesonide/Formoterol Fumarate (Symbicort 160-4.5 Mcg Inhaler) 1 puff INHALATION RT-BID [facility] Last Admin: 08/06/20 20:07 Dose: 1 puff Documented by: Calcium Carbonate (Calcium Carb-Vit D 500mg-200un 1 Each Tab) 2 each PO DAILY [facility] Last Admin: 08/06/20 08:34 Dose: 2 each Documented by: Cyclobenzaprine HCl (Cyclobenzaprine 5 Mg Tab) 5 mg PO TID [facility] Last Admin: 08/06/20 16:39 Dose: 5 mg Documented by: Dexamethasone Sodium Phosphate (Dexamethasone Sod Phosphate 4 Mg/Ml 1 Ml Vial) 4 mg IV Q6HR [facility] Last Admin: 08/06/20 18:15 Dose: 4 mg Documented by: Enoxaparin Sodium (Enoxaparin 40 Mg/0.4 Ml Syringe) 40 mg SQ DAILY [facility] Last Admin: 08/06/20 08:34 Dose: 40 mg Documented by: Fentanyl (Fentanyl 50mcg/Hr Patch) 1 patch TRANSDERM Q72H [facility] Last Admin: 08/06/20 08:39 Dose: 1 patch Documented by: Sodium Chloride (Saline 0.9%) 1,000 mls @ 20 mls/hr IV .Q24H [facility] Last Admin: 08/06/20 10:48 Dose: Not Given Documented by: Lactulose (Lactulose 20 Gm/30 Ml Cup) 30 gm PO BID [facility] Last Admin: 08/06/20 08:34 Dose: Not Given Documented by: Levetiracetam (Levetiracetam 250 Mg Tab) 250 mg PO Q12HR [facility] Last Admin: 08/06/20 08:40 Dose: 250 mg Documented by: Lorazepam (Lorazepam 2 Mg/Ml Inj) 0.5 mg IV Q6HR PRN PRN Reason: Anxiety Last Admin: 08/06/20 18:15 Dose: 0.5 mg Documented by: Magnesium Hydroxide (Magnesium Hydroxide 2,400 Mg/10 Ml Cup) 2,400 mg PO BID [facility] Last Admin: 08/06/20 08:23 Dose: Not Given Documented by: Metoprolol Tartrate (Metoprolol Tartrate 50 Mg Tab) 50 mg PO BID [facility] Last Admin: 08/06/20 18:38 Dose: 50 mg Documented by: Morphine Sulfate (Morphine Conc Soln 10mg/0.5ml Oral Syrg) 2 mg PO Q2HR PRN PRN Reason: Pain Last Admin: 08/05/20 09:10 Dose: 2 mg Documented by: Naloxone HCl (Naloxone 0.4 Mg/Ml 1 Ml Vial) 0.2 mg IV Q2M PRN PRN Reason: Opioid Reversal Nicotine (Nicotine 21mg/24hr Patch) 1 patch TRANSDERM DAILY [facility] Last Admin: 08/06/20 08:34 Dose: 1 patch Documented by: Nicotine Polacrilex (Nicotine Polacrilex 2 Mg Gum) 2 mg BUCCAL Q4HR PRN PRN Reason: Nicotine Cravings Olanzapine (Olanzapine 2.5 Mg Tab) 2.5 mg PO HS [facility] Last Admin: 08/05/20 09:08 Dose: 2.5 mg Documented by: Ondansetron HCl (Ondansetron 4 Mg/2 Ml Vial) 4 mg IVP Q6HR PRN PRN Reason: Nausea And Vomiting Last Admin: 07/29/20 07:15 Dose: 4 mg Documented by: Pantoprazole Sodium (Pantoprazole 40 Mg Tablet) 40 mg PO BID [facility] Last Admin: 08/06/20 08:34 Dose: 40 mg Documented by: Senna/Docusate Sodium (Sennosides-Docusate Sodium 1 Each Tab) 2 each PO BID [facility] Last Admin: 08/06/20 08:23 Dose: Not Given Documented by: Zinc Sulfate (Zinc Sulfate 220 Mg Cap) 220 mg PO DAILY [facility] Last Admin: 08/06/20 08:34 Dose: 220 mg Documented by: Physical examination: VITAL SIGNS: 98.8, 104, 20, 99/66, 96% room air GENERAL: Propped up in bed awake EYES: Pupils equal. Conjunctiva pale HEENT: External appearance of nose and ears normal, oral cavity grossly normal. NECK: JVD not raised; masses not palpable. HEART: First and second heart sounds are normal; no edema. LUNGS: Respiratory rate increased, decreased breath sounds- ABDOMEN: Soft, mild tenderness, mass on the right side, . PSYCH: Awake answering questions NEUROLOGICAL: Cranial nerves grossly intact; no facial asymmetry, decreased power in the legs especially the left INVESTIGATIONS, reviewed in the clinical context: Generally 6: White count 18.5 hemoglobin 10.8 August 04 colon white count 16.2 hemoglobin 10.9 potassium 4 creatinine 0.55 August 03: White count 10.8 hemoglobin 10 potassium 4.6 creatinine 0.63 Chest CTA-August 03-some improvement in left hilar lesion with mediastinal invasion. Some improvement in the anterior mediastinal mass or adenopathy. Small to moderate right-sided pleural effusion. August 01: Doppler ultrasound lower extremity-bilateral negative DVT 2-D echocardiogram-EF greater than 55% July 17: White count 8.3 hemoglobin 11.7 potassium 4.9 creatinine 0.9 white count 9.6 hemoglobin 12.1 Potassium 4.1 creatinine 0.8 albumin 3.3 Brain MRI-numerous infra and supratentorial enhancing lesion seen consistent with metastatic disease. Bone scan-not suggestive of metastatic osseous abnormality CT abdomen pelvis-large right mid liver mass which is increased from 13.7 x 9.2 to the current size of 16 x 10.4 cm. Additional small right lobe lesion including posterior lateral right upper lobe 11.6 cm versus previous 10.9. Mass appears to be extending into the liver from the superior lateral right kidney. 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 Other medications to continue. Chemotherapy as outpatient. Follow with oncology.discussed with patient and .
[2020-08-06] MEDS: OLANZapine 2.5 MG TAB PO SCH (21:29)
[2020-08-07 00:01] VITALS: RESP 16
[2020-08-07] MEDS: DEXAMETHASONE SOD PHOSPHATE 4 MG/ML 1 ML VIAL IV SCH ×4 (00:02→16:50)
[2020-08-07] MEDS: LORazepam 2 MG/ML INJ IV PRN ×3 (00:02→18:01)
[2020-08-07] MEDS: NICOTINE 21MG/24HR PATCH TRANSDERM SCH (09:23)
[2020-08-07] MEDS: PANTOPRAZOLE 40 MG TABLET PO SCH (09:24)
[2020-08-07] MEDS: ENOXAPARIN 40 MG/0.4 ML SYRINGE SQ SCH (09:24)
[2020-08-07] MEDS: CALCIUM CARB-VIT D 500MG-200UN 1 EACH TAB PO SCH (09:24)
[2020-08-07] MEDS: ALPRAZolam 0.5 MG TAB PO SCH ×2 (09:24→16:50)
[2020-08-07] MEDS: ZINC SULFATE 220 MG CAP PO SCH (09:25)
[2020-08-07] MEDS: LACTULOSE 20 GM/30 ML CUP PO SCH (09:25)
[2020-08-07] MEDS: METOPROLOL TARTRATE 50 MG TAB PO SCH (09:25)
[2020-08-07] MEDS: CYCLOBENZAPRINE 5 MG TAB PO SCH ×2 (09:25→16:51)
[2020-08-07] MEDS: levETIRAcetam 250 MG TAB PO SCH (09:26)
[2020-08-07] MEDS: SENNOSIDES-DOCUSATE SODIUM 1 EACH TAB PO SCH (09:27)
[2020-08-07] MEDS: MAGNESIUM HYDROXIDE 2,400 MG/10 ML CUP PO SCH (09:27)
[2020-08-07] MEDS: SYMBICORT 160-4.5 MCG INHALER INHALATION SCH ×2 (09:32→19:40)
[2020-08-07 09:36] VITALS: TEMP 97.8
[2020-08-07 10:35] LABS: Basophils % (A) 0 %; Eosinophils % (A) 0 %; HCT 33.9 % (34.0-46.0); HGB 11.5 gm/dL (11.4-16.0); Lymphocytes # (A) 0.6 k/uL (1.0-4.8); Lymphocytes % (A) 3 %; MCH 32.2 pg (25.0-35.0); MCHC 33.9 g/dL (31.0-37.0); Mean Platelet Volume 6.9; Monocytes # (A) 0.5 k/uL (0-1.0); Monocytes % (A) 3 %; Neutrophils # (A) 18.4 k/uL (1.3-7.7); Neutrophils % (A) 94 %; Platelet Count 392 k/uL (150-450); RBC 3.57 m/uL (3.80-5.40); RDW 14.8 % (11.5-15.5); WBC 19.6 k/uL (3.8-10.6)
[2020-08-07 10:47] LABS: ALT 35 U/L (4-34); AST 43 U/L (14-36); African American GFR (CKD) >90 (>60 ml/min/1.73 sqM); Albumin 3.1 g/dL (3.5-5.0); Alkaline Phosphatase 134 U/L (38-126); Anion Gap 8 mmol/L; Blood Urea Nitrogen 23 mg/dL (7-17); Calcium 7.2 mg/dL (8.4-10.2); Carbon Dioxide 22 mmol/L (22-30); Chloride 101 mmol/L (98-107); Glucose 127 mg/dL (74-99); Non-African American GFR(CKD) >90 (>60 ml/min/1.73 sqM); Potassium 4.2 mmol/L (3.5-5.1); Sodium 131 mmol/L (137-145); Total Bilirubin 0.5 mg/dL (0.2-1.3)
[2020-08-07] MEDS: SODIUM CHLORIDE 0.9% 1,000 ML IV SCH (12:55)
--- NOTE | 2020-08-07 14:04 | P.PN ---
Subjective Progress Note Date: 08/07/20 Principal diagnosis: Metastatic Cancer Plan for patient to be discharged today. She has now completed radiation. We will plan on beginning cycle 2 on Monday or Monday next week, Infusion RNs to notify patient and/or of time and details. She will also receive growth factor following infusion Objective - Vital Signs Vital signs: Vital Signs Temp 97.8 F 08/07/20 08:00 Pulse 119 H 08/07/20 08:00 Resp 16 08/07/20 08:00 BP 94/59 08/07/20 08:00 Pulse Ox 99 08/07/20 08:00 Intake & Output 08/06/20 08/07/20 08/07/20 18:59 06:59 18:59 Intake Total 340 300 Output Total 1300 270 Balance -960 -270 300 Weight 60 kg Intake: IV 20 Invasive Line 3 20 Oral 320 300 Output: Urine 1300 270 Uretheral ([place]) 1000 120 Other: Voiding Method Indwelling Catheter Indwelling Catheter Indwelling Catheter # Voids 1 0 - Exam Constitutional General appearance: no acute distress - EENT Eyes: EOMI - Neck Neck: normal ROM Thyroid: bilateral: normal size - Respiratory Respiratory: left: rales, wheezing - Cardiovascular Rhythm: regular - Gastrointestinal General gastrointestinal: organomegaly, tenderness, Hypoactive, Distended tender - Integumentary Integumentary: normal Urine caththeter - Neurologic Neurologic:no movement lower extremities - Musculoskeletal Musculoskeletal: right sided weakness, left sided weakness, no movement in BLE - Psychiatric Psychiatric:confused, inappropriate at times - Labs CBC & Chem 7: 08/07/20 09:57 08/07/20 09:57 Labs: Abnormal Lab Results - Last 24 Hours (Table) 08/07/20 08/07/20 Range/Units 09:57 09:57 WBC 19.6 H (3.8-10.6) k/uL RBC 3.57 L (3.80-5.40) m/uL Hct 33.9 L (34.0-46.0) % Neutrophils # 18.4 H (1.3-7.7) k/uL Lymphocytes # 0.6 L (1.0-4.8) k/uL Sodium 131 L (137-145) mmol/L BUN 23 H (7-17) mg/dL Creatinine 0.45 L (0.52-1.04) mg/dL Glucose 127 H (74-99) mg/dL Calcium 7.2 L (8.4-10.2) mg/dL AST 43 H (14-36) U/L ALT 35 H (4-34) U/L Alkaline Phosphatase 134 H (38-126) U/L Total Protein 6.0 L (6.3-8.2) g/dL Albumin 3.1 L (3.5-5.0) g/dL Assessment and Plan Plan: Assessment and Plan (1) Brain metastases Current Visit: Yes Status: Acute Code(s): C79.31 - SECONDARY MALIGNANT NEOPLASM OF BRAIN SNOMED Code(s): 04838822 (2) Liver metastases Current Visit: Yes Status: Acute Priority: High Code(s): C78.7 - SECONDARY MALIG NEOPLASM OF LIVER AND INTRAHEPATIC BILE DUCT SNOMED Code(s): 23902867 (3) Small cell lung cancer Current Visit: Yes Status: Acute Priority: High Code(s): C34.90 - MALIGNANT NEOPLASM OF UNSP PART OF UNSP BRONCHUS OR LUNG SNOMED Code(s): 431945569 oxygen improved, she continues to feel intermittent feeling and further down right leg. PT/OT daily for passive ROM SVT Episodes: Cardiology floor and TMS monitoring. Continue new pain med regimen PLan Patient will sign narcotic agreement, MAPS has been pulled and lets talk about education and bowel regimen for risk of narcotic induced constipation discussed. Will discharge on Fentanyl 50, [place] breakthrough, and continue on xanax and flexeril Will discharge on dexamethasone and PPI as well Education given to patient and . physician Attest: I have completed the full history and physical and agree with above dictation, dictated as a scribe
[2020-08-07 14:52] VITALS: BP 96/60; PULSE 90
--- NOTE | 2020-08-07 23:44 | P.DS ---
Providers Date of admission: 07/16/20 13:42 Expected date of discharge: 08/07/20 Attending physician: Bayron De La Fuente Consults: 07/16/20 13:42 Consult Physician Urgent Consulting Provider: Emir Lundy Consult Reason/Comments: Metastatic lung cancer Do you want consulting provider notified?: Already Contacted 07/16/20 14:07 Consult Physician Routine Consulting Provider: Bernardo Yuen Consult Reason/Comments: in pt rehab Do you want consulting provider notified?: Yes 07/16/20 14:36 Consult Physician Routine Consulting Provider: Nolan Cummins Consult Reason/Comments: Brain mets Do you want consulting provider notified?: Already Contacted 07/27/20 17:19 Consult Physician Routine Consulting Provider: Stephanie Fish Consult Reason/Comments: parapalegia, cord compression Do you want consulting provider notified?: Yes 08/01/20 12:49 Consult Physician Routine Consulting Provider: John Contreras Consult Reason/Comments: episode of SVT Do you want consulting provider notified?: Yes Primary care physician: Marcia Garcia [facility] Course: Chief Complaint: Weak legs History of presenting complaint: This is a 55-year-old patient of Dr. Fajardo. . Was admitted to the hospital and end of May with abdominal mass. Acute COPD exacerbation. Also positive for COVID 19 by PCR. Patient subsequently followed up with oncology. Had a liver biopsy done. 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 MRI of the brain showed metastatic disease in the bra in. Bone scan was negative. Patient is offered to stay back and get hemotherapy but patient very keen to go home and come back. Patient went home and then started noticing weakness in the legs. And patient brought back to the ER. Still having abdominal pain. Oncology was consulted with the plan to chemotherapy. Supposed to be palliative. Prognosis not good. 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 Started on chemotherapy in the form of a etopside.-3 days Patient was given IV mannitol in the ER. Started on IV dexamethasone. Patient also receiving radiation treatment. Today-weakness in lower extremity persists. Completed radiation treatment. Outpatient chemotherapy. Discussed with patient. Consultation: Dr. Lundy from oncology [facility] Dr. Whyte from pulmonary Physical examination: VITAL SIGNS: 97.8, 90, 16, 96/90, 99% room air GENERAL: Propped up in bed awake EYES: Pupils equal. Conjunctiva pale HEENT: External appearance of nose and ears normal, oral cavity grossly normal. NECK: JVD not raised; masses not palpable. HEART: First and second heart sounds are normal; no edema. LUNGS: Respiratory rate increased, decreased breath sounds- ABDOMEN: Soft, mild tenderness, mass on the right side, . PSYCH: Awake answering questions NEUROLOGICAL: Cranial nerves grossly intact; no facial asymmetry, decreased power in the legs especially the left INVESTIGATIONS, reviewed in the clinical context: August 07: White count 19.6 hemoglobin 11.5 potassium 4.2 August 05: White count 18.5 hemoglobin 10.8 August 04 colon white count 16.2 hemoglobin 10.9 potassium 4 creatinine 0.55 August 03: White count 10.8 hemoglobin 10 potassium 4.6 creatinine 0.63 Chest CTA-August 03-some improvement in left hilar lesion with mediastinal invasion. Some improvement in the anterior mediastinal mass or adenopathy. Small to moderate right-sided pleural effusion. August 01: Doppler ultrasound lower extremity-bilateral negative DVT 2-D echocardiogram-EF greater than 55% July 17: White count 8.3 hemoglobin 11.7 potassium 4.9 creatinine 0.9 white count 9.6 hemoglobin 12.1 Potassium 4.1 creatinine 0.8 albumin 3.3 Brain MRI-numerous infra and supratentorial enhancing lesion seen consistent with metastatic disease. Bone scan-not suggestive of metastatic osseous abnormality CT abdomen pelvis-large right mid liver mass which is increased from 13.7 x 9.2 to the current size of 16 x 10.4 cm. Additional small right lobe lesion including posterior lateral right upper lobe 11.6 cm versus previous 10.9. Mass appears to be extending into the liver from the superior lateral right kidney. 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 left greater than right from metastatic disease to the brain -Brain edema localized-vasogenic from brain metastasis -Leukopenia due to chemotherapy -Chronic nicotine dependence patient cigarette smoker -COPD in an ex-smoker -Adjustment disorder -Anxiety not otherwise specified -recent Coronavirus-PCR positive -Hyponatremia Disposition: Home Patient Condition at Discharge: Undetermined Plan - Discharge Summary Discharge Rx Participant: Yes New Discharge Prescriptions: New fentaNYL 50MCG/HR PATCH [Duragesic 50MCG/HR] 1 patch TRANSDERM Q72H 30 Days patch Pantoprazole [Protonix] 40 mg PO BID #60 tablet.dr Ruiz-Docusate Sodium [Senokot-S] 2 each PO BID #60 tab ALPRAZolam [Xanax] 0.5 mg PO TID #30 tab OLANZapine [ZyPREXA] 2.5 mg PO HS #35 tab dexAMETHasone [Dexamethasone] 4 mg PO TID #90 tablet Cyclobenzaprine [Flexeril] 5 mg PO TID #90 tab HYDROcodone/APAP 10-325MG [[place] 10-325] 1 tab PO Q6HR PRN 3 Days #12 tab PRN Reason: Pain Nicotine 21Mg/24Hr Patch [Habitrol] 1 patch TRANSDERM DAILY #14 patch levETIRAcetam [Keppra] 250 mg PO Q12HR #60 tab Metoprolol Tartrate [Lopressor] 25 mg PO TID #90 tablet Continue Calcium Carb-Vit D 500Mg-200Un [Oscal 500+D] 2 tab PO DAILY Zinc Sulfate [Orazinc] 220 mg PO DAILY #30 cap Famotidine [Pepcid] 20 mg PO BID #60 tab Budesonide-Formot 160-4.5 Mcg [Symbicort 160-4.5 Mcg Inhaler] 1 puff INHALATION RT-BID #1 puff Albuterol Inhaler [Ventolin Hfa Inhaler] 2 puff INHALATION RT-Q4H PRN PRN Reason: Wheezing Discontinued Multivit with Calcium,Iron,Min [Women's Multivitamin] 1 tab PO DAILY Inulin/Chromium Picolinate [Fiber Gummies Chew] 2 tab PO DAILY Spironolactone [Aldactone] 75 mg PO DAILY Guaifenesin/Pseudoephedrne HCl [Mucinex D ER 1,200-120 mg Tab] 1 tab PO BID Hydrocodone/Acetaminophen [[place] 7.5-325] 1 tab PO Q4HR PRN 7 Days #42 tab PRN Reason: Pain ALPRAZolam [Xanax] 0.5 mg PO Q6HR 7 Days #28 tab Sennosides/Docusate Sodium [Senna Plus 8.6-50 mg Tablet] 1 - 2 tab PO BID PRN PRN Reason: Constipation Discharge Medication List Calcium Carb-Vit D 500Mg-200Un [Oscal 500+D] 2 tab PO DAILY 10/31/16 [History] Budesonide-Formot 160-4.5 Mcg [Symbicort 160-4.5 Mcg Inhaler] 1 puff INHALATION RT-BID #1 puff 06/19/20 [Rx] Famotidine [Pepcid] 20 mg PO BID #60 tab 06/19/20 [Rx] Zinc Sulfate [Orazinc] 220 mg PO DAILY #30 cap 06/19/20 [Rx] Albuterol Inhaler [Ventolin Hfa Inhaler] 2 puff INHALATION RT-Q4H PRN 07/13/20 [History] ALPRAZolam [Xanax] 0.5 mg PO TID #30 tab 08/07/20 [Rx] Cyclobenzaprine [Flexeril] 5 mg PO TID #90 tab 08/07/20 [Rx] HYDROcodone/APAP 10-325MG [[place] 10-325] 1 tab PO Q6HR PRN 3 Days #12 tab 08/07/20 [Rx] Metoprolol Tartrate [Lopressor] 25 mg PO TID #90 tablet 08/07/20 [Rx] Nicotine 21Mg/24Hr Patch [Habitrol] 1 patch TRANSDERM DAILY #14 patch 08/07/20 [Rx] OLANZapine [ZyPREXA] 2.5 mg PO HS #35 tab 08/07/20 [Rx] Pantoprazole [Protonix] 40 mg PO BID #60 tablet. 08/07/20 [Rx] Sennosides-Docusate Sodium [Senokot-S] 2 each PO BID #60 tab 08/07/20 [Rx] dexAMETHasone [Dexamethasone] 4 mg PO TID #90 tablet 08/07/20 [Rx] fentaNYL 50MCG/HR PATCH [Duragesic 50MCG/HR] 1 patch TRANSDERM Q72H 30 Days patch 08/07/20 [Rx] levETIRAcetam [Keppra] 250 mg PO Q12HR #60 tab 08/07/20 [Rx] Follow up Appointment(s)/Referral(s): Altagracia Huang MD [STAFF PHYSICIAN] - 2 Weeks (office will call with an appt.) Linda Cheng NPC [Nurse Practitioner] - 08/12/20 8:30 am [facility] [NON-STAFF] - (Please call [facility] to arrange delivery of the hospital bed, commode, and jun lift once you are discharged. ) Marcia Garcia, [Primary Care Provider] - 1-2 days [facility], [NON-STAFF] - [facility] [NON-STAFF] - Marleny Durand MD [STAFF PHYSICIAN] - 10/08/20 1:00 pm (Follow up appointment with Dr Durand on 1st Floor [facility]) Patient Instructions/Handouts: Supraventricular Tachycardia (DC), Neutropenia (DC) Activity/Diet/Wound Care/Special Instructions: Oncology will call you with appointment date/time for chemotherapy Patient going home with [facility]. Nursing, PT/OT, Palliative Care 1. Patient will need a Hospital bed because she requires positioning with the HOB >30 at all times to alleviate pain from metastatic lung cancer. Not able to be done with an ordinary bed. 2. Patient will require a bedside commode because she is room confined due to metastatic lung cancer with secondary weakness and inability to ambulate. 3. Patient will require a Jun Lift to complete ADL's due to lung cancer with secondary weakness. Patient lives with spouse who can operate lift. Patient is a 2 person Max assist for OOB activity. 4. Patient will require a wheelchair at discharge to help with ADLs which she cannot complete herself secondary to metastatic lung cancer with paraplegia due to spinal metastatsis and inability to ambulate. Patient is unable to self propel but has someone at home that can propel her. Discharge/Stand Alone Forms: Help In The Home Discharge Disposition: HOME SELF-CARE
== END 2020-08-07 20:15 | disposition home health service (06) | DRG 846 ==
LOC: EC 11:14 → 5NMEDONC 13:42 → 4SSUR 07-30 18:00 → 3SCARD 08-01 10:30
PROVIDERS: ADMIT Hospitalist; ATTEND Hospitalist
PROC: 3E03305 Introduction of Other Antineoplastic into Peripheral Vein, Percutaneous Approach (ICD-10-PCS; principal; 2020-07-16)
PROC: DP0C1ZZ Beam Radiation of Other Bone using Photons 1 - 10 MeV (ICD-10-PCS; 2020-07-17)
DX: Z51.11 Encounter for antineoplastic chemotherapy (principal); G93.6 Cerebral edema; D61.810 Antineoplastic chemotherapy induced pancytopenia; G82.22 Paraplegia, incomplete; E87.1 Hypo-osmolality and hyponatremia; I47.1 Supraventricular tachycardia; J44.1 Chronic obstructive pulmonary disease with (acute) exacerbation; J90 Pleural effusion, not elsewhere classified; C7A.1 Malignant poorly differentiated neuroendocrine tumors; D70.1 Agranulocytosis secondary to cancer chemotherapy; F43.22 Adjustment disorder with anxiety; R09.02 Hypoxemia; I10 Essential (primary) hypertension; K21.9 Gastro-esophageal reflux disease without esophagitis; R47.1 Dysarthria and anarthria; L70.9 Acne, unspecified; R19.7 Diarrhea, unspecified; R32 Unspecified urinary incontinence; T45.1X5A Adverse effect of antineoplastic and immunosuppressive drugs, initial encounter; K59.00 Constipation, unspecified; M54.9 Dorsalgia, unspecified; F17.210 Nicotine dependence, cigarettes, uncomplicated; Z71.6 Tobacco abuse counseling; Z79.51 Long term (current) use of inhaled steroids; Z79.899 Other long term (current) drug therapy; Z86.19 Personal history of other infectious and parasitic diseases; Z98.51 Tubal ligation status; Z87.39 Personal history of other diseases of the musculoskeletal system and connective tissue; Z98.890 Other specified postprocedural states; Z88.6 Allergy status to analgesic agent; Z91.02 Food additives allergy status; Z82.49 Family history of ischemic heart disease and other diseases of the circulatory system; Z82.61 Family history of arthritis
CPT/HCPCS: 36415; 51798; 71045; 71275; 72157; 72158; 74019; 74022; 77280; 77290; 77307; 77334; 77336; 77412; 77417; 77427; 80048; 80053; 81003; 82607; 82746; 83605; 83735; 84100; 84439; 84443; 85025; 85379; 85610; 85730; 86780; 93005; 93306; 93970; 94640; 96365; 96375; 96376; 99285

== ENCOUNTER 2020-08-23 08:12 | Inpatient (IN) | payer BC ==
[2020-08-23] MEDS ORDERED: SODIUM CHLORIDE 0.9% 1,000 ML IV STA ×2 (08:25)
[2020-08-23] MEDS ORDERED: NALOXONE 0.4 MG/ML 1 ML VIAL IVP STA (08:26)
[2020-08-23] MEDS ORDERED: ACETAMINOPHEN IV (For NPO) 650 MG in EMPTY BAG 1 BAG IVPB STA (08:27)
[2020-08-23] MEDS ORDERED: SUCCINYLCHOLINE CHLORIDE VIAL 200 MG/10 ML VIAL IV STA ×2 (08:27→08:28)
[2020-08-23] MEDS ORDERED: MIDAZOLAM 1 MG/ML 5 ML VIAL IV STA ×2 (08:27→08:28)
--- NOTE | 2020-08-23 08:32 | ED ---
General Adult HPI - General Chief complaint: Altered Mental Status Stated complaint: SOB Time Seen by Provider: 08/23/20 08:12 Source: EMS, RN notes reviewed Mode of arrival: EMS Limitations: altered mental status, physical limitation - History of Present Illness Initial comments: Patient is a 55-year-old female presenting to the emergency Department with difficulty breathing and altered mental status. Unclear onset. Patient has decreased responsiveness and unable to provide any history. 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 Family was called who states patient does want to be full code and have everything done. - Related Data Home Medications Medication Instructions Recorded Confirmed Calcium Carb-Vit D 500Mg-5Mcg 2 tab PO DAILY 10/31/16 07/16/20 [Oscal 500+D 5 Mcg (200 Iu)] Albuterol Inhaler [Ventolin Hfa 2 puff INHALATION RT-Q4H PRN 07/13/20 07/16/20 Inhaler] Previous Rx's Medication Instructions Recorded Budesonide-Formot 160-4.5 Mcg 1 puff INHALATION RT-BID #1 puff 06/19/20 [Symbicort 160-4.5 Mcg Inhaler] Famotidine [Pepcid] 20 mg PO BID #60 tab 06/19/20 Zinc Sulfate [Orazinc] 220 mg PO DAILY #30 cap 06/19/20 ALPRAZolam [Xanax] 0.5 mg PO TID #30 tab 08/07/20 Cyclobenzaprine [Flexeril] 5 mg PO TID #90 tab 08/07/20 HYDROcodone/APAP 10-325MG [Davidson 1 tab PO Q6HR PRN 3 Days #12 tab 08/07/20 10-325] Metoprolol Tartrate [Lopressor] 25 mg PO TID #90 tablet 08/07/20 Nicotine 21Mg/24Hr Patch [Habitrol] 1 patch TRANSDERM DAILY #14 patch 08/07/20 OLANZapine [ZyPREXA] 2.5 mg PO HS #35 tab 08/07/20 Pantoprazole [Protonix] 40 mg PO BID #60 tablet. 08/07/20 Sennosides-Docusate Sodium 2 each PO BID #60 tab 08/07/20 [Senokot-S] dexAMETHasone [Dexamethasone] 4 mg PO TID #90 tablet 08/07/20 fentaNYL 50MCG/HR PATCH [Duragesic 1 patch TRANSDERM Q72H 30 Days 08/07/20 50MCG/HR] patch levETIRAcetam [Keppra] 250 mg PO Q12HR #60 tab 08/07/20 Allergies Allergy/AdvReac Type Severity Reaction Status Date / Time aspirin AdvReac GI upset Verified 08/23/20 10:27 monosodium glutamate [MSG] AdvReac GI upset Verified 08/23/20 10:27 Review of Systems ROS Statement: Those systems with pertinent positive or pertinent negative responses have been documented in the HPI. ROS Other: All systems not noted in ROS Statement are negative. Limitations: ROS unobtainable due to patients medical condition Past Medical History Past Medical History: No Reported History Additional Past Medical History / Comment(s): takes aldactone for hormonal acne, recent admit for abdominal pain(Liver mass being investigated)and positive for COVID (Jun 18). History of Any Multi-Drug Resistant Organisms: None Reported Past Surgical History: Orthopedic Surgery, Tubal Ligation Additional Past Surgical History / Comment(s): right knee, trigger finger, sinus surgeries x3 back in 1989. cyst surgies wrist/arm. Rt breast biopsy- benign. Past Anesthesia/Blood Transfusion Reactions: No Reported Reaction Past Psychological History: No Psychological Hx Reported Smoking Status: Current every day smoker Past Alcohol Use History: Occasional Past Drug Use History: None Reported - Past Family History Father Family Medical History: Coronary Artery Disease (CAD) General Exam Limitations: altered mental status, physical limitation General appearance: in distress Head exam: Present: atraumatic Eye exam: Present: normal appearance, PERRL ENT exam: Present: normal oropharynx Neck exam: Present: normal inspection Respiratory exam: Present: respiratory distress, accessory muscle use, decreased breath sounds Cardiovascular Exam: Present: tachycardia GI/Abdominal exam: Present: soft, mass (Patient does have right mid to upper abdominal mass approximately 14 cm) Extremities exam: Present: normal inspection Neurological exam: Present: altered, other (Limited exam. ) Expanded Neurological exam: Present: other (Diminished gag reflex) Eye Response: (4) open spontaneously Motor Response: (4) withdraws to pain Verbal Response: (1) no verbal response Psychiatric exam: Present: other (Nonverbal) Skin exam: Present: normal color, other (Patient has large sacral decubitus ulcer, stage II with some black discoloration) Course Vital Signs 08/23/20 08/23/20 08/23/20 08:15 08:16 08:25 Temperature 103.7 F H Pulse Rate 134 H Respiratory 26 H 24 30 H Rate Blood Pressure 122/93 O2 Sat by Pulse 98 Oximetry 08/23/20 08/23/20 08/23/20 08:26 08:30 08:45 Temperature Pulse Rate 154 H 138 H 154 H Respiratory 16 19 16 Rate Blood Pressure 132/98 145/105 157/106 O2 Sat by Pulse 100 100 100 Oximetry 08/23/20 08/23/20 08/23/20 09:00 09:15 09:30 Temperature Pulse Rate 154 H 147 H 154 H Respiratory 16 16 16 Rate Blood Pressure 132/84 110/78 117/83 O2 Sat by Pulse 100 100 100 Oximetry 08/23/20 08/23/20 08/23/20 09:45 10:00 10:37 Temperature 102.1 F H Pulse Rate 135 H 140 H Respiratory 16 24 Rate Blood Pressure 131/91 115/81 O2 Sat by Pulse 95 94 L Oximetry - Reevaluation(s) Reevaluation #1: 08/23/20 09:59 Case was discussed with Dr. godfrey with oncology who does agree with one unit of platelets. She will consult. 08/23/20 10:16 Case was also discussed with Dr. Elena. He does request changing antibiotics to cefepime and agrees with platelets and computed tomography scan. He also recommends adding Zarxio H and was reevaluated. family updated. 08/23/20 10:38 Endotracheal tube was withdrawn 1 cm. EKG Findings - EKG Comments: EKG Findings:: Sinus tachycardia 133. NE 154. QRS 82. QT 274. QTC 47. Normal axis. Normal QRS. No acute ST change. Procedures - Procedures Initial comment: Epistaxis: Patient developed epistaxis after testing for nasal swab for coronav irus. Nose was clamped without hemostasis. Rhino Rocket was placed left nares without complication. The balloons inflated with 2 mL of air anterior and posterior. - Intubation Sedative: Versed Mg Given: 2 Paralytic: Succinylcholine Mg Given: 60 Laryngoscope: Helms Size: 3 ET Tube Size: 7.5 Tube Secured Depth (cm): 22 Tube Secured Location: lips Tube Placement Confirmation: visualized tube passing through cords, equal breath sounds bilaterally, no breath sounds over epigastrium, confirmation by capnometry Patient Tolerated Procedure: well Intubation Complications: none Medical Decision Making - Lab Data Result diagrams: 08/23/20 08:32 08/23/20 08:32 Lab Results 08/23/20 08/23/20 08/23/20 Range/Units 08:32 08:32 08:32 WBC 0.6 L* (3.8-10.6) k/uL RBC 3.47 L (3.80-5.40) m/uL Hgb 10.6 L (11.4-16.0) gm/dL Hct 32.8 L (34.0-46.0) % MCV 94.6 (80.0-100.0) fL MCH 30.7 (25.0-35.0) pg MCHC 32.5 (31.0-37.0) g/dL RDW 15.1 (11.5-15.5) % Plt Count 6 L* D (150-450) k/uL MPV 12.1 Differential Comment Manual Slide Review Performed RBC Morphology Normal PT 11.9 (9.0-12.0) sec INR 1.1 (<1.2) APTT 26.1 (22.0-30.0) sec Sample Site ABG pH (7.35-7.45) ABG pCO2 (35-45) mmHg ABG pO2 (83-108) mmHg ABG HCO3 (21-25) mmol/L ABG Total CO2 (19-24) mmol/L ABG O2 Saturation (94-97) % ABG Base Excess mmol/L Raffaele Test FiO2 % Sodium 128 L (137-145) mmol/L Potassium 4.0 (3.5-5.1) mmol/L Chloride 96 L (98-107) mmol/L Carbon Dioxide 22 (22-30) mmol/L Anion Gap 10 mmol/L BUN 24 H (7-17) mg/dL Creatinine 0.45 L (0.52-1.04) mg/dL Est GFR (CKD-EPI)AfAm >90 (>60 ml/min/1.73 sqM) Est GFR (CKD-EPI)NonAf >90 (>60 ml/min/1.73 sqM) Glucose 111 H (74-99) mg/dL Plasma Lactic Acid Uday (0.7-2.0) mmol/L Calcium 7.3 L (8.4-10.2) mg/dL Total Bilirubin 1.8 H (0.2-1.3) mg/dL AST 73 H (14-36) U/L ALT 58 H (4-34) U/L Alkaline Phosphatase 152 H (38-126) U/L Troponin I (0.000-0.034) ng/mL NT-Pro-B Natriuret Pep pg/mL Total Protein 5.2 L (6.3-8.2) g/dL Albumin 2.6 L (3.5-5.0) g/dL Urine Color Urine Appearance (Clear) Urine pH (5.0-8.0) Ur Specific [place] (1.001-1.035) Urine Protein (Negative) Urine Glucose (UA) (Negative) Urine Ketones (Negative) Urine Blood (Negative) Urine Nitrite (Negative) Urine Bilirubin (Negative) Urine Urobilinogen (<2.0) mg/dL Ur Leukocyte Esterase (Negative) Urine RBC (0-5) /hpf Urine WBC (0-5) /hpf Urine WBC Clumps (None) /hpf Ur Squamous Epith Cells (0-4) /hpf Urine Bacteria (None) /hpf Urine Mucus (None) /hpf Coronavirus (PCR) (Not Detectd) 08/23/20 08/23/20 08/23/20 Range/Units 08:32 08:32 08:32 WBC (3.8-10.6) k/uL RBC (3.80-5.40) m/uL Hgb (11.4-16.0) gm/dL Hct (34.0-46.0) % MCV (80.0-100.0) fL MCH (25.0-35.0) pg MCHC (31.0-37.0) g/dL RDW (11.5-15.5) % Plt Count (150-450) k/uL MPV Differential Comment Manual Slide Review RBC Morphology PT (9.0-12.0) sec INR (<1.2) APTT (22.0-30.0) sec Sample Site ABG pH (7.35-7.45) ABG pCO2 (35-45) mmHg ABG pO2 (83-108) mmHg ABG HCO3 (21-25) mmol/L ABG Total CO2 (19-24) mmol/L ABG O2 Saturation (94-97) % ABG Base Excess mmol/L Raffaele Test FiO2 % Sodium (137-145) mmol/L Potassium (3.5-5.1) mmol/L Chloride (98-107) mmol/L Carbon Dioxide (22-30) mmol/L Anion Gap mmol/L BUN (7-17) mg/dL Creatinine (0.52-1.04) mg/dL Est GFR (CKD-EPI)AfAm (>60 ml/min/1.73 sqM) Est GFR (CKD-EPI)NonAf (>60 ml/min/1.73 sqM) Glucose (74-99) mg/dL Plasma Lactic Acid Uday 3.2 H* (0.7-2.0) mmol/L Calcium (8.4-10.2) mg/dL Total Bilirubin (0.2-1.3) mg/dL AST (14-36) U/L ALT (4-34) U/L Alkaline Phosphatase (38-126) U/L Troponin I <0.012 (0.000-0.034) ng/mL NT-Pro-B Natriuret Pep 2120 pg/mL Total Protein (6.3-8.2) g/dL Albumin (3.5-5.0) g/dL Urine Color Urine Appearance (Clear) Urine pH (5.0-8.0) Ur Specific [place] (1.001-1.035) Urine Protein (Negative) Urine Glucose (UA) (Negative) Urine Ketones (Negative) Urine Blood (Negative) Urine Nitrite (Negative) Urine Bilirubin (Negative) Urine Urobilinogen (<2.0) mg/dL Ur Leukocyte Esterase (Negative) Urine RBC (0-5) /hpf Urine WBC (0-5) /hpf Urine WBC Clumps (None) /hpf Ur Squamous Epith Cells (0-4) /hpf Urine Bacteria (None) /hpf Urine Mucus (None) /hpf Coronavirus (PCR) (Not Detectd) 08/23/20 08/23/20 08/23/20 Range/Units 08:36 08:44 09:24 WBC (3.8-10.6) k/uL RBC (3.80-5.40) m/uL Hgb (11.4-16.0) gm/dL Hct (34.0-46.0) % MCV (80.0-100.0) fL MCH (25.0-35.0) pg MCHC (31.0-37.0) g/dL RDW (11.5-15.5) % Plt Count (150-450) k/uL MPV Differential Comment Manual Slide Review RBC Morphology PT (9.0-12.0) sec INR (<1.2) APTT (22.0-30.0) sec Sample Site rbrac ABG pH 7.46 H (7.35-7.45) ABG pCO2 32 L (35-45) mmHg ABG pO2 374 H (83-108) mmHg ABG HCO3 23 (21-25) mmol/L ABG Total CO2 24 (19-24) mmol/L ABG O2 Saturation 100.0 H (94-97) % ABG Base Excess -1.3 mmol/L Raffaele Test Yes FiO2 100 % Sodium (137-145) mmol/L Potassium (3.5-5.1) mmol/L Chloride (98-107) mmol/L Carbon Dioxide (22-30) mmol/L Anion Gap mmol/L BUN (7-17) mg/dL Creatinine (0.52-1.04) mg/dL Est GFR (CKD-EPI)AfAm (>60 ml/min/1.73 sqM) Est GFR (CKD-EPI)NonAf (>60 ml/min/1.73 sqM) Glucose (74-99) mg/dL Plasma Lactic Acid Uday (0.7-2.0) mmol/L Calcium (8.4-10.2) mg/dL Total Bilirubin (0.2-1.3) mg/dL AST (14-36) U/L ALT (4-34) U/L Alkaline Phosphatase (38-126) U/L Troponin I (0.000-0.034) ng/mL NT-Pro-B Natriuret Pep pg/mL Total Protein (6.3-8.2) g/dL Albumin (3.5-5.0) g/dL Urine Color Red Urine Appearance Turbid H (Clear) Urine pH 8.0 (5.0-8.0) Ur Specific [place] 1.028 (1.001-1.035) Urine Protein 4+ H (Negative) Urine Glucose (UA) Negative (Negative) Urine Ketones Trace H (Negative) Urine Blood Small H (Negative) Urine Nitrite Negative (Negative) Urine Bilirubin Negative (Negative) Urine Urobilinogen 6.0 (<2.0) mg/dL Ur Leukocyte Esterase Moderate H (Negative) Urine RBC 43 H (0-5) /hpf Urine WBC 34 H (0-5) /hpf Urine WBC Clumps Moderate H (None) /hpf Ur Squamous Epith Cells 3 (0-4) /hpf Urine Bacteria Many H (None) /hpf Urine Mucus Rare H (None) /hpf Coronavirus (PCR) Not Detected (Not Detectd) - Radiology Data Radiology results: report reviewed (Computed tomography scan of the brain reveals no process.), image reviewed (Chest x-ray shows no acute process) Critical Care Time Critical Care Time: Yes Total Critical Care Time: 34 Disposition Clinical Impression: UTI (urinary tract infection), Sepsis, Metastatic malignant neoplasm to lung, Respiratory failure, Thrombocytopenia, Leukopenia Disposition: ADMITTED IP TO THIS HOSP Condition: Critical Is patient prescribed a controlled substance at d/c from ED?: No Referrals: None,Stated [REFERRING] - 1-2 days Decision Time: 10:40
[2020-08-23] MEDS ORDERED: LORazepam 2 MG/ML INJ IV PRN (08:37)
[2020-08-23 08:54] LABS: ALT 58 U/L (4-34); AST 73 U/L (14-36); African American GFR (CKD) >90 (>60 ml/min/1.73 sqM); Albumin 2.6 g/dL (3.5-5.0); Alkaline Phosphatase 152 U/L (38-126); Anion Gap 10 mmol/L; Blood Urea Nitrogen 24 mg/dL (7-17); Calcium 7.3 mg/dL (8.4-10.2); Carbon Dioxide 22 mmol/L (22-30); Chloride 96 mmol/L (98-107); Glucose 111 mg/dL (74-99); Non-African American GFR(CKD) >90 (>60 ml/min/1.73 sqM); Sodium 128 mmol/L (137-145); Total Bilirubin 1.8 mg/dL (0.2-1.3); Total Protein 5.2 g/dL (6.3-8.2)
[2020-08-23] MEDS ORDERED: CHLORHEXIDINE GLUCONATE 15 ML CUP MUCOUS MEM SCH (09:00)
[2020-08-23] MEDS ORDERED: SODIUM CHLORIDE 0.9% 500 ML 500 ML IV STA (09:03)
[2020-08-23 09:05] LABS: INR 1.1 (<1.2); Partial Thromboplastin Time 26.1 sec (22.0-30.0); Prothrombin Time 11.9 sec (9.0-12.0)
[2020-08-23 09:07] LABS: HCT 32.8 % (34.0-46.0); HGB 10.6 gm/dL (11.4-16.0); MCH 30.7 pg (25.0-35.0); MCHC 32.5 g/dL (31.0-37.0); MCV 94.6 fL (80.0-100.0); Mean Platelet Volume 12.1; RBC 3.47 m/uL (3.80-5.40); RDW 15.1 % (11.5-15.5)
--- NOTE | 2020-08-23 09:11 | XR ---
EXAMINATION TYPE: XR chest 1V portable DATE OF EXAM: 08/23/2020 COMPARISON: 07/27/2020 INDICATION: Short of breath TECHNIQUE: Single frontal view of the chest is obtained. FINDINGS: The heart size is normal. The pulmonary vasculature is normal. The lungs are clear. There is placement of an endotracheal tube. The tip appears to be directed towards the right main bro nchus may be as low as 0.7 cm above the thony. This should be pulled back approximately 2.5 cm. Naso gastric tube transverses the thorax tip within the abdomen. IMPRESSION: 1. Endotracheal tube tip is low-lying. This should be pulled back approximately 2.5 cm. 2. Nasogastric tube tip within the abdomen. 3. No acute pulmonary process.
[2020-08-23 09:15] LABS: WBC 0.6 k/uL (3.8-10.6)
[2020-08-23 09:27] LABS: ABG Base Excess -1.3 mmol/L; ABG HCO3 23 mmol/L (21-25); ABG PCO2 32 mmHg (35-45); ABG PH 7.46 (7.35-7.45); ABG PO2 374 mmHg (83-108); ABG TCO2 24 mmol/L (19-24); Allen Test Performed? Yes
[2020-08-23 09:30] LABS: Appearance,Urine Turbid (Clear); Bacteria,Urine Many /hpf; Bilirubin,Urine Negative (Negative); Blood,Urine Small (Negative); Color,Urine Red; Glucose,Urine (UA) Negative (Negative); Ketones,Urine Trace (Negative); Leukocyte Esterase,Urine Moderate (Negative); Mucus,Urine Rare /hpf; Nitrite,Urine Negative (Negative); Protein,Urine 4+ (Negative); RBC,Urine 43 /hpf (0-5); Specific Gravity,Urine 1.028 (1.001-1.035); Squamous Epithelial Cell,Urine 3 /hpf (0-4); WBC,Urine 34 /hpf (0-5)
[2020-08-23 09:47] LABS: Platelet Count 6 k/uL (150-450)
[2020-08-23] MEDS ORDERED: CEFEPIME 2 GM in SODIUM CHLORIDE 0.9% 100 ML IVPB ONE ×4 (10:30)
--- NOTE | 2020-08-23 10:31 | CT ---
EXAMINATION TYPE: CT brain wo con DATE OF EXAM: 08/23/2020 COMPARISON: INDICATION: Altered mental status, patient vented DLP: 996 mGycm, Automated exposure control for dose reduction was used. CONTRAST: None CT of the brain is performed utilizing 3 mm thick sections through the posterior fossa and 3 mm thick sections through the remaining calvarium. Study is performed within 24 hours of arrival to the hosp [facility]. No abnormal hyperdensity is present to suggest an acute intracranial hemorrhage. No mass lesion is evident. Bilateral basal ganglion calcifications are noted. No acute infarcts are evident. Ventricles and sulci are appropriate for the patient age. Mucosal thickening is through the left maxillary sinus. This extends into the nasal passages. Ethmoid air cells are clear. Minimal air-fluid levels within the sphenoid sinus. Left frontal sinus is aplas tic. Right frontal sinus is hypoplastic. Visualized portion of the right maxillary sinus is clear. IMPRESSIONS: 1. No acute intracranial process. 2. Clinical correlation recommended for left maxillary sinusitis
[2020-08-23] MEDS ORDERED: ACETAMINOPHEN SUPPOSITORY 650 MG SUPP RECTAL PRN (10:44)
[2020-08-23] MEDS ORDERED: NALOXONE 0.4 MG/ML 1 ML VIAL IV PRN (10:44)
[2020-08-23] MEDS ORDERED: PANTOPRAZOLE 40 MG/10 ML VIAL IV SCH (10:45)
[2020-08-23 11:38] LABS: Glucose,Whole Blood 113 mg/dL (75-99)
[2020-08-23] MEDS ORDERED: FILGRASTIM-SNDZ 300 MCG/0.5 ML SYRINGE SQ SCH (12:00)
[2020-08-23 12:05] VITALS: TEMP 102.9
[2020-08-23] MEDS ORDERED: NOREPINEPHRIN 4 MG-0.9% NS PMX 4 MG/250 ML ML IV ONE (12:08)
[2020-08-23] MEDS ORDERED: NOREPINEPHRINE 4 MG in SODIUM CHLORIDE 0.9% 250 ML IV SCH (12:15)
[2020-08-23 13:04] LABS: ABG Base Excess -3.8 mmol/L; ABG HCO3 20 mmol/L (21-25); ABG PCO2 28 mmHg (35-45); ABG PH 7.46 (7.35-7.45); ABG PO2 >400 mmHg (83-108); ABG TCO2 21 mmol/L (19-24); Allen Test Performed? Yes
[2020-08-23] MEDS ORDERED: ATROPINE OPHTH SOLN 1% 5ML BTL SUBLINGUAL PRN (13:18)
[2020-08-23] MEDS ORDERED: ONDANSETRON 4 MG/2 ML VIAL IVP PRN (13:18)
[2020-08-23] MEDS ORDERED: MORPHINE SULFATE 4 MG/ML SYRINGE IVP ONE (13:18)
[2020-08-23] MEDS ORDERED: MORPHINE SULFATE (100 MG/2 ML) 100 MG in SODIUM CHLORIDE 0.9% 100 ML IV SCH (13:30)
[2020-08-23 15:25] VITALS: BP 49/29; PULSE 0; RESP 0
[2020-08-23] MEDS ORDERED: CEFEPIME 2 GM in SODIUM CHLORIDE 0.9% 100 ML IVPB SCH (20:00)
--- NOTE | 2020-08-23 22:04 | P.HPIM ---
History of Present Illness H&P Date: 08/23/20 Chief Complaint: Decreased responsiveness History of presenting complaint: This is a 55-year-old patient of Dr. Marcia Garcia. . Was admitted to the hospital May 2020 with abdominal mass. Acute COPD exacerbation. Also positive for COVID 19 by PCR. Patient subsequently followed up with oncology. Had a liver biopsy done. 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 in the hospital from July 14 through July 15. MRI of the brain showed metastatic disease in the brain. Bone scan was negative. Patient is offered to stay back and get hemotherapy but patient very keen to go home and come back. Admitted from 07/16/2020 through 08/07/2020. 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 Started on chemotherapy in the form of a eto pside.-3 days Patient was given IV mannitol in the ER. Started on IV dexamethasone. Patient also receiving radiation treatment. Was discharged home with a plan to outpatient chemotherapy. Remained very weak in the legs. EMS was called out by the . Patient is not Able to take her medication and not responding. She did get a chemotherapy about a week ago. Patient became lethargic yesterday but today was not responding. Patient only responsive to painful stimuli. No purposeful movement was noted. Patient was transported with oxygen. Initially in the ER family did inform the ER physician that patient wanted everything to be done. Oncology in meat molder was consulted. Initially they spoke to Dr. Elena. It was then switch Dr. Dr. Judie Whyte had taken care of the patient and the hospital recently. Patient was intubated. Subsequently extubated. at the bedside. Review of systems: unable to obtain as patient minimally responsive Past medical history to include: Hormonal acne for which she takes Aldactone, trigger finger. COPD. 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 Smoker. No alcohol. Physical examination: VITAL SIGNS: 103.7, 134, 24, 122/93, 98% on 15 L-on presentation GENERAL: BMI 19.7, minimally responsive EYES: Pupils equal. Conjunctiva pale HEENT: External appearance of nose and ears normal, oral cavity -dry. NECK: JVD not raised; masses not palpable. HEART: First and second heart sounds are normal; no edema. LUNGS: Respiratory rate increased, decreased breath sounds- ABDOMEN: Soft, mass in the right side,, . PSYCH: Unable to assess NEUROLOGICAL: Minimally responsive. INVESTIGATIONS, reviewed in the clinical context: White count 0.6 hemoglobin 10.6 platelets 6 sodium 128 potassium 4 bun 25 creatinine 0.45 Lactic acid 3.2 albumin 2.6 UA positive for leukoesterase WBC EKG tracing personally reviewed by me-sinus tachycardia Chest x-ray film personally reviewed by me-questionable left hilar infiltrate Computed tomography scan of the brain-unremarkable July 10 biopsy results-metastatic small cell neuroendocrine tumor Assessment: -Patient doing very poorly. Actively dying. Any treatments likely to be futile. 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 Negative on this admission -Hyponatremia Plan: Patient had initially been given IV fluids, given ceftriaxone and then was given cefepime. Admitted to the ICU. Oxygen. Consultation to meat molder. Oncology. Advanced care planning: Discussed with the at the bedside. He understand the patient doing very poorly. Patient placed on morphine drip. He doesn't want any more family members at the bedside. Questions were answered. Patient be made comfort care. He understands patient is actively dying. Doesn't want the patient to be in any pain or discomfort. About 20 minutes was spent for this. Past Medical History Past Medical History: No Reported History Additional Past Medical History / Comment(s): takes aldactone for hormonal acne, recent admit for abdominal pain(Liver mass being investigated)and positive for COVID (Jun 18). History of Any Multi-Drug Resistant Organisms: None Reported Past Surgical History: Orthopedic Surgery, Tubal Ligation Additional Past Surgical History / Comment(s): right knee, trigger finger, sinus surgeries x3 back in 1989. cyst surgies wrist/arm. Rt breast biopsy- benign. Past Anesthesia/Blood Transfusion Reactions: No Reported Reaction Past Psychological History: No Psychological Hx Reported Smoking Status: Current every day smoker Past Alcohol Use History: Occasional Past Drug Use History: None Reported - Past Family History Father Family Medical History: Coronary Artery Disease (CAD) Medications and Allergies Home Medications Medication Instructions Recorded Confirmed Type Calcium Carb-Vit D 500Mg-5Mcg 2 tab PO DAILY 10/31/16 08/23/20 History [Oscal 500+D 5 Mcg (200 Iu)] Budesonide-Formot 160-4.5 Mcg 1 puff INHALATION RT-BID #1 puff 06/19/20 08/23/20 Rx [Symbicort 160-4.5 Mcg Inhaler] Albuterol Inhaler [Ventolin Hfa 2 puff INHALATION RT-Q4H PRN 07/13/20 08/23/20 History Inhaler] Nicotine 21Mg/24Hr Patch [Habitrol] 1 patch TRANSDERM DAILY #14 patch 08/07/20 08/23/20 Rx fentaNYL 50MCG/HR PATCH [Duragesic 1 patch TRANSDERM Q72H 30 Days 08/07/20 08/23/20 Rx 50MCG/HR] patch ALPRAZolam [Xanax] 0.5 mg PO TID@0600,1400,0 08/23/20 08/23/20 History Calcium 1,000mg See Taper PO DIRECTED 08/23/20 08/23/20 History Clotrimazole 10 mg PO 5XD@06,10,14,18,08/23/20 08/23/20 History Cyclobenzaprine [Flexeril] 5 mg PO TID@0600,1400,22008/23/20 08/23/20 History Famotidine [Pepcid] 20 mg PO BID@1130,0 08/23/20 08/23/20 History HYDROcodone/APAP 10-325MG [[place] 1 tab PO Q6HR@06,12,,08/23/20 08/23/20 History 10-325] Metoprolol Tartrate [Lopressor] 25 mg PO TID@0600,1400,2200 08/23/20 08/23/20 History OLANZapine [ZyPREXA] 5 mg PO HS@2200 08/23/20 08/23/20 History Ondansetron [Zofran] 4 mg PO QID@06,12,,22 08/23/20 08/23/20 History Spironolactone [Aldactone] 50 mg PO DAILY 08/23/20 08/23/20 History dexAMETHasone [Dexamethasone] 4 mg PO MOWESA 08/23/20 08/23/20 History levETIRAcetam [Keppra] 250 mg PO BID@0600,1800 08/23/20 08/23/20 History Allergies Allergy/AdvReac Type Severity Reaction Status Date / Time aspirin AdvReac GI upset Verified 08/23/20 10:27 monosodium glutamate [MSG] AdvReac GI upset Verified 08/23/20 10:27 Physical Exam Vitals: Vital Signs Temp Pulse Resp BP Pulse Ox 08/23/20 12:00 165 H 32 H 107/70 97 08/23/20 11:45 154 H 32 H 106/66 89 L 08/23/20 11:30 156 H 33 H 112/43 08/23/20 11:15 102.9 F H 154 H 32 H 103/77 94 L 08/23/20 11:00 140 H 30 H 111/74 92 L 08/23/20 10:45 141 H 30 H 96 08/23/20 10:37 102.1 F H 08/23/20 10:30 142 H 30 H 87 L 08/23/20 10:00 140 H 24 115/81 94 L 08/23/20 09:45 135 H 16 131/91 95 08/23/20 09:30 154 H 16 117/83 100 08/23/20 09:15 147 H 16 110/78 100 08/23/20 09:00 154 H 16 132/84 100 08/23/20 08:45 154 H 16 157/106 100 08/23/20 08:30 138 H 19 145/105 100 08/23/20 08:26 154 H 16 132/98 100 08/23/20 08:25 30 H 08/23/20 08:16 103.7 F H 134 H 24 122/93 98 08/23/20 08:15 26 H Intake and Output 08/22/20 08/23/20 08/23/20 22:59 06:59 14:59 Intake Total 1138.29 Output Total 100 Balance 1038.29 Intake: IV 1130 Sodium Chloride 0.9% 1, 1130 000 ml @ 130 mls/hr IV . Q7H42M [facility] Rx#:[id number] Intake, IV Titration 8.29 Amount propofoL 1,000 mg In 8.29 Empty Bag 1 bag @ Titrate IV .Q0M [facility] Rx#: [id number] Output: Urine 100 Other: Weight 48.761 kg Results CBC & Chem 7: 08/23/20 08:32 08/23/20 08:32 Labs: Abnormal Lab Results - Last 24 Hours (Table) 08/23/20 08/23/20 08/23/20 Range/Units 08:32 08:32 08:32 WBC 0.6 L* (3.8-10.6) k/uL RBC 3.47 L (3.80-5.40) m/uL Hgb 10.6 L (11.4-16.0) gm/dL Hct 32.8 L (34.0-46.0) % Plt Count 6 L* D (150-450) k/uL ABG pH (7.35-7.45) ABG pCO2 (35-45) mmHg ABG pO2 (83-108) mmHg ABG HCO3 (21-25) mmol/L ABG O2 Saturation (94-97) % Sodium 128 L (137-145) mmol/L Chloride 96 L (98-107) mmol/L BUN 24 H (7-17) mg/dL Creatinine 0.45 L (0.52-1.04) mg/dL Glucose 111 H (74-99) mg/dL POC Glucose (mg/dL) (75-99) mg/dL Plasma Lactic Acid Uday 3.2 H* (0.7-2.0) mmol/L Calcium 7.3 L (8.4-10.2) mg/dL Total Bilirubin 1.8 H (0.2-1.3) mg/dL AST 73 H (14-36) U/L ALT 58 H (4-34) U/L Alkaline Phosphatase 152 H (38-126) U/L Total Protein 5.2 L (6.3-8.2) g/dL Albumin 2.6 L (3.5-5.0) g/dL Urine Appearance (Clear) Urine Protein (Negative) Urine Ketones (Negative) Urine Blood (Negative) Ur Leukocyte Esterase (Negative) Urine RBC (0-5) /hpf Urine WBC (0-5) /hpf Urine WBC Clumps (None) /hpf Urine Bacteria (None) /hpf Urine Mucus (None) /hpf 08/23/20 08/23/20 08/23/20 Range/Units 08:44 09:24 11:06 WBC (3.8-10.6) k/uL RBC (3.80-5.40) m/uL Hgb (11.4-16.0) gm/dL Hct (34.0-46.0) % Plt Count (150-450) k/uL ABG pH 7.46 H (7.35-7.45) ABG pCO2 32 L (35-45) mmHg ABG pO2 374 H (83-108) mmHg ABG HCO3 (21-25) mmol/L ABG O2 Saturation 100.0 H (94-97) % Sodium (137-145) mmol/L Chloride (98-107) mmol/L BUN (7-17) mg/dL Creatinine (0.52-1.04) mg/dL Glucose (74-99) mg/dL POC Glucose (mg/dL) (75-99) mg/dL Plasma Lactic Acid Uday 2.3 H* (0.7-2.0) mmol/L Calcium (8.4-10.2) mg/dL Total Bilirubin (0.2-1.3) mg/dL AST (14-36) U/L ALT (4-34) U/L Alkaline Phosphatase (38-126) U/L Total Protein (6.3-8.2) g/dL Albumin (3.5-5.0) g/dL Urine Appearance Turbid H (Clear) Urine Protein 4+ H (Negative) Urine Ketones Trace H (Negative) Urine Blood Small H (Negative) Ur Leukocyte Esterase Moderate H (Negative) Urine RBC 43 H (0-5) /hpf Urine WBC 34 H (0-5) /hpf Urine WBC Clumps Moderate H (None) /hpf Urine Bacteria Many H (None) /hpf Urine Mucus Rare H (None) /hpf 08/23/20 08/23/20 Range/Units 11:37 13:00 WBC (3.8-10.6) k/uL RBC (3.80-5.40) m/uL Hgb (11.4-16.0) gm/dL Hct (34.0-46.0) % Plt Count (150-450) k/uL ABG pH 7.46 H (7.35-7.45) ABG pCO2 28 L (35-45) mmHg ABG pO2 >400 H (83-108) mmHg ABG HCO3 20 L (21-25) mmol/L ABG O2 Saturation 100.0 H (94-97) % Sodium (137-145) mmol/L Chloride (98-107) mmol/L BUN (7-17) mg/dL Creatinine (0.52-1.04) mg/dL Glucose (74-99) mg/dL POC Glucose (mg/dL) 113 H (75-99) mg/dL Plasma Lactic Acid Uday (0.7-2.0) mmol/L Calcium (8.4-10.2) mg/dL Total Bilirubin (0.2-1.3) mg/dL AST (14-36) U/L ALT (4-34) U/L Alkaline Phosphatase (38-126) U/L Total Protein (6.3-8.2) g/dL Albumin (3.5-5.0) g/dL Urine Appearance (Clear) Urine Protein (Negative) Urine Ketones (Negative) Urine Blood (Negative) Ur Leukocyte Esterase (Negative) Urine RBC (0-5) /hpf Urine WBC (0-5) /hpf Urine WBC Clumps (None) /hpf Urine Bacteria (None) /hpf Urine Mucus (None) /hpf
--- NOTE | 2020-08-23 22:08 | P.DS ---
Providers Date of admission: 08/23/20 10:44 Expected date of discharge: 08/23/20 Attending physician: Bayron De La Fuente Consults: 08/23/20 10:44 Consult Physician Stat Consulting Provider: Lora Elena Consult Reason/Comments: critical care Do you want consulting provider notified?: Already Contacted Consult Physician Urgent Consulting Provider: Aliyah Mackey Consult Reason/Comments: oncological care Do you want consulting provider notified?: Already Contacted Primary care physician: Marcia Garcia [facility] Course: Chief Complaint: Decreased responsiveness History of presenting complaint: This is a 55-year-old patient of Dr. Marcia Garcia. . Was admitted to the hospital May 2020 with abdominal mass. Acute COPD exacerbation. Also positive for COVID 19 by PCR. Patient subsequently followed up with oncology. Had a liver biopsy done. 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 in the hospital from July 14 through July 15. MRI of the brain showed metastatic disease in the brain. Bone scan was negative. Patient is offered to stay back and get hemotherapy but patient very keen to go home and come back. Admitted from 07/16/2020 through 08/07/2020. 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 Started on chemotherapy in the form of a etopside.-3 days Patient was given IV mannitol in the ER. Started on IV dexamethasone. Patient also receiving radiation treatment. Was discharged home with a plan to outpatient chemotherapy. Remained very weak in the legs. EMS was called out by the . Patient is not Able to take her medication and not responding. She did get a chemotherapy about a week ago. Patient became lethargic yesterday but today was not responding. Patient only re sponsive to painful stimuli. No purposeful movement was noted. Patient was transported with oxygen. Initially in the ER family did inform the ER physician that patient wanted everything to be done. Oncology in psychological stress evaluator was consulted. Initially they spoke to Dr. Elena. It was then switch Dr. Dr. Judie Whyte had taken care of the patient and the hospital recently. Patient was intubated. Subsequently extubated. at the bedside. After talking to the -patient has been on a morphine drip. Patient succumbed to underlying condition. Consultation: Dr. Carmelita Whyte-from psychological stress evaluator Dr. Mackey-from oncology Past medical history to include: Hormonal acne for which she takes Aldactone, trigger finger. COPD. 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 Smoker. No alcohol. INVESTIGATIONS, reviewed in the clinical context: White count 0.6 hemoglobin 10.6 platelets 6 sodium 128 potassium 4 bun 25 creatinine 0.45 Lactic acid 3.2 albumin 2.6 UA positive for leukoesterase WBC EKG tracing personally reviewed by me-sinus tachycardia Chest x-ray film personally reviewed by me-questionable left hilar infiltrate Computed tomography scan of the brain-unremarkable July 10 biopsy results-metastatic small cell neuroendocrine tumor Cause of : -Small cell neuroendocrine tumor felt to be primary lung Assessment: -Patient doing very poorly. Actively dying. Any treatments likely to be futile. 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 Negative on this admission -Hyponatremia Disposition: Patient Patient Condition at Discharge: Stable Plan - Discharge Summary New Discharge Prescriptions: No Action Calcium Carb-Vit D 500Mg-5Mcg [Oscal 500+D 5 Mcg (200 Iu)] 2 tab PO DAILY Budesonide-Formot 160-4.5 Mcg [Symbicort 160-4.5 Mcg Inhaler] 1 puff INHALATION RT-BID #1 puff Albuterol Inhaler [Ventolin Hfa Inhaler] 2 puff INHALATION RT-Q4H PRN PRN Reason: Wheezing fentaNYL 50MCG/HR PATCH [Duragesic 50MCG/HR] 1 patch TRANSDERM Q72H 30 Days patch Nicotine 21Mg/24Hr Patch [Habitrol] 1 patch TRANSDERM DAILY #14 patch Ondansetron [Zofran] 4 mg PO QID@06,12,17,22 Calcium 1,000mg See Taper PO DIRECTED Clotrimazole 10 mg PO 5XD@06,10,14,18,22 Metoprolol Tartrate [Lopressor] 25 mg PO TID@0600,1400,2200 levETIRAcetam [Keppra] 250 mg PO BID@0600,1800 HYDROcodone/APAP 10-325MG [[place]to[place] 10-325] 1 tab PO Q6HR@,,, Famotidine [Pepcid] 20 mg PO BID@1130,2130 Cyclobenzaprine [Flexeril] 5 mg PO TID@0600,1400,2200 ALPRAZolam [Xanax] 0.5 mg PO TID@0600,1400,2200 OLANZapine [ZyPREXA] 5 mg PO HS@2200 dexAMETHasone [Dexamethasone] 4 mg PO MOWESA Spironolactone [Aldactone] 50 mg PO DAILY Discharge Medication List Calcium Carb-Vit D 500Mg-5Mcg [Oscal 500+D 5 Mcg (200 Iu)] 2 tab PO DAILY 10/31/16 [History] Budesonide-Formot 160-4.5 Mcg [Symbicort 160-4.5 Mcg Inhaler] 1 puff INHALATION RT-BID #1 puff 06/19/20 [Rx] Albuterol Inhaler [Ventolin Hfa Inhaler] 2 puff INHALATION RT-Q4H PRN 07/13/20 [History] Nicotine 21Mg/24Hr Patch [Habitrol] 1 patch TRANSDERM DAILY #14 patch 08/07/20 [Rx] fentaNYL 50MCG/HR PATCH [Duragesic 50MCG/HR] 1 patch TRANSDERM Q72H 30 Days patch 08/07/20 [Rx] ALPRAZolam [Xanax] 0.5 mg PO TID@0600,1400,2200 08/23/20 [History] Calcium 1,000mg See Taper PO DIRECTED 08/23/20 [History] Clotrimazole 10 mg PO 5XD@06,10,14,18,22 08/23/20 [History] Cyclobenzaprine [Flexeril] 5 mg PO TID@0600,1400,2200 08/23/20 [History] Famotidine [Pepcid] 20 mg PO BID@1130,2130 08/23/20 [History] HYDROcodone/APAP 10-325MG [[place] 10-325] 1 tab PO Q6HR@06,12,17,08/23/20 [History] Metoprolol Tartrate [Lopressor] 25 mg PO TID@0600,1400,2200 08/23/20 [History] OLANZapine [ZyPREXA] 5 mg PO HS@219908/23/20 [History] Ondansetron [Zofran] 4 mg PO QID@06,12,,08/23/20 [History] Spironolactone [Aldactone] 50 mg PO DAILY 08/23/20 [History] dexAMETHasone [Dexamethasone] 4 mg PO MOWESA 08/23/20 [History] levETIRAcetam [Keppra] 250 mg PO BID@0600,1800 08/23/20 [History] Follow up Appointment(s)/Referral(s): None,Stated [REFERRING] - 1-2 days Discharge Disposition: - Preliminary Cause of Preliminary Cause of : Small cell neuroendocrine anesthetic tumor of the lung
--- NOTE | 2020-08-23 22:08 | P.CNPUL ---
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, patient has extended his stay in the hospital in June and early part of July was discharged on July 07, she has been on chemotherapy and radiation therapy without any significant benefit she has paraplegia large liver she presented into the hospital with altered mental status severe thrombocytopenia and neutropenia last chemotherapy was 1 week ago, her white cell count is 600 with platelet count of 6000 only, patient was intubated in the ER for airway protection admitted into the ICU, initial consultation with another residential roofer, it appears that he discussed with the family and decided to make her a no code, patient continued to be tachycardic and hypertensive has been on levo fed with crystalloid resuscitation and boluses without any significant improvement, blood cultures are positive for gram-negative rods likely source was urinary tract infection, patient was treated with broad-spectrum antibiotics with IV cephapirin and continuation of filgrastim, platelet transfusion was requested, levo fed was given, at that point decided to make patient comfort care only Review of Systems ROS unobtainable: due to endotracheal tube Past Medical History Past Medical History: No Reported History Additional Past Medical History / Comment(s): takes aldactone for hormonal acne, recent admit for abdominal pain(Liver mass being investigated)and positive for COVID (Jun 18). History of Any Multi-Drug Resistant Organisms: None Reported Past Surgical History: Orthopedic Surgery, Tubal Ligation Additional Past Surgical History / Comment(s): right knee, trigger finger, sinus surgeries x3 back in 1989. cyst surgies wrist/arm. Rt breast biopsy- benign. Past Anesthesia/Blood Transfusion Reactions: No Reported Reaction Past Psychological History: No Psychological Hx Reported Smoking Status: Current every day smoker Past Alcohol Use History: Occasional Past Drug Use History: None Reported - Past Family History Father Family Medical History: Coronary Artery Disease (CAD) Medications and Allergies Home Medications Medication Instructions Recorded Confirmed Type Calcium Carb-Vit D 500Mg-5Mcg 2 tab PO DAILY 10/31/16 08/23/20 History [Oscal 500+D 5 Mcg (200 Iu)] Budesonide-Formot 160-4.5 Mcg 1 puff INHALATION RT-BID #1 puff 06/19/20 08/23/20 Rx [Symbicort 160-4.5 Mcg Inhaler] Albuterol Inhaler [Ventolin Hfa 2 puff INHALATION RT-Q4H PRN 07/13/20 08/23/20 History Inhaler] Nicotine 21Mg/24Hr Patch [Habitrol] 1 patch TRANSDERM DAILY #14 patch 08/07/20 08/23/20 Rx fentaNYL 50MCG/HR PATCH [Duragesic 1 patch TRANSDERM Q72H 30 Days 08/07/20 08/23/20 Rx 50MCG/HR] patch ALPRAZolam [Xanax] 0.5 mg PO TID@0600,1400,2200 08/23/20 08/23/20 History Calcium 1,000mg See Taper PO DIRECTED 08/23/20 08/23/20 History Clotrimazole 10 mg PO 5XD@06,10,14,18,08/23/20 08/23/20 History Cyclobenzaprine [Flexeril] 5 mg PO TID@0600,1400,22008/23/20 08/23/20 History Famotidine [Pepcid] 20 mg PO BID@1130,2130 08/23/20 08/23/20 History HYDROcodone/APAP 10-325MG [[place] 1 tab PO Q6HR@06,,,08/23/20 08/23/20 History 10-325] Metoprolol Tartrate [Lopressor] 25 mg PO TID@0600,1400,2200 08/23/20 08/23/20 History OLANZapine [ZyPREXA] 5 mg PO HS@219908/23/20 08/23/20 History Ondansetron [Zofran] 4 mg PO QID@06,12,,08/23/20 08/23/20 History Spironolactone [Aldactone] 50 mg PO DAILY 08/23/20 08/23/20 History dexAMETHasone [Dexamethasone] 4 mg PO MOWESA 08/23/20 08/23/20 History levETIRAcetam [Keppra] 250 mg PO BID@0600,1800 08/23/20 08/23/20 History Allergies Allergy/AdvReac Type Severity Reaction Status Date / Time aspirin AdvReac GI upset Verified 08/23/20 10:27 monosodium glutamate [MSG] AdvReac GI upset Verified 08/23/20 10:27 Physical Exam Vitals: Vital Signs Temp Pulse Resp BP Pulse Ox 08/23/20 14:30 0 L 0 L 08/23/20 14:15 0 L 0 L 08/23/20 14:00 152 H 19 49/29 84 L 08/23/20 13:45 133 H 21 74/38 100 08/23/20 13:30 161 H 25 H 90/28 100 08/23/20 13:15 165 H 29 H 107/75 08/23/20 13:00 160 H 21 112/81 08/23/20 12:45 154 H 22 94/67 08/23/20 12:30 163 H 25 H 90/51 99 08/23/20 12:15 165 H 29 H 71/53 93 L 08/23/20 12:00 165 H 33 H 107/70 97 08/23/20 11:45 154 H 32 H 106/66 89 L 08/23/20 11:30 156 H 33 H 112/43 08/23/20 11:15 102.9 F H 154 H 32 H 103/77 94 L 08/23/20 11:00 140 H 30 H 111/74 92 L 08/23/20 10:45 141 H 30 H 96 08/23/20 10:37 102.1 F H 08/23/20 10:30 142 H 30 H 87 L 08/23/20 10:00 140 H 24 115/81 94 L 08/23/20 09:45 135 H 16 131/91 95 08/23/20 09:30 154 H 16 117/83 100 08/23/20 09:15 147 H 16 110/78 100 08/23/20 09:00 154 H 16 132/84 100 08/23/20 08:45 154 H 16 157/106 100 08/23/20 08:30 138 H 19 145/105 100 08/23/20 08:26 154 H 16 132/98 100 08/23/20 08:25 30 H 08/23/20 08:16 103.7 F H 134 H 24 122/93 98 08/23/20 08:15 26 H Intake and Output 08/23/20 08/23/20 08/23/20 06:59 14:59 22:59 Intake Total 1278.395 Output Total 240 Balance 1038.395 Intake: IV 1260 Sodium Chloride 0.9% 1, 1260 000 ml @ 130 mls/hr IV . Q7H42M STA Rx#:[id number] Intake, IV Titration 18.395 Amount Morphine Sulfate (100 mg/ 0.816 2 ml) 100 mg In Sodium Chloride 0.9% 100 ml @ 1 MG/HR 1.02 mls/hr IV . Q24H JENNY Rx#:[id number] Norepinephrine 4 mg In 9.289 Sodium Chloride 0.9% 250 ml @ 0.05 MCG/KG/MIN 9. 289 mls/hr IV .Q24H JENNY Rx#:[id number] propofoL 1,000 mg In 8.29 Empty Bag 1 bag @ Titrate IV .Q0M JENNY Rx#: [id number] Output: Urine 240 Other: Weight 48.761 kg Intubated on full mechanical support sedated with propofol drip epistaxis and mucosal bleeding from the nose and mouth present Results - Laboratory Findings CBC and BMP: 08/23/20 08:32 08/23/20 08:32 ABG ABG pH 7.46 (7.35-7.45) H 08/23/20 13:00 ABG pCO2 28 mmHg (35-45) L 08/23/20 13:00 ABG pO2 >400 mmHg (83-108) H 08/23/20 13:00 ABG O2 Saturation 100.0 % (94-97) H 08/23/20 13:00 PT/INR, D-dimer PT 11.9 sec (9.0-12.0) 08/23/20 08:32 INR 1.1 (<1.2) 08/23/20 08:32 Abnormal lab findings: Abnormal Labs 08/23/20 08/23/20 08/23/20 08:32 08:32 08:32 WBC 0.6 L* RBC 3.47 L Hgb 10.6 L Hct 32.8 L Plt Count 6 L* D ABG pH ABG pCO2 ABG pO2 ABG HCO3 ABG O2 Saturation Sodium 128 L Chloride 96 L BUN 24 H Creatinine 0.45 L Glucose 111 H POC Glucose (mg/dL) Plasma Lactic Acid Uday 3.2 H* Calcium 7.3 L Total Bilirubin 1.8 H AST 73 H ALT 58 H Alkaline Phosphatase 152 H Total Protein 5.2 L Albumin 2.6 L Urine Appearance Urine Protein Urine Ketones Urine Blood Ur Leukocyte Esterase Urine RBC Urine WBC Urine WBC Clumps Urine Bacteria Urine Mucus 08/23/20 08/23/20 08/23/20 08:44 09:24 11:06 WBC RBC Hgb Hct Plt Count ABG pH 7.46 H ABG pCO2 32 L ABG pO2 374 H ABG HCO3 ABG O2 Saturation 100.0 H Sodium Chloride BUN Creatinine Glucose POC Glucose (mg/dL) Plasma Lactic Acid Uday 2.3 H* Calcium Total Bilirubin AST ALT Alkaline Phosphatase Total Protein Albumin Urine Appearance Turbid H Urine Protein 4+ H Urine Ketones Trace H Urine Blood Small H Ur Leukocyte Esterase Moderate H Urine RBC 43 H Urine WBC 34 H Urine WBC Clumps Moderate H Urine Bacteria Many H Urine Mucus Rare H 08/23/20 08/23/20 11:37 13:00 WBC RBC Hgb Hct Plt Count ABG pH 7.46 H ABG pCO2 28 L ABG pO2 >400 H ABG HCO3 20 L ABG O2 Saturation 100.0 H Sodium Chloride BUN Creatinine Glucose POC Glucose (mg/dL) 113 H Plasma Lactic Acid Uday Calcium Total Bilirubin AST ALT Alkaline Phosphatase Total Protein Albumin Urine Appearance Urine Protein Urine Ketones Urine Blood Ur Leukocyte Esterase Urine RBC Urine WBC Urine WBC Clumps Urine Bacteria Urine Mucus - Diagnostic Findings Chest x-ray: report reviewed, image reviewed (Reviewed chest x-ray with NG tube stable ET tube to be pulled back) Assessment and Plan Assessment: Severe pancytopenia with thrombocytopenia and neutropenia Gram-negative sepsis Acute septic shock Metastatic small cell lung cancer to the liver and spine with paraplegia Plan: Patient initially supported with intubation and mechanical ventilation sedation vasopressors crystalloids however as per her wishes of her terminally weaned Time with Patient: Greater than 30
--- NOTE | 2020-08-26 14:32 | CDI ---
Documentation Clarification Form Date: 08/26/2020 02:12:39 PM From: Catia Samaniego RN, CCDS Admit Date: 08/23/2020 10:44:00 AM Patient Name: Jen Interiano Visit Number: [id number] Discharge Date: 08/23/2020 03:18:00 PM ATTENTION: The Clinical Documentation Specialists (CDI) and [facility] Coding Staff appreciate your assistance in clarifying documentation. Please respond to the clarification below the line at the bottom and electronically sign. The CDI & [facility] Coding staff will review the response and follow-up if needed. Please note: Queries are made part of the Legal Health Record. If you have any questions, please contact the author of this message via ITS. Dr. Bayron De La Fuente The patient presented with Respiratory Failure and was placed on mechanical ventilation on admission. Please indicate an acuity of the respiratory failure to accurately reflect the patient's SOI/ROM. 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, right kidney, brain, and spinal cord with paraplegia, COPD, Gram negative sepsis with septic shock this admission Tobacco use: current smoker Home oxygen: none documented Clinical Indicators: 08/23 ED: Note: UTI (urinary tract infection), Sepsis, Metastatic malignant neoplasm to lung, Respiratory failure, Thrombocytopenia, Leukopenia." 08/23/2019 0816 Admission Vital signs: Temp 103.7, HR 134, RR 24-30, B/P 122/93, Spo2 98% on 100% NRB 08/23 H&P: Lung/Breathing assessment: "LUNGS: Respiratory rate increased, decreased breath sounds." ABG/CBG: pH 7.46 pO2 374 pCO2 32 Lactate -1.3 on 100% FIO2 Treatment: Intubated in EC and placed on Mechanical vent Breathing TX: not ordered Continuous Pulse ox per ICU Protocol In your professional opinion, can you please clarify if these findings signify one of the following conditions? Acute Respiratory Failure (specify hypoxic/hypercapnic) Acute on Chronic Respiratory Failure (specify hypoxic/hypercapnic) Other Diagnosis, please specify Unable to determine (Last Query Form Revision: March 2019) Acute hypoxic respiratory failure MTDD
--- NOTE | 2020-08-26 14:54 | CDI ---
Documentation Clarification Form Date: 08/26/2020 02:36:40 PM From: Catia Samaniego RN, CCDS Admit Date: 08/23/2020 10:44:00 AM Patient Name: Jen Interiano Visit Number: [id number] Discharge Date: 08/23/2020 03:18:00 PM ATTENTION: The Clinical Documentation Specialists (CDI) and [facility] Coding Staff appreciate your assistance in clarifying documentation. Please respond to the clarification below the line at the bottom and electronically sign. The CDI & [facility] Coding staff will review the response and follow-up if needed. Please note: Queries are made part of the Legal Health Record. If you have any questions, please contact the author of this message via ITS. Dr. Bayron De La Fuente A diagnosis of UTI has been documented in the H&P and D/C Summary ad requires further specificity as nursing has documented that the patient was admitted with a chronic Cortes catheter. History/Risk Factors: Per documentation in the 08/23 1200 Nursing Urinary catheter assessments, this patient was admitted with an indwelling Cortes catheter. Clinical Indicators: 08/23 H&P and D/C Summary: "UTI with sepsis" Urinalysis: red, turbid, +4 protein, trace ketones, small amount of blood, moderate leukocyte esterase, 43 RBC, 34 WBC, moderate WBC clumps, many bacteria, rare mucus Urine culture: + E. coli Lab results: WBC 0.6 Treatment: IVPB Cefepime 2gm IVPB x 1 dose IVPB Ceftriaxone 1gm IVPB OT In your professional opinion, can you please clarify the etiology of the UTI, if known? Chronic Cortes catheter related UTI UTI is not Cortes catheter related Other condition, please specify Unable to determine If an infective organism is present, please specify cause and effect relationship if applicable. (Last Revision: October 2017) Chronic Cortes catheter related UTI MTDD
--- NOTE | 2020-08-26 15:06 | CDI ---
Documentation Clarification Form Date: 08/26/2020 02:55:27 PM From: Catia Samaniego RN, CCDS Admit Date: 08/23/2020 10:44:00 AM Patient Name: Jen Interiano Visit Number: [id number] Discharge Date: 08/23/2020 03:18:00 PM ATTENTION: The Clinical Documentation Specialists (CDI) and [facility] Coding Staff appreciate your assistance in clarifying documentation. Please respond to the clarification below the line at the bottom and electronically sign. The CDI & [facility] Coding staff will review the response and follow-up if needed. Please note: Queries are made part of the Legal Health Record. If you have any questions, please contact the author of this message via ITS. Dr. Bayron De La Fuente Altered Mental Status was documented in the EC Note and Pulmonary Consult and requires further specificity to accurately reflect patient SOI/ROM. History/Risk Factors: Neuroendocrine lung CA with mets to spine, brain, liver, and right kidney with paraplegia and vasogenic edema receiving chemotherapy, COPD, anxiety, hyponatremia, UTI with sepsis Clinical Indicators: 08/23 ED Note HPI: "Patient is a 55-year-old female presenting to the emergency Department with difficulty breathing and altered mental status." 08/23 Pulmonary Consult: "she has been on chemotherapy and radiation therapy without any significant benefit she has paraplegia large liver she presented into the hospital with altered mental status severe thrombocytopenia and neutropenia last chemotherapy was 1 week ago, her white cell count is 600 with platelet count of 6000 only, patient was intubated in the ER for airway protection admitted into the ICU." 08/23 H&P and D/C Summary: "Patient became lethargic yesterday but today was not responding." Labs: WBC: 0.6, Hgb: 10.6, Na+:128, BUN: 24, Lactic Acid: 2.3 U/A: + 08/23 CT Brain: No acute intracranial process. 2. Clinical correlation recommended for left maxillary sinusitis." Treatment: Mechanical ventilation 08/23 0.9%NS IVF Bolus 1.5L followed by 130 cc/hr. IVPB Cefepime 2gm OT IVPB Ceftriaxone 1gm OT In your professional opinion, please clarify the etiology of the Altered Mental Status, if known. Metabolic encephalopathy (specify underlying cause if known) Toxic Encephalopathy (specify underlying cause if known) Other condition (please specify) Unable to determine (Last Revision: October 2017) Toxic and metabolic encephalopathy, from UTI causing sepsis MTDD
== END 2020-08-23 15:18 | disposition expired | DRG 871 ==
LOC: EC 08:12 → 2SICU 10:44
PROVIDERS: ADMIT Hospitalist; ATTEND Hospitalist
DX: A41.50 Gram-negative sepsis, unspecified (principal); G93.6 Cerebral edema; R65.21 Severe sepsis with septic shock; J96.01 Acute respiratory failure with hypoxia; G92 Toxic encephalopathy; D61.818 Other pancytopenia; J44.1 Chronic obstructive pulmonary disease with (acute) exacerbation; G82.20 Paraplegia, unspecified; C7B.8 Other secondary neuroendocrine tumors; T83.511A Infection and inflammatory reaction due to indwelling urethral catheter, initial encounter; E87.1 Hypo-osmolality and hyponatremia; C7A.8 Other malignant neuroendocrine tumors; N39.0 Urinary tract infection, site not specified; D70.1 Agranulocytosis secondary to cancer chemotherapy; L89.152 Pressure ulcer of sacral region, stage 2; D70.9 Neutropenia, unspecified; Z66 Do not resuscitate; Z51.5 Encounter for palliative care; Z20.822 Contact with and (suspected) exposure to COVID-19; R50.81 Fever presenting with conditions classified elsewhere; R04.0 Epistaxis; T45.1X5A Adverse effect of antineoplastic and immunosuppressive drugs, initial encounter; F43.22 Adjustment disorder with anxiety; F17.210 Nicotine dependence, cigarettes, uncomplicated; Z79.51 Long term (current) use of inhaled steroids; Z79.891 Long term (current) use of opiate analgesic; Z79.899 Other long term (current) drug therapy; Z86.16 Personal history of COVID-19; Z87.2 Personal history of diseases of the skin and subcutaneous tissue; Z87.39 Personal history of other diseases of the musculoskeletal system and connective tissue; Z87.09 Personal history of other diseases of the respiratory system; Z98.51 Tubal ligation status; Z98.890 Other specified postprocedural states; Z88.6 Allergy status to analgesic agent; Z91.02 Food additives allergy status; Z82.49 Family history of ischemic heart disease and other diseases of the circulatory system
CPT/HCPCS: 31500; 36415; 36600; 70450; 71045; 80053; 81001; 82805; 83605; 83880; 84484; 85025; 85610; 85730; 86850; 86900; 86901; 87040; 87070; 87077; 87086; 87186; 87205; 87635; 93005; 94002; 96365; 96366; 96367; 96368; 96375; 99291